=== PATIENT | male | born 1945 | race Caucasian/White ===

== ENCOUNTER → 2020-06-27 10:12 | Outpatient (BNVA) | payer MEDICARE, OTHER, SELFPAY | PROVIDERS: PCP Internal Medicine; Referring Provider Internal Medicine; Visit Provider Hospitalist | DX: J43.2 Centrilobular emphysema (principal); R91.8 Other nonspecific abnormal finding of lung field; I26.93 Single subsegmental thrombotic pulmonary embolism without acute cor pulmonale; Z99.89 Dependence on other enabling machines and devices | CPT/HCPCS: 99212 ==

== ENCOUNTER 2020-10-24 08:45 | Outpatient (REF) | payer MEDICARE, OTHER, SELFPAY ==
--- NOTE | 2020-10-24 17:24 | PFT_ITS ---
FLOWS: FEV1 of 92% of predicted at 3.02 L. FVC 82% of predicted at 3.70 L. FEV1 to FVC ratio of 0.82. No bronchodilator response. LUNG VOLUMES: Total lung capacity 87% of predicted at 6.33 L. Residual volume 91% of predicted at 2.35 L. Slow vital capacity 85% of predicted at 3.98 L. Expiratory reserve volume 15% of predicted at 0.20 L. Diffusion capacity is mildly decreased. IMPRESSION: No obstructive or restrictive ventilatory defect. No bronchodilator response. Decreased expiratory reserve volume suggests extrathoracic restriction likely secondary to abdominal obesity. Decreased diffusion capacity suggests emphysema. MD CHRIS Schultz/MODL / [id number]
== END 2020-10-24 08:46 | disposition home or self-care (01) ==
LOC: HO.RESP 08:45
PROVIDERS: PCP Internal Medicine; Visit Provider Hospitalist
DX: J43.2 Centrilobular emphysema (principal)
CPT/HCPCS: 94060; 94727; 94729; 99212

== ENCOUNTER → 2021-04-06 13:36 | Outpatient (BNVA) | payer MEDICARE, OTHER, SELFPAY | PROVIDERS: Visit Provider Orthopaedic Surgery | DX: M17.12 Unilateral primary osteoarthritis, left knee (principal); Z96.651 Presence of right artificial knee joint | CPT/HCPCS: 20610; 99212; J1100 ==

== ENCOUNTER → 2021-05-01 09:39 | Outpatient (BNVA) | payer MEDICARE, OTHER, SELFPAY | PROVIDERS: Visit Provider Hospitalist | DX: R91.8 Other nonspecific abnormal finding of lung field (principal); J43.2 Centrilobular emphysema; G47.33 Obstructive sleep apnea (adult) (pediatric); I26.93 Single subsegmental thrombotic pulmonary embolism without acute cor pulmonale; Z99.89 Dependence on other enabling machines and devices | CPT/HCPCS: 99212 ==

== ENCOUNTER → 2021-10-07 09:00 | Outpatient (BNVA) | payer MEDICARE, OTHER, SELFPAY | PROVIDERS: PCP Internal Medicine; Visit Provider Nurse Practitioner Family | DX: G56.02 Carpal tunnel syndrome, left upper limb (principal); G25.9 Extrapyramidal and movement disorder, unspecified; R42 Dizziness and giddiness; G47.33 Obstructive sleep apnea (adult) (pediatric); Z99.89 Dependence on other enabling machines and devices | CPT/HCPCS: 99212 ==

== ENCOUNTER 2021-10-27 13:46 | Outpatient (REF) | payer MEDICARE, OTHER, SELFPAY ==
--- NOTE | ~2021-10-27 | XR_ITS ---
EXAMINATION: XR CHEST CLINICAL INFORMATION: Dyspnea. COMPARISON: None TECHNIQUE: 2 views of the chest were obtained. FINDINGS: No significant abnormality is noted involving the heart, lungs, mediastinum, bony thorax or soft tissues. XR/XR chest 2V IMPRESSION: Unremarkable chest examination.
--- NOTE | 2021-10-27 14:41 | ECG_ITS ---
Test Reason : J44.9 COPD Blood Pressure : / mmHG Vent. Rate : 073 BPM Atrial Rate : 073 BPM P-R Int : 170 ms QRS Dur : 072 ms QT Int : 402 ms P-R-T Axes : 057 -27 062 degrees QTc Int : 442 ms Normal sinus rhythm Normal ECG When compared with ECG of 23-NOV-2018 11:20, Nonspecific T wave abnormality now evident in Lateral leads Referred By: Kingston Todd Electronically Signed By:REMI ADAMES MD
== END 2021-10-27 13:47 | disposition home or self-care (01) ==
LOC: HO.XRAY 13:46
PROVIDERS: PCP Internal Medicine; Visit Provider Hospitalist
DX: R06.00 Dyspnea, unspecified (principal); G47.33 Obstructive sleep apnea (adult) (pediatric); J43.2 Centrilobular emphysema; R91.8 Other nonspecific abnormal finding of lung field; I26.93 Single subsegmental thrombotic pulmonary embolism without acute cor pulmonale; Z99.89 Dependence on other enabling machines and devices
CPT/HCPCS: 71046; 93005; 99212

== ENCOUNTER 2021-11-26 06:57 | Outpatient (REF) | payer MEDICARE, OTHER, SELFPAY ==
--- NOTE | ~2021-11-26 | XR_ITS ---
EXAMINATION: XR PELVIS CLINICAL INFORMATION: Hip pain. COMPARISON: None TECHNIQUE: AP view of the pelvis. FINDINGS: There is no evidence of acute fracture or diastasis of the pelvis. No acute fracture or dislocation is appreciated on this single AP view of the hips. There is some spurring about the inferior hip joints bilaterally. No abnormality of the femoral heads is appreciated. There is partial sacralization of the right side of L5 with some sclerotic change about the right-sided sacroiliac joint. There appears to be degenerative disc disease and facet arthropathy at the L4-L5 level. XR/XR pelvis 1-2V IMPRESSION: No acute fracture or diastasis of the pelvis. Degenerative change of both hip joints inferiorly. Partial sacralization right side of L5 with degenerative change L4 through S1.
--- NOTE | ~2021-11-26 | XR_ITS ---
EXAMINATION: XR FOOT, RIGHT CLINICAL INFORMATION: Pain in right foot. COMPARISON: None TECHNIQUE: AP, lateral, and oblique views of the right foot. FINDINGS: There is no visible acute fracture, dislocation or subluxation seen. The joint spaces are maintained normal. No bony erosive changes. There is mild dorsal distal foot soft tissue swelling. XR/XR foot RT min 3V IMPRESSION: Mild dorsal distal foot soft tissue swelling. No visible acute fracture or dislocation seen.
== END 2021-11-26 06:58 | disposition home or self-care (01) ==
LOC: HO.HOSX 06:57
PROVIDERS: Visit Provider Orthopaedic Surgery
DX: M79.671 Pain in right foot (principal); M70.62 Trochanteric bursitis, left hip; M47.9 Spondylosis, unspecified; M79.89 Other specified soft tissue disorders
CPT/HCPCS: 72170; 73630; 99212

== ENCOUNTER 2021-12-28 09:13 | Outpatient (REF) | payer MEDICARE, OTHER, SELFPAY ==
--- NOTE | ~2021-12-28 | XR_ITS ---
EXAMINATION: XR LUMBAR SPINE XR SI JOINT CLINICAL INFORMATION: Spondylosis without myelopathy or radiculopathy. COMPARISON: None TECHNIQUE: Lumbar spine 5 views. SI joint 3 views. FINDINGS: There is normal lumbar lordosis. The vertebral heights and alignment are normal. There is loss of L2-L3 disc height with moderate ventral spondylosis. No lytic or sclerotic process seen. Mild loss of L5-S1 disc height is noted with right sacralization of the L5 vertebra. No visible acute fracture, dislocation seen. No lytic process. There is mild L4-L5 facet joint arthropathy and hypertrophy. SI Joints: There is normal symmetry of bilateral SI joints. No visible acute fracture or bony abnormality seen. No lytic or sclerotic process seen. The soft tissues are normal. XR/XR sacroiliac joint min 3V IMPRESSION: Degenerative disc changes at the L2-L3 and L5-S1 disc levels. There is moderate ventral bridging osteophytes at L2-L3 and mild ventral spondylosis at the L3-L4 disc level. No acute fracture or dislocation. No lytic process. The SI joints are symmetrical and unremarkable.
--- NOTE | ~2021-12-28 | XR_ITS ---
EXAMINATION: XR LUMBAR SPINE XR SI JOINT CLINICAL INFORMATION: Spondylosis without myelopathy or radiculopathy. COMPARISON: None TECHNIQUE: Lumbar spine 5 views. SI joint 3 views. FINDINGS: There is normal lumbar lordosis. The vertebral heights and alignment are normal. There is loss of L2-L3 disc height with moderate ventral spondylosis. No lytic or sclerotic process seen. Mild loss of L5-S1 disc height is noted with right sacralization of the L5 vertebra. No visible acute fracture, dislocation seen. No lytic process. There is mild L4-L5 facet joint arthropathy and hypertrophy. SI Joints: There is normal symmetry of bilateral SI joints. No visible acute fracture or bony abnormality seen. No lytic or sclerotic process seen. The soft tissues are normal. XR/XR lumbar spine 4V min IMPRESSION: Degenerative disc changes at the L2-L3 and L5-S1 disc levels. There is moderate ventral bridging osteophytes at L2-L3 and mild ventral spondylosis at the L3-L4 disc level. No acute fracture or dislocation. No lytic process. The SI joints are symmetrical and unremarkable.
== END 2021-12-28 09:14 | disposition home or self-care (01) ==
LOC: HO.XRAY 09:13
PROVIDERS: PCP Internal Medicine; Visit Provider Nurse Practitioner Family
DX: M47.816 Spondylosis without myelopathy or radiculopathy, lumbar region (principal); M62.830 Muscle spasm of back; M16.0 Bilateral primary osteoarthritis of hip; M53.3 Sacrococcygeal disorders, not elsewhere classified; Q76.49 Other congenital malformations of spine, not associated with scoliosis; Z87.891 Personal history of nicotine dependence
CPT/HCPCS: 72110; 72202; 99202

== ENCOUNTER → 2022-01-07 09:22 | Outpatient (BNVA) | payer MEDICARE, OTHER, SELFPAY | PROVIDERS: PCP Internal Medicine; Visit Provider Nurse Practitioner Family | DX: M53.3 Sacrococcygeal disorders, not elsewhere classified (principal); M47.816 Spondylosis without myelopathy or radiculopathy, lumbar region; M16.0 Bilateral primary osteoarthritis of hip; M62.830 Muscle spasm of back; Q76.49 Other congenital malformations of spine, not associated with scoliosis; Z79.899 Other long term (current) drug therapy | CPT/HCPCS: 99212 ==

== ENCOUNTER → 2022-03-01 08:18 | Outpatient (BNVA) | payer MEDICARE, OTHER, SELFPAY | PROVIDERS: PCP Internal Medicine; Visit Provider Nurse Practitioner Family | DX: Q76.49 Other congenital malformations of spine, not associated with scoliosis (principal); M53.3 Sacrococcygeal disorders, not elsewhere classified; M47.816 Spondylosis without myelopathy or radiculopathy, lumbar region; M62.830 Muscle spasm of back | CPT/HCPCS: 99212 ==

== ENCOUNTER → 2022-03-18 09:24 | Outpatient (BNVA) | payer MEDICARE, OTHER, SELFPAY | PROVIDERS: PCP Internal Medicine; Visit Provider Nurse Practitioner Family | DX: G25.9 Extrapyramidal and movement disorder, unspecified (principal); R42 Dizziness and giddiness; Z79.899 Other long term (current) drug therapy | CPT/HCPCS: 99212 ==

== ENCOUNTER 2022-03-23 06:09 | Outpatient (REF) | payer MEDICARE, OTHER, SELFPAY ==
--- NOTE | ~2022-03-23 | FL_ITS ---
EXAMINATION: XR FLUOROSCOPY WITH IMAGES CLINICAL INFORMATION: Spondylosis lumbar region COMPARISON: None. TECHNIQUE: Fluoroscopy performed by Dr. Juan Gomez. Fluoroscopy time: 0.5 minutes. Cumulative Dose: 11 mGy. DAP: 3 Gy-cm2. Images: 6. FINDINGS: Images demonstrate needle placement and contrast injection adjacent to the bilateral L4 and L5 vertebral bodies. FL/FL guidance in treatment room IMPRESSION: Fluoroscopy guidance for pain management procedure.
== END 2022-03-23 06:10 | disposition home or self-care (01) ==
LOC: HO.RADIR 06:09
PROVIDERS: Visit Provider Anesthesiology
DX: M47.816 Spondylosis without myelopathy or radiculopathy, lumbar region (principal); Q76.49 Other congenital malformations of spine, not associated with scoliosis; M53.3 Sacrococcygeal disorders, not elsewhere classified; M62.830 Muscle spasm of back
CPT/HCPCS: 64493; 64494

== ENCOUNTER → 2022-04-01 10:47 | Outpatient (BNVA) | payer MEDICARE, OTHER, SELFPAY | PROVIDERS: PCP Internal Medicine; Visit Provider Nurse Practitioner Family | DX: M47.816 Spondylosis without myelopathy or radiculopathy, lumbar region (principal); M51.36 Other intervertebral disc degeneration, lumbar region; M62.830 Muscle spasm of back; Q76.49 Other congenital malformations of spine, not associated with scoliosis | CPT/HCPCS: Q3014 ==

== ENCOUNTER → 2022-04-23 10:39 | Outpatient (BNVA) | payer MEDICARE, OTHER, SELFPAY | PROVIDERS: PCP Internal Medicine; Visit Provider Hospitalist | DX: J43.2 Centrilobular emphysema (principal); G47.33 Obstructive sleep apnea (adult) (pediatric); R06.00 Dyspnea, unspecified; R91.8 Other nonspecific abnormal finding of lung field; I26.93 Single subsegmental thrombotic pulmonary embolism without acute cor pulmonale; Z79.01 Long term (current) use of anticoagulants; Z99.89 Dependence on other enabling machines and devices | CPT/HCPCS: 99212 ==

== ENCOUNTER 2022-04-27 06:00 | Outpatient (REF) | payer MEDICARE, OTHER, SELFPAY ==
--- NOTE | ~2022-04-27 | FL_ITS ---
EXAMINATION: XR FLUOROSCOPY WITH IMAGES CLINICAL INFORMATION: M51.36 - Other intervertebral disc degeneration, lumbar region COMPARISON: Lumbar radiographs 12/28/2021 TECHNIQUE: Fluoroscopy performed by Dr. Juan Gomez. Fluoroscopy time: 0.5 minutes. Cumulative Dose: 12.1 mGy. DAP: 3.30 Gy-cm2. Images: 6. FINDINGS: There are spinal needles overlying the bilateral outer L4, and L5 neural foramen. There is contrast seen in the respective nerve sheaths. Some early transforaminal epidural extension is suggested. No visible vascular communication. There are degenerative changes lumbar spine with disc narrowing. Bulky right lateral bridging osteophyte again noted mid lumbar spine and guillermo transitional vertebral body L5. FL/FL guidance in treatment room IMPRESSION: Fluoroscopy for pain management procedures.
== END 2022-04-27 06:01 | disposition home or self-care (01) ==
LOC: CF 06:00
PROVIDERS: Visit Provider Anesthesiology
DX: Q76.49 Other congenital malformations of spine, not associated with scoliosis (principal); M47.816 Spondylosis without myelopathy or radiculopathy, lumbar region; M62.830 Muscle spasm of back; M51.36 Other intervertebral disc degeneration, lumbar region
CPT/HCPCS: 64493; 64494; A9585; J2795; J3300

== ENCOUNTER → 2022-05-31 08:46 | Outpatient (BNVA) | payer MEDICARE, OTHER, SELFPAY | PROVIDERS: PCP Internal Medicine; Visit Provider Nurse Practitioner Family | DX: Q76.49 Other congenital malformations of spine, not associated with scoliosis (principal); M47.816 Spondylosis without myelopathy or radiculopathy, lumbar region; M51.36 Other intervertebral disc degeneration, lumbar region; M53.3 Sacrococcygeal disorders, not elsewhere classified; M16.0 Bilateral primary osteoarthritis of hip | CPT/HCPCS: 99212 ==

== ENCOUNTER → 2022-06-03 09:11 | Outpatient (BNVA) | payer MEDICARE, OTHER, SELFPAY | PROVIDERS: PCP Internal Medicine; Visit Provider Orthopaedic Surgery | DX: M19.072 Primary osteoarthritis, left ankle and foot (principal); M19.071 Primary osteoarthritis, right ankle and foot; Z96.651 Presence of right artificial knee joint | CPT/HCPCS: 99212 ==

== ENCOUNTER 2022-07-20 06:31 | Outpatient (REF) | payer MEDICARE, OTHER, SELFPAY ==
--- NOTE | ~2022-07-20 | FL_ITS ---
EXAMINATION: XR FLUOROSCOPY WITH IMAGES CLINICAL INFORMATION: M53.3 - Sacrococcygeal disorders, not elsewhere classified COMPARISON: Sacroiliac joints radiographs 12/28/2021 TECHNIQUE: Fluoroscopy Supervised By: Dr. Juan Gomez. Fluoroscopy Time: 0.2 minutes. Cumulative Dose: 10.8 mGy. DAP: 4 Gycm2. Images: 2. FINDINGS: Spinal needle overlies mid to lower left and mid to lower right SI joints, respectively. There is some contrast in the periarticular soft tissues with probable early intra-articular articular contrast. Again, there is probable transitional vertebrae lower lumbar spine with right hemisacralization and left guillermo lumbarization. FL/FL guidance in treatment room IMPRESSION: Fluoroscopy for pain management procedure.
== END 2022-07-20 06:32 | disposition home or self-care (01) ==
LOC: CF 06:31
PROVIDERS: Visit Provider Anesthesiology
DX: M53.3 Sacrococcygeal disorders, not elsewhere classified (principal)
CPT/HCPCS: 27096; J3301

== ENCOUNTER → 2022-08-23 09:22 | Outpatient (BNVA) | payer MEDICARE, OTHER, SELFPAY | PROVIDERS: PCP Internal Medicine; Visit Provider Nurse Practitioner Family | DX: M47.816 Spondylosis without myelopathy or radiculopathy, lumbar region (principal); M51.36 Other intervertebral disc degeneration, lumbar region; M53.3 Sacrococcygeal disorders, not elsewhere classified; M25.561 Pain in right knee; Q76.49 Other congenital malformations of spine, not associated with scoliosis; Z98.890 Other specified postprocedural states | CPT/HCPCS: 99212 ==

== ENCOUNTER 2022-09-16 07:26 | Outpatient (REF) | payer MEDICARE, OTHER, SELFPAY | END 2022-09-16 07:27 | disposition home or self-care (01) | LOC: HO.LAB 07:26 | PROVIDERS: PCP Internal Medicine; Visit Provider Nurse Practitioner Family | DX: R25.1 Tremor, unspecified (principal); R25.2 Cramp and spasm | CPT/HCPCS: 99212 ==

== ENCOUNTER 2022-09-17 09:44 | Outpatient (REF) | payer MEDICARE, OTHER, SELFPAY ==
[2022-09-17 10:00] LABS: MANUAL DIFF FLAG NO
[2022-09-17 10:13] LABS: Basophils Percent Auto 0.5 % (0-2); Eosinophils Absolute Auto 0.2 X10*3/uL (0.0-0.4); Hematocrit 43.4 % (42.0-52.0); Hemoglobin 15.4 g/dl (14.0-18.0); Imm Gran Abs Auto 0.02 X10*3/uL (0.00-0.03); Imm Gran Pct Auto 0.3 % (0.0-0.4); Lymphocytes Absolute Auto 1.8 X10*3/uL (1.2-4.9); Lymphocytes Percent Auto 27.2 % (20-40); Mean Corpuscular HGB Conc 35.5 g/dl (31.0-36.0); Mean Corpuscular Hemoglobin 35.3 pg (27.0-33.0); Mean Corpuscular Volume 99.5 fL (80.0-98.0); Mean Platelet Volume 9.6 fL (9.4-12.4); Monocytes Absolute Auto 0.6 X10*3/uL (0.1-1.2); Platelet Count 221 X10*3/uL (160-400); Red Blood Count 4.36 X10*6/uL (4.60-5.80); Red Cell Distribution Width 14.7 % (11.0-16.0); White Blood Count 6.7 X10*3/uL (4.8-10.8)
[2022-09-17 10:55] LABS: Erythrocyte Sedimentation Rate 6 MM/HR (0-15)
[2022-09-17 11:08] LABS: Alanine Aminotransferase 20 U/L (0-40); Albumin Level 4.2 g/dL (3.5-5.0); Alkaline Phosphatase 75 U/L (39-117); Anion Gap 13 (12-20); Aspartate Amino Transferase 31 U/L (5-37); Bilirubin Total 1.1 mg/dL (0.0-1.0); Blood Urea Nitrogen 13 mg/dL (9-16); Calcium 9.3 mg/dL (8.4-10.2); Carbon Dioxide 25 mmol/L (22-29); Chloride 110 mmol/L (96-108); Estimated Glomerular Filt Rate 55; Glucose Random 109 mg/dL (60-115); Potassium 4.6 mmol/L (3.3-5.1); Sodium 143 mmol/L (135-145); Total Protein 6.7 g/dL (6.5-8.0)
[2022-09-17 11:31] LABS: Folate > 20.0 ng/mL (> or = 4.0); Vitamin B12 > 2000 pg/mL (200-900)
== END 2022-09-17 09:45 | disposition home or self-care (01) ==
LOC: HO.LAB 09:44
PROVIDERS: PCP Internal Medicine; Visit Provider Nurse Practitioner Family
DX: R25.2 Cramp and spasm (principal); R42 Dizziness and giddiness; R25.1 Tremor, unspecified; R06.00 Dyspnea, unspecified
CPT/HCPCS: 36415; 80053; 82550; 82607; 82746; 85025; 85652

== ENCOUNTER → 2022-10-19 11:03 | Outpatient (BNVA) | payer MEDICARE, OTHER, SELFPAY | PROVIDERS: PCP Internal Medicine; Visit Provider Hospitalist | DX: J43.2 Centrilobular emphysema (principal); R91.8 Other nonspecific abnormal finding of lung field; G47.33 Obstructive sleep apnea (adult) (pediatric); I26.93 Single subsegmental thrombotic pulmonary embolism without acute cor pulmonale; R06.00 Dyspnea, unspecified; Z99.89 Dependence on other enabling machines and devices | CPT/HCPCS: 99212 ==

== ENCOUNTER → 2022-12-24 11:20 | Outpatient (BNVA) | payer MEDICARE, OTHER, SELFPAY | PROVIDERS: PCP Internal Medicine; Visit Provider Nurse Practitioner Family | DX: Q76.49 Other congenital malformations of spine, not associated with scoliosis (principal); M47.816 Spondylosis without myelopathy or radiculopathy, lumbar region; M51.36 Other intervertebral disc degeneration, lumbar region; M53.3 Sacrococcygeal disorders, not elsewhere classified; M25.561 Pain in right knee | CPT/HCPCS: 99212 ==

== ENCOUNTER → 2023-01-03 13:07 | Outpatient (BNVA) | payer MEDICARE, OTHER, SELFPAY | PROVIDERS: PCP Internal Medicine; Visit Provider Hospitalist | DX: Z01.811 Encounter for preprocedural respiratory examination (principal); R06.00 Dyspnea, unspecified; R91.8 Other nonspecific abnormal finding of lung field; I26.93 Single subsegmental thrombotic pulmonary embolism without acute cor pulmonale; J43.2 Centrilobular emphysema; G47.33 Obstructive sleep apnea (adult) (pediatric); Z99.89 Dependence on other enabling machines and devices | CPT/HCPCS: 99212 ==

== ENCOUNTER → 2023-01-07 11:15 | Outpatient (BNVA) | payer MEDICARE, OTHER, SELFPAY | PROVIDERS: PCP Student in an Organized Health Care Education/Training Program; Visit Provider Nurse Practitioner Family | DX: R25.1 Tremor, unspecified (principal); R25.2 Cramp and spasm; G25.9 Extrapyramidal and movement disorder, unspecified | CPT/HCPCS: 99212 ==

== ENCOUNTER 2023-02-01 06:58 | Outpatient (REF) | payer MEDICARE, OTHER, SELFPAY ==
--- NOTE | ~2023-02-01 | FL_ITS ---
EXAMINATION: XR FLUOROSCOPY WITH IMAGES CLINICAL INFORMATION: Sacral coccygeal disorder COMPARISON: None available. TECHNIQUE: Fluoroscopy Supervised By: Dr. Juan Gomez. Fluoroscopy Time: 0.2 minutes. Cumulative Dose: 9.37 mGy. DAP: 0.162 Gycm2. Images: 2. FINDINGS: Image demonstrates a needle superimposing over the region of the right SI joint. Image demonstrates a needle in the region of the left SI joint. FL/FL guidance in treatment room IMPRESSION: Imaging assistance provided during a fluoroscopic procedure
== END 2023-02-01 06:59 | disposition home or self-care (01) ==
LOC: CF 06:58
PROVIDERS: PCP Internal Medicine; Visit Provider Anesthesiology
DX: M53.3 Sacrococcygeal disorders, not elsewhere classified (principal); M47.816 Spondylosis without myelopathy or radiculopathy, lumbar region; M51.36 Other intervertebral disc degeneration, lumbar region; Q76.49 Other congenital malformations of spine, not associated with scoliosis
CPT/HCPCS: 27096; A9585; J2795; J3301

== ENCOUNTER 2023-02-01 07:18 | Outpatient (AMB) | payer MEDICARE, OTHER, SELFPAY ==
[2023-02-01 07:31] VITALS: BP 120/78; PULSE 90; RESP 18; O2SAT 93; BMI 33.0
--- NOTE | 2023-02-01 07:31 | A.OFFVIS_ITS ---
Intake Vital Signs 02/01/23 07:31 02/01/23 09:40 Height 5 ft 10 in 5 ft 10 in Weight 230 lb 230 lb BMI 33.0 33.0 BP 120/78 128/78 Blood Pressure Location Lt brachial Rt brachial Position Sitting Sitting Respiration 18 16 Pulse 90 79 Pulse Source Pulse Oximeter Pulse Oximeter Pulse Oximetry (%) 93 97 Oxygen Delivery Method Room Air Room Air Comment Pre-Op Post-op Intake Visit Reasons: BILAT THERAPEUTIC SIJ INJ *IV CONTRAST ALLERGY* Allergies fluticasone furoate [Trelegy Ellipta] Allergy (Severe, Verified 02/01/23 07:32) Thrush umeclidinium [Trelegy Ellipta] Allergy (Severe, Verified 02/01/23 07:32) Thrush vilanterol [Trelegy Ellipta] Allergy (Severe, Verified 02/01/23 07:32) Thrush Iodinated Contrast Media [IV CONTRAST] Adverse Reaction (Mild, Verified 02/01/23 07:32) FLUSHING PFSH Medical History COPD (chronic obstructive pulmonary disease) Dyspnea Dyspnea Obesity [place] on CPAP Personal history of nicotine dependence Pulmonary emboli Pulmonary nodules Surgical History History of appendectomy History of total right knee replacement (TKR) (~2018) Family History Father Heart disease Mother Heart disease Social History Alcohol intake: current Alcohol intake frequency: a few times a week Patient Tobacco Use Status: Former Tobacco user Quit Date: 2013 Physical Exam Vital Signs: Last Vital Signs Pulse 79 02/01/23 09:40 Resp 16 02/01/23 09:40 BP 128/78 02/01/23 09:40 Pulse Ox 97 02/01/23 09:40 Oxygen Delivery Method Room Air 02/01/23 09:40 BMI result Body Mass Index 33.0 Results Reviewed Results Reviewed: 02/01/23 07:30 Lidocaine HCl 2 % MPF [Xylocaine 2 % MPF] 5 ml .ROUTE .STK-MED ONE ROPivacaine HCl/PF 0.5% [Naropin 0.5%] 150 mg .ROUTE .STK-MED ONE Triamcinolone Acetonide [Kenalog-40] 40 mg .ROUTE .STK-MED ONE 02/01/23 09:11 GadobutroL [Gadavist] 10 ml IVPUSH .STK-MED ONE Assessment & Plan Assessment & Plan (1) Sacralization of lumbar vertebra: Code(s): Q76.49 - Other congenital malformations of spine, not associated with scoliosis (2) Lumbar spondylosis: Code(s): M47.816 - Spondylosis without myelopathy or radiculopathy, lumbar region (3) Lumbar degenerative disc disease: Code(s): M51.36 - Other intervertebral disc degeneration, lumbar region (4) Sacroiliac joint dysfunction: Code(s): M53.3 - Sacrococcygeal disorders, not elsewhere classified Plan: Bilateral therapeutic sacroiliac joint injection. Informed consent was explained thoroughly to the patient. All questions about benefits and risks for the procedure were answered. Patient came to the operating room and was positioned prone on the operating table with the pillow under the pelvis. [employer] monitors were applied and patient was deeply sedated. Time out was performed delineating name and of the patient, allergies and the nature of the procedure. The lower back and buttocks of the patient were prepped with ChloraPrep prepped and draped with sterile utility towels. C-arm was brought over the operating field and sq picture of patient's pelvis was demonstrated on the screen. For the right joint tilting C-arm contralateral to the site of the joint the most posterior portion of the joints was superimposed with anterior silhouette of the joint. Skin was injected in the projection of the joint slightly medial to the location of the joint with 25 gauge 1/2 inch needle using local lidocaine 2% .After that 22 gauge 3 and 1/2 inch needle was driven to the right joint in tunnel vision fashion. When needle entered the joint capsule injection of the gadavist contrast was performed demonstrating intra-articular and minimally periarticular spread of the contrast. After that 4 cc. of ropivacaine 0.5% mixed with kenalog 20 mg was injected into the joint. The procedure was repeated on the lefts side in mirroring fashion. Upon completion of the injections the needle was removed Sterile dressing was applied. Upon completion of the injection patient was taken outside of the operating room to the recovery room where recovered uneventfully. (5) Right knee pain: Code(s): M25.561 - Pain in right knee Plan 1. Schedule Bilateral Therapeutic SIJ injections with local and fluoroscopy. Last SIJ injections were on 07/20/[address] Gomez provided him 70% pain relief for 6 months and improved mobility, functioning and sleep. 2. Schedule for Right L5 Medial Branch Sprint PNS trial for axial low back pain on right side. We also discussed repeating therapeutic injections and RFA procedure. 3. For right knee pain with history of right TKS on 12/12/18 we will plan for Diagnostic right femoral nerve block with local and fluoroscopy for potential temporary peripheral nerve stimulator lead with SPRINT system for longer term pain relief. We will schedule this after SIJ injections and Lumbar Sprint PNS procedures. All questions were answered, patient agreed with the plan. Follow up after injections and sooner if needed. Anticoagulation: Patient is on Eliquis. Will obtain clearance to hold medication for 3 days prior to injection. Justification for interventional therapy: ? Patient with average pain > 6/10 ? Patient has exhausted conservative therapy, including NSAIDs, physical therapy The risks, consequences, alternatives, and benefits of various treatment options were discussed with the patient in great detail, including conservative management, injections and procedures. Patient is informed of hyperglycemic effects of steroids. Orders: Orders FL guidance in treatment room Today M53.3 - Sacrococcygeal disorders, not elsewhere classified Coding Level of Care Code Procedure Only Diagnoses Sacralization of lumbar vertebra Q76.49 Lumbar spondylosis M47.816 Lumbar degenerative disc disease M51.36 Sacroiliac joint dysfunction M53.3 Right knee pain M25.561
[2023-02-01 09:40] VITALS: BP 128/78; PULSE 79; RESP 16; O2SAT 97; BMI 33.0
== END 2023-02-01 09:32 | disposition home or self-care (01) ==
LOC: HO.PMCPRC 07:18
PROVIDERS: PCP Internal Medicine; Visit Provider Anesthesiology
DX: M53.3 Sacrococcygeal disorders, not elsewhere classified (principal)
CPT/HCPCS: 27096

== ENCOUNTER 2023-03-09 09:48 | Outpatient (AMB) | payer MEDICARE, OTHER, SELFPAY ==
--- NOTE | 2023-03-09 09:57 | MHC.OFFVIS ---
Intake Vital Signs 03/09/23 09:59 Height 5 ft 10 in Weight 230 lb BMI 33.0 BP 138/76 Blood Pressure Location Lt brachial Position Sitting Respiration 16 Pulse 84 Pulse Source Pulse Oximeter Pulse Oximetry (%) 94 Oxygen Delivery Method Room Air Intake Visit Reasons: BILAT THERAPEUTIC SIJ INJ 02/01/23 Allergies fluticasone furoate [Trelegy Ellipta] Allergy (Severe, Verified 03/09/23 09:58) Thrush umeclidinium [Trelegy Ellipta] Allergy (Severe, Verified 03/09/23 09:58) Thrush vilanterol [Trelegy Ellipta] Allergy (Severe, Verified 03/09/23 09:58) Thrush Iodinated Contrast Media [IV CONTRAST] Adverse Reaction (Mild, Verified 03/09/23 09:58) FLUSHING HPI HPI Comments History of Present Illness Details Seamus is today to discuss the results of sacroiliac joint injection which was performed on him on 02/01/2023. He reports 1 month of significant pain relief. He reports better mobility better social interactions better activities of daily living. He reports that he is interested in some neuromodulation procedures and SI joint fusion to fix his pain in the sacroiliac joint permanently. He requests brochures which will be sent to him. Alternatively we can continue to perform sacroiliac joint injection with seem to be giving him good results. Prior: Therapeutic SI joint injection provided him over 6-8 months pain relief until recent return of his pain to baseline. Denies any recent trauma, injury, falls. He reports low back pain that is right sided but also radiates to both buttocks and lateral hips. Pain increases with movements, extension, changing positions, bending, and walking. Patient also reports chronic right knee pain with prior history of right TKR on 12/12/18. Denies fever, weight changes, abdominal or groin pain, knee bucking or locking, bladder or bowel incontinence or saddle anesthesia. Past Procedures: 07/20/22: Bilateral Therapeutic SIJ injections-70% ongoing pain relief 04/27/22:Bilateral Therapeutic L3 L4 DR L5 MBB -50% pain relief 03/23/22: Bilateral Diagnostic L3 L4 DR L5 MBB-80% for first 3 hours, 70% for next 4 hours PRIOR: Seamus presents today in the office after completing 6 weeks of PT at [facility]. He notes minimal improvement with PT and continues HEP regularly. He does notices improvement in his daily functioning and activities after PT but continues to endorse axial, non-radiating pain across his lower back, left worse than right. Patient reports increase in pain with prolonged standing of more than 1-2 hours before he needs to rest. He states tizandine prn and gabapentin at bedtime has been very helpful without noted side effects and that he is able to sleep through the night better than before. Patient continues to take daily marijuana edibles that he grows himself. He is interested to undergo diagnostic lumbar medial branch blocks with consideration of a PNS trial, RFA or therapeutic injections. Patient denies any fever, weight loss, weakness, bowel or bladder incontinence, or saddle anesthesia. Ambulates with mildly antalgic gait and no use of cane today. PRIOR: Patient returns to the office today to discuss lumbar spine and SIJ imaging results. He recently initiated formal PT and is establishing HEP. He continues to endorse lower back pain and left hip pain but also has right hip periodically too. He reports tizanidine has been helpful at bedtime and allows him to sleep better. However, he continues to have difficulty with mobility and daily functioning with current pain. He has hard time with climbing stairs, squatting, picking up objects from the floor or going for walks. We reviewed his recent imaging which are noted below. His bilateral SI joints symmetrical without any lytic, sclerotic or bone abnormality. Lumbar spine imaging is consistent with degenerative disc changes at the L2-L3 and L5-S1 disc levels. There is moderate ventral bridging osteophytes at L2-L3 and mild ventral spondylosis at the L3-L4 disc level. No acute fracture or dislocation. FOR[facility]LY [facility] Medical History COPD (chronic obstructive pulmonary disease) Dyspnea Dyspnea Obesity [place] on CPAP Personal history of nicotine dependence Pulmonary emboli Pulmonary nodules Surgical History History of appendectomy History of total right knee replacement (TKR) (~2019) Family History Father Heart disease Mother Heart disease Social History Alcohol intake: current Alcohol intake frequency: a few times a week Patient Tobacco Use Status: Former Tobacco user Quit Date: 2013 Review of Systems Const All systems reviewed & are unremarkable except as noted in HPI and below ENT Reports Normal hearing present Neuro Reports Normal hearing present, Denies confusion and Denies Sensory deficit (Neuro) Psych Denies confusion Physical Exam Vital Signs: Last Vital Signs Pulse 84 03/09/23 09:59 Resp 16 03/09/23 09:59 BP 138/76 03/09/23 09:59 Pulse Ox 94 03/09/23 09:59 Oxygen Delivery Method Room Air 03/09/23 09:59 BMI result Body Mass Index 33.0 Const General: cooperative, healthy appearing, no acute distress, alert, awake and well groomed; No confusion Nutritional Appearance: overweight Orientation/consciousness: patient oriented x3 and No confusion Limitations: ambulation with cane HEENT Head: Yes normal to inspection and Yes normocephalic Ears: hearing grossly normal bilaterally Face and sinus: Yes normal facial exam and Yes face symmetric Eyes General: appearance normal, both eyes and all related structures Visual Atkinson: normal visual atkinson by confrontation Pupils: Equal, round and reactive pupils present EOM: EOMs intact bilaterally Resp Effort & Inspection: normal respiratory effort, able to speak in complete sentences, no audible wheezes and no cough Cardio Peripheral pulses: radial pulses present, posterior tibial pulses present and dorsalis pedis present GI Inspection: Yes normal to inspection and Yes obesity Palpation (GI): Soft to palpation and no guarding General: Yes no CVA tenderness Back/Spine/Pelvis Other: Lumbar extension reproduces significant pain. Mild pain with flexion. Back: no CVA tenderness and back tenderness Cervical Spine: cervical ROM normal and No Cervical spine tenderness Thoracic/Lumbar Spine: thoracic and lumbar spine normal to inspection, thoraco-lumbar ROM normal, Lasegue's sign negative, straight leg raise negative bilaterally, pain with thoraco-lumbar ROM, paraspinal muscle tenderness, thoraco-lumbar ROM limited, No thoracic spinal tenderness and lumbar spinal tenderness at L3, at L4 and at L5 Pelvis: buttock tenderness bilaterally Sacroiliac joints: bilaterally (+[place], +Patricks, +Stinchfield, +Pelvic compression, +Gaenslen tests R>L) tender to palpation Skin General skin exam: no rashes or lesions noted Neuro General: patient oriented x3, moves all extremities, Normal light touch and pain sensation, CN's II-XI intact bilaterally and No confusion Cranial nerves: Yes Equal, round and reactive pupils present and Yes Normal hearing present Cognition (Neuro): normal cognition Gait exam (Neuro): Antalgic gait present and Assistive device used Motor exam (neuro): no tremor noted and Motor abnormalities not present Sensory Exam: No Sensory deficit (Neuro) Extrem General: Yes capillary refill normal, Yes no clubbing, cyanosis or edema and Yes no calf tenderness Right lower extremity: knee Details: normal to inspection, tenderness (anterior knee in suprapatellar and slightly medial joint line tenderness) and normal ROM; no swelling and no unusual warmth Psych Appearance: grossly normal and well kempt Mental Status: mental status grossly normal Speech and movement: Normal speech and movement present and Clear speech present Affect: normal affect Attitude: cooperative Thought process: Normal thought process present Thought content: Normal thought content present Insight: Good insight present (Psych) Judgement: Good judgement present (Psych) Assessment & Plan Assessment & Plan (1) Sacralization of lumbar vertebra: Code(s): Q76.49 - Other congenital malformations of spine, not associated with scoliosis (2) Lumbar spondylosis: Code(s): M47.816 - Spondylosis without myelopathy or radiculopathy, lumbar region (3) Lumbar degenerative disc disease: Code(s): M51.36 - Other intervertebral disc degeneration, lumbar region (4) Sacroiliac joint dysfunction: Code(s): M53.3 - Sacrococcygeal disorders, not elsewhere classified (5) Right knee pain: Code(s): M25.561 - Pain in right knee Plan 1. Bilateral Therapeu tic SIJ injections with local and fluoroscopy gave him 70-80% pain improvement this time it was performed on 02/01/2023. Before that he received SIJ injections were on 07/20/22 which provided him 70% pain relief for 6 months and improved mobility, functioning and sleep. He is interested in some permanent solution for the SI joint pain. Curonix/ stim wave and SI joint fusion were discussed with the patient brochure will be sent to the patient. Although his age is advanced he seem to be very well-built and with no signs of osteoporosis so the fusion might be considered if patient is interested and understands the issues related to the procedure. For curonix procedure he would need to go for psych evaluation 1st. 2. He is not interested in spring procedure at this time because he reports that therapeutic medial branch block provided for him still lasting good pain relief. 3. The knee problems were not discussed today. 4. He will give us a call after reading the brochures and he will come back for the appointment to discuss the SI joint treatment modalities. Anticoagulation: Patient is on Eliquis. Will obtain clearance to hold medication for 3 days prior to injection. Justification for interventional therapy: ? Patient with average pain > 6/10 ? Patient has exhausted conservative therapy, including NSAIDs, physical therapy The risks, consequences, alternatives, and benefits of various treatment options were discussed with the patient in great detail, including conservative management, injections and procedures. Patient is informed of hyperglycemic effects of steroids. Coding Level of Care Code Est Pt Level 4 (72962) Diagnoses Sacralization of lumbar vertebra Q76.49 Lumbar spondylosis M47.816 Lumbar degenerative disc disease M51.36 Sacroiliac joint dysfunction M53.3 Right knee pain M25.561
[2023-03-09 09:59] VITALS: BP 138/76; PULSE 84; RESP 16; O2SAT 94; BMI 33.0
== END 2023-03-09 10:32 | disposition home or self-care (01) ==
PROVIDERS: PCP Internal Medicine; Visit Provider Anesthesiology
DX: M47.816 Spondylosis without myelopathy or radiculopathy, lumbar region (principal); M51.36 Other intervertebral disc degeneration, lumbar region; Q76.49 Other congenital malformations of spine, not associated with scoliosis; M53.3 Sacrococcygeal disorders, not elsewhere classified; M25.561 Pain in right knee
CPT/HCPCS: 99214

== ENCOUNTER → 2023-03-09 09:48 | Outpatient (BNVA) | payer MEDICARE, OTHER, SELFPAY | PROVIDERS: PCP Internal Medicine; Visit Provider Anesthesiology | DX: Q76.49 Other congenital malformations of spine, not associated with scoliosis (principal); M47.816 Spondylosis without myelopathy or radiculopathy, lumbar region; M51.36 Other intervertebral disc degeneration, lumbar region; M53.3 Sacrococcygeal disorders, not elsewhere classified; M25.561 Pain in right knee | CPT/HCPCS: 99212 ==

== ENCOUNTER 2023-04-19 10:51 | Outpatient (AMB) | payer MEDICARE, OTHER, SELFPAY ==
[2023-04-19 10:56] VITALS: PULSE 75; O2SAT 94; BMI 34.1
--- NOTE | 2023-04-19 10:56 | MHC.OFFVIS ---
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 Patient currently takes Eliquis 5 mg twice a day with good results. He also had a recent CT scan of the chest per the lung cancer screening of [facility] give him a RADS 2 and otherwise will have a follow-up CT scan in a year's time. In the meantime he has been complaining of worsening cough shortness of breath. His cough usually is with thick clear mucus. It does bother him. He does not feel this the Stiolto has been very effective for him. He did better with the Anoro. At this point the patient probably benefit from inhaled corticosteroid. Sitter for trilogy will be a better inhaler for him. He continues uses CPAP. The CPAP therapy continues to be affecting beneficial. He is it every night more than 4 hours a night. Developed LLE swelling and had a neg LE doppler. He went to urgent care and was diagnosed with cellulitis. Completed 2 courses of antibiotics and is overall better. His breathing is stable. Continues on the Eliquis without any adverse effects. The CPAP therapy is effective and beneficial, using in more than 4 hours at night. Respiratory meds are working and without any new issues. 05/01/2021 the patient is here for a pulmonary follow-up visit. Overall he is doing well from a respiratory status. He stop the QVAR and did not notice any worsening symptoms. He is wondering if he can stop the Stiolto. In the meantime the patient denies any wheezing or chest tightness. He has been having some weight gain issues however. She did hurt his ankle and has been able to exercise regularly. He is using the CPAP. The CPAP therapy continues to be affecting beneficial to he does use it for more than 4 hours a night. He has a fullface mask. He went to his eye doctor in total his eyes were dry. Therefore will try to switch him over to a nasal cradle type mask. He also has facial hair. Will try a [employer]ear cradle nasal mask. However, I have he needs a fullface mask will request a an F 30. He continues to tolerate the anticoagulation. He is taking it twice a day. No evidence of any major minor bleeding. 10/19/22 the patient is here for a pulmonary follow-up visit. The patient complains of worsening cough productive in nature. Moderate severity. Typically worse in the morning. He has also been having significant back pain and is working with pain management at this time. He has been getting injections to the back in ultimately may need other interventions. He does take Eliquis for history of recurrent pulmonary emboli. He will stop the Eliquis about 3 days prior to those procedures as per the protocol. The patient has continued to use the Stiolto. He had been on QVAR without any significant improvement. In view of his musculoskeletal issues with to avoid prednisone. He will be a great candidate for Daliresp at this time. Will start him on low-dose workup to the goal of the 500 mcg does significant tolerated to treat his chronic bronchitis. Patient also continues uses CPAP. CPAP therapy continues to be affecting beneficial. Continues using more than 4 hours a night. 01/03/2023 the patient is here for pulmonary follow-up visit. The patient overall is doing well. He continues have significant back pain. He will be getting therapeutic injections. For this he will have to stop the Eliquis for least 3 days and then restart after a couple days. He also has skin cancer and will be going skin cancer resection also in the few days after his injection in January. The patient will have to be off the anticoagulation for some time. However, the patient stands that he should use the anticoagulation in between because of his recurrent blood clots. From a respiratory status the patient is responding well to the current respiratory regimen. From a sleep point of view the patient is using CPAP every night more than 4 hours a night. He has not had any issues with supplies or with the actual machine. He does use reliable respiratory. 04/19/2023 the patient is here for a pulmonary follow-up visit. He still struggling with back and hip issues. He is working closely with pain management. He did get the back injections and tolerating them well without any evidence of any active bleeding. Now the looking to do another intervention for the hip. Again, he is doing very well from a respiratory status and only has to hold the Eliquis 3 days prior to any intervention at this time. He continues uses respiratory therapy. He does not have any worsening respiratory symptoms. Although, he continues to express that he is having dyspnea on exertion. [id number] severity. In part has to do with his weight and his back issues and deconditioning.. He also is using the CPAP at nighttime. CPAP therapy continues to be affecting beneficial at night in the does use it for more than 4 hours a night. Therefore will follow-up next year with a PFT. Hopefully that we can get him involved in pulmonary rehabilitation as long as his hip and back issues are better. [facility], [facility] Medical History COPD (chronic obstructive pulmonary disease) Dyspnea Dyspnea Obesity BR[place] on CPAP Personal history of nicotine dependence Pulmonary emboli Pulmonary nodules Surgical History History of appendectomy History of total right knee replacement (TKR) (~2019) Family History Father Heart disease Mother Heart disease Social History Alcohol intake: current Alcohol intake frequency: a few times a week Patient Tobacco Use Status: Former Tobacco user Quit Date: 2013 Review of Systems Const Denies night sweats and Reports weight gain ENT Denies change in voice, Reports vertigo, Denies lip swelling, Denies mouth pain, Reports nasal congestion, Reports nasal discharge and Denies tongue swelling Card Denies chest pain and Reports dyspnea on exertion Resp Reports cough and Reports dyspnea on exertion GI Denies abdominal pain Musc Denies no additional complaints Neuro Denies Neuro-related abnormal movements, Reports vertigo and Reports Sensory deficit (Neuro) (visual spacial abnormalities) Psych Denies no additional complaints Miguel/Lymph Denies easy bleeding and Denies lymphadenopathy Aller/Immun Denies lip swelling and Denies tongue swelling Physical Exam Vital Signs: Last Vital Signs Pulse 75 04/19/23 10:56 Pulse Ox 94 04/19/23 10:56 Oxygen Delivery Method Room Air 04/19/23 10:56 BMI result Body Mass Index 34.1 Const General: alert Neck Neck: Yes normal visual inspection, Yes full ROM and Yes no lymphadenopathy Chest Chest palpation & inspection: normal inspection of the chest Resp Auscultation: clear to auscultation bilaterally Cardio Rate: regular rate Rhythm: regular rhythm Heart sounds: S1 normal heart sound present and S2 normal heart sound present GI Palpation (GI): Soft to palpation and nontender Auscultation: normal bowel sounds Skin General skin exam: rashes and/or lesions noted Neuro Sensory Exam: Sensory deficit (Neuro) (visual spacial abnormalities) Extrem General: Yes edema Assessment & Plan Assessment & Plan (1) COPD (chronic obstructive pulmonary disease): Code(s): J44.9 - Chronic obstructive pulmonary disease, unspecified Qualifiers: COPD type: emphysema Emphysema type: centrilobular Qualified Code(s): J43.2 - Centrilobular emphysema (2) [place] on CPAP: Code(s): G47.33 - Obstructive sleep apnea (adult) (pediatric); Z99.89 - Dependence on other enabling machines and devices (3) Pulmonary emboli: Comment: (on anticoag with Eliquis) Code(s): I26.99 - Other pulmonary embolism without acute cor pulmonale Qualifiers: Pulmonary embolism type: single subsegmental (without acute cor pulmonale) Qualified Code(s): I26.93 - Single subsegmental pulmonary embolism without acute cor pulmonale (4) Pulmonary nodules: Code(s): R91.8 - Other nonspecific abnormal finding of lung field (5) Dyspnea: Comment: multifactorial Code(s): R06.00 - Dyspnea, unspecified Qualifiers: Dyspnea type: dyspnea on exertion Qualified Code(s): R06.00 - Dyspnea, unspecified Plan Continue Stiolto Start Daliresp 250 mcg every other day is ok continue CPAP short-acting beta agonist as needed Would benefit from pulmonary rehab once his hip and back issues better follow-up in 6 months with PFTs Orders: Orders PFT pulmonary function test 6 Months R06.00 - Dyspnea, unspecified Coding Level of Care Code Est Pt Level 4 (04510) Diagnoses Centrilobular emphysema J43.2 COPD type: emphysema Emphysema type: centrilobular [place] on CPAP G47.33; Z99.89 Single subsegmental pulmonary embolism without acute cor pulmonale I26.93 Pulmonary embolism type: single subsegmental (without acute cor pulmonale) Pulmonary nodules R91.8 Dyspnea on exertion R06.00 Dyspnea type: dyspnea on exertion Time Spent (min) 16
== END 2023-04-19 11:15 | disposition home or self-care (01) ==
PROVIDERS: PCP Internal Medicine; Visit Provider Hospitalist
DX: J43.2 Centrilobular emphysema (principal); G47.33 Obstructive sleep apnea (adult) (pediatric); Z99.89 Dependence on other enabling machines and devices; I26.93 Single subsegmental thrombotic pulmonary embolism without acute cor pulmonale; R91.8 Other nonspecific abnormal finding of lung field; R06.00 Dyspnea, unspecified
CPT/HCPCS: 99214

== ENCOUNTER → 2023-04-19 10:51 | Outpatient (BNVA) | payer MEDICARE, OTHER, SELFPAY | PROVIDERS: Visit Provider Hospitalist | DX: J43.2 Centrilobular emphysema (principal); I26.93 Single subsegmental thrombotic pulmonary embolism without acute cor pulmonale; G47.33 Obstructive sleep apnea (adult) (pediatric); R91.8 Other nonspecific abnormal finding of lung field; R06.00 Dyspnea, unspecified; Z99.89 Dependence on other enabling machines and devices | CPT/HCPCS: 99212 ==

== ENCOUNTER 2023-05-12 11:22 | Outpatient (AMB) | payer MEDICARE, OTHER, SELFPAY ==
[2023-05-12 11:34] VITALS: PULSE 84; O2SAT 93; BMI 32.9
--- NOTE | 2023-05-12 11:34 | A.OFFVIS_ITS ---
Intake Vital Signs 05/12/23 11:34 Height 5 ft 10 in Weight 229 lb BMI 32.9 Pulse 84 Pulse Source Pulse Oximeter Pulse Oximetry (%) 93 Oxygen Delivery Method Room Air Intake Visit Reasons: 4m follow up BR[place]/Tremor-Confirmed Intake Note: Patient presents for 4 month follow up [place] tremors. Patient states no issues or concerns today, evrythings the same. Allergies fluticasone furoate [Trelegy Ellipta] Allergy (Severe, Verified 05/12/23 11:36) Thrush umeclidinium [Trelegy Ellipta] Allergy (Severe, Verified 05/12/23 11:36) Thrush vilanterol [Trelegy Ellipta] Allergy (Severe, Verified 05/12/23 11:36) Thrush Iodinated Contrast Media [IV CONTRAST] Adverse Reaction (Mild, Verified 05/12/23 11:36) FLUSHING Medication List - Last Reconciled 05/12/23 by GERALDO Crandall amlodipine 2.5 mg PO DAILY atorvastatin 20 mg PO DAILY carbidopa-levodopa 25-100 mg 1 tab PO TID 90 days clotrimazole 1% appl topical PRN Eliquis (apixaban) 5 mg PO BID NS escitalopram oxalate 5 mg PO DAILY fluocinolone acetonide oil 0.01% drps otic (ears) folic acid 1 mg PO DAILY 90 days gabapentin 300 mg PO BEDTIME 30 days ketoconazole 2% 1 appl topical 2XW roflumilast (Daliresp) 250 mcg PO DAILY 90 days roflumilast 250 mcg PO DAILY tiotropium-olodaterol 2.5-2.5 mcg/actuation (Stiolto Respimat) 2 inhalations inhalation DAILY tizanidine 4 mg PO BEDTIME PRN HPI HPI Comments History of Present Illness Details 77-yr-old male presents for f/u visit. Pt's current PDism medication regimen: CD-LD 25-100mg tid. ADL's: Ind- needs to sit while dressing Swallowing: No issues Cough: No issues Drooling: No issues Orthostatic lightheadedness: Stable- varies- not worse since increasing CD-LD Constipation: No issues Freezing: None Stiffness: After sitting. He is not having as many cramps/locking up since increase in CD-LD Tremor: His L > R BUE tremor is stable- increased when he is trying to hold and pour something. Falls: He had one interval fall- [place]. He can be off-balance- especially if eyes are closed. Hallucinations: May see something he cannot touch Memory: Stable Sleep: Ok. Using his CPAP. Mood: Has started on escitalopram 5mg- to help w/ anxiety and sleep. Exercise: Not much [facility] Medical History COPD (chronic obstructive pulmonary disease) Dyspnea Dyspnea Obesity [place] on CPAP Personal history of nicotine dependence Pulmonary emboli Pulmonary nodules Surgical History History of total right knee replacement (TKR) (~2019) History of appendectomy Family History Father Heart disease Mother Heart disease Social History Alcohol intake: current Alcohol intake frequency: a few times a week Patient Tobacco Use Status: Former Tobacco user Quit Date: 2013 Review of Systems Const All systems reviewed & are unremarkable except as noted in HPI and below Physical Exam Vital Signs: Last Vital Signs Pulse 84 05/12/23 11:34 Pulse Ox 93 05/12/23 11:34 Oxygen Delivery Method Room Air 05/12/23 11:34 BMI result Body Mass Index 32.9 Const General: cooperative and no acute distress Resp Effort & Inspection: normal respiratory effort and able to speak in complete sentences Neuro Other: Expression: ok Voice: ok Tremor: No RUE rest tremor today. BUE R > L postural tremor Dyskinesia: None FFM: mildly decreased Foot taps: Mildly decreased- more so on right Gait: Stands easily, short steps. Psych: pleasant affect General: patient oriented x3 Assessment & Plan Assessment & Plan (1) Extrapyramidal and movement disorder: Comment: Left upper extremity rest and postural tremor, decreased arm swing, REM sleep behaviors, history of [employer] [place] exposure. Levodopa responsive. DaTSCAN negative. Code(s): G25.9 - Extrapyramidal and movement disorder, unspecified (2) Lightheadedness: Code(s): R42 - Dizziness and giddiness Plan Continue CD-LD 25-100mg to tid- monitor for OH s/s. Iincrease fluids, including sports drinks or liquid IV and high-fluid foods Maintain regular physical activity. Info again given on [employer]- studies have shown benefit in PTSD. ? f/u in 4 months or sooner prn Coding Level of Care Code Est Pt Level 4 (68764) Diagnoses Extrapyramidal and movement disorder G25.9 Lightheadedness R42
== END 2023-05-12 12:17 | disposition home or self-care (01) ==
PROVIDERS: PCP Student in an Organized Health Care Education/Training Program; Visit Provider Nurse Practitioner Family
DX: G25.9 Extrapyramidal and movement disorder, unspecified (principal); R42 Dizziness and giddiness
CPT/HCPCS: 99214

== ENCOUNTER → 2023-05-12 11:22 | Outpatient (BNVA) | payer MEDICARE, OTHER, SELFPAY | PROVIDERS: PCP Student in an Organized Health Care Education/Training Program; Visit Provider Nurse Practitioner Family | DX: G25.9 Extrapyramidal and movement disorder, unspecified (principal); R42 Dizziness and giddiness | CPT/HCPCS: 99212 ==

== ENCOUNTER 2023-05-26 08:44 | Outpatient (REF) | payer MEDICARE, OTHER, SELFPAY ==
--- NOTE | ~2023-05-26 | XR_ITS ---
EXAMINATION: XR PELVIS CLINICAL INFORMATION: Unspecified hip pain COMPARISON: 12/28/2021 TECHNIQUE: AP view of the pelvis. FINDINGS: No fracture. Hip joint spaces are maintained. Alignment is anatomic. Sacroiliac joints and pubic symphysis are normal. No abnormal soft tissue calcifications. XR/XR pelvis 1-2V IMPRESSION: Normal pelvis.
== END 2023-05-26 08:45 | disposition home or self-care (01) ==
LOC: HO.HOSX 08:44
PROVIDERS: Visit Provider Orthopaedic Surgery
DX: M70.62 Trochanteric bursitis, left hip (principal); Z96.651 Presence of right artificial knee joint; I26.93 Single subsegmental thrombotic pulmonary embolism without acute cor pulmonale
CPT/HCPCS: 20610; 72170; 99212; J1100

== ENCOUNTER 2023-05-26 09:57 | Outpatient (AMB) | payer MEDICARE, OTHER, SELFPAY ==
[2023-05-26 10:26] VITALS: BMI 32.9
--- NOTE | 2023-05-26 10:26 | MHC.OFFVIS ---
Intake Vital Signs 05/26/23 10:26 Height 5 ft 10 in Weight 229 lb BMI 32.9 Intake Visit Reasons: OV - Left Hip Pain Intake Note: Seamus is a 77 year old male who presents today for a follow up of his left hip pain. He has recently been seen with pain mgmt who did various lower back and SIJ injections which gave mild relief. He reports that he has had on and off pain for the last three month. No previous treatment of the hip. Takes tylenol for his pain whch does not offer significant relief Allergies fluticasone furoate [Trelegy Ellipta] Allergy (Severe, Verified 05/26/23 10:27) Thrush umeclidinium [Trelegy Ellipta] Allergy (Severe, Verified 05/26/23 10:27) Thrush vilanterol [Trelegy Ellipta] Allergy (Severe, Verified 05/26/23 10:27) Thrush Iodinated Contrast Media [IV CONTRAST] Adverse Reaction (Mild, Verified 05/26/23 10:27) FLUSHING HPI OV - Left Hip Pain HPI Details Seamus is a 77 year old man who returns to discuss his left hip pain. He has been seen for hip bursitis in the past. He complains of intermittent pain in the lateral aspect of his left hip, worse with prolonged standing or WB activities. He says he was recently in [employer] and was on a several hour [employer] tour, which he found especially painful. He has been seen by Pain Management in the past, and has received several lower back & SI joint injections in the last few months, which he says gave him mild relief. He denies any prior hip treatment, and finds mild relief from Tylenol. He walks using a walker, and with a poor gait. He reports having issues with dizziness and his balance. He has a hx of a right TKA, 12/12/18, and says he has some pain in his knee with activity. [facility] Medical History Dyspnea Dyspnea Personal history of nicotine dependence Obesity [place] on CPAP Pulmonary emboli Pulmonary nodules COPD (chronic obstructive pulmonary disease) Surgical History History of total right knee replacement (TKR) (~2019) History of appendectomy Family History Father Heart disease Mother Heart disease Social History Alcohol intake: current Alcohol intake frequency: a few times a week Patient Tobacco Use Status: Former Tobacco user Quit Date: 2013 Review of Systems Const All systems reviewed & are unremarkable except as noted in HPI and below Physical Exam Vital Signs: BMI result Body Mass Index 32.9 Const General: no acute distress, alert and awake Orientation/consciousness: patient oriented x3 HEENT Head: Yes normocephalic and Yes atraumatic Eyes EOM: EOMs intact bilaterally Resp Effort & Inspection: normal respiratory effort and able to speak in complete sentences Cardio Jugular venous distension: no JVD Skin General skin exam: turgor normal Rashes: no rashes Neuro General: patient oriented x3 Extrem Other: Left Hip: TTP greater trochanter left hip No groin pain with ROM Psych Appearance: grossly normal Affect: normal affect Attitude: cooperative Office Procedures Joint Injection/Drain Joint Injection/Drain Details: Injected 1 mL of Decadron and 3 mL 1% lidocaine and 3 mL of 0.25% Marcaine. Site was prepped using aseptic technique. Patient tolerated the procedure well. Primary Site: other (Left hip trochanteric bursa) Approach Used: posterolateral Coding 38573 - Large joint Procedure code (CPT) selection complete Results Reviewed Results Reviewed: 05/26/23 10:56 BUPivacaine MPF 0.25 % [Sensorcaine-MPF 0.25% 10 ML] 10 ml .ROUTE .STK-MED ONE Lidocaine HCl 2 % MPF [Xylocaine 2 % MPF] 5 ml .ROUTE .STK-MED ONE dexAMETHasone sod phosphate [Decadron] 4 mg .ROUTE .STK-MED ONE I personally reviewed relevant radiographs. Mild hip OA Assessment & Plan Assessment & Plan (1) Trochanteric bursitis of left hip: Code(s): M70.62 - Trochanteric bursitis, left hip Plan: This is a 77 year old man with left hip bursitis and SI/LS pain. He has pain with WB activities, worse with prolonged standing activities. He ambulates with antalgia and uses an assistive walker. His pain is localized primarily to the lateral aspect of his hip, and he found some relief from previous lumbar & SI joint injections done by Pain Management in the past. He denies any groin pain. I discussed his diagnosis and treatment options. I injected his left hip bursa today, which he tolerated well, and recommend he work on gluteal strengthening and normalizing gait mechanics. He will follow up prn. He will see pain management for further SI joint treatment. (2) History of arthroplasty of right knee: Comment: 12/12/18 Code(s): Z96.651 - Presence of right artificial knee joint Plan: Pain with activity, with a quad tendon defect and poor gait. Radiographically his prosthesis is normal. I recommend he work on gait mechanics and gluteal strengthening. (3) Pulmonary emboli: Comment: (on anticoag with Eliquis) Code(s): I26.99 - Other pulmonary embolism without acute cor pulmonale Qualifiers: Pulmonary embolism type: single subsegmental (without acute cor pulmonale) Qualified Code(s): I26.93 - Single subsegmental pulmonary embolism without acute cor pulmonale Plan Scribed for Oscar Steel MD by Claus Vann, emergency medical tech, on 05/26/23 at 10:45 AM, EST. Orders: Orders XR pelvis 1-2V 05/26/23 M25.559 - Pain in unspecified hip Coding Level of Care Code Est Pt Level 4 (64328) Diagnoses Trochanteric bursitis of left hip M70.62 History of arthroplasty of right knee Z96.651 Single subsegmental pulmonary embolism without acute cor pulmonale I26.93 Pulmonary embolism type: single subsegmental (without acute cor pulmonale) CPT Codes Coding - 55106 Large joint: 09191 - Large joint ([id number])
== END 2023-05-26 11:30 | disposition home or self-care (01) ==
PROVIDERS: PCP Internal Medicine; Visit Provider Orthopaedic Surgery
DX: M70.62 Trochanteric bursitis, left hip (principal); Z96.651 Presence of right artificial knee joint; I26.93 Single subsegmental thrombotic pulmonary embolism without acute cor pulmonale
CPT/HCPCS: 20610; 99213

== ENCOUNTER 2023-10-18 10:03 | Outpatient (AMB) | payer MEDICARE, OTHER, SELFPAY ==
[2023-10-18 10:16] VITALS: PULSE 90; O2SAT 94; BMI 31.6
--- NOTE | 2023-10-18 10:16 | A.OFFVIS_ITS ---
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 Patient currently takes Eliquis 5 mg twice a day with good results. He also had a recent CT scan of the chest per the lung cancer screening of [facility] give him a RADS 2 and otherwise will have a follow-up CT scan in a year's time. In the meantime he has been complaining of worsening cough shortness of breath. His cough usually is with thick clear mucus. It does bother him. He does not feel this the Stiolto has been very effective for him. He did better with the Anoro. At this point the patient probably benefit from inhaled corticosteroid. Sitter for trilogy will be a better inhaler for him. He continues uses CPAP. The CPAP therapy continues to be affecting beneficial. He is it every night more than 4 hours a night. Developed LLE swelling and had a neg LE doppler. He went to urgent care and was diagnosed with cellulitis. Completed 2 courses of antibiotics and is overall better. His breathing is stable. Continues on the Eliquis without any adverse effects. The CPAP therapy is effective and beneficial, using in more than 4 hours at night. Respiratory meds are working and without any new issues. 05/01/2021 the patient is here for a pulmonary follow-up visit. Overall he is doing well from a respiratory status. He stop the QVAR and did not notice any worsening symptoms. He is wondering if he can stop the Stiolto. In the meantime the patient denies any wheezing or chest tightness. He has been having some weight gain issues however. She did hurt his ankle and has been able to ex ercise regularly. He is using the CPAP. The CPAP therapy continues to be affecting beneficial to he does use it for more than 4 hours a night. He has a fullface mask. He went to his eye doctor in total his eyes were dry. Therefore will try to switch him over to a nasal cradle type mask. He also has facial hair. Will try a [employer]ear cradle nasal mask. However, I have he needs a fullface mask will request a an F 30. He continues to tolerate the anticoagulation. He is taking it twice a day. No evidence of any major minor bleeding. 10/19/22 the patient is here for a pulmonary follow-up visit. The patient complains of worsening cough productive in nature. Moderate severity. Typically worse in the morning. He has also been having significant back pain and is working with pain management at this time. He has been getting injections to the back in ultimately may need other interventions. He does take Eliquis for history of recurrent pulmonary emboli. He will stop the Eliquis about 3 days prior to those procedures as per the protocol. The patient has continued to use the Stiolto. He had been on QVAR without any significant improvement. In view of his musculoskeletal issues with to avoid prednisone. He will be a great candidate for Daliresp at this time. Will start him on low- dose workup to the goal of the 500 mcg does significant tolerated to treat his chronic bronchitis. Patient also continues uses CPAP. CPAP therapy continues to be affecting beneficial. Continues using more than 4 hours a night. 01/03/2023 the patient is here for pulmonary follow-up visit. The patient overall is doing well. He continues have significant back pain. He will be getting therapeutic injections. For this he will have to stop the Eliquis for least 3 days and then restart after a couple days. He also has skin cancer and will be going skin cancer resection also in the few days after his injection in January. The patient will have to be off the anticoagulation for some time. However, the patient stands that he should use the anticoagulation in between because of his recurrent blood clots. From a respiratory status the patient is responding well to the current respiratory regimen. From a sleep point of view the patient is using CPAP every night more than 4 hours a night. He has not had any issues with supplies or with the actual machine. He does use [facility]. 04/19/2023 the patient is here for a pulmonary follow-up visit. He still struggling with back and hip issues. He is working closely with pain management. He did get the back injections and tolerating them well without any evidence of any active bleeding. Now the looking to do another intervention for the hip. Again, he is doing very well from a respiratory status and only has to hold the Eliquis 3 days prior to any intervention at this time. He continues uses respiratory therapy. He does not have any worsening respiratory symptoms. Although, he continues to express that he is having dyspnea on exertion. [id number]-ye-btctstxe severity. In part has to do with his weight and his back issues and deconditioning.. He also is using the CPAP at nighttime. CPAP therapy continues to be affecting beneficial at night in the does use it for more than 4 hours a night. Therefore will follow-up next year with a PFT. Hopefully that we can get him involved in pulmonary rehabilitation as long as his hip and back issues are better. 10/17/2023 the patient is here for a pulmonary follow-up visit. He had a very eventful few months. He had an issue with his pacemaker way was not registering. Therefore he develops a high degree heart block and also significant cardiovascular compromise. He was taken to [facility]. One of his leads was dislodged. Therefore, he had his leads replaced. He was the hospital for few days. He had been on the Eliquis that they have to wait. He did have a chest x-ray which I personally reviewed without any acute disease in the new pacemaker leads were present. The patient now is home. He did have some neck pain after his lead placement because they irritated an area in his neck. Ultimately he is having hard time sleeping because of it. He has been using the CPAP though. The CPAP therapy continues to be affecting beneficial. He does use it for more than 4 hours a night. He is also back on the Eliquis and he seems to be tolerating that well without any evidence of any active bleeding. his major complaint is the fact that even after using the CPAP he still waking up very drowsy. Have not changed any of his settings which appeared to have been working the past. Does have significant daytime drowsiness even after sleeping about 10-12 hours a night. Does get his supplies from [facility]. I did request a download. They will try to get me 1. In the meantime will go ahead and start him on a small dose of Provigil to see if we can help his sleep-wake cycle , treating him for persistent drowsiness even after effective CPAP therapy. [facility] Medical History Has daytime drowsiness Dyspnea Dyspnea Personal history of nicotine dependence Obesity BROOK[place]N on CPAP Pulmonary emboli Pulmonary nodules COPD (chronic obstructive pulmonary disease) Surgical History History of total right knee replacement (TKR) (~2019) History of appendectomy Family History Father Heart disease Mother Heart disease Social History Alcohol intake: current Alcohol intake frequency: a few times a week Patient Tobacco Use Status: Former Tobacco user Quit Date: 2013 Review of Systems Const Reports daytime sleepiness, Denies night sweats, Denies snoring and Reports weight gain ENT Denies change in voice, Reports vertigo, Denies lip swelling, Denies mouth pain, Reports nasal congestion, Reports nasal discharge and Denies tongue swelling Card Reports as per HPI, Denies chest pain and Reports dyspnea on exertion Resp Reports cough, Reports dyspnea on exertion and Denies snoring GI Denies abdominal pain Musc Denies no additional complaints Neuro Denies Neuro-related abnormal movements, Reports vertigo and Reports Sensory deficit (Neuro) (visual spacial abnormalities) Psych Denies no additional complaints Miguel/Lymph Denies easy bleeding and Denies lymphadenopathy Aller/Immun Denies lip swelling and Denies tongue swelling Physical Exam Vital Signs: Last Vital Signs Pulse 90 10/18/23 10:16 Pulse Ox 94 10/18/23 10:16 Oxygen Delivery Method Room Air 10/18/23 10:16 BMI result Body Mass Index 31.6 Const General: alert Neck Neck: Yes normal visual inspection, Yes full ROM and Yes no lymphadenopathy Chest Chest palpation & inspection: normal inspection of the chest Resp Auscultation: clear to auscultation bilaterally Cardio Rate: regular rate Rhythm: regular rhythm Heart sounds: S1 normal heart sound present and S2 normal heart sound present GI Palpation (GI): Soft to palpation and nontender Auscultation: normal bowel sounds Skin General skin exam: rashes and/or lesions noted Neuro Sensory Exam: Sensory deficit (Neuro) (visual spacial abnormalities) Extrem General: Yes edema Assessment & Plan Assessment & Plan (1) COPD (chronic obstructive pulmonary disease): Code(s): J44.9 - Chronic obstructive pulmonary disease, unspecified Qualifiers: COPD type: emphysema Emphysema type: centrilobular Qualified Code(s): J43.2 - Centrilobular emphysema (2) [place]OOK[place]N on CPAP: Code(s): G47.33 - Obstructive sleep apnea (adult) (pediatric); Z99.89 - Dependence on other enabling machines and devices (3) Pulmonary emboli: Comment: (on anticoag with Eliquis) Code(s): I26.99 - Other pulmonary embolism without acute cor pulmonale Qualifiers: Pulmonary embolism type: single subsegmental (without acute cor pulmonale) Qualified Code(s): I26.93 - Single subsegmental pulmonary embolism without acute cor pulmonale (4) Pulmonary nodules: Code(s): R91.8 - Other nonspecific abnormal finding of lung field (5) Dyspnea: Comment: multifactorial Code(s): R06.00 - Dyspnea, unspecified Qualifiers: Dyspnea type: dyspnea on exertion Qualified Code(s): R06.00 - Dyspnea, unspecified (6) Has daytime drowsiness: Code(s): R40.0 - Somnolence Plan Continue Stiolto continue Daliresp 250 mcg every other day is ok continue CPAP, requesmting download short-acting beta agonist as needed start Provigil 100mg in AM continue anticoagulation follow-up in 3-4 months Medications: New modafinil (Provigil) 100 mg PO QAM 30 days 30 tabs 3RF Coding Level of Care Code Est Pt Level 4 (72458) Diagnoses Centrilobular emphysema J43.2 COPD type: emphysema Emphysema type: centrilobular BROOK[place] on CPAP G47.33; Z99.89 Single subsegmental pulmonary embolism without acute cor pulmonale I26.93 Pulmonary embolism type: single subsegmental (without acute cor pulmonale) Pulmonary nodules R91.8 Dyspnea on exertion R06.00 Dyspnea type: dyspnea on exertion Has daytime drowsiness R40.0 Time Spent (min) 17
== END 2023-10-18 10:55 | disposition home or self-care (01) ==
PROVIDERS: PCP Internal Medicine; Visit Provider Hospitalist
DX: J43.2 Centrilobular emphysema (principal); G47.33 Obstructive sleep apnea (adult) (pediatric); Z99.89 Dependence on other enabling machines and devices; I26.93 Single subsegmental thrombotic pulmonary embolism without acute cor pulmonale; R91.8 Other nonspecific abnormal finding of lung field; R06.00 Dyspnea, unspecified; R40.0 Somnolence
CPT/HCPCS: 99214

== ENCOUNTER → 2023-10-18 10:03 | Outpatient (BNVA) | payer MEDICARE, OTHER, SELFPAY | PROVIDERS: PCP Internal Medicine; Visit Provider Hospitalist | DX: J43.2 Centrilobular emphysema (principal); G47.33 Obstructive sleep apnea (adult) (pediatric); R06.00 Dyspnea, unspecified; I26.93 Single subsegmental thrombotic pulmonary embolism without acute cor pulmonale; R91.8 Other nonspecific abnormal finding of lung field; R40.0 Somnolence; Z99.89 Dependence on other enabling machines and devices | CPT/HCPCS: 99212 ==

== ENCOUNTER 2023-11-09 11:16 | Outpatient (AMB) | payer MEDICARE, OTHER, SELFPAY ==
--- NOTE | 2023-11-09 11:33 | A.OFFVIS_ITS ---
Intake Vital Signs 11/09/23 11:34 Height 5 ft 10 in Weight 217 lb BMI 31.1 BP 124/64 Blood Pressure Location Rt brachial Position Sitting Pulse 87 Pulse Source Pulse Oximeter Pulse Oximetry (%) 97 Oxygen Delivery Method Room Air Intake Visit Reasons: Follow up Tremors/BROOK[place] - Confirmed Intake Note: Patient presents for follow up tremors. Patient states no changes since last visit Allergies fluticasone furoate [Trelegy Ellipta] Allergy (Severe, Verified 11/09/23 11:37) Thrush umeclidinium [Trelegy Ellipta] Allergy (Severe, Verified 11/09/23 11:37) Thrush vilanterol [Trelegy Ellipta] Allergy (Severe, Verified 11/09/23 11:37) Thrush Iodinated Contrast Media [IV CONTRAST] Adverse Reaction (Mild, Verified 11/09/23 11:37) FLUSHING Medication List - Last Reconciled 11/09/23 by GERALDO Crandall amlodipine 2.5 mg PO DAILY atorvastatin 20 mg PO DAILY carbidopa-levodopa 25-100 mg 1 tab PO TID 90 days clotrimazole 1% appl topical PRN Eliquis (apixaban) 5 mg PO BID NS escitalopram oxalate 10 mg PO DAILY escitalopram oxalate 10 mg PO DAILY fluocinolone acetonide oil 0.01% drps otic (ears) folic acid 1 mg PO DAILY 90 days gabapentin 300 mg PO BEDTIME 30 days ketoconazole 2% 1 appl topical 2XW modafinil (Provigil) 100 mg PO QAM 90 days roflumilast 250 mcg PO DAILY tiotropium-olodaterol 2.5-2.5 mcg/actuation (Stiolto Respimat) 2 inhalations inhalation DAILY tizanidine 4 mg PO BEDTIME PRN HPI HPI Comments History of Present Illness Details 78-yr-old male presents for f/u visit. Pt reports the following interval medical history changes: Pt reports he had a pacemaker implant in September. He states that he woke up, was sitting at his computer when he started seeing dots and a halo and extreme dizziness when he tried to stand. He called 911, and was brought to [facility]. 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 Pt states the dizziness was better, but then he started having dizziness again- which he thought was d/t a recent setting change, but then CXR showed one of the leads had displaced and thus underwent f/u RV revision. Since, his BP has been more variable. The dizziness has subsided some, but is still present. Not as bad as it was when he 1st starting having the orthostatic dizziness. He has noted some LUE tingling. His BUE tremor is stable, may notice more when pouring something. He did have a fall- was triggered by orthostatic dizziness when he bent over to kiss his . He did try the Gammacore x's 2- did not tolerate. [facility] Medical History (Updated 10/18/23 @ 20:59 by Kingston Todd MD) Has daytime drowsiness Dyspnea Dyspnea Personal history of nicotine dependence Obesity BROOK[place] on CPAP Pulmonary emboli Pulmonary nodules COPD (chronic obstructive pulmonary disease) Surgical History History of total right knee replacement (TKR) (~2019) History of appendectomy Family History Father Heart disease Mother Heart disease Social History Alcohol intake: current Alcohol intake frequency: a few times a week Patient Tobacco Use Status: Former Tobacco user Quit Date: 2013 Review of Systems Const All systems reviewed & are unremarkable except as noted in HPI and below Physical Exam Vital Signs: Last Vital Signs Pulse 87 11/09/23 11:34 BP 124/64 11/09/23 11:34 Pulse Ox 97 11/09/23 11:34 Oxygen Delivery Method Room Air 11/09/23 11:34 BMI result Body Mass Index 31.1 Const General: cooperative and no acute distress Resp Effort & Inspection: normal respiratory effort and able to speak in complete sentences Neuro Other: General: A&O x's 3 Expression: ok Voice: ok Tremor: No RUE rest tremor today. BUE R > L postural tremor Dyskinesia: None Gait: Stands easily, short steps. Psych: pleasant affect Assessment & Plan Assessment & Plan (1) Extrapyramidal and movement disorder: Comment: Left upper extremity rest and postural tremor, decreased arm swing, REM sleep behaviors, history of Agent [place] exposure. Levodopa responsive. DaTSCAN negative. Code(s): G25.9 - Extrapyramidal and movement disorder, unspecified (2) Tremor: Code(s): R25.1 - Tremor, unspecified (3) Lightheadedness: Code(s): R42 - Dizziness and giddiness (4) S/P placement of cardiac pacemaker: Onset Date: ~08/2023 Comment: 09/21/23: Medtronic, dual-chamber pacemaker, Layne XT DR, MRI SureScan pacemaker, MRI conditional via left axillary access Code(s): Z95.0 - Presence of cardiac pacemaker Plan Continue CD-LD 25-100mg to tid- monitor for OH s/s. Continue increased fluids, including sports drinks or liquid IV and high-fluid foods. Maintain regular physical activity- w/in his post-op restrictions. Pt did not tolerate GammaCore- ? if poor tolerance r/t unknown AV block. ? f/u in 6 months or sooner prn Coding Level of Care Code Est Pt Level 4 (36124) Diagnoses Extrapyramidal and movement disorder G25.9 Tremor R25.1 Lightheadedness R42 S/P placement of cardiac pacemaker Z95.0
[2023-11-09 11:34] VITALS: BP 124/64; PULSE 87; O2SAT 97; BMI 31.1
== END 2023-11-09 12:31 | disposition home or self-care (01) ==
PROVIDERS: PCP Student in an Organized Health Care Education/Training Program; Visit Provider Nurse Practitioner Family
DX: G25.9 Extrapyramidal and movement disorder, unspecified (principal); R42 Dizziness and giddiness; Z95.0 Presence of cardiac pacemaker
CPT/HCPCS: 99214

== ENCOUNTER → 2023-11-09 11:16 | Outpatient (BNVA) | payer MEDICARE, OTHER, SELFPAY | PROVIDERS: PCP Student in an Organized Health Care Education/Training Program; Visit Provider Nurse Practitioner Family | DX: G25.9 Extrapyramidal and movement disorder, unspecified (principal); R25.1 Tremor, unspecified; R42 Dizziness and giddiness | CPT/HCPCS: 99212 ==

== ENCOUNTER 2024-02-03 11:16 | Outpatient (AMB) | payer MEDICARE, OTHER, SELFPAY ==
--- NOTE | 2024-02-03 11:20 | A.OFFVIS_ITS ---
Intake Visit Reasons: New Pt - Right side of the neck/rt shoulder pain Intake Note: Seamus is a 78 year old male who presents to the office today for a new patient visit referred by his Neurologist Meseret Ponce for right side of the neck/rt shoulder pain. Pt states this started about 2 months ago after he had his pacemaker placed. Pt states the pain does not radiate. Pt denies any neck/shoulder injections or surgeries. Pt states he has the pain about 90% of the time. He states when he is driving and looks to the right it is sore and hard to turn his head. Allergies fluticasone furoate [Trelegy Ellipta] Allergy (Severe, Verified 02/03/24 11:20) Thrush umeclidinium [Trelegy Ellipta] Allergy (Severe, Verified 02/03/24 11:20) Thrush vilanterol [Trelegy Ellipta] Allergy (Severe, Verified 02/03/24 11:20) Thrush Iodinated Contrast Media [IV CONTRAST] Adverse Reaction (Mild, Verified 02/03/24 11:20) FLUSHING Medication List - Last Reconciled 02/03/24 by Rasheeda Agrawal MD amlodipine 2.5 mg PO DAILY atorvastatin 20 mg PO DAILY carbidopa-levodopa 25-100 mg 1 tab PO TID 90 days clotrimazole 1% appl topical PRN Eliquis (apixaban) 5 mg PO BID NS escitalopram oxalate 10 mg PO DAILY fluocinolone acetonide oil 0.01% drps otic (ears) folic acid 1 mg PO DAILY 90 days gabapentin 300 mg PO BEDTIME 30 days ketoconazole 2% 1 appl topical 2XW modafinil (Provigil) 100 mg PO QAM 90 days roflumilast 250 mcg PO DAILY tiotropium-olodaterol 2.5-2.5 mcg/actuation (Stiolto Respimat) 2 inhalations in halation DAILY tizanidine 4 mg PO BEDTIME PRN HPI Comments Details: Been following Neurology since 2021 for LUE extrapyramidal tremors. Diagnosed as Parkinsonism. Tremors on both hands/fingers. Denies spasticity or contractures. Per Neurology last note: Left upper extremity rest and postural tremor, decreas ed arm swing, REM sleep behaviors, history of Agent [place] exposure. Levodopa responsive. DaTSCAN negative . Patient also had interval change, 12/10/23. Pt reports he had a tempory pacemaker implant in November on right lateral neck area. 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 3 hours after temporary pacemaker was removed, same day, had surgery to place permanent pacemaker. This was revised a week after. Since the placement and removal of the termporary pacemaker, been having pain, soreness, tightness. Had for her to look to right. Hard to sleep on right side. No radiations. No new tremors or tightness or dystonia. Nothing on the face. Referred to Physiatry for consideration of botulinum toxin injection. No xrays done yet. No PT yet. He is on Eliquis. [facility] Medical History (Updated 02/03/24 @ 12:02 by Rasheeda Agrawal MD) Has daytime drowsiness Dyspnea Dyspnea Personal history of nicotine dependence Obesity [place] on CPAP Pulmonary emboli Pulmonary nodules COPD (chronic obstructive pulmonary disease) Surgical History History of total right knee replacement (TKR) (~2018) History of appendectomy Family History Father Heart disease Mother Heart disease Social History Alcohol intake: current Alcohol intake frequency: a few times a week Patient Tobacco Use Status: Former Tobacco user Review of Systems Const All systems reviewed & are unremarkable except as noted in HPI and below Physical Exam Constitutional: Patient appears to be in no acute distress, well nourished and well developed. Patient was appropriately conversant and oriented. Good historian. MSK: Inspection reveals appropriate head and neck positioning. Indicates tightness on right upper trapezius, but palpation seems same compared to left. Indicates the tenderness/tightness is on the right SCM. Denied tenderness over splenius. Denied tenderness over cervical paraspinals. Cervical ROM was full. No cervical dystonia noted. Spurling's sign negative. No scapular winging. Negative Mcgowan sign. Negative empty can sign. Strength is 5/5 in all muscle groups tested. No increased tone noted. Neurological: Neurologic examination of the upper and lower extremities was nonfocal with intact sensation, muscle stretch reflexes and without focal motor deficits . Arnold?s negative bilaterally. Babinski was down going bilaterally. Clonus was negative. Gait is non-antalgic without loss of balance. Results Reviewed Results Reviewed: I reviewed records from the following: Pain management saw him in the past for lower back pain Neurology notes Assessment & Plan Assessment & Plan (1) Neck and shoulder pain: Code(s): M54.2 - Cervicalgia; M25.519 - Pain in unspecified shoulder Category: Medical (2) Myofascial neck pain: Code(s): M54.2 - Cervicalgia Category: Medical Plan Tender/pain on right SCM muscle, probably got aggravated during surgery/placement of temporary pacemaker. There is no sign of ongoing injury or infection or tear. He also has tightness over trapezius. I would not recommend botulinum toxin injection right away. I believe this would get better in time. Would refer him to PT. Discussed trial of trigger point injection. Warned the need to be careful given location of SCM and he is on Eliquis. He is going on vacation on Tuesday for 2 weeks in [place]. He was hoping to get injected today but after further discussion, decided that it may cause post injection soreness and disrupt his trip. I suggested getting it done under Ultrasound guidance and he said he would like that. I am therefore referring him to Dr. Lawrence, to do trigger point injections to SCM, under US guidance. During his trip, he will trial lidoderm patches. Instructions given. Assessment and plan discussed with patient, and patient was agreeable. All questions were answered thoroughly. Rasheeda Agrawal MD, KARTHIK Board Certified, [place] [employer] and [employer] (ABPMR) Board Certified, [place] [employer] Electro[employer] (ABEM) Orders: Orders PT Evaluation and Treatment Today M25.519 - Pain in unspecified shoulder, M54.2 - Cervicalgia Referrals Pain Management Referral M25.519 - Pain in unspecified shoulder, M54.2 - Cervicalgia Medications: New lidocaine 5% (Lidoderm) leave on most painful area for 12 hours on, 12 hours off 1 patch topical DAILY 30 ea 2RF Coding Level of Care Code New Pt Level 4 (24141) Diagnoses Neck and shoulder pain M54.2; M25.519 Myofascial neck pain M54.2
== END 2024-02-03 12:07 | disposition home or self-care (01) ==
PROVIDERS: PCP Student in an Organized Health Care Education/Training Program; Visit Provider Physical Medicine & Rehabilitation
DX: M54.2 Cervicalgia (principal); M25.519 Pain in unspecified shoulder
CPT/HCPCS: 99203

== ENCOUNTER → 2024-02-03 11:16 | Outpatient (BNVA) | payer MEDICARE, OTHER, SELFPAY | PROVIDERS: PCP Student in an Organized Health Care Education/Training Program; Visit Provider Physical Medicine & Rehabilitation | DX: M54.2 Cervicalgia (principal); M25.519 Pain in unspecified shoulder | CPT/HCPCS: 99202 ==

== ENCOUNTER 2024-02-21 10:03 | Outpatient (AMB) | payer MEDICARE, OTHER, SELFPAY ==
[2024-02-21 10:21] VITALS: PULSE 90; O2SAT 94; BMI 32.3
--- NOTE | 2024-02-21 10:21 | A.OFFVIS_ITS ---
Vital Signs 02/21/24 10:21 Height 5 ft 10 in Weight 225 lb BMI 32.3 Pulse 90 Pulse Source Pulse Oximeter Pulse Oximetry (%) 94 Oxygen Delivery Method Room Air Intake Visit Reasons: COPD Computer Aide Required: No Allergies fluticasone furoate [Trelegy Ellipta] Allergy (Severe, Verified 02/21/24 10:22) Thrush umeclidinium [Trelegy Ellipta] Allergy (Severe, Verified 02/21/24 10:22) Thrush vilanterol [Trelegy Ellipta] Allergy (Severe, Verified 02/21/24 10:22) Thrush Iodinated Contrast Media [IV CONTRAST] Adverse Reaction (Mild, Verified 02/21/24 10:22) FLUSHING HPI Comments Details: The patient is a 78 year-old gentleman with known history of COPD, [place] on CPAP, pulmonary nodules and also history of pulmonary emboli. Patient currently takes Eliquis 5 mg twice a day with good results. He also had a recent CT scan of the chest per the lung cancer screening of [facility] give him a RADS 2 and otherwise will have a follow-up CT scan in a year's time. In the meantime he has been complaining of worsening cough shortness of breath. His cough usually is with thick clear mucus. It does bother him. He does not feel this the Stiolto has been very effective for him. He did better with the Anoro. At this point the patient probably benefit from inhaled corticosteroid. Sitter for trilogy will be a better inhaler for him. He continues uses CPAP. The CPAP therapy continues to be affecting beneficial. He is it every night more than 4 hours a night. Developed LLE swelling and had a neg LE doppler. He went to urgent care and was diagnosed with cellulitis. Completed 2 courses of antibiotics and is overall better. His breathing is stable. Continues on the Eliquis without any adverse effects. The CPAP therapy is effective and beneficial, using in more than 4 hours at night. Respiratory meds are working and without any new issues. 05/01/2021 the patient is here for a pulmonary follow-up visit. Overall he is doing well from a respiratory status. He stop the QVAR and did not notice any worsening symptoms. He is wondering if he can stop the Stiolto. In the meantime the patient denies any wheezing or chest tightness. He has been having some weight gain issues however. She did hurt his ankle and has been able to exercise regularly. He is using the CPAP. The CPAP therapy continues to be affecting beneficial to he does use it for more than 4 hours a night. He has a fullface mask. He went to his eye doctor in total his eyes were dry. Therefore will try to switch him over to a nasal cradle type mask. He also has facial hair. Will try a [employer] cradle nasal mask. However, I have he needs a fullface mask will request a an F 30. He continues to tolerate the anticoagulation. He is taking it twice a day. No evidence of any major minor bleeding. 10/19/22 the patient is here for a pulmonary follow-up visit. The patient complains of worsening cough productive in nature. Moderate severity. Typically worse in the morning. He has also been having significant back pain and is working with pain management at this time. He has been getting injections to the back in ultimately may need other interventions. He does take Eliquis for history of recurrent pulmonary emboli. He will stop the Eliquis about 3 days prior to those procedures as per the protocol. The patient has continued to use the Stiolto. He had been on QVAR without any significant improvement. In view of his musculoskeletal issues with to avoid prednisone. He will be a great candidate for Daliresp at this time. Will start him on low- dose workup to the goal of the 500 mcg does significant tolerated to treat his chronic bronchitis. Patient also continues uses CPAP. CPAP therapy continues to be affecting beneficial. Continues using more than 4 hours a night. 01/03/2023 the patient is here for pulmonary follow-up visit. The patient overall is doing well. He continues have significant back pain. He will be getting therapeutic injections. For this he will have to stop the Eliquis for least 3 days and then restart after a couple days. He also has skin cancer and will be going skin cancer resection also in the few days after his injection in January. The patient will have to be off the anticoagulation for some time. However, the patient stands that he should use the anticoagulation in between because of his recurrent blood clots. From a respiratory status the patient is responding well to the current respiratory regimen. From a sleep point of view the patient is using CPAP every night more than 4 hours a night. He has not had any issues with supplies or with the actual machine. He does use [facility]. 04/19/2023 the patient is here for a pulmonary follow-up visit. He still struggling with back and hip issues. He is working closely with pain management. He did get the back injections and tolerating them well without any evidence of any active bleeding. Now the looking to do another intervention for the hip. Again, he is doing very well from a respiratory status and only has to hold the Eliquis 3 days prior to any intervention at this time. He continues uses respiratory therapy. He does not have any worsening respiratory symptoms. Although, he continues to express that he is having dyspnea on exertion. Uthm-me-kjoclilm severity. In part has to do with his weight and his back issues and deconditioning.. He also is using the CPAP at nighttime. CPAP therapy continues to be affecting beneficial at night in the does use it for more than 4 hours a night. Therefore will follow-up next year with a PFT. Hopefully that we can get him involved in pulmonary rehabilitation as long as his hip and back issues are better. 10/17/2023 the patient is here for a pulmonary follow-up visit. He had a very eventful few months. He had an issue with his pacemaker way was not registering. Therefore he develops a high degree heart block and also significant cardiovascular compromise. He was taken to [facility]. One of his leads was dislodged. Therefore, he had his leads replaced. He was the hospital for few days. He had been on the Eliquis that they have to wait. He did have a chest x-ray which I personally reviewed without any acute disease in the new pacemaker leads were present. The patient now is home. He did have some neck pain after his lead placement because they irritated an area in his neck. Ultimately he is having hard time sleeping because of it. He has been using the CPAP though. The CPAP therapy continues to be affecting beneficial. He does use it for more than 4 hours a night. He is also back on the Eliquis and he seems to be tolerating that well without any evidence of any active bleeding. his major complaint is the fact that even after using the CPAP he still waking up very drowsy. Have not changed any of his settings which appeared to have been working the past. Does have significant daytime drowsiness even after sleeping about 10-12 hours a night. Does get his supplies from reliable. I did request a download. They will try to get me 1. In the meantime will go ahead and start him on a small dose of Provigil to see if we can help his sleep-wake cycle , treating him for persistent drowsiness even after effective CPAP therapy. 02/21/2024 the patient is here for a pulmonary follow-up visit. Overall he is doing well. The patient has been using his respiratory therapy as prescribed. He also been working on weight loss which is great. He is already been feeling better from that standpoint. The patient has been using the modafinil. Seems to be effective. We did talk about considering decreasing the dose to 50 mg tablets which be half a tablet. He is going to start considering that in the fall. In the meantime the CPAP therapy has been affecting beneficial he does use it for more than 4 hours a night. He continues on the Eliquis without any difficulties. Pacemaker seems to be working well. No recent imaging studies at this time to review. [facility]LY [facility], [facility] Medical History (Updated 02/03/24 @ 12:02 by Rasheeda Agrawal MD) Has daytime drowsiness Dyspnea Dyspnea Personal history of nicotine dependence Obesity [place] on CPAP Pulmonary emboli Pulmonary nodules COPD (chronic obstructive pulmonary disease) Surgical History History of total right knee replacement (TKR) (~2019) History of appendectomy Family History Father Heart disease Mother Heart disease Social History Alcohol intake: current Alcohol intake frequency: a few times a week Patient Tobacco Use Status: Former Tobacco user Review of Systems Const Reports daytime sleepiness, Denies night sweats, Denies snoring and Reports weight loss ENT Denies change in voice, Denies lip swelling, Denies mouth pain, Reports nasal congestion, Reports nasal discharge and Denies tongue swelling Card Reports as per HPI, Denies chest pain and Reports dyspnea on exertion Resp Reports cough, Reports dyspnea on exertion and Denies snoring GI Denies abdominal pain Musc Denies no additional complaints Neuro Denies Neuro-related abnormal movements and Reports Sensory deficit (Neuro) (visual spacial abnormalities) Psych Denies no additional complaints Miguel/Lymph Denies easy bleeding and Denies lymphadenopathy Aller/Immun Denies lip swelling and Denies tongue swelling Physical Exam Vital Signs: Last Vital Signs Pulse 90 02/21/24 10:21 Pulse Ox 94 02/21/24 10:21 Oxygen Delivery Method Room Air 02/21/24 10:21 BMI result Body Mass Index 32.3 Const General: alert Neck Neck: Yes normal visual inspection, Yes full ROM and Yes no lymphadenopathy Chest Chest palpation & inspection: normal inspection of the chest Resp Effort & Inspection: normal respiratory effort Auscultation: diminished lung sounds Cardio Rate: regular rate Rhythm: regular rhythm Heart sounds: S1 normal heart sound present and S2 normal heart sound present GI Palpation (GI): Soft to palpation and nontender Auscultation: normal bowel sounds Skin General skin exam: rashes and/or lesions noted Neuro Sensory Exam: Sensory deficit (Neuro) (visual spacial abnormalities) Extrem General: Yes edema Assessment & Plan Assessment & Plan (1) COPD (chronic obstructive pulmonary disease): Code(s): J44.9 - Chronic obstructive pulmonary disease, unspecified Category: Medical Qualifiers: COPD type: emphysema Emphysema type: centrilobular Qualified Code(s): J43.2 - Centrilobular emphysema (2) [place] on CPAP: Code(s): G47.33 - Obstructive sleep apnea (adult) (pediatric); Z99.89 - Dependence on other enabling machines and devices Category: Medical (3) Pulmonary emboli: Comment: (on anticoag with Eliquis) Code(s): I26.99 - Other pulmonary embolism without acute cor pulmonale Category: Medical Qualifiers: Pulmonary embolism type: single subsegmental (without acute cor pulmonale) Qualified Code(s): I26.93 - Single subsegmental pulmonary embolism without acute cor pulmonale (4) Pulmonary nodules: Code(s): R91.8 - Other nonspecific abnormal finding of lung field Category: Medical (5) Dyspnea: Comment: multifactorial Code(s): R06.00 - Dyspnea, unspecified Category: Medical Qualifiers: Dyspnea type: dyspnea on exertion Qualified Code(s): R06.00 - Dyspnea, unspecified (6) Has daytime drowsiness: Code(s): R40.0 - Somnolence Category: Social Hx Plan Continue Stiolto continue Daliresp 250 mcg every other day is ok continue CPAP, requesmting download short-acting beta agonist as needed continue Provigil 100mg in AM, will work in weaning as tolerated continue anticoagulation follow-up in 4-6 months Coding Level of Care Code Est Pt Level 4 (00326) Complex EM visit Add On G2211 Diagnoses Centrilobular emphysema J43.2 COPD type: emphysema Emphysema type: centrilobular [place] on CPAP G47.33; Z99.89 Single subsegmental pulmonary embolism without acute cor pulmonale I26.93 Pulmonary embolism type: single subsegmental (without acute cor pulmonale) Pulmonary nodules R91.8 Dyspnea on exertion R06.00 Dyspnea type: dyspnea on exertion Has daytime drowsiness R40.0 Time Spent (min) 16
== END 2024-02-21 10:44 | disposition home or self-care (01) ==
PROVIDERS: PCP Internal Medicine; Visit Provider Hospitalist
DX: J43.2 Centrilobular emphysema (principal); G47.33 Obstructive sleep apnea (adult) (pediatric); Z99.89 Dependence on other enabling machines and devices; I26.93 Single subsegmental thrombotic pulmonary embolism without acute cor pulmonale; R91.8 Other nonspecific abnormal finding of lung field; R06.00 Dyspnea, unspecified; R40.0 Somnolence
CPT/HCPCS: 99214; G2211

== ENCOUNTER → 2024-02-21 10:03 | Outpatient (BNVA) | payer MEDICARE, OTHER, SELFPAY | PROVIDERS: PCP Internal Medicine; Visit Provider Hospitalist | DX: J43.2 Centrilobular emphysema (principal); G47.33 Obstructive sleep apnea (adult) (pediatric); I26.93 Single subsegmental thrombotic pulmonary embolism without acute cor pulmonale; R91.8 Other nonspecific abnormal finding of lung field; R06.00 Dyspnea, unspecified; R40.0 Somnolence; Z99.89 Dependence on other enabling machines and devices | CPT/HCPCS: 99212 ==

== ENCOUNTER 2024-03-02 10:27 | Outpatient (AMB) | payer MEDICARE, OTHER, SELFPAY ==
--- NOTE | 2024-03-02 10:29 | A.OFFVIS_ITS ---
Vital Signs 03/02/24 10:32 Height 5 ft 10 in Weight 221 lb BMI 31.7 BP 149/82 H Blood Pressure Location Rt brachial Position Sitting Pulse 77 Pulse Source Pulse Oximeter Pulse Oximetry (%) 97 Oxygen Delivery Method Room Air Intake Visit Reasons: NECK AND SHOULDER PAIN Intake Note: Pain today 12/01 Compliance Technician Required: No Accompanied by: Self / Same As Patient Allergies fluticasone furoate [Trelegy Ellipta] Allergy (Severe, Verified 03/02/24 10:33) Thrush umeclidinium [Trelegy Ellipta] Allergy (Severe, Verified 03/02/24 10:33) Thrush vilanterol [Trelegy Ellipta] Allergy (Severe, Verified 03/02/24 10:33) Thrush Iodinated Contrast Media [IV CONTRAST] Adverse Reaction (Mild, Verified 03/02/24 10:33) FLUSHING HPI Comments Details: Patient presents today for follow up for right sided neck and shoulder pain. Denies any recent trauma, injury or falls. Patient reports pain started after placement of temporary pacemaker in his right side of the neck in August. 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 Patient was referred to us for potential trigger point injections with US guidance by Physiatry. He presents with localized tenderness in the right SCM and upper trapezium muscle with full cervical spine ROM. Mild pain with cervical extension and shoulder ROM. Internal and external right shoulder ROM aggravate his right sided neck pain. He has tightness over his right trapezium and swelling with tenderness in the anterio-lateral aspect of his right neck which he reports has been presents since placement of temporary pacemaker. Denies any fever, chills, dizziness, chest pain, shortness of breaths, or dyspnea. He is on Eliquis. PRIOR Dr. Gomez: Seamus is today to discuss the results of sacroiliac joint injection which was performed on him on 02/01/2023. He reports 1 month of significant pain relief. He reports better mobility better social interactions better activities of daily living. He reports that he is interested in some neuromodulation procedures and SI joint fusion to fix his pain in the sacroiliac joint permanently. He requests brochures which will be sent to him. Alternatively we can continue to perform sacroiliac joint injection with seem to be giving him good results. Prior: Therapeutic SI joint injection provided him over 6-8 months pain relief until recent return of his pain to baseline. Denies any recent trauma, injury, falls. He reports low back pain that is right sided but also radiates to both buttocks and lateral hips. Pain increases with movements, extension, changing positions, bending, and walking. Patient also reports chronic right knee pain with prior history of right TKR on 12/12/18. Denies fever, weight changes, abdominal or groin pain, knee bucking or locking, bladder or bowel incontinence or saddle anesthesia. Past Procedures: 07/20/22: Bilateral Therapeutic SIJ injections-70% ongoing pain relief 04/27/22:Bilateral Therapeutic L3 L4 DR L5 MBB -50% pain relief 03/23/22: Bilateral Diagnostic L3 L4 DR L5 MBB-80% for first 3 hours, 70% for next 4 hours PRIOR: Seamus presents today in the office after completing 6 weeks of PT at [facility]. He notes minimal improvement with PT and continues HEP regularly. He does notices improvement in his daily functioning and activities after PT but continues to endorse axial, non-radiating pain across his lower back, left worse than right. Patient reports increase in pain with prolonged standing of more than 1-2 hours before he needs to rest. He states tizandine prn and gabapentin at bedtime has been very helpful without noted side effects and that he is able to sleep through the night better than before. Patient continues to take daily marijuana edibles that he grows himself. He is interested to undergo diagnostic lumbar medial branch blocks with consideration of a PNS trial, RFA or therapeutic injections. Patient denies any fever, weight loss, weakness, bowel or bladder incontinence, or saddle anesthesia. Ambulates with mildly antalgic gait and no use of cane today. PRIOR: Patient returns to the office today to discuss lumbar spine and SIJ imaging results. He recently initiated formal PT and is establishing HEP. He continues to endorse lower back pain and left hip pain but also has right hip periodically too. He reports tizanidine has been helpful at bedtime and allows him to sleep better. However, he continues to have difficulty with mobility and daily functioning with current pain. He has hard time with climbing stairs, squatting, picking up objects from the floor or going for walks. We reviewed his recent imaging which are noted below. His bilateral SI joints symmetrical without any lytic, sclerotic or bone abnormality. Lumbar spine imaging is consistent with degenerative disc changes at the L2-L3 and L5-S1 disc levels. There is moderate ventral bridging osteophytes at L2-L3 and mild ventral spondylosis at the L3-L4 disc level. No acute fracture or dislocation. [facility] Medical History Has daytime drowsiness Dyspnea Dyspnea Personal history of nicotine dependence Obesity [place] on CPAP Pulmonary emboli Pulmonary nodules COPD (chronic obstructive pulmonary disease) Surgical History (Updated 03/02/24 @ 14:34 by GERALDO Appiah) S/P placement of cardiac pacemaker (~08/2023) History of total right knee replacement (TKR) (~2018) History of appendectomy Family History Father Heart disease Mother Heart disease Social History Alcohol intake: current Alcohol intake frequency: a few times a week Patient Tobacco Use Status: Former Tobacco user Review of Systems Const All systems reviewed & are unremarkable except as noted in HPI and below Physical Exam Vital Signs: Last Vital Signs Pulse 77 03/02/24 10:32 BP 149/82 H 03/02/24 10:32 Pulse Ox 97 03/02/24 10:32 Oxygen Delivery Method Room Air 03/02/24 10:32 BMI result Body Mass Index 31.7 General: Appears afebrile. Alert and oriented. Mood and affect appropriate. Follows and participates in conversation appropriately. Respiratory effort is unlabored. No cough. Able to transition from sit to stand unassisted. Ambulates with bilaterally normal heel strike and toe off. Neck Neck: Yes full ROM, Yes no meningeal signs, Yes supple, Yes anterior neck swelling (right lateral-anterior), No torticollis, Yes no JVD and No prominent dorsocervical fat pad Back/Spine/Pelvis Cervical Spine: cervical ROM normal, No Lhermitte's sign positive, cervical muscular tenderness (right upper trapezium and right SCM with mild-moderate tenderness), pain with cervical ROM, No Cervical spine scars present, cervical spasm (right ), No Cervical spine tenderness and No step off deformity Neuro General: no meningeal signs Extrem Right upper extremity: shoulder/upper arm (Mildly limited ROM, with I/E reproduce right sided neck pain) Details: normal to inspection and tenderness Location: of the A-C joint and over the subacromial bursa; no swelling, no ecchymosis, no deformity and no unusual warmth Assessment & Plan Assessment & Plan (1) Myofascial neck pain: Code(s): M54.2 - Cervicalgia Category: Medical (2) Neck and shoulder pain: Code(s): M54.2 - Cervicalgia; M25.519 - Pain in unspecified shoulder Category: Medical (3) S/P placement of cardiac pacemaker: Onset Date: ~08/2023 Comment: 09/21/23: [employer], dual-chamber pacemaker, [place] XT , MRI SureScan pacemaker, MRI conditional via left axillary access Code(s): Z95.0 - Presence of cardiac pacemaker Category: Surgical Plan Schedule Right upper trapezium and right SCM muscles trigger point injection with local and US guidance. Patient seen with Dr. Lawrence at the end of today's visit, will plan for TPI as discussed. No need to stop Eliquis as TPI per Dr. Lawrence. Expectations, risks and benefits were reviewed. Injections scheduled for 03/05/24. All questions were answered and the patient is in agreement of plan. Follow-up after injections and sooner as needed. Coding Level of Care Code Est Pt Level 4 (79677) Diagnoses Myofascial neck pain M54.2 Neck and shoulder pain M54.2; M25.519 S/P placement of cardiac pacemaker Z95.0
[2024-03-02 10:32] VITALS: BP 149/82; PULSE 77; O2SAT 97; BMI 31.7
== END 2024-03-02 10:53 | disposition home or self-care (01) ==
PROVIDERS: PCP Internal Medicine; Visit Provider Nurse Practitioner Family
DX: M54.2 Cervicalgia (principal); M25.519 Pain in unspecified shoulder; Z95.0 Presence of cardiac pacemaker
CPT/HCPCS: 99214

== ENCOUNTER → 2024-03-02 10:27 | Outpatient (BNVA) | payer MEDICARE, OTHER, SELFPAY | PROVIDERS: PCP Internal Medicine; Visit Provider Nurse Practitioner Family | DX: M54.2 Cervicalgia (principal); M25.511 Pain in right shoulder; Z95.0 Presence of cardiac pacemaker | CPT/HCPCS: 99212 ==

== ENCOUNTER 2024-03-09 10:41 | Outpatient (AMB) | payer MEDICARE, OTHER, SELFPAY ==
--- NOTE | 2024-03-09 10:43 | A.OFFVIS_ITS ---
Vital Signs 03/09/24 10:45 Height 5 ft 10 in Weight 221 lb BMI 31.7 BP 149/71 H Blood Pressure Location Rt brachial Position Sitting Respiration 14 Pulse 133 H Pulse Source Pulse Oximeter Pulse Oximetry (%) 95 Oxygen Delivery Method Room Air Intake Visit Reasons: Right TPI w/ ultrasound Allergies fluticasone furoate [Trelegy Ellipta] Allergy (Severe, Verified 03/09/24 10:50) Thrush umeclidinium [Trelegy Ellipta] Allergy (Severe, Verified 03/09/24 10:50) Thrush vilanterol [Trelegy Ellipta] Allergy (Severe, Verified 03/09/24 10:50) Thrush Iodinated Contrast Media [IV CONTRAST] Adverse Reaction (Mild, Verified 03/09/24 10:50) FLUSHING Medication List - Last Reconciled 03/09/24 by Beatrice Rader LPN amlodipine 2.5 mg PO DAILY atorvastatin 20 mg PO DAILY carbidopa-levodopa 25-100 mg 1 tab PO TID 90 days clotrimazole 1% appl topical PRN Eliquis (apixaban) 5 mg PO BID NS escitalopram oxalate 10 mg PO DAILY fluocinolone acetonide oil 0.01% drps otic (ears) folic acid 1 mg PO DAILY 90 days gabapentin 300 mg PO BEDTIME 30 days ketoconazole 2% 1 appl topical 2XW lidocaine 5% (Lidoderm) 1 patch topical DAILY modafinil (Provigil) 100 mg PO QAM 90 days roflumilast 250 mcg PO DAILY tiotropium-olodaterol 2.5-2.5 mcg/actuation (Stiolto Respimat) 2 inhalations inhalation DAILY tizanidine 4 mg PO BEDTIME PRN HPI HPI Right TPI w/ ultrasound: Details: 78-year-old male who presents today to the office for nerve block with US. Denies any recent cough, cold, infection, fever or other significant changes in medical history since last office visit.? [facility] Medical History Has daytime drowsiness Dyspnea Dyspnea Personal history of nicotine dependence Obesity [place] on CPAP Pulmonary emboli Pulmonary nodules COPD (chronic obstructive pulmonary disease) Surgical History (Updated 03/02/24 @ 14:34 by GERALDO Appiah) S/P placement of cardiac pacemaker (~08/2023) History of total right knee replacement (TKR) (~2018) History of appendectomy Family History Father Heart disease Mother Heart disease Social History Alcohol intake: current Alcohol intake frequency: a few times a week Patient Tobacco Use Status: Former Tobacco user Review of Systems Const All systems reviewed & are unremarkable except as noted in HPI and below Physical Exam Vital Signs: Last Vital Signs Pulse 133 H 03/09/24 10:45 Resp 14 03/09/24 10:45 BP 149/71 H 03/09/24 10:45 Pulse Ox 95 03/09/24 10:45 Oxygen Delivery Method Room Air 03/09/24 10:45 BMI result Body Mass Index 31.7 General: Appears afebrile. Alert and oriented. Mood and affect appropriate. Follows and participates in conversation appropriately. Respiratory effort is unlabored. Able to transition from sit to stand unassisted. Ambulates with bilaterally normal heel strike and toe off. Office Procedures Injection Trigger Point Multi By mistake Nerve Block Details: Superficial cervical?plexus?block with low dose local anesthetic, US guided After obtaining written consent, pre-procedure blood pressure and heart rate were stable and recorded in the nursing record. The patient was placed supine on the table. The neck area was widely prepped with chloraprep and allowed to dry. Using ultrasound, the superficial cervical plexus was located. A 25 gauge 1.5 in needle was advanced under ultrasound guidance in a shallow plane. Aspiration was negative for heme and air. 16 ml normal saline and 4 ml of ropivacaine 0.5% was injected with ultrasound visualization. The needle was removed, skin cleansed and a sterile bandage was applied. The patient tolerated the procedure well and no complications were encountered. Following the procedure the patient's vital signs were stable.The patient was discharged home in good condition with post- procedural instructions. Time Out: Immediately prior to the procedure, the following was verbally confirmed that there is a signed consent form and that the correct patient, planned procedure, site and side are consistent with documentation and that necessary equipment and/or blood products are available prior to the start of the case. Complications: none EBL: <1 cc Additional procedure code (CPT) needed Results Reviewed Results Reviewed: No imaging is available for review. Assessment & Plan Assessment & Plan (1) Neck and shoulder pain: Code(s): M54.2 - Cervicalgia; M25.519 - Pain in unspecified shoulder Category: Medical Plan Patient is status post superficial cervical?plexus?block with low dose local anesthetic, US guided. Patient tolerated procedure well and was discharged home in stable condition with discharge instructions.? All questions were answered. A follow-up appointment was made during today's visit to assess response to today's injection. Scribed for Dr. Lawrence by Tulio Pino medical staff services manager, on 03/09/2024. I, Dr. Lawrence, have personally reviewed and agree with the information entered by the scribe. Coding Level of Care Code Procedure Only Diagnoses Neck and shoulder pain M54.2; M25.519
[2024-03-09 10:45] VITALS: BP 149/71; PULSE 133; RESP 14; O2SAT 95; BMI 31.7
== END 2024-03-09 11:08 | disposition home or self-care (01) ==
PROVIDERS: PCP Internal Medicine; Visit Provider Internal Medicine
DX: M79.18 Myalgia, other site (principal); M54.2 Cervicalgia; M25.519 Pain in unspecified shoulder
CPT/HCPCS: 20552; 64999; 76942

== ENCOUNTER → 2024-03-09 10:41 | Outpatient (BNVA) | payer MEDICARE, OTHER, SELFPAY | PROVIDERS: PCP Internal Medicine; Visit Provider Internal Medicine | DX: M54.2 Cervicalgia (principal); M25.519 Pain in unspecified shoulder | CPT/HCPCS: 20552; 64999; J2795 ==

== ENCOUNTER 2024-03-14 09:49 | Outpatient (AMB) | payer MEDICARE, OTHER, SELFPAY ==
--- NOTE | 2024-03-14 09:51 | A.OFFVIS_ITS ---
Vital Signs 03/14/24 09:52 Height 5 ft 10 in Weight 221 lb BMI 31.7 BP 142/80 H Blood Pressure Location Lt brachial Position Sitting Respiration 15 Pulse 69 Pulse Source Pulse Oximeter Pulse Oximetry (%) 98 Oxygen Delivery Method Room Air Intake Visit Reasons: Follow Up Allergies fluticasone furoate [Trelegy Ellipta] Allergy (Severe, Verified 03/14/24 09:54) Thrush umeclidinium [Trelegy Ellipta] Allergy (Severe, Verified 03/14/24 09:54) Thrush vilanterol [Trelegy Ellipta] Allergy (Severe, Verified 03/14/24 09:54) Thrush Iodinated Contrast Media [IV CONTRAST] Adverse Reaction (Mild, Verified 03/14/24 09:54) FLUSHING Medication List - Last Reconciled 03/14/24 by Beatrice Rader LPN amlodipine 2.5 mg PO DAILY atorvastatin 20 mg PO DAILY carbidopa-levodopa 25-100 mg 1 tab PO TID 90 days clotrimazole 1% appl topical PRN Eliquis (apixaban) 5 mg PO BID NS escitalopram oxalate 10 mg PO DAILY fluocinolone acetonide oil 0.01% drps otic (ears) folic acid 1 mg PO DAILY 90 days gabapentin 300 mg PO BEDTIME 30 days ketoconazole 2% 1 appl topical 2XW lidocaine 5% (Lidoderm) 1 patch topical DAILY modafinil (Provigil) 100 mg PO QAM 90 days roflumilast 250 mcg PO DAILY tiotropium-olodaterol 2.5-2.5 mcg/actuation (Stiolto Respimat) 2 inhalations inhalation DAILY tizanidine 4 mg PO BEDTIME PRN HPI HPI Follow Up: Details: 78-year-old male who presents today to the office for status post superficial cervical plexus block. The patient reports 75% relief following the procedure. He noticed significant improvement in his pain/sensitivity. He reports he had tingling sensation on Tuesday, and a headache that later resolved. He reports recurrent SI joint pain for which he had received SI joint injection and lower lumbar facet blocks in the past. He would like to repeat SI joint injections. Post procedures: 03/09/24: Superficial cervical plexus block: 75% relief. 07/20/22: Bilateral Therapeutic SIJ injections-70% ongoing pain relief 04/27/22:Bilateral Therapeutic L3 L4 DR L5 MBB -50% pain relief 03/23/22: Bilateral Diagnostic L3 L4 DR L5 MBB-80% for first 3 hours, 70% for next 4 hours [facility] Medical History Has daytime drowsiness Dyspnea Dyspnea Personal history of nicotine dependence Obesity [place] on CPAP Pulmonary emboli Pulmonary nodules COPD (chronic obstructive pulmonary disease) Surgical History (Updated 03/02/24 @ 14:34 by GERALDO Appiah) S/P placement of cardiac pacemaker (~08/2023) History of total right knee replacement (TKR) (~2018) History of appendectomy Family History Father Heart disease Mother Heart disease Social History Alcohol intake: current Alcohol intake frequency: a few times a week Patient Tobacco Use Status: Former Tobacco user Physical Exam Vital Signs: Last Vital Signs Pulse 69 03/14/24 09:52 Resp 15 03/14/24 09:52 BP 142/80 H 03/14/24 09:52 Pulse Ox 98 03/14/24 09:52 Oxygen Delivery Method Room Air 03/14/24 09:52 BMI result Body Mass Index 31.7 General: Appears afebrile. Alert and oriented. Mood and affect appropriate. Follows and participates in conversation appropriately. Respiratory effort is unlabored. Able to transition from sit to stand unassisted. Ambulates with bilaterally normal heel strike and toe off. Assessment & Plan Assessment & Plan (1) Myofascial neck pain: Code(s): M54.2 - Cervicalgia Category: Medical (2) Sacroiliac joint dysfunction: Code(s): M53.3 - Sacrococcygeal disorders, not elsewhere classified Category: Medical Plan Patient has had prior SI joint injections which have provided him with approximately 75% relief for more than 6 months at a time. He last had this injection last year, and is now feeling similar symptoms again. Will schedule the patient for bilateral SI joint injections. Discussed the risks and benefits of the procedure with the patient in detail. All questions were answered. The patient is on board with the plan. Repeat superficial cervical plexus block as needed. Justification for interventional therapy: ? Patient with average pain > 6/10 ? Patient has exhausted conservative therapy ? Previous injection provided >75% relief for more than 6 months . Patient has a good understanding of their pain condition and has appropriate mental and social support Scribed for Dr. Lawrence by Whit, senior medical director, on 03/14/2024. I, Dr. Lawrence, have personally reviewed and agree with the information entered by the scribe. Coding Level of Care Code Est Pt Level 4 (44919) Diagnoses Myofascial neck pain M54.2 Sacroiliac joint dysfunction M53.3
[2024-03-14 09:52] VITALS: BP 142/80; PULSE 69; RESP 15; O2SAT 98; BMI 31.7
== END 2024-03-14 10:39 | disposition home or self-care (01) ==
PROVIDERS: PCP Internal Medicine; Visit Provider Internal Medicine
DX: M54.2 Cervicalgia (principal); M53.3 Sacrococcygeal disorders, not elsewhere classified
CPT/HCPCS: 99214

== ENCOUNTER → 2024-03-14 09:49 | Outpatient (BNVA) | payer MEDICARE, OTHER, SELFPAY | PROVIDERS: PCP Internal Medicine; Visit Provider Internal Medicine | DX: M54.2 Cervicalgia (principal); M53.3 Sacrococcygeal disorders, not elsewhere classified | CPT/HCPCS: 99212 ==

== ENCOUNTER 2024-04-19 06:09 | Outpatient (REF) | payer MEDICARE, OTHER, SELFPAY | END 2024-04-19 06:10 | disposition home or self-care (01) | LOC: CF 06:09 | PROVIDERS: Visit Provider Internal Medicine | DX: M53.3 Sacrococcygeal disorders, not elsewhere classified (principal) | CPT/HCPCS: 27096; J2795; J3301 ==

== ENCOUNTER 2024-04-19 09:24 | Outpatient (AMB) | payer MEDICARE, OTHER, SELFPAY ==
[2024-04-19 11:32] VITALS: BP 133/67; PULSE 78; RESP 17; O2SAT 96
--- NOTE | 2024-04-19 12:36 | A.OFFVIS_ITS ---
Vital Signs 04/19/24 11:32 04/19/24 12:37 BP 133/67 153/73 H Blood Pressure Location Lt brachial Lt brachial Position Sitting Sitting Respiration 17 16 Pulse 78 98 Pulse Source Pulse Oximeter Pulse Oximeter Pulse Oximetry (%) 96 95 Oxygen Delivery Method Room Air Room Air Comment Pre-op Post-op Intake Visit Reasons: miguel theraputic SIJ inj Allergies fluticasone furoate [Trelegy Ellipta] Allergy (Severe, Verified 03/14/24 09:54) Thrush umeclidinium [Trelegy Ellipta] Allergy (Severe, Verified 03/14/24 09:54) Thrush vilanterol [Trelegy Ellipta] Allergy (Severe, Verified 03/14/24 09:54) Thrush Iodinated Contrast Media [IV CONTRAST] Adverse Reaction (Mild, Verified 03/14/24 09:54) FLUSHING HPI HPI miguel theraputic SIJ inj: Details: Patient presents for scheduled procedure. Denies any recent cough, cold, infection, fever or other significant changes in medical history since last office visit. [facility] Medical History Has daytime drowsiness Dyspnea Dyspnea Personal history of nicotine dependence Obesity [place] on CPAP Pulmonary emboli Pulmonary nodules COPD (chronic obstructive pulmonary disease) Surgical History (Updated 03/02/24 @ 14:34 by GERALDO Appiah) S/P placement of cardiac pacemaker (~08/2023) History of total right knee replacement (TKR) (~2018) History of appendectomy Family History Father Heart disease Mother Heart disease Social History Alcohol intake: current Alcohol intake frequency: a few times a week Patient Tobacco Use Status: Former Tobacco user Physical Exam Vital Signs: Last Vital Signs Pulse 98 04/19/24 12:37 Resp 16 04/19/24 12:37 BP 153/73 H 04/19/24 12:37 Pulse Ox 95 04/19/24 12:37 Oxygen Delivery Method Room Air 04/19/24 12:37 Office Procedures Joint Injection/Aspiration Joint Injection/Aspiration Details: Therapeutic Sacroiliac Joint Injection, Bilateral The procedure, its benefits, and its risks were explained and written informed consent was obtained from the patient. Immediately prior to starting the procedure, a time-out safety check was conducted. The patient's identif ication, procedure name, procedure site, and procedure laterality were confirmed with the patient. ? Patient was placed prone on the fluoroscopy table and the lumbosacral area was prepped using ChloraPrep and draped with sterile drapein standard fashion. The C-arm was rotated in a contralateral oblique fashion until the medial border of the iliac crest no longer foreshadowed the posterior sacroiliac joint line. The skin and subcutaneous tissue was anesthetized using 1 mL of 0.75% plain lidocaine with 1.5-inch 25-gauge needle in the middle region of the joint line.? A 3.5-inch 22-gauge spinal needle with small bend on the tip was slowly advanced towards the joint line, coaxial to the x-ray beam. Once bony content was obtained, the needle was easily slid into the intra-articular space.? Intra- articular needle position was confirmed using lateral fluoroscopy.? A total volume of 2.5mL of solution containing 40 mg triamcinolone and rest 0.5% of ropivacaine was injected intra-articularly. The stylet was reinserted and needle was removed. The same procedure was repeated on the other side. The patient tolerated the procedure well. Patient denied any lower extremity weakness or numbness. Patient was observed for 30 min and was discharged after fulfilling the standard discharge criteria. Coding 76516 - Sacroiliac (Bilateral) Procedure code (CPT) selection complete Assessment & Plan Assessment & Plan (1) Sacroiliac joint dysfunction: Code(s): M53.3 - Sacrococcygeal disorders, not elsewhere classified Category: Medical Plan Patient is status post bilateral therapeutic sacroiliac joint injections. Patient tolerated procedure well and was discharged home in stable condition with discharge instructions. All questions were answered. We will follow-up via telephone or in clinic to assess response to therapy. A follow-up appointment was made during today's visit. Orders: Orders FL guidance in treatment room Today M53.3 - Sacrococcygeal disorders, not elsewhere classified Coding Level of Care Code Procedure Only Diagnoses Sacroiliac joint dysfunction M53.3 CPT Codes Coding - Joint 9: 18637 - Sacroiliac ([id number])
[2024-04-19 12:37] VITALS: BP 153/73; PULSE 98; RESP 16; O2SAT 95
== END 2024-04-19 12:36 | disposition home or self-care (01) ==
LOC: HO.PMCPRC 09:24
PROVIDERS: PCP Internal Medicine; Visit Provider Internal Medicine
DX: M53.3 Sacrococcygeal disorders, not elsewhere classified (principal)
CPT/HCPCS: 27096

== ENCOUNTER 2024-05-14 13:16 | Outpatient (AMB) | payer MEDICARE, OTHER, SELFPAY ==
[2024-05-14 13:22] VITALS: BP 122/84; BMI 30.8
--- NOTE | 2024-05-14 13:22 | A.OFFVIS_ITS ---
Vital Signs 05/14/24 13:22 Height 5 ft 10 in Weight 214 lb 8 oz BMI 30.8 BP 122/84 Blood Pressure Location Rt brachial Position Sitting Intake Visit Reasons: 6 Month F/U Intake Note: Patient presents for 6 month follow up Allergies fluticasone furoate [Trelegy Ellipta] Allergy (Severe, Verified 05/14/24 13:30) Thrush umeclidinium [Trelegy Ellipta] Allergy (Severe, Verified 05/14/24 13:30) Thrush vilanterol [Trelegy Ellipta] Allergy (Severe, Verified 05/14/24 13:30) Thrush Iodinated Contrast Media [IV CONTRAST] Adverse Reaction (Mild, Verified 05/14/24 13:30) FLUSHING Medication List - Last Reconciled 05/14/24 by GERALDO Crandall amlodipine 2.5 mg PO DAILY atorvastatin 20 mg PO DAILY carbidopa-levodopa 25-100 mg 1 tab PO TID 90 days clotrimazole 1% appl topical PRN Eliquis (apixaban) 5 mg PO BID NS escitalopram oxalate 10 mg PO DAILY fluocinolone acetonide oil 0.01% drps otic (ears) folic acid 1 mg PO DAILY 90 days gabapentin 300 mg PO BEDTIME 30 days ketoconazole 2% 1 appl topical 2XW lidocaine 5% (Lidoderm) 1 patch topical DAILY modafinil (Provigil) 100 mg PO QAM 90 days roflumilast 250 mcg PO DAILY tiotropium-olodaterol 2.5-2.5 mcg/actuation (Stiolto Respimat) 2 inhalations inhalation DAILY tizanidine 4 mg PO BEDTIME PRN HPI Comments Details: 78-yr-old male presents for f/u visit of movement disorder. He states he is scheduled to undergo a cystoscopy at [facility] on May 26- Dr Garcia at [facility]. Pt is noticing increased BLE leg cramps- more so from the low to upper anterior preciado. He is also noticing Jayjay, right more so than left, 2nd trigger finger s/s- the fingers just get stuck in a straight position. His BUE tremor is stable, worse is holding something. He does have some lightheadedness- at times. He feels like he tends to sway when he is walking- like he was drunk but not. He denies interval falls. Denies hallucinations. No recent headaches. Last random headache was a month ago. Previously tried- Gammacore x's 2- did not tolerate. [facility] Medical History Has daytime drowsiness Dyspnea Dyspnea Personal history of nicotine dependence Obesity [place] on CPAP Pulmonary emboli Pulmonary nodules COPD (chronic obstructive pulmonary disease) Surgical History S/P placement of cardiac pacemaker (~08/2023) History of total right knee replacement (TKR) (~2018) History of appendectomy Family History Father Heart disease Mother Heart disease Social History Alcohol intake: current Alcohol intake frequency: a few times a week Patient Tobacco Use Status: Former Tobacco user Physical Exam Vital Signs: Last Vital Signs BP 122/84 05/14/24 13:22 BMI result Body Mass Index 30.8 Const General: cooperative and no acute distress Resp Effort & Inspection: normal respiratory effort and able to speak in complete sentences Neuro Other: General: A&O x's 3 Expression: ok Voice: ok Tremor: RUE postural tremor today. Tone: R > L UE tightness in elbows. FFM: Bradykinesia Foot taps- Decreased Dyskinesia: None Gait: Stands easily, short steps, wider base. Psych: pleasant affect Cranial nerves: Yes CN's II-XII intact bilaterally Assessment & Plan Assessment & Plan (1) Extrapyramidal and movement disorder: Comment: Left upper extremity rest and postural tremor, decreased arm swing, REM sleep behaviors, history of Agent C[place] exposure. Levodopa responsive. DaTSCAN negative. Code(s): G25.9 - Extrapyramidal and movement disorder, unspecified Category: Medical (2) Muscle cramps: Code(s): R25.2 - Cramp and spasm Category: Medical (3) Tremor: Code(s): R25.1 - Tremor, unspecified Category: Medical (4) Lightheadedness: Code(s): R42 - Dizziness and giddiness Category: Medical Plan Will recheck labs- pt has requested recent labs ordered by PCP sent here. Increase CD-LD 25-100mg from 1 tab tid to 1 tab QID or (1-1-2)- in hopes this reduces legg cramps- monitor for OH s/s. Pt has current supply- will sned order when requested. Continue folic acid for now. Continue increased fluids, including sports drinks or liquid IV and high-fluid foods. Maintain regular physical activity. Pt did not tolerate GammaCore- ? if poor tolerance r/t unknown AV block. Now has pacemaker implant. ? Will follow-up upon review of above and patient to follow-up in clinic in 6 months or sooner prn. PCP labs received- CBC, CMP, TSH, HgA1C- WNL. though RBC was normal after specimen reached > 37 degrees- f/u Megan test- negative. Check f/u labs as below. Orders: Orders Vitamin B12 and Folate Today E55.9 - Vitamin D deficiency, unspecified, R25.1 - Tremor, unspecified, R25.2 - Cramp and spasm Folate Today E55.9 - Vitamin D deficiency, unspecified, R25.1 - Tremor, unspecified, R25.2 - Cramp and spasm Vitamin D 25-OH (D2 and D3) Today E55.9 - Vitamin D deficiency, unspecified, R25.1 - Tremor, unspecified, R25.2 - Cramp and spasm Creatine Kinase Total Today E55.9 - Vitamin D deficiency, unspecified, R25.1 - Tremor, unspecified, R25.2 - Cramp and spasm Magnesium Today E55.9 - Vitamin D deficiency, unspecified, R25.1 - Tremor, unspecified, R25.2 - Cramp and spasm Medications: Changed From carbidopa-levodopa 25-100 mg 1 tab PO TID 90 days 270 tabs 3RF To carbidopa-levodopa 25-100 mg 1 tab PO QID 90 days 360 tabs 3RF Coding Level of Care Code Est Pt Level 4 (39669) Diagnoses Extrapyramidal and movement disorder G25.9 Muscle cramps R25.2 Tremor R25.1 Lightheadedness R42
== END 2024-05-14 14:26 | disposition home or self-care (01) ==
PROVIDERS: PCP Student in an Organized Health Care Education/Training Program; Visit Provider Nurse Practitioner Family
DX: G25.9 Extrapyramidal and movement disorder, unspecified (principal); R25.2 Cramp and spasm; R25.1 Tremor, unspecified; R42 Dizziness and giddiness
CPT/HCPCS: 99214

== ENCOUNTER → 2024-05-14 13:16 | Outpatient (BNVA) | payer MEDICARE, OTHER, SELFPAY | PROVIDERS: PCP Student in an Organized Health Care Education/Training Program; Visit Provider Nurse Practitioner Family | DX: G25.9 Extrapyramidal and movement disorder, unspecified (principal); R42 Dizziness and giddiness; E55.9 Vitamin D deficiency, unspecified | CPT/HCPCS: 99212 ==

== ENCOUNTER 2024-05-16 10:08 | Outpatient (AMB) | payer MEDICARE, OTHER, SELFPAY ==
--- NOTE | 2024-05-16 10:10 | A.OFFVIS_ITS ---
Vital Signs 05/16/24 10:12 Height 5 ft 10 in Weight 213 lb BMI 30.6 BP 125/64 Blood Pressure Location Lt brachial Position Sitting Respiration 1 L Pulse 95 Pulse Source Pulse Oximeter Pulse Oximetry (%) 97 Oxygen Delivery Method Room Air Intake Visit Reasons: s/p miguel theraputic SIJ inj Allergies fluticasone furoate [Trelegy Ellipta] Allergy (Severe, Verified 05/16/24 10:13) Thrush umeclidinium [Trelegy Ellipta] Allergy (Severe, Verified 05/16/24 10:13) Thrush vilanterol [Trelegy Ellipta] Allergy (Severe, Verified 05/16/24 10:13) Thrush Iodinated Contrast Media [IV CONTRAST] Adverse Reaction (Mild, Verified 05/16/24 10:13) FLUSHING Medication List - Last Reconciled 05/16/24 by Beatrice Rader LPN amlodipine 2.5 mg PO DAILY atorvastatin 20 mg PO DAILY carbidopa-levodopa 25-100 mg 1 tab PO QID 90 days clotrimazole 1% appl topical PRN Eliquis (apixaban) 5 mg PO BID NS escitalopram oxalate 10 mg PO DAILY fluocinolone acetonide oil 0.01% drps otic (ears) folic acid 1 mg PO DAILY 90 days gabapentin 300 mg PO BEDTIME 30 days ketoconazole 2% 1 appl topical 2XW lidocaine 5% (Lidoderm) 1 patch topical DAILY modafinil (Provigil) 100 mg PO QAM 90 days roflumilast 250 mcg PO DAILY tiotropium-olodaterol 2.5-2.5 mcg/actuation (Stiolto Respimat) 2 inhalations inhalation DAILY tizanidine 4 mg PO BEDTIME PRN HPI HPI s/p miguel theraputic SIJ inj: Details: 78-year-old male who presents today to the office for status post bilateral therapeutic sacroiliac joint injection. The patient reports 40% relief following the procedure for few weeks. It was less effective than bilateral therapeutic SIJ injections in 2021 that lasted for about three months. His pain radiates upward and mostly on his sides. He deneis any radiating pain down his leg. He reports nighttime muscle cramping in his leg. He denies any recent PT. He informed his PCP about receiving SIJ injection with us. His PCP recommended getting an MRI scan done. He is in process to schedule an MRI scan with his PCP at [facility] in [place]. He has a MR conditional pacemaker. He lives with someone, who has dementia. Past procedures 04/19/24: Therapeutic Sacroiliac Joint Injection, Bilateral: 40% relief for few weeks. 03/09/24: Superficial cervical plexus block: 75% relief. 07/20/22: Bilateral Therapeutic SIJ injections-70% for about three months. 04/27/22: Bilateral Therapeutic L3 L4 DR L5 MBB -50% pain relief 03/23/22: Bilateral Diagnostic L3 L4 DR L5 MBB-80% for first 3 hours, 70% for next 4 hours. COUNT INCLUDES THE [facility] Medical History Has daytime drowsiness Dyspnea Dyspnea Personal history of nicotine dependence Obesity [place] on CPAP Pulmonary emboli Pulmonary nodules COPD (chronic obstructive pulmonary disease) Surgical History S/P placement of cardiac pacemaker (~08/2023) History of total right knee replacement (TKR) (~2018) History of appendectomy Family History Father Heart disease Mother Heart disease Social History Alcohol intake: current Alcohol intake frequency: a few times a week Patient Tobacco Use Status: Former Tobacco user Review of Systems Const All systems reviewed & are unremarkable except as noted in HPI and below Physical Exam Vital Signs: Last Vital Signs Pulse 95 05/16/24 10:12 Resp 1 L 05/16/24 10:12 BP 125/64 05/16/24 10:12 Pulse Ox 97 05/16/24 10:12 Oxygen Delivery Method Room Air 05/16/24 10:12 BMI result Body Mass Index 30.6 General: Appears afebrile. Alert and oriented. Mood and affect appropriate. Follows and participates in conversation appropriately. Respiratory effort is unlabored. Able to transition from sit to stand unassisted. Ambulates with bilaterally normal heel strike and toe off. Lumbar extension and facet loading reproduces pain in the lower back. Results Reviewed Results Reviewed: No imaging is available for review. Assessment & Plan Assessment & Plan (1) Lumbar spondylosis: Code(s): M47.816 - Spondylosis without myelopathy or radiculopathy, lumbar region Category: Medical Plan He has axial low back pain that has not been very responsive to therapeutic sacroiliac joint injection despite a positive response to that before. At this time, his pain appears to be more facet-mediated. He also has facet degeneration of his lumbar spine that might be contributing to some of his pain. We discussed diagnostic medial branch blocks to reassess if his pain is facet- mediated. He has previously had one round of diagnostic MBB that provided 80% relief for the duration of the anesthetic phase. If he has a positive MBB response, we will consider RFA of the lumbar medial branches. We will schedule him for a bilateral?L3-L4-L5?diagnostic?medial branch blocks. His low back CHELLY score in the office today was 40%. Discussed the risks and benefits of the procedure with the patient in detail. All questions were answered. The patient is on board with the plan. Justification for interventional therapy: ? Patient with average pain > 6/10 ? Patient has exhausted conservative therapy including PT, SIJ injections. ? Patient unable to tolerate physical therapy due to pain . Patient has a good understanding of their pain condition and has appropriate mental and social support In terms of the need for an MRI exam, I do not think his symptoms merit an MRI scan at this time, especially given the presence of a pacemaker, which complicates obtaining an MRI. If the facet interventions are not helpful, we can consider ordering them. Scribed for Dr. Lawrence by Tulio Pino, medical assistant, on 05/16/2024. I, Dr. Lawrence, have personally reviewed and agree with the information entered by the scribe. Coding Level of Care Code Est Pt Level 4 (10386) Diagnoses Lumbar spondylosis M47.816
[2024-05-16 10:12] VITALS: BP 125/64; PULSE 95; RESP 1; O2SAT 97; BMI 30.6
== END 2024-05-16 10:55 | disposition home or self-care (01) ==
PROVIDERS: PCP Internal Medicine; Visit Provider Internal Medicine
DX: M47.816 Spondylosis without myelopathy or radiculopathy, lumbar region (principal)
CPT/HCPCS: 99214

== ENCOUNTER 2024-05-16 10:08 | Outpatient (REF) | payer MEDICARE, OTHER, SELFPAY ==
[2024-05-16 12:29] LABS: Magnesium 2.1 mg/dL (1.6-2.6)
[2024-05-16 13:00] LABS: Folate > 20.0 ng/mL (> or = 4.0); Vitamin B12 286 pg/mL (200-900)
[2024-05-21 15:24] LABS: Vitamin D 25-OH, D2 <4 ng/mL; Vitamin D 25-OH, D3 19 ng/mL; Vitamin D 25-OH, Total 19 ng/mL (30-100)
== END 2024-05-16 10:09 | disposition home or self-care (01) ==
LOC: HO.LAB 10:08
PROVIDERS: Absent Provider Nurse Practitioner Family; PCP Internal Medicine; Visit Provider Internal Medicine
DX: R25.2 Cramp and spasm (principal); R25.1 Tremor, unspecified; E55.9 Vitamin D deficiency, unspecified; M47.816 Spondylosis without myelopathy or radiculopathy, lumbar region
CPT/HCPCS: 36415; 82306; 82550; 82607; 82746; 83735; 99212

== ENCOUNTER 2024-06-20 11:12 | Outpatient (REF) | payer MEDICARE, OTHER, SELFPAY ==
[2024-06-24 18:09] LABS: CK-BB None Detected (None Detected); CK-MB 0 % (<5); CK-MM 100 % (95-100); Creatine Kinase,Total,Serum 79 U/L (44-196)
== END 2024-06-20 11:13 | disposition home or self-care (01) ==
LOC: HO.LAB 11:12
PROVIDERS: PCP Student in an Organized Health Care Education/Training Program; Visit Provider Psychiatry & Neurology Neurology
DX: R25.2 Cramp and spasm (principal)
CPT/HCPCS: 36415; 82552

== ENCOUNTER 2024-07-05 06:09 | Outpatient (REF) | payer MEDICARE, OTHER, SELFPAY ==
--- NOTE | ~2024-07-05 | FL_ITS ---
EXAMINATION: FLUORO GUIDANCE IN TREATMENT ROOM CLINICAL INFORMATION: Spondylosis without myelopathy or radiculopathy, lumbar region. COMPARISON: None available. TECHNIQUE: Fluoroscopy supervised by: Dr. Olman Lawrence. Fluoroscopy time: 0.1 minutes. Cumulative Dose: 2.22 mGy. DAP: 0.0385 mGy-m2 (milligray-meter squared). Images: 2. FINDINGS: [place] are present bilaterally at what appear to be 3 consecutive levels in the lower lumbosacral spine and a transforaminal location. FL/FL guidance in treatment room IMPRESSION: Fluoroscopy during procedure. Please see procedure report for additional information. Electronically signed by: Horacio Damian MD 08/23/2024 07:35 AM [facility]
== END 2024-07-05 06:10 | disposition home or self-care (01) ==
LOC: CF 06:09
PROVIDERS: Visit Provider Internal Medicine
DX: M47.816 Spondylosis without myelopathy or radiculopathy, lumbar region (principal)
CPT/HCPCS: 64493; 64494; J2003; J2795

== ENCOUNTER 2024-07-05 10:01 | Outpatient (AMB) | payer MEDICARE, OTHER, SELFPAY ==
--- OUTSIDE RECORDS SUMMARY | 2024-07-05 10:09 | XMS_ITS | Continuity of Care Document ---
Author Organization [facility] Address [address] [place] [phone] Phone Care Team Providers Care Dining Service Worker Name Role Phone Corina Ga M.D. Unavailable Unavailable Allergies, Adverse Reactions, Alerts Substance Reaction Status Criticality Iodinated Contrast Media Active No Information Medications Medication Instructions Dosage Effective Dates (start - stop) Status Comments fluocinolone 0.01 % topical body oil apply by topical route 3 times every day to the affected area(s) 0.00 - Active Stiolto Respimat 2.5 mcg-2.5 mcg/actuation solution for inhalation inhale 2 puff by inhalation route every day at the same time each day 2.00 puff - Active metronidazole 0.75 % topical cream apply by topical route 2 times every day a thin layer to the affected area(s) in the morning and evening 0.00 - Active carbidopa 25 mg-levodopa 100 mg tablet take 1 tablet by oral route 3 times every day 1.00 tablet - Active Eliquis 2.5 mg tablet take 1 tablet by oral route 2 times every day 2.5 MG - Active atorvastatin 20 mg tablet take 1 tablet by oral route every day 20 MG - Active Procedures Procedure Date New Pt. Level V Visual Field Examination(s) Imaging Of Optic Nerve Sensorimotor Advance Directives Directive Yes / No Effective Date File Name No Information Encounters Encounter Description Practice Location Reason(s) For Visit Diagnoses Date Provider Providers Copied on Encounter New Pt. Level V [facility], [address] [address], [place], [place], [id number], tel:[phone] [facility] [place] Dizziness and giddinessParkinson 's diseaseFusion with defective stereopsisHeterony mous bilateral field defectsTremor, unspecifiedDeperso nalization-dereali zation syndromeChronic pulmonary embolismOpen angle with borderline findings, low risk, bilateralAge-relat ed nuclear cataract, bilateral Mar-3 1 Harmeet Arriaga. [address] [facility], [address], [place], [place], [id number] , [place]. tel: [phone] Family History Family Member Type Diagnosis Age At Onset No Information Payers Payer name Insurance type Covered alliance party ID Authoriza tion(s) Medicare Primary MB [id number] For Life [facility] [id number] Social History Type Description Quantity Date Captured Comments Alcohol Use Details Unknown Caffeine Use Details Unknown Tobacco Use Status No Information Smoking Status No Information Non-Smoking Tobacco Use Details : No Details Available : No Details Available Sex Male Chief Complaint And Reason For Visit No Information Plan Of Treatment Date Type Action Status No Information History Of Present Illness Encounter Date Complaint History Of Prese nt Illness No Information Instructions Date Instruction Additional Infor mation No Information Assessments Type Assessment Date No Information
[2024-07-05 10:29] VITALS: BP 114/76; PULSE 110; O2SAT 96
--- NOTE | 2024-07-05 10:29 | MHC.OFFVIS ---
Vital Signs 07/05/24 10:29 07/05/24 10:30 BP 114/76 117/66 Blood Pressure Location Rt brachial Rt brachial Position Sitting Sitting Pulse 110 H 110 H Pulse Source Pulse Oximeter Pulse Oximeter Pulse Oximetry (%) 96 94 Oxygen Delivery Method Room Air Room Air Intake Visit Reasons: Jayjay Dx L3-L4-L5 MBB Allergies fluticasone furoate [Trelegy Ellipta] Allergy (Severe, Verified 05/16/24 10:13) Thrush umeclidinium [Trelegy Ellipta] Allergy (Severe, Verified 05/16/24 10:13) Thrush vilanterol [Trelegy Ellipta] Allergy (Severe, Verified 05/16/24 10:13) Thrush Iodinated Contrast Media [IV CONTRAST] Adverse Reaction (Mild, Verified 05/16/24 10:13) FLUSHING HPI HPI Jayjay Dx L3-L4-L5 MBB: Details: Patient presents for scheduled procedure. Denies any recent cough, cold, infection, fever or other significant changes in medical history since last office visit. [facility] Medical History Has daytime drowsiness Dyspnea Dyspnea Personal history of nicotine dependence Obesity [place] on CPAP Pulmonary emboli Pulmonary nodules COPD (chronic obstructive pulmonary disease) Surgical History S/P placement of cardiac pacemaker (~08/2023) History of total right knee replacement (TKR) (~2018) History of appendectomy Family History Father Heart disease Mother Heart disease Social History Alcohol intake: current Alcohol intake frequency: a few times a week Patient Tobacco Use Status: Former Tobacco user Physical Exam Vital Signs: Last Vital Signs Pulse 110 H 07/05/24 10:30 BP 117/66 07/05/24 10:30 Pulse Ox 94 07/05/24 10:30 Oxygen Delivery Method Room Air 07/05/24 10:30 Office Procedures Lumbar/Sacral Facet Inj Details: Lumbar Medial Branch Block, Bilateral L3, L4 medial branches and L5 Dorsal Ramus (2 levels, 3 nerves) After obtaining written consent, pre-procedure blood pressure and pulse were recorded and are in the nursing record for review. The patient was placed in a prone position. The respective lumbosacral area was prepped with chloraprep and draped in sterile fashion. The skin over the target medial branch nerves was anesthetized with 0.5% lidocaine. A 22 gauge 3.5 inch needle was inserted into the target medial branch nerve under fluoroscopic guidance. No paresthesias were elicited with needle placement and aspiration was negative for blood and CSF. Due to patient allergy, no contrast was injected. Next 0.5 mL ropivacaine 0.5% was injected (0.5cc total per level). The identical procedure was performed at the remaining levels. The skin was cleansed and a sterile bandage was applied. Following the procedure the patient's vital signs were stable. The patient tolerated the procedure well and no complications were encountered. Following the procedure the patient's vital signs were stable. The patient was discharged home in good condition with post-procedural instructions. Time Out: Immediately prior to the procedure, the following was verbally confirmed that there is a signed consent form and that the correct patient, planned procedure, site and side are consistent with documentation and that necessary equipment and/or blood products are available prior to the start of the case. Complications: none EBL: <5 cc 03188 - with Fluoroscopy 57971 - second level, with Fluoroscopy (bilateral) Procedure code (CPT) selection complete Assessment & Plan Assessment & Plan (1) Lumbar spondylosis: Code(s): M47.816 - Spondylosis without myelopathy or radiculopathy, lumbar region Category: Medical Plan Patient is status post bilateral diagnostic L3, L4, L5 medial branch blocks. Patient tolerated procedure well and was discharged home in stable condition with discharge instructions. All questions were answered. We will follow-up via telephone or in clinic to assess response to therapy. A follow-up appointment was made during today's visit. Orders: Orders FL guidance in treatment room Today M47.816 - Spondylosis without myelopathy or radiculopathy, lumbar region Coding Level of Care Code Procedure Only Diagnoses Lumbar spondylosis M47.816 CPT Codes Facet Injection-Lumbar/Sacral - CPT: 97610 - with Fluoroscopy ([id number]) Facet Injection-Lumbar/Sacral - CPT: 29419 - second level, with Fluoroscopy ([id number])
[2024-07-05 10:30] VITALS: BP 117/66; PULSE 110; O2SAT 94
== END 2024-07-05 10:30 | disposition home or self-care (01) ==
LOC: HO.PMCPRC 10:01
PROVIDERS: PCP Student in an Organized Health Care Education/Training Program; Visit Provider Internal Medicine
DX: M47.816 Spondylosis without myelopathy or radiculopathy, lumbar region (principal)
CPT/HCPCS: 64493; 64494

== ENCOUNTER 2024-07-09 08:46 | Outpatient (AMB) | payer MEDICARE, OTHER, SELFPAY ==
--- OUTSIDE RECORDS SUMMARY | 2024-07-09 08:54 | XMS_ITS | Continuity of Care Document ---
Author Organization [facility] Address [address] [place] [phone] Phone Care Team Providers Care Anesthesiology Medical Doctor Name Role Phone Corina Ga M.D. Unavailable [...] [facility], [address] [address], [place], [place], [id number], tel:[phone] [facility] [place] Dizziness and giddinessParkinson 's diseaseFusion with defective stereopsisHeterony mous bilateral field defectsTremor, unspecifiedDeperso nalization-dereali zation syndromeChronic pulmonary embolismOpen angle with borderline findings, low risk, bilateralAge-relat ed nuclear cataract, bilateral Mar-3 1 Harmeet Arriaga. [address] [facility], [address], [place], [place], [id number] , [place]. tel: [phone] Family History Family Member Type Diagnosis Age At Onset No Information Payers Payer name Insurance type Covered green party ID Authoriza tion(s) Medicare Primary MB [id number] For Life [facility] [id number] Social History Type Description Quantity Date Captured [...]
--- NOTE | 2024-07-09 08:57 | A.OFFVIS_ITS ---
Vital Signs 07/09/24 08:58 Height 5 ft 10 in Weight 213 lb BMI 30.6 BP 114/51 L Blood Pressure Location Lt brachial Position Sitting Respiration 16 Pulse 84 Pulse Source Pulse Oximeter Pulse Oximetry (%) 96 Oxygen Delivery Method Room Air Intake Visit Reasons: s/p miguel Dx L3-L4-L5 MBB Allergies fluticasone furoate [Trelegy Ellipta] Allergy (Severe, Verified 07/09/24 09:01) Thrush umeclidinium [Trelegy Ellipta] Allergy (Severe, Verified 07/09/24 09:01) Thrush vilanterol [Trelegy Ellipta] Allergy (Severe, Verified 07/09/24 09:01) Thrush Iodinated Contrast Media [IV CONTRAST] Adverse Reaction (Mild, Verified 07/09/24 09:01) FLUSHING Medication List - Last Reconciled 07/09/24 by Beatrice Rader LPN amlodipine 2.5 mg PO DAILY atorvastatin 20 mg PO DAILY carbidopa-levodopa 25-100 mg 1 tab PO QID 90 days cholecalciferol (vitamin D3) 25 mcg PO DAILY 90 days clotrimazole 1% appl topical PRN Eliquis (apixaban) 5 mg PO BID NS escitalopram oxalate 10 mg PO DAILY fluocinolone acetonide oil 0.01% drps otic (ears) folic acid 1 mg PO DAILY 90 days gabapentin 300 mg PO BEDTIME 30 days ketoconazole 2% 1 appl topical 2XW lidocaine 5% (Lidoderm) 1 patch topical DAILY modafinil (Provigil) 100 mg PO QAM 90 days roflumilast 250 mcg PO DAILY tiotropium-olodaterol 2.5-2.5 mcg/actuation (Stiolto Respimat) 2 inhalations inhalation DAILY tizanidine 4 mg PO BEDTIME PRN HPI HPI s/p miguel Dx L3-L4-L5 MBB: Details: 78-year-old male who presents today to the office for a status post bilateral diagnostic L3-L4-L5 MBB. The patient reports 100% relief following the procedure for two days. He had good, significant relief for one day and then started experiencing dull pain on 07/08/24. He currently experiences dull pain in his back. He is currently on Eliquis. He is amenable to proceeding with a temporary peripheral nerve stimul ation therapy.? Past procedures 07/05/24: Lumbar Medial Branch Block, Bilateral L3, L4 medial branches and L5 Dorsal Ramus (2 levels, 3 nerves): 100% relief for two days. 04/19/24: Therapeutic Sacroiliac Joint Injection, Bilateral: 40% relief for few weeks. 03/09/24: Superficial cervical plexus block: 75% relief. 07/20/22: Bilateral Therapeutic SIJ injections-70% for about three months. 04/27/22: Bilateral Therapeutic L3 L4 DR L5 MBB -50% pain relief 03/23/22: Bilateral Diagnostic L3 L4 DR L5 MBB-80% for first 3 hours, 70% for next 4 hours. 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) History of appendectomy Family History Father Heart disease Mother Heart disease Social History Alcohol intake: current Alcohol intake frequency: a few times a week Patient Tobacco Use Status: Former Tobacco user Review of Systems Const All systems reviewed & are unremarkable except as noted in HPI and below Physical Exam Vital Signs: Last Vital Signs Pulse 84 07/09/24 08:58 Resp 16 07/09/24 08:58 BP 114/51 L 07/09/24 08:58 Pulse Ox 96 07/09/24 08:58 Oxygen Delivery Method Room Air 07/09/24 08:58 BMI result Body Mass Index 30.6 General: Appears afebrile. Alert and oriented. Mood and affect appropriate. Follows and participates in conversation appropriately. Respiratory effort is unlabored. Able to transition from sit to stand unassisted. Ambulates with bilaterally normal heel strike and toe off. Results Reviewed Results Reviewed: No imaging is available for review. 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 We will schedule him for a left L3 medial branch nerve stimulator placement followed by right side two weeks later. Discussed the risks and benefits of the procedure with the patient in detail. All questions were answered. The patient is on board with the plan. Justification for interventional therapy: ? Patient with average pain > 6/10 ? Patient has exhausted conservative therapy. ? Patient unable to tolerate physical therapy due to pain ? Previous diagnostic injection provided >100% relief x two days. . Patient has a good understanding of their pain condition and has appropriate mental and social support. Scribed for Dr. Lawrence by Tulio Pino, medical officer psychiatry, on 07/09/2024. I, Dr. Lawrence, have personally reviewed and agree with the information entered by the scribe. Coding Level of Care Code Est Pt Level 3 (92624) Diagnoses Lumbar spondylosis M47.816 Chronic low back pain M54.50; G89.29 Dysfunction of the multifidus muscle of lumbar region M62.85
[2024-07-09 08:58] VITALS: BP 114/51; PULSE 84; RESP 16; O2SAT 96; BMI 30.6
== END 2024-07-09 09:53 | disposition home or self-care (01) ==
PROVIDERS: PCP Student in an Organized Health Care Education/Training Program; Visit Provider Internal Medicine
DX: M47.816 Spondylosis without myelopathy or radiculopathy, lumbar region (principal); M54.50 Low back pain, unspecified; G89.29 Other chronic pain; M62.85 Dysfunction of the multifidus muscles, lumbar region
CPT/HCPCS: 99213

== ENCOUNTER → 2024-07-09 08:46 | Outpatient (BNVA) | payer MEDICARE, OTHER, SELFPAY | PROVIDERS: PCP Student in an Organized Health Care Education/Training Program; Visit Provider Internal Medicine | DX: M47.816 Spondylosis without myelopathy or radiculopathy, lumbar region (principal); M54.50 Low back pain, unspecified; G89.29 Other chronic pain; M62.85 Dysfunction of the multifidus muscles, lumbar region; Z98.890 Other specified postprocedural states | CPT/HCPCS: 99212 ==

== ENCOUNTER 2024-07-19 06:41 | Outpatient (REF) | payer MEDICARE, OTHER, SELFPAY ==
--- NOTE | ~2024-07-19 | FL_ITS ---
EXAMINATION: FLUORO GUIDANCE IN TREATMENT ROOM CLINICAL INFORMATION: Spondylosis without myelopathy or radiculopathy, lumbar region. COMPARISON: None available. TECHNIQUE: Fluoroscopy supervised by: Dr. Olman Lawrence. Fluoroscopy time: 0.1 minutes. Cumulative Dose: 1.66 mGy. DAP: 0.0288 mGy-m2 (milligray-meter squared). Images: 3. FINDINGS: Bilateral microwires overlie the lower lumbosacral spine FL/FL guidance in treatment room IMPRESSION: Fluoroscopy during procedure. Please see procedure report for additional information. Electronically signed by: Horacio Damian MD 08/23/2024 07:35 AM CORINNA
== END 2024-07-19 06:42 | disposition home or self-care (01) ==
LOC: CF 06:41
PROVIDERS: Visit Provider Internal Medicine
DX: M47.816 Spondylosis without myelopathy or radiculopathy, lumbar region (principal); M62.85 Dysfunction of the multifidus muscles, lumbar region; M54.50 Low back pain, unspecified; G89.29 Other chronic pain
CPT/HCPCS: 64555; C1778; J2003

== ENCOUNTER 2024-07-19 11:20 | Outpatient (AMB) | payer MEDICARE, OTHER, SELFPAY ==
--- OUTSIDE RECORDS SUMMARY | 2024-07-19 11:21 | XMS_ITS | Continuity of Care Document ---
Author Organization [facility] Address [address] [place] [phone] Phone Care Team Providers Care Pet Groomer Name Role Phone Corina Ga M.D. Unavailable [...] [facility], [address] [address], [place], [place], [id number], tel:[phone] [facility] [place] Dizziness and giddinessParkinson 's diseaseFusion with defective stereopsisHeterony mous bilateral field defectsTremor, unspecifiedDeperso nalization-dereali zation syndromeChronic pulmonary embolismOpen angle with borderline findings, low risk, bilateralAge-relat ed nuclear cataract, bilateral Mar-3 1 Harmeet Arriaga. [address] [facility], [address], [place], [place], [id number] , [place]. tel: [phone] Family History Family Member Type Diagnosis Age At Onset No Information Payers Payer name Insurance type Covered alliance party ID Authoriza tion(s) Medicare Primary MB [id number] For Life [facility] [id number] Social History Type Description Quantity Date Captured [...]
[2024-07-19 11:35] VITALS: BP 132/68; PULSE 85; O2SAT 95
--- NOTE | 2024-07-19 11:35 | MHC.OFFVIS ---
Vital Signs 07/19/24 11:35 07/19/24 12:34 BP 132/68 124/75 Blood Pressure Location Rt brachial Rt brachial Position Sitting Sitting Pulse 85 95 Pulse Source Pulse Oximeter Pulse Oximeter Pulse Oximetry (%) 95 95 Oxygen Delivery Method Room Air Room Air Intake Visit Reasons: Left L3 Sprint Allergies fluticasone furoate [Trelegy Ellipta] Allergy (Severe, Verified 07/09/24 09:01) Thrush umeclidinium [Trelegy Ellipta] Allergy (Severe, Verified 07/09/24 09:01) Thrush vilanterol [Trelegy Ellipta] Allergy (Severe, Verified 07/09/24 09:01) Thrush Iodinated Contrast Media [IV CONTRAST] Adverse Reaction (Mild, Verified 07/09/24 09:01) FLUSHING HPI HPI Left L3 Sprint: Details: Patient presents for scheduled procedure. Denies any recent cough, cold, infection, fever or other significant changes in medical history since last office visit. [facility] Medical History Has daytime drowsiness Dyspnea Dyspnea Personal history of nicotine dependence Obesity [place] on CPAP Pulmonary emboli Pulmonary nodules COPD (chronic obstructive pulmonary disease) Surgical History S/P placement of cardiac pacemaker (~08/2023) History of total right knee replacement (TKR) (~2018) History of appendectomy Family History Father Heart disease Mother Heart disease Social History Alcohol intake: current Alcohol intake frequency: a few times a week Patient Tobacco Use Status: Former Tobacco user Physical Exam Vital Signs: Last Vital Signs Pulse 95 07/19/24 12:34 BP 124/75 07/19/24 12:34 Pulse Ox 95 07/19/24 12:34 Oxygen Delivery Method Room Air 07/19/24 12:34 Office Procedures Details: Lumbar Medial Branch Nerve Stimulation Lead Placement, SPR (Sprint) System, Left L3 medial branch ? After the risks, benefits and alternatives were discussed with the patient and informed consent was obtained, patient was placed in the prone position and padded to foster comfort. The skin overlying the lumbosacral spine was prepped and draped in sterile fashion. Fluoroscopy was used to identify the spinous process and lamina in the center of the patient?s region of pain. After identifying and marking the intended target along the course of the medial branch nerve, the skin around the planned entry point and the subcutaneous tissues were injected with lidocaine 1%. An introducer needle and stimulating probe were assembled, inserted and advanced along the intended course of the medial branch nerve as it traverses the lamina medial and inferior to the zygapophyseal joint, taking care to maintain the proper depth of insertion as the introducer is advanced under fluoroscopic guidance. The introducer needle was delivered to a location in proximity to the nerve. Multiple stimulation parameters were used to deliver stimulation to the target medial branch nerve in concert with stimulating at multiple positions around the nerve. Nerve target acquisition was confirmed noting generation of paresthesias in the paravertebral regions corresponding to the level being stimulated. Various electrical parameter combinations were tested, and the lead location was adjusted (physically relocated) until the patient indicated paresthesia/muscle tension overlapping the distribution of the patient?s typical region of pain. The stimulating probe was removed from the introducer and a percutaneous lead was guided through the needle and delivered to a location in similar proximity to the nerve. Final location was verified with electrical stimulation and documented with fluoroscopy. The introducer needle was removed, and the exposed end of the percutaneous lead was attached to an external stimulator unit. Various electrical parameter combinations were again tested until the patient indicated paresthesia or muscle tension overlapping the distribution of the patient?s typical region of pain. After confirming that lead impedance was in the normal range, the external unit was detached, the needle was removed, and the lead was anchored at the skin. The lead was threaded into the connector block and electrical continuity and desired patient response was confirmed. The connector block was attached to the external stimulator unit. The site was covered with a sterile occlusive dressing. The patient was observed for stability of vital signs and comfort. Sprint PNS Device: Sprint PNS Device [id number] Percutaneous Peripheral Neuroelectrode Procedure: 93625 - Percutaneous Peripheral Neuroelectrode Procedure code (CPT) selection complete Office Meds lidocaine HCl 10 mg/mL (1 %) injection solution Performing Provider: Madeline Jiang APRN, DARIAN Performing Location: [facility] Administered by: Beatrice Rader LPN on 07/19/24 12:22 Dose Route Admin Location Dispensed Lot Number Expiration Date NDC Material Requirements Planning Manager 5 mL subcut 5 mL Assessment & Plan Assessment & Plan (1) Dysfunction of the multifidus muscle of lumbar region: Code(s): M62.85 - Dysfunction of the multifidus muscles, lumbar region Category: Medical (2) Chronic low back pain: Code(s): M54.50 - Low back pain, unspecified; G89.29 - Other chronic pain Category: Medical (3) Lumbar spondylosis: Code(s): M47.816 - Spondylosis without myelopathy or radiculopathy, lumbar region Category: Medical Plan Patient is status post temporary left L3 medial branch nerve stimulator placement. Patient tolerated procedure well and was discharged home in stable condition with discharge instructions. All questions were answered. We will follow-up via telephone or in clinic to assess response to therapy. A follow-up appointment was made during today's visit. Orders: Orders FL guidance in treatment room Today M47.816 - Spondylosis without myelopathy or radiculopathy, lumbar region AMB Sprint PNS Today M47.816 - Spondylosis without myelopathy or radiculopathy, lumbar region Coding Level of Care Code Procedure Only Diagnoses Dysfunction of the multifidus muscle of lumbar region M62.85 Chronic low back pain M54.50; G89.29 Lumbar spondylosis M47.816 CPT Codes Sprint PNS - Sprint PNS Device: Sprint PNS Device ([id number]) Sprint PNS - SPRINT: 36655 - Percutaneous Peripheral Neuroelectrode ([id number]) Implantable Device Implantable Device Implantable Devices Qty Material Requirements Planning Manager Implant Date Expiration Date Analgesic PENS system 1 SPR [employer] 07/19/24 06/27/[address] CHONG SureScan Pacemaker 1 09/21/23
[2024-07-19 12:34] VITALS: BP 124/75; PULSE 95; O2SAT 95
== END 2024-07-19 13:12 | disposition home or self-care (01) ==
PROVIDERS: PCP Student in an Organized Health Care Education/Training Program; Visit Provider Internal Medicine
DX: M62.85 Dysfunction of the multifidus muscles, lumbar region (principal); M54.50 Low back pain, unspecified; G89.29 Other chronic pain; M47.816 Spondylosis without myelopathy or radiculopathy, lumbar region
CPT/HCPCS: 64555

== ENCOUNTER → 2024-07-30 13:00 | Outpatient (BNVA) | payer MEDICARE, OTHER, SELFPAY | PROVIDERS: PCP Student in an Organized Health Care Education/Training Program; Visit Provider Internal Medicine ==

== ENCOUNTER 2024-08-02 06:22 | Outpatient (REF) | payer MEDICARE, OTHER, SELFPAY ==
--- NOTE | ~2024-08-02 | FL_ITS ---
EXAMINATION: FL GUIDANCE ONLY HISTORY: M47.816 - Spondylosis without myelopathy or radiculopathy, lumbar region COMPARISON: None available. TECHNIQUE: Fluoroscopy time: Less than 1 minute. Cumulative Dose: 1.31 mGy. DAP: 0.0112 uGy-m2 (microgray-meter squared). Images: 2. FINDINGS: Two fluoroscopic spot films of the lumbar spine were obtained. FL/FL guidance in treatment room IMPRESSION: Fluoroscopy during procedure. Please see procedure report for additional information. Electronically signed by: Casper Cosme MD 08/10/2024 03:12 PM [facility]IN[facility] PONCE
== END 2024-08-02 06:23 | disposition home or self-care (01) ==
LOC: CF 06:22
PROVIDERS: Visit Provider Internal Medicine
DX: M47.816 Spondylosis without myelopathy or radiculopathy, lumbar region (principal); M62.85 Dysfunction of the multifidus muscles, lumbar region; M54.50 Low back pain, unspecified; G89.29 Other chronic pain
CPT/HCPCS: 64555; C1778; J2003

== ENCOUNTER 2024-08-02 09:13 | Outpatient (AMB) | payer MEDICARE, OTHER, SELFPAY ==
[2024-08-02 09:21] VITALS: BP 120/73; PULSE 83; O2SAT 97
--- NOTE | 2024-08-02 09:21 | MHC.OFFVIS ---
Vital Signs 08/02/24 09:21 08/02/24 10:15 BP 120/73 117/75 Blood Pressure Location Lt brachial Lt brachial Position Sitting Sitting Pulse 83 95 Pulse Source Pulse Oximeter Pulse Oximeter Pulse Oximetry (%) 97 96 Oxygen Delivery Method Room Air Room Air Intake Visit Reasons: Right L3 Sprint Allergies fluticasone furoate [Trelegy Ellipta] Allergy (Severe, Verified 07/09/24 09:01) Thrush umeclidinium [Trelegy Ellipta] Allergy (Severe, Verified 07/09/24 09:01) Thrush vilanterol [Trelegy Ellipta] Allergy (Severe, Verified 07/09/24 09:01) Thrush Iodinated Contrast Media [IV CONTRAST] Adverse Reaction (Mild, Verified 07/09/24 09:01) FLUSHING HPI HPI Right L3 Sprint: Details: Patient presents for scheduled procedure. Denies any recent cough, cold, infection, fever or other significant changes in medical history since last office visit. [facility] Medical History Has daytime drowsiness Dyspnea Dyspnea Personal history of nicotine dependence Obesity [place] on CPAP Pulmonary emboli Pulmonary nodules COPD (chronic obstructive pulmonary disease) Surgical History S/P placement of cardiac pacemaker (~08/2023) History of total right knee replacement (TKR) (~2018) History of appendectomy Family History Father Heart disease Mother Heart disease Social History Alcohol intake: current Alcohol intake frequency: a few times a week Patient Tobacco Use Status: Former Tobacco user Physical Exam Vital Signs: Last Vital Signs Pulse 83 08/02/24 09:21 BP 120/73 08/02/24 09:21 Pulse Ox 97 08/02/24 09:21 Oxygen Delivery Method Room Air 08/02/24 09:21 Office Procedures Details: Lumbar Medial Branch Nerve Stimulation Lead Placement, SPR (Sprint) System, Right L3 ? After the risks, benefits and alternatives were discussed with the patient and informed consent was obtained, patient was placed in the prone position and padded to foster comfort. The skin overlying the lumbosacral spine was prepped and draped in sterile fashion. Fluoroscopy was used to identify the spinous process and lamina in the center of the patient?s region of pain. After identifying and marking the intended target along the course of the medial branch nerve, the skin around the planned entry point and the subcutaneous tissues were injected with lidocaine 1%. An introducer needle and stimulating probe were assembled, inserted and advanced along the intended course of the medial branch nerve as it traverses the lamina medial and inferior to the zygapophyseal joint, taking care to maintain the proper depth of insertion as the introducer is advanced under fluoroscopic guidance. The introducer needle was delivered to a location in proximity to the nerve. Multiple stimulation parameters were used to deliver stimulation to the target medial branch nerve in concert with stimulating at multiple positions around the nerve. Nerve target acquisition was confirmed noting generation of paresthesias in the paravertebral regions corresponding to the level being stimulated. Various electrical parameter combinations were tested, and the lead location was adjusted (physically relocated) until the patient indicated paresthesia/muscle tension overlapping the distribution of the patient?s typical region of pain. The stimulating probe was removed from the introducer and a percutaneous lead was guided through the needle and delivered to a location in similar proximity to the nerve. Final location was verified with electrical stimulation and documented with fluoroscopy. The introducer needle was removed, and the exposed end of the percutaneous lead was attached to an external stimulator unit. Various electrical parameter combinations were again tested until the patient indicated paresthesia or muscle tension overlapping the distribution of the patient?s typical region of pain. After confirming that lead impedance was in the normal range, the external unit was detached, the needle was removed, and the lead was anchored at the skin. The lead was threaded into the connector block and electrical continuity and desired patient response was confirmed. The connector block was attached to the external stimulator unit. The site was covered with a sterile occlusive dressing. The patient was observed for stability of vital signs and comfort. Sprint PNS Device: Sprint PNS Device [id number] Percutaneous Peripheral Neuroelectrode Procedure: 02419 - Percutaneous Peripheral Neuroelectrode Procedure code (CPT) selection complete Office Meds lidocaine HCl 10 mg/mL (1 %) injection solution Performing Provider: Madeline Jiang APRN, DARIAN Performing Location: [facility] Administered by: Olman Lawrence MD on 08/02/24 10:14 Dose Route Admin Location Dispensed Lot Number Expiration Date NDC Acls Specialist 50 mg subcut 5 mL Assessment & Plan Assessment & Plan (1) Dysfunction of the multifidus muscle of lumbar region: Code(s): M62.85 - Dysfunction of the multifidus muscles, lumbar region Category: Medical (2) Lumbar spondylosis: Code(s): M47.816 - Spondylosis without myelopathy or radiculopathy, lumbar region Category: Medical (3) Chronic low back pain: Code(s): M54.50 - Low back pain, unspecified; G89.29 - Other chronic pain Category: Medical Plan Patient is status post temporary right L3 medial branch nerve stimulator placement. Patient tolerated procedure well and was discharged home in stable condition with discharge instructions. All questions were answered. We will follow-up via telephone or in clinic to assess response to therapy. A follow-up appointment was made during today's visit. Orders: Orders FL guidance in treatment room Today M47.816 - Spondylosis without myelopathy or radiculopathy, lumbar region AMB Sprint PNS Today M47.816 - Spondylosis without myelopathy or radiculopathy, lumbar region Coding Level of Care Code Procedure Only Diagnoses Dysfunction of the multifidus muscle of lumbar region M62.85 Lumbar spondylosis M47.816 Chronic low back pain M54.50; G89.29 CPT Codes Sprint PNS - Sprint PNS Device: Sprint PNS Device ([id number]) Sprint PNS - SPRINT: 25289 - Percutaneous Peripheral Neuroelectrode ([id number])
--- OUTSIDE RECORDS SUMMARY | 2024-08-02 09:29 | XMS_ITS | Continuity of Care Document ---
Author Organization [facility] Address [address] [place] [phone] Phone Care Team Providers Care Coin Machine Mechanic Name Role Phone Corina Ga M.D. Unavailable [...] [facility], [address] [address], [place], [place], [id number], tel:[phone] [facility] [place] Dizziness and giddinessParkinson 's diseaseFusion with defective stereopsisHeterony mous bilateral field defectsTremor, unspecifiedDeperso nalization-dereali zation syndromeChronic pulmonary embolismOpen angle with borderline findings, low risk, bilateralAge-relat ed nuclear cataract, bilateral Mar-3 1 Harmeet Arriaga. [address] [facility], [address], [place], [place], [id number] , [place]. tel: [phone] Family History Family Member Type Diagnosis Age At Onset No Information Payers Payer name Insurance type Covered libertarian ID Authoriza tion(s) Medicare Primary MB [id number] For Life [facility] [id number] Social History Type Description Quantity Date Captured [...]
[2024-08-02 10:15] VITALS: BP 117/75; PULSE 95; O2SAT 96
== END 2024-08-02 10:20 | disposition home or self-care (01) ==
LOC: HO.PMCPRC 09:13
PROVIDERS: PCP Student in an Organized Health Care Education/Training Program; Visit Provider Internal Medicine
DX: G89.29 Other chronic pain (principal); M47.816 Spondylosis without myelopathy or radiculopathy, lumbar region; M54.50 Low back pain, unspecified; M62.85 Dysfunction of the multifidus muscles, lumbar region
CPT/HCPCS: 64555

== ENCOUNTER 2024-08-08 10:22 | Outpatient (AMB) | payer MEDICARE, OTHER, SELFPAY ==
[2024-08-08 10:32] VITALS: BP 145/76; PULSE 84; RESP 16; O2SAT 96; BMI 32.6
--- NOTE | 2024-08-08 10:32 | MHC.OFFVIS ---
Vital Signs 08/08/24 10:32 Height 5 ft 11 in Weight 234 lb BMI 32.6 BP 145/76 H Blood Pressure Location Lt brachial Position Sitting Respiration 16 Pulse 84 Pulse Source Pulse Oximeter Pulse Oximetry (%) 96 Oxygen Delivery Method Room Air Intake Visit Reasons: s/p Right Sprint Allergies fluticasone furoate [Trelegy Ellipta] Allergy (Severe, Verified 08/08/24 10:34) Thrush umeclidinium [Trelegy Ellipta] Allergy (Severe, Verified 08/08/24 10:34) Thrush vilanterol [Trelegy Ellipta] Allergy (Severe, Verified 08/08/24 10:34) Thrush Iodinated Contrast Media [IV CONTRAST] Adverse Reaction (Mild, Verified 08/08/24 10:34) FLUSHING Medication List - Last Reconciled 08/08/24 by Beatrice Rdaer LPN amlodipine 2.5 mg PO DAILY atorvastatin 20 mg PO DAILY carbidopa-levodopa 25-100 mg 1 tab PO QID 90 days cholecalciferol (vitamin D3) 25 mcg PO DAILY 90 days clotrimazole 1% appl topical PRN Eliquis (apixaban) 5 mg PO BID NS escitalopram oxalate 10 mg PO DAILY fluocinolone acetonide oil 0.01% drps otic (ears) folic acid 1 mg PO DAILY 90 days gabapentin 300 mg PO BEDTIME 30 days ketoconazole 2% 1 appl topical 2XW lidocaine 5% (Lidoderm) 1 patch topical DAILY modafinil (Provigil) 100 mg PO QAM 90 days roflumilast 250 mcg PO DAILY tiotropium-olodaterol 2.5-2.5 mcg/actuation (Stiolto Respimat) 2 inhalations inhalation DAILY tizanidine 4 mg PO BEDTIME PRN HPI HPI s/p Right Sprint: Details: Seamus is here for follow-up after right-sided L3 medial branch nerve stimulator placement. His right-sided stimulation threshold is lower compared to the left side. The left side was placed 1st. He reports moderate initial relief. On exam today: Lead insertion site is clean, dry and intact. Appears afebrile. Alert and oriented. Mood and affect appropriate. Follows and participates in conversation appropriately. Respiratory effort is unlabored. Able to transition from sit to stand unassisted. Ambulates with bilaterally normal heel strike and toe off. Able to stand and walk on toes and heels. [facility] Medical History Has daytime drowsiness Dyspnea Dyspnea Personal history of nicotine dependence Obesity [place] on CPAP Pulmonary emboli Pulmonary nodules COPD (chronic obstructive pulmonary disease) Surgical History S/P placement of cardiac pacemaker (~08/2023) History of total right knee replacement (TKR) (~2018) History of appendectomy Family History Father Heart disease Mother Heart disease Social History Alcohol intake: current Alcohol intake frequency: a few times a week Patient Tobacco Use Status: Former Tobacco user Physical Exam Vital Signs: Last Vital Signs Pulse 84 08/08/24 10:32 Resp 16 08/08/24 10:32 BP 145/76 H 08/08/24 10:32 Pulse Ox 96 08/08/24 10:32 Oxygen Delivery Method Room Air 08/08/24 10:32 BMI result Body Mass Index 32.6 Assessment & Plan Assessment & Plan (1) Dysfunction of the multifidus muscle of lumbar region: Code(s): M62.85 - Dysfunction of the multifidus muscles, lumbar region Category: Medical (2) Chronic low back pain: Code(s): M54.50 - Low back pain, unspecified; G89.29 - Other chronic pain Category: Medical (3) Lumbar spondylosis: Code(s): M47.816 - Spondylosis without myelopathy or radiculopathy, lumbar region Category: Medical Plan Continue medial branch nerve stimulation therapy as tolerated for a mother 5 weeks for the left side and 7 weeks for the right side. He will follow-up next for left-sided lead removal. Coding Level of Care Code Est Pt Level 2 (81414) Diagnoses Dysfunction of the multifidus muscle of lumbar region M62.85 Chronic low back pain M54.50; G89.29 Lumbar spondylosis M47.816
== END 2024-08-08 10:47 | disposition home or self-care (01) ==
PROVIDERS: PCP Student in an Organized Health Care Education/Training Program; Visit Provider Internal Medicine
DX: M62.85 Dysfunction of the multifidus muscles, lumbar region (principal); M54.50 Low back pain, unspecified; G89.29 Other chronic pain; M47.816 Spondylosis without myelopathy or radiculopathy, lumbar region
CPT/HCPCS: 99024

== ENCOUNTER → 2024-08-08 10:22 | Outpatient (BNVA) | payer MEDICARE, OTHER, SELFPAY | PROVIDERS: PCP Student in an Organized Health Care Education/Training Program; Visit Provider Internal Medicine | DX: M62.85 Dysfunction of the multifidus muscles, lumbar region (principal); M54.50 Low back pain, unspecified; M47.816 Spondylosis without myelopathy or radiculopathy, lumbar region; G89.29 Other chronic pain; Z98.890 Other specified postprocedural states; Z96.82 Presence of neurostimulator | CPT/HCPCS: 99212 ==

== ENCOUNTER → 2024-08-17 10:05 | Outpatient (BNVA) | payer MEDICARE, OTHER, SELFPAY | PROVIDERS: PCP Internal Medicine; Visit Provider Hospitalist | DX: J43.2 Centrilobular emphysema (principal); G47.33 Obstructive sleep apnea (adult) (pediatric); I26.93 Single subsegmental thrombotic pulmonary embolism without acute cor pulmonale; R06.00 Dyspnea, unspecified; R91.8 Other nonspecific abnormal finding of lung field; R40.0 Somnolence; Z99.89 Dependence on other enabling machines and devices | CPT/HCPCS: 99212 ==

== ENCOUNTER 2024-09-13 06:15 | Outpatient (REF) | payer MEDICARE, OTHER, SELFPAY ==
--- OUTSIDE RECORDS SUMMARY | 2024-09-13 06:18 | XMS_ITS ---
Author Organization [facility] Address [address] [place] [phone] Care Team Providers Care Sheet Metal Duct Worker Supervisor Name Role Phone Deana Corrales Primary Care Provider Unavail Blayne Arriaza Unavailable [phone] Encounters Encounter Location Date Provider Diagnosis [facility] [address] [address] 08/30/2024 Blayne Pena Plan Of Treatment Next Appt Details Provider Name:Blayne Pena , 10/09/2024 04:00:00 PM, [address] [place], [address], Progress Notes * Seamus FRAGA DDOB:1945 (78 yo M)Acc No.[id number]:08/30/2024 Progress Note Patient:?Seamus FRAGA Provider:?Blayne Pena DPM :1945???Age:78 Y???Sex:Male Rustam e:08/30/2024 Address:[address] [place], [place] [id number] Pcp:Deana Corralse Subjective: * Chief Complaints: * ??? * Medical History:? Objective: * Vitals:? Assessment: Plan: * Treatment: * Images: * The named appointment provid er may or may not be the originator of this progress note, and it is not deemed complete until electronically signed by the appointment provider. Sign off status: Pending * Provider:?Blayne Pena DPM Date:?2024 Generated for Natalie edmonds/Shana/Jaspal on:?09/13/2024 06:17 AM EST
--- OUTSIDE RECORDS SUMMARY | 2024-09-13 06:18 | XMS_ITS | Encounter Summary ---
Author Organization [facility], Address [address] [place] [address] Phone Care Team Providers Care Assistant Engineer Name Role Phone Unavailable Primary Care Provider Unavailabl e Encounter Details Date Type Department Care Team (Late st Contact Info) Description 05/05/2022 Documentation Only [facility], [address] [place] [address] Zhen Renee PA Social History Tobacco Use Types Packs/Day Years Used Date Smoking Tobacco: Former Sex and Gender Information Value Date Recorded Sex Assigned at Not on file Legal Sex Male 8:35 AM EDT Gender Identity Not on file Sexual Orientation Not on file documented as of this encounter Plan of Treatment Upcoming Encounters Date Type Department Care Team (Late st Contact Info) Description 07/30/2025 1:45 PM EST Office Visit [facility], [address] [place] [address] Juan F Hutton MD [address] [place] [phone] documented as of this encounter Visit Diagnoses Not on filedocumented in this encounter
--- OUTSIDE RECORDS SUMMARY | 2024-09-13 06:18 | XMS_ITS ---
Author Organization [facility] Address [address] [place] [address] Care Team Providers Care Miner Operator Name Role Phone Deana Corrales Primary Care Provider Unavail Blayne Arriaza Unavailable [phone] REASON FOR VISIT r/s 08/30/24 Encounters Encounter Location Date Provider Diagnosis [address] [address] 07/31/2024 Blayne Pena Plan Of Treatment Next Appt Details Provider Name:Blayne Pena , 10/09/2024 04:00:00 PM, [address] [place], [address], Progress Notes * Seamus FRAGA DDOB:1945 (78 yo M)Acc No.[id number]:07/31/2024 Patient:?Seamus FRAGA :1945???Age:78 Y???Sex:Male Address:[address] [place], [place] [address], [address] * true * Date:? Generated for Printi ng/Fakerryg/eTransmitting on:?09/13/2024 06:17 AM EST
--- OUTSIDE RECORDS SUMMARY | 2024-09-13 06:18 | XMS_ITS | Data Portability ---
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 OLIMPIA GARCIA MA, ANNOTATI ON/ADDEN DUM Not Available [facility] 4 15:15:18 Prostate specific antigen above referenc e range 886203017 Active 2013 JULIANNE Ordonez, [facility] 3 13:57:16 Influenz a vaccine needed 73530322560 06 Completed 201202/12/2014 RECORDED 04/23/20 13 2:46PM BY LEATHA BUENO, OFFICE VISIT Not Available [facility] 4 15:15:18 Tobacco user [id number] Completed 201302/12/2014 RECORDED 09/29/19 14 9:22AM BY EMG ORDONEZ ON/ADDEN DUM KEITH GRANADO MD [address], [place], [address] , [facility] 3 13:15:09 Adult health examinat ion Completed 201308/20/2016 IMPRESSI ON: PT IS DOING WELL, HE WILL INCREASE EXERCISE , HAS STAYED AWAY FROM SMOKING; RECORDED 09/29/19 14 1:30PM BY TERI Delgado MD, OFFICE VISIT JULIANNE Ordonez, [facility] 7 14:40:36 Hearing loss 75987249 Active 2013 Leatha Bueno [place] null, [facility] 3 13:57:16 Pure hypercho lesterol emia 260446326 Completed 201102/12/2014 IMPRESSI ON: CHECK TODAY; RECORDED 02/29/20 12 8:00AM BY NAZ PAZ MA, MEG ON/ADDEN DUM Not Available [facility] 4 15:15:19 Follow-u p encounte r Completed 201202/12/2014 RECORDED 10/12/19 13 9:07AM BY OLIMPIA GARCIA MA, JOHNATI ON/ADDEN DUM Not Available [facility] 4 15:15:19 Knee pain Completed 201102/12/2014 IMPRESSI ON: CARTILAG E ISSUE, PT TO SET UP APPT WITH [facility]; RECORDED 02/29/20 12 8:00AM BY NAZ PAZ MA, JOHNATI ON/ADDEN DUM Not Available [facility] 4 15:15:19 Cramp in limb 548669763 Completed 201202/12/2014 IMPRESSI ON: HYDRATE STRETCHA DN CHECK LYTES; RECORDED 09/26/19 13 2:17PM BY SONAL MUELLER MA, ANNOTATI ON/ADDEN DUM Not Available [facility] 4 15:15:19 Nonvenom ous insect bite of multiple sites 801030311 Completed 200702/12/2014 IMPRESSI ON: EDEMA, MILD PAIN, NO INFECTIO N, ICE, ELEVATE AND MOTRIN; RECORDED 07/09/20 08 9:37AM BY SONAL MUELLER MA, ANNOTATI ON/ADDEN DUM Not Available [facility] 4 15:15:19 Administ ration of viral vaccine Completed 201102/12/2014 DATE: 08/11/19 12; RECORDED 02/29/20 12 8:00AM BY NAZ PAZ MA, ANNOTATI ON/ADDEN DUM Not Available [facility] 4 15:15:19 Administ ration of bacteria l and viral vaccine Completed 201102/12/2014 RECORDED 07/29/19 12 10:31AM BY TERI Delgado MD, OFFICE VISIT Not Available [facility] 4 15:15:19 Abnormal findings on diagnost ic imaging of lung [id number] Completed 201102/12/2014 IMPRESSI ON: CT OF CHEST WITH 4MM NODULE AT RIGHT LUNG BASE. NO HX OF PRIOR CT OF CHEST, PAST CXR DID NOT SHOW. HX OF TB IN PAST, SEE HPI. SINCE PT IS LONGTIME SMOKER (QUIT 12/28) WILL REFER TO THORACIC SURGEON TO REVIEW CT OF CHEST AND SEE IF ANYOTHER WORKUP NEEDED.; RECORDED 02/29/20 12 8:00AM BY NAZ PAZ MA, ANNOTATI ON/ADDEN DUM Not Available [facility] 4 15:15:19 Disorder of oral soft tissues 30998428 Completed 201308/20/2016 IMPRESSI ON: SLIGHTLY RED AREA ON HARD PALATE ON THE LEFT. NO CLEAR ULCERATI ON OR MASS.; RECORDED 09/29/19 14 9:25AM BY LEATHA BUENO, OFFICE VISIT Teri hawkins [place] - [facility] 7 15:01:57 Onychia of finger [id number] Completed 201308/20/2016 RECORDED 01/10/20 14 8:38AM BY EDNA COX I, OFFICE VISIT Teri hawkins [facility] 7 15:01:47 Paronych ia of finger 922643101 Completed 201308/20/2016 RECORDED 09/29/19 14 9:25AM BY LEATHA BUENO, OFFICE VISIT Teri hawkins [facility] 7 15:02:02 Disorder of prostate [id number] Completed 201301/17/2017 IMPRESSI ON: PSA WAS CHECKED 09/06 AND WAS 3.6, SOME VARIABIL ITY WITH THE LEVELS UROLOGY AHD GOTTEN, IN LIGHT OF PT IWTH A NEW DVT/PE I ASKED PT TO SEE UROLOGY AND JUST MAKE SURE THEY DID NOT SEE ANY OTHE NEED FOR WORKUP/C ONCERN FOR PROSTATE MALIGNAN CY. PT HD OTHER RISK FACTORS FOR HIS DVT/PE WITH AN ANKLE INJURY SO WAS LESS MOBILE THEN PLANE FLIGHT.; RECORDED 01/10/20 14 8:38AM BY EDNA COX I, OFFICE VISIT Teri hawkins [facility] 7 10:05:28 Acute prostati tis 32981117 Completed 201202/12/2014 IMPRESSI ON: PROSTATI TIS WITH FEVER. WILL TREAT AN OUTPT BUT DISCUSSE D WITH PT THAT HE MAY NEED TO GO TO ER FOR IV ABX FOR THIS. HE UNDERSTA NDS. IF ANY WORSENIN G SXS, NOT IMPROVIN G WITH ABX, ETC. F/U WITH UROLOGY IN 1 WEEK.; RECORDED 09/20/19 13 8:52AM BY OLIMPIA GARCIA MA, ANNOTATI ON/ADDEN DUM Not Available [facility] 4 15:15:19 Pulmonar y embolism [id number] Completed 201308/22/2017 Teri hawkins [facility] 8 10:32:12 Screenin g for malignan t neoplasm of colon Completed 200702/12/2014 RECORDED 07/09/20 08 9:37AM BY SONAL MUELLER MA, JOHNATI ON/ADDEN DUM Not Available [facility] 4 15:15:19 Tobacco dependen ce syndrome 87548260 Completed 201202/12/2014 IMPRESSI ON: PT TO START WELLBUTR IN AGAIN, QUIT LAST ITME FOR 3 YEARS; RECORDED 09/26/19 13 2:19PM BY SONAL MUELLER MA ANNOTATI ON/ADDEN DUM Not Available [facility] 4 15:15:20 Umbilica l hernia 518076560 Active 2013 JULIANNE Ordonez, [facility] 3 13:57:16 Adult health examinat ion Completed 201203/04/2014 IMPRESSI ON: PT WANTS TO START EXERCISI USHA WOMACK ED HIM TO, NEEDS TO EAT HEALTHY, IN PAST HAD ONEELEVT E DPSA THEN RETURNED TO [place], THOUGHT DUE TO INFLAMMA TION RECHECK TODAY; RECORDED 09/26/19 13 2:16PM BY SONAL MUELLER MA, ANNOTATI ON/ADDEN DUM JULIANNE Ordonez, [facility] 7 14:40:36 Diarrhea [id number] Completed 200703/04/2014 IMPRESSI ON: FULL WORKUP WITH EGD, COLONOSC OPY, SMALL BOWEL LOOK, NO PATHOLOG Y, ON HIGH FIBERM POSSIBLE IRRITABL E BOWEL; RECORDED 07/09/20 08 9:37AM BY SONAL MUELLER MA, ANNOTATI ON/ADDEN DUM Not Available [facility] 4 06:00:51 Dysuria 72101226 Completed 201203/04/2014 RECORDED 09/20/19 13 8:51AM BY OLIMPIA GARCIA MA, ANNOTATI ON/ADDEN DUM Not Available [facility] 4 06:00:51 Coag./bl eeding tests abnormal 149933463 Active 2013 next blod work check for clood agglutin in and hemolysi s, folate, vitamin b12 KEITH GRANADO MD [address], [place], [address] , [facility] 3 21:08:23 Prostate specific antigen above referenc e range 861858348 Completed 201303/04/2014 IMPRESSI ON: PT TO SET UP APPT WITH DR KEYES FOR ANNUAL EVAL, NL EXAM HERE TODAY WILL LET HIM GET PSA; RECORDED 01/10/20 14 8:38AM BY EDNA COX I, ANNOTATI ON/ADDEN DUM Odalis hawkins, [facility] 8 08:33:53 Influenz a vaccine needed 31631375736 06 Completed 201203/04/2014 RECORDED 04/23/20 13 2:46PM BY LEATHA BUENO, OFFICE VISIT Not Available [facility] 4 06:00:51 Pure hypercho lesterol emia 964057280 Completed 201103/04/2014 IMPRESSI ON: CHECK TODAY; RECORDED 02/29/20 12 8:00AM BY NAZ PAZ MA, JOHNATI ON/ADDEN DUM Not Available [facility] 4 06:00:51 History of pulmonar y embolus 267049267 Active 2013 JULIANNE Ordonez, [facility] 3 13:57:16 Follow-u p encounte r Completed 201203/04/2014 RECORDED 10/12/19 13 9:07AM BY OLIMPIA GARCIA MA, JOHNATI ON/ADDEN DUM Not Available [facility] 4 06:00:51 Knee pain Completed 201103/04/2014 IMPRESSI ON: CARTILAG E ISSUE, PT TO SET UP APPT WITH [facility]; RECORDED 02/29/20 12 8:00AM BY NAZ PAZ MA, ANNOTATI ON/ADDEN DUM Not Available [facility] 4 06:00:51 Cramp in limb 105929811 Completed 201203/04/2014 IMPRESSI ON: HYDRATE STRETCHA DN CHECK LYTES; RECORDED 09/26/19 13 2:17PM BY SONAL MUELLER MA, JOHNATI ON/ADDEN DUM Not Available [facility] 4 06:00:51 Nonvenom ous insect bite of multiple sites 828092953 Completed 200703/04/2014 IMPRESSI ON: EDEMA, MILD PAIN, NO INFECTIO N, ICE, ELEVATE AND MOTRIN; RECORDED 07/09/20 08 9:37AM BY SONAL MUELLER MA, ANNOTATI ON/ADDEN DUM Not Available [facility] 4 06:00:51 Administ ration of viral vaccine Completed 201103/04/2014 DATE: 08/11/19 12; RECORDED 02/29/20 12 8:00AM BY NAZ PAZ MA, ANNOTATI ON/ADDEN DUM Not Available [facility] 4 06:00:51 Administ ration of bacteria l and viral vaccine Completed 201103/04/2014 RECORDED 07/29/19 12 10:31AM BY TERI Delgado MD, OFFICE VISIT Not Available [facility] 4 06:00:51 Abnormal findings on diagnost ic imaging of lung [id number] Completed 201103/04/2014 IMPRESSI ON: CT OF CHEST WITH 4MM NODULE AT RIGHT LUNG BASE. NO HX OF PRIOR CT OF CHEST, PAST CXR DID NOT SHOW. HX OF TB IN PAST, SEE HPI. SINCE PT IS LONGTIME SMOKER (QUIT 12/28) WILL REFER TO THORACIC SURGEON TO REVIEW CT OF CHEST AND SEE IF ANYOTHER WORKUP NEEDED.; RECORDED 02/29/20 12 8:00AM BY NAZ PAZ MA, ANNOTATI ON/ADDEN DUM Not Available [facility] 4 06:00:51 Disorder of oral soft tissues 88383736 Completed 201303/04/2014 IMPRESSI ON: SLIGHTLY RED AREA ON HARD PALATE ON THE LEFT. NO CLEAR ULCERATI ON OR MASS.; RECORDED 01/10/20 14 8:38AM BY MEG FELDER ON/ADDEN DUM Teri hawkins [place] - [facility] 7 15:01:57 [facility] [id number] Completed 201303/04/2014 RECORDED 01/10/20 14 8:38AM BY JOHN FELDERATI ON/ADDEN DUM Rosa Rivas shruthi, [facility] 1 14:26:43 Acute prostati tis [id number] Completed 201203/04/2014 IMPRESSI ON: PROSTATI TIS WITH FEVER. WILL TREAT AN OUTPT BUT DISCUSSE D WITH PT THAT HE MAY NEED TO GO TO ER FOR IV ABX FOR THIS. HE UNDERSTA NDS. IF ANY WORSENIN G SXS, NOT IMPROVIN G WITH ABX, ETC. F/U WITH UROLOGY IN 1 WEEK.; RECORDED 09/20/19 13 8:52AM BY OLIMPIA GARCIA MA, JOHNATI ON/ADDEN DUM Not Available [facility] 4 06:00:51 Screenin g for malignan t neoplasm of colon Completed 200703/04/2014 RECORDED 07/09/20 08 9:37AM BY SONAL MUELLER MA, ANNOTATI ON/ADDEN DUM Not Available [facility] 4 06:00:51 Tobacco dependen ce syndrome [id number] Completed 201203/04/2014 IMPRESSI ON: PT TO START WELLBUTR IN AGAIN, QUIT LAST ITME FOR 3 YEARS; RECORDED 09/26/19 13 2:19PM BY SONAL MUELLER MA, JOHNATI ON/ADDEN DUM Not Available [facility] 4 06:00:51 Umbilica l hernia 242664241 Completed 201303/04/2014 IMPRESSI ON: NEW PROBLEM TO EXAMINER , PT TO SEE DR AMY Leo, HE WAS WARND TO GO TO THE ER IF ANY COLOR CAHNGE, INCREASE IN PAIN OF THE HERNIA.; RECORDED 01/10/20 14 8:38AM BY JOHN FELDERATI ON/ADDEN DUM [facility] haw[facility], [facility] 8 08:33:56 Acute otitis externa 88493394 Completed 08/20/2016 JULIANNE Ordonez, [facility] 7 14:40:41 Conjunct ivitis [id number] Completed 08/20/2016 JULIANNE Ordonez [facility] 7 14:41:08 Fatigue 50978078 Completed 08/20/2016 JULIANNE Ordonez [facility] 7 14:41:10 Cellulit is 402875866 Completed 08/20/2016 Teri hawkins [facility] 7 15:01:31 Increase d frequenc y of urinatio n 312672881 Completed 08/20/2016 JULIANNE Ordonez [facility] 7 14:40:29 Disorder of the urinary system 954007656 Completed 08/20/2016 Teri hawkins [facility] 7 15:01:28 Sleep apnea 77575281 Active JULIANNE Ordonez [facility] 3 13:57:16 Otalgia 33092048 Completed 08/20/2016 Terikarl LundyFede hawkins [facility] 7 15:01:36 Multiple skin tags 371924014 Completed 08/20/2016 Teri hawkins [facility] 7 15:01:54 Advance directiv e discusse d with patient 850383723 Completed 201608/22/2017 Odalis hawkins [facility] 8 08:34:14 Parkinso n's disease 44387509 Completed 201805/04/2019 Teri hawkins [facility] 9 11:10:37 History of right total knee replacem ent 24582837520 11504 Completed 201804/06/2023 KEITH GRANADO MD [address] [address], [place], [address] , [facility] 3 13:13:11 Parkinso nism 95711020 Completed 201910/01/2020 KEITH GRANADO MD [address], [place], [address] , [facility] 3 13:15:27 Advance care planning Active 2020 Leatha Bueno [place] null, [facility] 3 13:57:16 Steatosi s of liver 131949044 Active 2020 Leatha Bueno [place] null, [facility] 3 13:57:16 Vertigo 097557724 Active 2020 JULIANNE Ordonez, [facility] 3 13:57:16 Serum creatini ne outside referenc e range 918161760 Completed 202003/26/2021 KEITH GRANADO MD [address], [place], [address] , [facility] 3 13:13:17 Type 2 diabetes mellitus without complica tion 902210845 Completed 202005/12/2021 Leatha Bueno [place] null, [facility] 3 13:57:16 Serum creatini ne outside referenc e range 037223536 Completed 202004/06/2023 KEITH GRANADO MD [address], [place], [address] , [facility] 3 13:13:17 Tobacco user 015068444 Active 2013 KEITH GRANADO MD [address], [place], [address] , [facility] 3 13:15:09 Parkinso nism 03679334 Active 2019 KEITH RGANADO MD [address], [place], [address] , [facility] 3 13:15:27 Chronic kidney disease stage 3A 006936346 Active 2022 Rosa hawkins [facility] 3 12:48:08 Prediabe jody 108727197 Active 2022 KEITH GRANADO MD [address] [facility] [address], [facility] [place], [address] , [facility] 3 21:01:56 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 Procedures Surgical History Date Name Laterality Status Provider Name and Address Organization Details Recorded Time 10/06/19 23 Colonoscopy completed Jessica Montiel [facility] 10/05/2022 10:02:30 10/03/19 22 Diabetic Foot Exam (Monofilament) completed Olimpia Garcia MA [facility] 10/02/2021 09:20:16 10/02/19 21 Six-Item Cognitive Test completed Leatha Bueno MA [facility] 10/01/2020 10:25:57 09/13/19 20 Mini-Cog Test completed Sonal riley MA [facility] 09/13/2019 13:18:51 12/13/19 19 total knee replacement completed Chelle Yu [facility] 01/02/2019 16:23:22 09/08/19 19 Mini-Cog Test completed Leatha Bueno MA [facility] 09/08/2018 08:56:18 08/22/19 18 Fall Risk Assessment completed Leatha Bueno MA [facility] 08/22/2017 10:02:46 08/22/19 18 Mini-Cog Test completed Leatha Bueno MA [facility] 08/22/2017 10:02:23 08/20/19 17 Fall Risk Assessment completed Leatha Bueno MA [facility] 08/20/2016 14:45:19 08/20/19 17 Mini-Cog Test completed Leatha Bueno MA [facility] 08/20/2016 14:44:17 08/20/19 17 Advanced Care Planning completed Teri guevara [facility] 08/20/2016 15:00:56 10/01/19 15 Fall Risk Assessment completed Leatha Bueno [facility] 09/30/2014 10:08:54 10/01/19 15 Mini-Cog Test completed Leatha Bueno MA [facility] 09/30/2014 09:58:57 Imaging Results Imaging Date Name Status LastModified by Organiz ation Details LastModified Time 05/09/2024 XR, chest, 2 view completed [facility] (Outpt Imaging) [address] [place], [address], 05/14/2024 15:06:42 05/28/2024 op note completed [id number] ( [facility] Central Scheduling) [facility], [place], [address], 05/28/2024 10:11:14 07/16/2024 CT chest ldct lung program completed [facility] (Outpt Imaging) [address] [place], [address], 07/31/2024 13:58:27 07/16/2024 CT chest ldct lung program completed [address] (Outpt Imaging) [address] [place], [address], 07/17/2024 14:02:34 07/16/2024 LDCT, chest, for lung cancer screening completed [facility] - Health Information Management [address] [facility] [facility], [place], [address], 08/07/2024 10:43:35 Procedure Notes None recorded. 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 Agency Serial Number Lot Number Status Provider Name and Address Organization Details Recorded Time Cardiac pacemaker FDA Y WESLEY Hutchinson, [facility] 05/04/2024 08:24:38 Allergies Allergen ID Allergen Name Allergen Category Reaction Reaction Severity Criticality Documentation Date Start Date Code Code System Note Provider Name and Address Organization Details Recorded Time 62591 Iodinated contrast media (substanc e) medicatio n Not available Not available Not available 02/05/20142013 00598 2003 SNOMED cause d redne ss Not Available [facility] 2 16:57:12 62437 iodine medicatio n Not available Not available Not available 12/25/20202020 5933 RxNorm Olimpia Garcia [facility] 2 13:18:34 Medications Name Sig Start Date Stop Date Status Note LastModified by Organization Details LastModified Time amoxicill in 500 mg capsule for dental work active Not Available Not Available No t Available clotrimaz ole 10 mg dariusz FOUR TIMES DAILY FOR 5 DAYS 01/09 completed RECORDED 01/10/20 14 8:46AM BY MEG FELDER ON/ADDEN DUM; Not Available Not Available Not Available doxycycli ne hyclate 100 mg capsule Take 1 capsule twice a day by oral route as directed for 10 days. 09/13 completed Not Available Not Available Not Available atorvasta tin 20 mg tablet Take 1 tablet every day by oral route. active Not Available Not Available No t Available ketoconaz ole 2 % shampoo 10/02 completed Not Available Not Available Not Available tizanidin e 4 mg tablet Take 1 tablet every 8 hours by oral route as needed for 30 days. active on hold Not Available Not Available No t Available metoprolo l succinate ER 50 mg tablet,ex tended release 24 hr 08/20 completed pt stopped Not Available Not Available Not Available warfarin 2.5 mg tablet DAILY DIRECTED BY INR RESULT 01/09 completed RECORDED 01/10/20 14 8:45AM BY MEG FELDER ON/ADDEN DUM; Not Available Not Available Not Available amlodipin e 2.5 mg tablet TAKE 1 TABLET DAILY 2024 active Not Available Not Available Not Avai lable ciproflox acin 500 mg tablet TWO TIMES DAILY 03/30 completed RECORDED 06/16/20 12 10:41AM BY DUGLAS ARCE, MEDICATI ON AUTO-YEN CTIVATIO N; Not Available Not Available Not Available acetamino phen 500 mg tablet Take 1 tablet every 4 hours by oral route as needed. active Not Available Not Available No t Available amoxicill in 500 mg tablet 03/12 completed Not Available Not Available Not Available Nulytely Lemon-Mishra e 420 gram oral solution 10/07 completed Not Available Not Available Not Available tamsulosi n 0.4 mg capsule Take 1 capsule every day by oral route. 08/20 completed Not Available Not Available Not Available hydrocort isone-deborah tic acid 1 %-2 % ear drops INSTILL 2 DROPS INTO AFFECTED EAR(S) BY OTIC ROUTE 4 TIMES PER DAY NEEDED FOR 90 DAYs 01/18 completed Not Available Not Available Not Available betametha sone valerate 0.1 % topical cream APPLY A THIN LAYER TO THE AFFECTED AREA(S) BY TOPICAL ROUTE ONCE DAILY 10/01 completed Not Available Not Available Not Available ciproflox acin 0.3 % eye drops 04/12 completed Not Available Not Available Not Available phenazopy ridine 100 mg tablet Take 1 tablet 3 times a day by oral route. 08/20 completed Not Available Not Available Not Available cephalexi n 500 mg capsule Take 1 capsule 3 times a day by oral route for 7 days. 10/02 completed Not Available Not Available Not Available erythromy kel 5 mg/gram (0.5 %) eye ointment 01/18 completed Not Available Not Available Not Available lidocaine 5 % topical patch active Not Available Not Available Not Available polymyxin B sulfate 10,000 unit-trim ethoprim 1 mg/mL eye drops INSTILL 1 DROP INTO AFFECTED EYE(S) BY OPHTHALM IC ROUTE EVERY 6 HOURS 04/17 completed Not Available Not Available Not Available metronida zole 0.75 % topical cream 10/02 completed Not Available Not Available Not Available gabapenti n 300 mg capsule Take 1 mg by oral route. 10/07 completed Not Available Not Available Not Available folic acid 1 mg tablet Take 1 {tbl} by oral route. active Not Available Not Available No t Available mupirocin 2 % topical ointment Apply 1 applicat ion twice a day by topical route as directed for 11 days. 10/01 completed Not Available Not Available Not Available nystatin 100,000 unit/gram topical powder APPLY TO THE AFFECTED AREA(S) BY TOPICAL ROUTE 2 TIMES PER DAY 10/01 completed Not Available Not Available Not Available Cipro HC 0.2 %-1 % ear drops,ariadne pension INSTILL 3 DROPS INTO THE AFFECTED EAR(S) EVERY 12 HOURS active Not Available Not Available No t Available albuterol sulfate HFA 90 mcg/actua tion aerosol inhaler Inhale 2 puffs every day by inhalati on route. 10/01 completed Not Available Not Available Not Available SSD 1 % topical cream 01/05 completed Not Available Not Available Not Available colchicin e 0.6 mg tablet Take 1 tablet every day by oral route for 7 days. 09/13 completed Not Available Not Available Not Available carbidopa 25 mg-levodo pa 100 mg tablet Take 1 {tbl} by oral route. active 01/19/24 TID Not Available Not Available Not Available clotrimaz ole 1 % topical cream Apply 1 applicat ion every 12 hours by topical route for 10 days. 2022 active Not Available Not Available Not Avai lable sertralin e 50 mg tablet Take 1 tablet every day by oral route for 60 days. active 01/19/24 ON HOLD Not Available Not Available Not Available finasteri de 5 mg tablet Take 1 tablet every day by oral route for 90 days. 08/20 completed Not Available Not Available Not Available mometason e 0.1 % topical cream APPLY A THIN LAYER TO THE AFFECTED AREA(S) BY TOPICAL ROUTE ONCE DAILY 05/20 completed Not Available Not Available Not Available amoxicill in 875 mg-potass ium clavulana te 125 mg tablet TAKE 1 TABLET BY MOUTH TWICE A DAY FOR 7 DAYS 10/11 completed Not Available Not Available Not Available oxycodone 5 mg tablet Take 0.5 tablets every 6 hours by oral route as needed. active Not Available Not Available No t Available modafinil 100 mg tablet Take 1 tablet every day by oral route for 90 days. active Not Available Not Available No t Available enoxapari n 100 mg/mL subcutane ous syringe Inject 1 mL every day by subcutan eous route for 7 days. 08/20 completed Not Available Not Available Not Available escitalop elizabeth 10 mg tablet Take 1 tablet every day by oral route. active Not Available Not Available No t Available Systane (propylen e glycol) 0.4 %-0.3 % eye drops Apply 1 drop every day by ophthalm ic route for 90 days. 01/18 completed Not Available Not Available Not Available bupropion HCl XL 300 mg 24 hr tablet, extended release DAILY 09/20 completed RECORDED 09/20/19 13 8:56AM BY OLIMPIA GARCIA MA, OFFICE VISIT; Not Available Not Available Not Available Jantoven 5 mg tablet Take 2 tablets every day by oral route for 30 days. 08/20 completed Not Available Not Available Not Available escitalop elizabeth 5 mg tablet 1 po qod 10/11 completed Not Available Not Available Not Available tiotropiu m bromide 18 mcg capsule with inhalatio n device DAILY 05/20 completed RECORDED 01/10/20 14 8:46AM BY EDNA COX I, OFFICE VISIT; Not Available Not Available Not Available carbidopa 25 mg-levodo pa 100 mg disintegr ating tablet Place 3 tablets every day by translin gual route. 10/11 completed Not Available Not Available Not Available oxycodone active Not Available Not Cecelia ilable Not Available Aspirin EC HS 05/20 completed RECORDED 09/29/19 14 9:26AM BY LEATHA BUENO, OFFICE VISIT; Not Available Not Available Not Available Tylenol 600 mg as needed/ directed 09/13 completed Not Available Not Available Not Available [place] 3 DAILY 01/17 completed Not Available Not Available Not Available vitamin Q00-bmpgm acid 1 po qd 10/07 completed Not Available Not Available Not Available Horizon Nasal Cpap System 01/17 completed Not Available Not Available Not Available Zostavax (PF) 19,400 unit/0.65 mL subcutane ous suspensio n SIMONE X 1 07/30 completed RECORDED 07/30/19 12 9:38AM BY TERI Delgado MD, MEDICATI ON AUTO-YEN CTIVATIO N; Not Available Not Available Not Available DermOtic Oil 0.01 % ear drops INSTILL 5 DROPS INTO AFFECTED EAR(S) TWICE A DAY NEEDED . NO MORE THAN 14 DAYS IN A ROW 2023 active Not Available Not Available Not Avai lable Gavilyte- C 240 gram-22.7 2 gram-6.72 gram-5.84 gram oral solution 08/22 completed Not Available Not Available Not Available butalbita l-acetami nophen-ca ffeine 50 mg-300 mg-40 mg capsule Take 1 capsule every day by oral route as needed for 10 days. active Not Available Not Available No t Available Eliquis 5 mg tablet Take 1 tablet twice a day by oral route. active Not Available Not Available No t Available Eliquis 2.5 mg tablet Take 1 tablet twice a day by oral route. 01/05 completed Not Available Not Available Not Available Spiriva Respimat 2.5 mcg/actua tion solution for inhalatio n 05/20 completed Generic: tiotropi um bromide Not Available Not Available Not Available Arnuity Ellipta 200 mcg/actua tion powder for inhalatio n Inhale 1 puff every day by inhalati on route. 01/17 completed Not Available Not Available Not Available Stiolto Respimat 2.5 mcg-2.5 mcg/actua tion solution for inhalatio n 2 puffs each morning active Not Available Not Available No t Available Fluvirin 3743-6331 (PF) 45 mcg (15 mcg x 3)/0.5 mL IM syringe 05/20 completed Not Available Not Available Not Available Qvar RediHaler 80 mcg/actua tion HFA breath activated aerosol 10/01 completed Not Available Not Available Not Available roflumila st 250 mcg tablet Take 1 tablet every day by oral route for 84 days. active Not Available Not Available No t Available B Complex 1 (with folic acid) 0.4 mg tablet Take 1 tablet every day by oral route. 01/18 completed Not Available Not Available Not Available Vitals Date Recorded Body height Body mass index (BMI) Body weight Heart rate Oxygen saturation Oxygen saturation in Arterial blood by Pulse oximetry Body temperature Systolic blood pressure Diastolic blood pressure Provider Name and Address Organization Details Last Updated DateTime 4 176.53 cm 32.2 kg/m2 813112. 91 g 90 /min 95 % 95 % 100 [degF] 142 mm[Hg] 79 mm[Hg] Arin Tiwari MA [facility] 4 13:31:42 Date Recorded Systolic blood pressure Diastolic blood pressure Provider Name and Address Organization Details Last Updated DateTime 10/14/2023 140 mm[Hg] 80 mm[Hg] KEITH GRANADO MD [address] [address], [place], [address], [facility] 10/14/2023 13:59:35 Date Recorded Body height Body mass index (BMI) Body weight Heart rate Oxygen saturation Oxygen saturation in Arterial blood by Pulse oximetry Body temperature Systolic blood pressure Diastolic blood pressure Provider Name and Address Organization Details Last Updated DateTime 4 176.53 cm 32.2 kg/m2 031408. 91 g 100 /min 95 % 95 % 98.7 [degF] 105 mm[Hg] 66 mm[Hg] Tabatha [facility] 4 09:16:44 Date Recorded Body height Body mass index (BMI) Body weight Heart rate Oxygen saturation Oxygen saturation in Arterial blood by Pulse oximetry Body temperature Systolic blood pressure Diastolic blood pressure Provider Name and Address Organization Details Last Updated DateTime 4 176.53 cm 32 kg/m2 34608.3 2 g 79 /min 96 % 96 % 98.4 [degF] 126 mm[Hg] 72 mm[Hg] [facility] 4 11:07:14 Social History Question Answer Notes LastModified by Organizat ion Details LastModified Time Tobacco Smoking Status Former Smoker Naz hawkins [facility] 04/22/2014 11:01:44 Do You Have An Advance Directive? No Information not available 09/28/2021 What Is Your Level Of Alcohol Consumption? Moderate [email or web address] Information not available 10/01/2020 Is Blood Transfusion Acceptable In An Emergency? Yes [email or web address] Information not available 10/01/2020 What Is Your Level Of Caffeine Consumption? Moderate 1 Cup Of Coffee Daily Information not available 09/13/2019 How Much Tobacco Do You Chew? None Information not available 09/13/2019 Are You Currently Employed? No Retired Information not available 09/13/2019 What Type Of Diet Are You Following? REGULAR [email or web address] Information not available 09/30/2014 Which Illicit Or Recreational Drugs Have You Used? Cannabis Information not available 09/13/2019 Do You Or Have You Ever Used E-cigarettes Or Vape? 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 6-10yearssinc elastcigarett e [email or web address] Information not available 10/01/2020 Live Alone Or With Others? With Others (Olga) Information not available 09/28/2021 Do You Take Precautions To Prevent Distracted Driving? Yes [email or web address] Information not available 10/01/2020 How Often Do You Need To Have Someone Help You When You Read Instructions, Pamphlets, Or Other Written Material From Your Doctor Or Pharmacy? Sometimes [email or web address] Information not available 10/01/2020 Have You Served In The ? Yes [employer] Information not available 10/01/2020 Have You Or Anyone In Your Household Had Any Of The Following Symptoms In The Last 14 Days: Sore Throat, Cough, Chills, Body Aches For Unknown Reasons, Shortness Of Breath For Unknown Reasons, Loss Of Smell, Loss Of Taste, Fever At Or Greater Than 100 Degrees Fahrenheit? No Information not available 05/21/2020 Are You Or Anyone In Your Household A Health Care Provider Or Emergency Responder? No Information not available 05/21/2020 To The Best Of Your Knowledge Have You Been In Close Proximity To Any Individual Who Tested Positive For COVID-19? No Information not available 05/21/2020 *AWV ONLY* Are You Presently Prescribed Opioid Medication By PCP Or Specialist? If YES -Provider Assess The Benefit For Other, Non-opioid Pain Therapies Instead, Even If The Patient Does Not Have OUD But Is Possibly At Risk. No [email or web address] Information not available 10/01/2020 Have You Recently Traveled To A COVID-19 High Risk Area Or Gathering In The Last 10 Days? No [email or web address] Information not available 10/01/2020 What Was The Date Of Your Most Recent Tobacco Screening? 10/14/2023 [email or web address] Information not available 10/14/2023 How Many Children Do You Have? 3 Information not available 09/13/2019 Do You Use Protection During Sex? Always [email or web address] Information not available 10/01/2020 Seat Belts Used Routinely Yes Information not available 09/28/2021 Are You Sexually Active? Yes [email or web address] Information not available 10/01/2020 Smoke Alarm In Home Yes Information not available 09/28/2021 At What Age Did You Start Smoking Tobacco? 32 [email or web address] Information not available 10/01/2020 Are You Passively Exposed To Smoke? No [email or web address] Information not available 10/01/2020 Do You Or Have You Ever Used Smokeless Tobacco? Never Used Smokeless Tobacco [email or web address] Information not available 05/21/2020 How Much Tobacco Do You Smoke? 1.5 PPD Information not available 09/28/2021 General Stress Level Medium Information not available 09/28/2021 Do You Use Any Illicit Or Recreational Drugs? No Information not available 10/02/2021 Do You Use Sunscreen Routinely? Yes [email or web address] Information not available 09/30/2014 How Many Years Have You Smoked Tobacco? 30 [email or web address] Information not available 10/01/2020 Do You Or Have You Ever Used Any Other Forms Of Tobacco Or Nicotine? No Information not available 10/02/2021 Sex: Unknown Functional Status Question Answer Note LastModified by Organizat ion Details LastModified Time Are you able to walk? YESASSIST cane 90 percent of the time Information not available 10/07/2022 Are you able to care for yourself? Yes [email or web address] Information not available 09/30/2014 What is your exercise level? Occasional [email or web address] Information not available 10/01/2020 Mental Status None recorded. Family History Relationship Description Onset Age of this Age Resolved Age Notes LastModified by Organization Details LastModified Time Mother Cerebrovascu lar accident [email or web address] Not available 09:55:39 Mother Dementia 97 [email or web address] Not available 09/13/2019 13:10:22 Father Heart disease [email or web address] Not available 09/30 09:55:39 Notes:No FH of colon or wilfrido st Medical History Condition Response Other N Gout N Blood Diseases N Kidney Stones N Hyperthyroidism N Breast Cancer N Hypothyroidism N Lung Disease N Depression N COPD Y Defects or Inherited Disease N Anesthesia Complications N Headaches/Migraines N Varicose Veins N Anxiety Disorder N Obesity N Vision or Eye Problems N Arthritis N Head Injury/Concussion N Infertility N Polyps N Congenital Anomalies N Acid Reflux (GERD) N Cancer N Stroke N ADHD N Endometriosis N High Cholesterol N Liver Disease N Fibromyalgia N Kidney Disease N Heart Problems N Ear or Hearing Problems Y Hospitalizations N Thyroid Problems N GI Problems N Acne N Eating Disorder N Skin Problems N Anemia N Constipation N Bladder Problems N Mental Illness N Diabetes N Ovarian Cancer N Blood Transfusions N Seizures/Epilepsy N Tuberculosis Y AIDS/HIV N Congestive Heart Failure (CHF) N Eczema N Abuse/Domestic Violence N Diverticulitis N Asthma N Allergies N Reflux/GERD N Hepatitis N Pulmonary Embolism Y Hypertension N Chicken Pox Y Autism Spectrum Disorder (ASD) N Osteoporosis N Immunizations Vaccine Type Date Status Note Provider Nam e and Address Organization Details Recorded Time Influenza, split virus, quadrivalent, preservative 6 [facility] 13[facility]17:04 COVID-19, mRNA, LNP-S, PF, 30 mcg/0.3 mL dose 1 completed [facility]2022 14:03:59 COVID-19, mRNA, LNP-S, PF, 30 mcg/0.3 mL dose 1 completed JULIANNE Ordonez [facility] 10/07/2022 14:03:59 Influenza, high-dose, trivalent, PF 9 completed JULIANNE Ordonez [facility] 10/07/2022 14:04:00 Influenza, high-dose, trivalent, PF 7 completed JULIANNE Ordonez [facility] 10/07/2022 14:04:00 Pneumococcal conjugate PCV 13 5 completed JULIANNE Ordonez [facility] 10/07/2022 14:04:00 Influenza, split virus, trivalent, PF 4 completed JULIANNE Ordonez, [facility] 10/07/2022 14:04:00 Pneumococcal conjugate PCV 13 0 completed JULIANNE Ordonez, [facility] 10/07/2022 14:04:00 Influenza, high-dose, trivalent, PF 8 completed JULIANNE Ordonez, [facility] 10/07/2022 14:04:00 Influenza, high-dose, quadrivalent, PF 1 completed JULIANNE Ordonez, [facility] 10/07/2022 13:57:41 COVID-19, mRNA, LNP-S, PF, 30 mcg/0.3 mL dose 1 completed JULIANNE Ordonez [facility] 10/07/2022 13:57:41 Tdap 1 completed JULIANNE Ordonez, [facility] 10/07/2022 13:57:41 zoster recombinant 2 completed JULIANNE Ordonez, [facility] 10/07/2022 13:57:41 zoster recombinant 2 completed JULIANNE Ordonez, [facility] 10/07/2022 13:57:41 Influenza, high-dose, quadrivalent, PF 0 completed JULIANNE Ordonez, [facility] 10/07/2022 14:03:59 COVID-19, mRNA, LNP-S, bivalent, PF, 30 mcg/0.3 mL dose 2 completed JULIANNE Ordonez, [facility] 10/07/2022 14:04:00 RSV, recombinant, protein subunit RSVpreF, adjuvant reconstituted, 0.5 mL, PF 3 completed JULIANNE Gallo [facility] 01/19/2024 09:05:29 COVID-19, mRNA, LNP-S, PF, 50 mcg/0.5 mL 3 completed Tabatha Munson MA null, [facility] 01/19/2024 09:05:29 Influenza, high-dose, quadrivalent, PF 2 completed Marisa High null, [facility] 04/21/2022 00:41:42 Td (adult), 2 Lf tetanus toxoid, preservative free, adsorbed 4 completed JULIANNE Ordonez, [facility] 10/07/2022 14:04:00 Influenza, split virus, trivalent, preservative 2 completed Not Available [facility] 02/05/2014 13:23:48 Tdap 2 completed Not Available [facility] 02/05/2014 13:23:48 zoster live 2 completed Not Available [facility] 02/05/2014 13:23:48 pneumococcal polysaccharide PPV23 3 completed JULIANNE Ordonez, [facility] 10/07/2022 14:04:00 Influenza, split virus, trivalent, preservative 3 completed Not Available [facility] 02/05/2014 13:23:48 Past Encounters Encounter ID Performer Location Encounter Start Date Encounter Closed Date Diagnosis/Indication Diagnosis SNOMED-CT Code Diagnosis ICD10 Code Diagnosis Note [id number] [facility] [id number] [facility],[address] [place] [address] 08/10/2006 00:00:00 [id number] [facility] [facility] [id number] [facility] [place] [address] 07/15/2005 00:00:00 [id number] [facility] [facility] [id number] [facility] [place] [address] 01/20/2005 00:00:00 [id number] [facility] [facility] [id number] [facility] [facility] [place] [address] 10/28/2006 00:00:00 [id number] [address] [place] [address] 02/12/2008 00:00:00 [id number] [address] [place] [address] 07/09/2008 00:00:00 [id number] [facility] [address] [place] [address] 01/15/2011 00:00:00 [id number] [facility] [facility] [id number] [facility] [place] [address] 07/29/2011 00:00:00 [id number] auto[facility] [facility] [address] [place] [address] 02/29/2012 00:00:00 [id number] [facility] [facility] [id number] [facility] [place] [address] 09/20/2012 00:00:00 [id number] [facility] [facility] [address] [facility] [place] [address] 09/25/2012 00:00:00 [id number] [facility] [facility] [id number] [facility] [place] [address] 10/02/2012 00:00:00 [id number] [facility] [facility] [id number] [facility] [place] [address] 10/11/2012 00:00:00 [id number] [facility] [facility] [id number] [facility] [place] [address] 11/16/2012 00:00:00 [id number] auto[facility] erce [id number] [facility] [place] [address] 12/20/2012 00:00:00 [id number] auto[facility] erce [id number] [facility] [place] [address] 02/15/2013 00:00:00 [id number] auto[facility] er[facility] [id number] [facility] [place] [address] 04/13/2013 00:00:00 [id number] auto[facility] erce [id number] [facility] [place], [place] [address] 04/23/2013 00:00:00 [id number] auto[facility] erce [id number] [facility] [place], [place] [address] 09/28/2013 00:00:00 [id number] [facility] [facility]ce [id number] [facility] [place], [place] [address] 01/09/2014 00:00:00 [id number] Leatha Bueno [place] Main Office [address] [facility] [address] [place] [address] 04/22/2014 10:35:49 04/22/2014 11:35:44 Needs influenza immunization 788470735 Acute otitis externa 64388277 Conjunctivitis 3492583 [id number] Leatha Bueno [place] Main Office [address] [facility] [address] [place] [address] 09/30/2014 09:53:53 09/30/2014 10:48:33 Adult health examination 940978388 utd on colonoscop y, needs to add in exercise. Chronic ob structive pulmonary disease 90582139 pt will see dr Todd for followup on nodule and complaints of chronic dyspnea, PCV 13 today, needs to exercise, seems very deconditio omayra Administra tion of pneumococcal vaccine 69403910 Fatigue 92936079 probabl e sleep apnea, will get labs, and set pt up for sleep eval Cellulitis 204443452 nae lulitis right great toe after hitting it, soak tid as well Increased frequency of urination 423499561 [id number] Main Office [address] [facility] [address] [place] [address] 02/03/2015 10:02:11 02/03/2015 10:45:46 Chronic obstructive pulmonary disease 38661409 pt will see dr Todd for followup on nodule and COPD, pt will discuss with him about getting screening low dose CT of chest, pt alos to restart inhaler and consider starting allergy med. Disorder o f the urinary system 920476616 poor urine stream, PSA checked 10/06 was 2. PT has been followed by urology int he past, he will get ppt with Dr Keyes to evaluate urine stream, hx of enlarged prostate Sleep apnea 52248142 rec ently started on CPAP, finds it helps a bit, quite durga cutler, pt to exercise Arthropath y of knee joint 533937210 right knee pain, limits his walking [id number] Teri Jose de jesus Main Office [address] [facility] [address] [place] [address] 05/16/2015 13:53:22 05/16/2015 14:28:08 Otalgia 76966152 H92.03 treat as below no infection and add zyrtec Multiple skin tags 33741 7009 L91.8 pt to set up dermatolog y, they are getting irritated [id number] Teri Jose neal Main Office [address] [facility] [address] [place] [address] 05/12/2016 08:28:31 05/15/2016 12:51:17 [id number] Teri Jose neal Main Office [address] [facility] [address] [place] [place] [address] 05/20/2016 09:27:12 05/21/2016 07:50:13 [id number] Rosa Rivas Main Office [address] [facility] [address] [place] [address] 05/24/2016 12:56:57 05/24/2016 14:04:54 Transition of care 8022548520 105 Z75.8 Stephen hematuria 79804233 5 R31.0 seen in f/u c uro on 05.21 -- s/p prostate ablation - next in 2 months History of pulmonary embolus 529025629 Z86.711 f/u c hem/onc, will give coumadin with lovenox bridge Anemia 797788418 D64.9 Chronic ob structive pulmonary disease 75969278 J44.9 cont f/u c pulm Psoriasis 9276883 L40.9 ears - oil as per ENT - pt requested refill [id number] Teri Jose neal Main Office [address] [facility] [address] [place] [address] 08/20/2016 14:12:42 08/20/2016 15:25:25 Adult health examination 761073260 Z00.00 utd on colonoscop y, is exercising . sees urology Advance di rective discussed with patient 899595985 Z71.89 I discussed MOLST and health care proxy form. I gave pt MOLST form and proxy form, pt will fill out, discuss MOLST form with proxy and sign and return to our office Chronic ob structive pulmonary disease 70114328 J44.9 pt is stable on inhalers, sees DR Todd and he will discuss with him about getting the low dose CT of chest screening annually History of pulmonary embolus 482553152 Z86.711 2nd episode, pt is on Eliquis for life. ahs DVT's this last time, tested negative for genetic coagulopat hy. Sleep apnea 55492932 G47 .30 recently started on CPAP, finds it helps a bit, quite decondrene cutler, pt to exercise Ex-smoker 2133124 Z87.89 1 quit about 4 years ago [id number] [facility] Main Office [address] [facility] [address] [place] [address] 01/17/2017 09:38:06 01/17/2017 10:18:59 Chronic obstructive pulmonary disease 37651494 J44.[address] Todd, pt will see him and discuss getting screening CT scans History of pulmonary embolus 872963535 Z86.711 2nd episode, pt is on Eliquis for life. ahs DVT's this last time, tested negative for genetic coagulopat hy. Itching of ear 696370581 L29.8 refill med today Psoriasis 7445422 L40.9 [id number] Teri [facility] Main Office [address] [facility] [address] [place] [address] 02/21/2017 11:25:07 02/21/2017 12:00:00 History of pulmonary embolus 191386313 Z86.711 pt with recurrent DVT's and pulmonary embolisms. is in Eliquis 5mg bid needs lifetime anticoagul ation, is bleeding easily with scratches adn irritation from the CPAP. I recc pt see Dr Todd and his hematologi st Dr Jaeger, as if he needs to be ont he Eliquis at 5mg bid or is a lower dose appropriat e? should he change to coumadin? get advice from both in the past pt had also been offered an IVC filter, he should discuss that with each of the providers as well [id number] Gary christian Main Office [address] [facility] [address] [place] [address] 04/26/2017 13:13:09 04/26/2017 13:24:30 Influenza vaccine needed 0189178991 106 Z23 [id number] Teri LincolnJazmín neal Main Office [address] [facility] [address] [place] [address] 08/22/2017 09:38:30 08/22/2017 10:57:38 Adult health examination 855150341 Z00.00 utd on colonoscop y, is exercising but could do more, sees urologjaclyn edwards and they do exam Chronic ob structive pulmonary disease 54604315 J44.[address] Todd, pt is doing well History of pulmonary embolus 080959608 Z86.711 pt with recurrent DVT's and pulmonary embolisms. is in Eliquis 5mg bid needs lifetime anticoagul ation, Prostate s pecific antigen above reference range 284428316 R97.[address] Keyes, had cystooscop y 02/07 pt to see urology in this summer Sleep apnea 84392170 G47 .30 cpap bother ing pt on face, straps, trying an oral device Hearing loss 86991397 H9 1.93 wears hearing aids, they help Serum crea tinine above reference range 056028901 R79.89 creatinine 1.7, could be from NSAIDS and hx of urinary retention, could have insulted kidney, willhydrat e, avoid NSAIDs and recheck in 6 weeks Tremor 03414339 R25.1 new to examiner, there for months, left hand check thyroid refer to neurology positive rhomberg but has some inner ear issues Cellulitis 579585657 L03 .90 of scalp from irritation of CPAP tx as below, also has psoriasis, derm to see pt in a month return if worsens, no hx of MRSA, tx with steroid since looks like an eleb=ment of psoriasis as well [id number] Ever Stone MD Main Office [address] [facility] [address] [place] [address] 11/14/2017 10:27:57 11/14/2017 11:23:50 Achilles tendinitis 12181375 M76.62 Given exercises for him to do at home. He was advised to take aleve twice a day and to use ice and elevation when he can. Also advised a heel lift on the left until the pain resolves. [id number] [facility] Main Office [address] [facility] [address] [place] [place] [address] 12/02/2017 09:25:20 12/02/2017 10:28:20 Chronic obstructive pulmonary disease 14411377 J44.[address] Todd, pt is doing well on inhalers History of pulmonary embolus 273763101 Z86.711 pt with recurrent DVT's and pulmonary embolisms. is in Eliquis 5mg bid needs lifetime anticoagul ation, Vertigo 601663895 R42 is getting PT done, he had a recent hearing eval and wears hearing aids Parkinson's disease 4904 9000 G20 on meds, gait is steady. [id number] [facility]i [facility] Main Office [address] [facility] [address] [place] [address] 04/12/2018 09:32:10 04/12/2018 10:22:06 Chronic obstructive pulmonary disease 43452369 J44.[address] Todd, pt is doing well on inhalers Influenza vaccine needed 4126342096 106 Z23 History of pulmonary embolus 803689129 Z86.711 pt with recurrent DVT's and pulmonary embolisms. is in Eliquis 5mg bid needs lifetime anticoagul ation, Inguinal pain 131806693 R10.32 feels like muscle insertion, no concern for diverticul itis or mass, hurts only with walking [id number] Teri [facility] Main Office [address] [facility] [address] [facility] [place] [address] 09/08/2018 08:39:44 09/08/2018 09:37:03 Adult health examination 527405499 Z00.00 utd on colonoscop y, is exercising but could do more, talked about recumbent bike Chronic ob structive pulmonary disease 21587172 J44.[address] Todd, pt is doing well on inhalers Parkinson's disease 4904 9000 G20 on meds, workon strength and balance History of pulmonary embolus 521016012 Z86.711 pt with recurrent DVT's and pulmonary embolisms. is in Eliquis 2.5mg bid needs lifetime anticoagul ation, Sleep apnea 14533379 G47 .30 cpap bother ing pt on face, straps, trying an oral device Pain in right knee 80110 80385 80483 M25[address] steel, no help at [facility] Serum crea tinine above reference range 097844939 R79.89 recheck lab [id number] Marisa Amorlo Main Office [address] [facility] [address] [place] [address] 11/17/2018 09:09:10 11/17/2018 09:36:45 Contusion of left hand 5202353820 1512363 S60.222A r/o metacarpal fractures, digit fractures. Pt sees Dr Steel for orthopedic sADD: has oblique fracture, non displaced of 5th metacarpal . Will refer to ortho. If unable to get in would use a hand/wrist splint. Ice, rest, elevation, otc pain med as needed, pt to be seen 11/21/18 Abrasion 362264197 T14.8 XXA Wash and dry daily, antibiotic ointment for a few days then let dry to the air, call if any sx of infection Fall W19.XXXA no other trauma other than hand, did not hit head, no facial injury, no back pain [id number] Rosa Rivas Main Office [address] [facility] [address] [place] [address] 11/30/2018 09:43:36 11/30/2018 10:54:44 Pre-surgery evaluation 415111692 Z01.818 Patient is at low to mod risk for cardiopulm onary complicati ons with planned procedure based on comorbidit ies, good exertional tolerance and overall procedure risk. Patient advised by Dr Chin to stop eliquis 3 days prior and will confirm this with surgeon. He will discuss timing of carbiopa/l evodopa with anesthesia . Take inhalers am of surgery. . May proceed to scheduled surgery as planned if EKG is normal (n/a for review today). Cochran score 0.2 % Chronic ob structive pulmonary disease 58818075 J44.9 stable on inhalers History of pulmonary embolus 397927306 Z86.711 Will need to resume anticoagul ation as soon as deemed safe by surgeon as pt is higher risk for post op DVT. Parkinson's disease 4904 9000 G20 pt stable and will discuss meds with anesthesia at up coming appt. Sleep apnea 68522024 G47 .30 to bring cpap to hospital to use overnight. Pain in right knee 64175 91072 99713 M25.561 [id number] Teri LincolnNisha [facility] Main Office [address] [facility] [address] 01/05/2019 14:00:03 01/05/2019 14:34:23 Parkinson's disease 41937989 G20 on meds, workon strength and balance Chronic ob structive pulmonary disease 75667115 J44.[address] Todd, pt is doing well on inhalers, recent US of leg with old DVT's Dr Todd had ordered and increased Eliquis to 5mg bid History of pulmonary embolus 520314714 Z86.711 pt with recurrent DVT's and pulmonary embolisms. is in Eliquis 5mg bid needs lifetime anticoagul ation, History of right total knee replacement 2750831845 676784 Z96.651 doing great in PT, continue [id number] Teri augusteenzo Main Office [address] [place] [address] 05/04/2019 10:13:35 05/04/2019 11:18:00 Chronic obstructive pulmonary disease 20029003 J44.[address] Todd, pt is doing well on inhalers, offsmoking for 6 years will refer for LDCT screening, last Ct with syed 2016 and has a nodule he follows Influenza vaccine needed 2816374025 106 Z23 History of right total knee replacement 1059848340 297822 Z96.651 doing great in PT, continue History of pulmonary embolus 111058612 Z86.711 pt with recurrent DVT's and pulmonary embolisms. is in Eliquis 5mg bid needs lifetime anticoagul ation, Screening for malignant neoplasm of lung 746239103 Z87.891 Eligible patients must have >=30 pack years Parkinsonism 49802934 G2 0 see hx, followed by neurology, on meds, hx of exposure to agent orange while in the [id number] Marisa Gardner Main Office [address] [place] [address] 07/05/2019 13:18:36 07/05/2019 14:28:43 [id number] Rosa Rivas Main Office [address] [place] [address] 07/06/2019 11:35:11 07/06/2019 12:15:11 Cellulitis of lower limb 172126227 L03.116 add keflex to doxycyclin e to get broader coverage, check lab to see if MTP joint is more gouty. If uric acid is elevated would add colchicine . [id number] Teri LincolnKatelinNisha augusteneal Main Office [address] [facility] [address] [place] [address] 09/13/2019 12:41:18 09/13/2019 14:32:25 Adult health examination 947946965 Z00.00 utd on colonoscop y, is exercising but could do more, talked about recumbent bike Administra tion of pneumococcal vaccine 81095864 Z23 repeat today, first one before age 67 Chronic ob structive pulmonary disease 54947961 J44.[address] Todd, pt is doing well on inhalers, off smoking for 6 years will refer for LDCT screening, last Ct with syed 2017 and has a nodule he follows, just saw him a few months ago History of pulmonary embolus 839372015 Z86.711 pt with recurrent DVT's and pulmonary embolisms. is in Eliquis 5mg bid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 diastolic dysfunction with impaired LV relaxation. The right ventricle is normal in size and function. A pacer/ICD wire is seen in the right ventricle. Comparison is made to the study of 09/20/2023. Plan:Pt underwent RV lead revision. post procedure hospitalization was uneventful. Tele revealed paced rhythm and pt had no sx. CXR showed proper leads and device placement with no signs of pneumothorax. Device interrogation showed normal functioning with no new events. He will f/u in the device clinic for wound check in 2 weeks. MEDS RECONCILED KEITH GRANADO MD [address] [address], [place], [address], [facility] 10/12/2023 14:05:31 10/14/2023 text/html Hospitalization Contact RecordReported bypatient.Follow UpHospital: [facility]; admit date: (Please enter in format 'MM/DD/YYYY') (09/20/2023); date of discharge: (Please enter in format 'MM/DD/YYYY') (09/22/2023); date of contact: (Please enter in format 'MM/DD/YYYY') (09/23/2023)Notes:Medic are covered inpatient stay? yesMedicare DELLA with in 48 working hours? yesHigh Complexity code valid on or before:SeptemberModerate Complexity code valid on or before:SeptemberHCP on file? noMOLST on file? noDischarge Summary available? yesPt presented to [facility] ED after experiencing a near syncopal episode on 09/19/23. EKG showed NSR with a new LBBB compared to 2019. Initially there was concern that the pt was having bradycardic episodes causing his sx with recs to keep pt for observation for a few days, while on monitor to look for any bradycardia episodes on telemetry, and if not showing anything would recommend a 14 day Zio patch on d/c.while under observation, pt had 2 x 4.5 second sinus pauses by another 10 second pause with escape junctional rhythm 10 seconds later. EP team also reviewed telemetry strip and compared with previous EKG, it was noticed alternating RBBB with LBBB.Pt was therefore transferred to [facility] for transvenous pacing which was successfully placed outreach director on 09/21/23, however pt was having intermittent capturing. Dual chamber Medtronic Pacemaker was placed via left axial access with no complications. His last echo done in 2019 showed an EF of 55-60%. Cardiology was consulted and pt had repeat echo which showed a decrease in EF to 45-50%, with septal motion abnormality consistent with LBBB. While admitted pt was found to have dizziness with exertion and telemetry showed alternation between RBBB and LBBB plus up to 10 second sinus pauses. HOLD ALL ANTICOAGULANTS - RESTART Tuesday09/25/2023FOLLOW UP IN EP CLINIC AT [facility] ON 10/06/2023 AT 10:30 AM MEDS RECONCILEDMedicare Annual Wellness VisitReported bypatient.Diet and Nutrition:healthy diet; discussed vitamin and supplement use; B- complex Fracture Risk:no history of fractures Physical Activity:recent increase in physical activity; good physical condition;does not exercise on a regular basis Depression Risk:no history of depression; no history of mood disorders Orientation:no disorientation to time; no disorientation to date; no disorientation to place Concentration and Memory:no decreased concentrating ability; no memory lapses or loss; does not forget words Speech/Motor difficulties:no speech difficulties; no difficulty expressing formulated concepts; no difficulty with fine manipulative tasks; no difficulty writing/copying; no slowed reaction time; does not knock things over when trying to pick them up Hearing:no loss of hearing Vision:no vision problems Activities of Daily Living:able to bathe with limited or no assistance; able to contol urination and bowels; able to dress with limited or no assistance; able to feed self with limited or no assistance; able to get out of chair or bed with limited or no assistance; able to groom with limited or no assistance; able to toilet with limited or no assistance Instrumental Activities of Daily Living:able to do house work with limited or no assistance; able to grocery shop with limited or no assistance; able to manage medications with limited or no assistance; able to manage money with limited or no assistance; able to prepare meals with limited or no assistance; able to use the phone with limited or no assistance Falls Risk Assessment:no frequent falls while walking; fall(s) in the past year 1; fall(s) since last visit1;dizziness/vertig o Home Safety:no unsafe simran hazzards; no unsafe stairs; no unsafe gas appliances; working smoke/CO detectors; wears protective head gear for biking/high velocity; use of seatbelts; practicing 'safer sex'; no vision or hearing loss while driving; no fire arms; has hand bars in the bathroom/shower; good lighting in the home Medicare Pricila Castaneda is a 77 year old F who presents to complete their Annual Wellness Visit. Visit Type: Annual How would you rate your health? Fair Have you been discharged from the hospital recently? NoHave you been to the emergency room or urgent care recently? YesDate of Visit: 09/19/23, please see belowDo you have any significant previous hospital stays, injuries, or treatment? No Home Safety:Is the tub or shower floor slippery and do you need support? NoDo you need some support when you get in and out of the tub or from the toilet? No however patient has install sturdy grab bars in the showerDo you have any small rugs or runners that slide or bunch up when you push them with your foot? NoAre there papers, books, towels, shoes, magazines, boxes, blankets, or other objects on the floor? No The patient does have a history of falls. Oral Health: every 6 monthsEye Health: every year (wears glasses)Motor Vehicle: Drives Do you wear a seatbelt when in a car? Yes Screening Tools:Were there any ADL or IADL deficiencies not linked to physical limitations? NoDuring the past 12 months, have you experienced confusion or memory loss that is happening more often or is getting worse? No Advance Directive: none on file KEITH GRANADO MD [address] [address], [place], [address], [facility] 10/14/2023 16:18:29 01/19/2024 text/html Hypertension F/UReported bypatient.Associated Symptoms:no dizziness; no lightheadedness; no chest pain; no shortness of breath; no palpitations; no edema; no calf pain with exertion Lifestyle:limiting/avoi ding salt;not exercising regularly Medications:taking medications as directed; no side effects from medication Seamus Castaneda is a 78 year old M who presented to the clinic for follow-up on his blood pressure. Pt has no complaints at this time. KEITH GRANADO MD [address], [address], [facility] 01/19/2024 09:30:29 04/17/2024 text/html Back PainReporte d bypatient.Quality:lita g Severity:same Duration:chronic Context:prior back problems; used medications for back pain; had evaluations by back specialist Aggravating Factors:movement/positi oning Associated Symptoms:no numbness of the legs/feetNotes:Pt is currently following with pain management and getting steroid injections every 3 months. Pt does get mild relief for a period for a time. Last seen on 03/14/2024.Hypertension F/UReported bypatient.Associated Symptoms:no dizziness; no lightheadedness; no chest pain; no shortness of breath; no palpitations; no edema; no calf pain with exertion Lifestyle:limiting/avoi ding salt;not exercising regularly Medications:taking medications as directed; no side effects from medication Seamus Castaneda is a 78 year old M who presented to the clinic for follow-up on his blood pressure. Pt has no complaints at this time. KEITH GRANADO MD [address], [address], [facility] 04/17/2024 11:49:27
--- OUTSIDE RECORDS SUMMARY | 2024-09-13 06:18 | XMS_ITS | Continuity of Care Document ---
Author Organization [facility] Address [address] [place] [address] Phone Care Team Providers Care Chief Scientific Officer Name Role Phone Corina Ga M.D. Unavailable [...] [facility], [address] [address], [place], [place], [id number], tel:[phone] [facility] Dizziness and giddinessParkinson 's diseaseFusion with defective stereopsisHeterony mous bilateral field defectsTremor, unspecifiedDeperso nalization-dereali zation syndromeChronic pulmonary embolismOpen angle with borderline findings, low risk, bilateralAge-relat ed nuclear cataract, bilateral Mar-3 1 Harmeet Arriaga. [address] [facility], [address], [place], [place], [id number] , [place]. tel: [phone] Family History Family Member Type Diagnosis Age At Onset No Information Payers Payer name Insurance type Covered green party ID Authoriza tion(s) Medicare Primary MB [id number] For Life [facility] [id number] Social History Type Description Quantity Date Captured [...]
--- OUTSIDE RECORDS SUMMARY | 2024-09-13 06:18 | XMS_ITS | Clinical Summary ---
Author Organization [facility], Address [address] [place] [address] [place] [address] Phone Care Team Providers Care Branner Machine Tender Name Role Phone Unavailable Primary Care Provider Unavailabl e Allergies Active Allergy Reactions Criticality Noted Date Comments Iodinated Contrast Media 01/09/2014 Iodine 12/19/2020 Medications amoxicillin (AMOXIL) 500 MG capsuleIndicatio ns:Stage 3a chronic kidney disease (HCC) amoxicillin 500 mg capsule Active atorvastatin (LIPITOR) 20 MG tabletIndication s:Stage 3a chronic kidney disease (HCC) Take 20 mg by mouth 1 (one) time each day Active carbidopa-levodo pa (SINEMET) 25-100 MG per tabletIndication s:Stage 3a chronic kidney disease (HCC) Take 1 tablet by mouth daily Active apixaban (Eliquis) 5 MG tabletIndication s:Stage 3a chronic kidney disease (HCC) Take 5 mg by mouth 1 (one) time each day Active folic acid (FOLVITE) 1 MG tabletIndication s:Stage 3a chronic kidney disease (HCC) 1 tablet 1 (one) time each day Active Cobalamin Combinations (VITAMIN R33-NEAPP ACID PO)Indications:S tage 3a chronic kidney disease (HCC) vitamin N44-okzkb acid 1 po qd Active amLODIPine (NORVASC) 2.5 MG tablet Take 2.5 mg by mouth 1 (one) time each day Active gabapentin (NEURONTIN) 300 MG capsule Take 300 mg by mouth in the morning and 300 mg in the evening and 300 mg before bedtime. Active tiZANidine (ZANAFLEX) 4 MG tablet Take 4 mg by mouth every 6 (six) hours if needed for muscle spasms Active Active Problems Problem Noted Date Diagnosed Date Vitamin D deficiency 05/31/2023 Essential (primary) hypertension 05/12/2021 Type 2 diabetes mellitus without complication Serum creatinine outside reference range 021 Stage 3a chronic kidney disease 12/19/2020 Chronic obstructive pulmonary disease 01/09/2014 Resolved Problems Problem Noted Date Diagnosed Date Resolved Date Chronic tremor 12/19/2020 12/19/2020 Deep venous thrombosis 12/19/202012/19 Sleep apnea 12/19/2020 12/19/2020 Advance care planning 10/01/20202020 Steatosis of liver 10/01/2020 Dizziness and giddiness 02/03/202011/23 Headache 02/03/2020 12/19/2020 History of right total knee replacement 01/05/2019 12/19/2020 Coag./bleeding tests abnormal 01/09/2014 12/19/2020 H/O: pulmonary embolus 01/09/201412/19 Hearing loss 01/09/2014 12/19/2020 Overweight 09/28/2013 12/19/2020 Prostate specific antigen ab ove reference range 09/28/2013 12/19/2020 Umbilical hernia 09/28/2013 12/19/2020 Encounters Date Type Department Care Team Description 07/10/2024 2:15 PM EST Office Visit [facility] [address] [place] [address] Juan F Hutton MD Stage 3a chronic kidney disease (HCC) (Primary Dx); Vitamin D deficiency, not otherwise specified; Essential (primary) hypertension 07/09/2024 Documentation Only [facility] [address] [address] Annita Landeros from Last 3 Months Immunizations Name Administration Dates Next Due Influenza (IM) Preservative Free 04/22/2014 Influenza Split High Dose Pr eservative Free IM 04/23/2020,05/04/2019,04/12/2018,04/26 Influenza TIV (IM) 04/23/2013,07/29/2011 Influenza, Quadrivalent, Wit h Preservative 05/07/2016 Pfizer SARS-COV-2 10/18/2020,09/27/2020 Pneumococcal Conjugate 13-Valent 09/13/2019,09/22 Pneumococcal Polysaccharide 09/26/2012 Td 03/11/2004 Tdap 07/29/2011 Zoster 08/11/2011 Family History Medical History Relation Comments Heart disease Father Dementia Mother Relation Status Comments Father Mother Social History Tobacco Use Types Packs/Day Years Used Date Smoking Tobacco: Former Sex and Gender Information Value Date Recorded Sex Assigned at Not on file Legal Sex Male 8:35 AM EDT Gender Identity Not on file Sexual Orientation Not on file Plan of Treatment Upcoming Encounters Date Type Department Care Team (Late st Contact Info) Description 07/30/2025 1:45 PM EST Office Visit [facility] [place], [address] [place] [address] Juan F Hutton MD [address] [facility] [address] [facility] [place] [address] Health Maintenance Due Date Last Done Comments Hepatitis B Vaccine (1 of 3 - Risk 3-dose series) 2007 Pneumococcal Vaccine: 65+ Ye ars (3 of 3 - PPSV23 or PCV20) 11/08/2019 09/13/2019, 09/13/2019, 10/02/2014, Additional history exists Diabetes: Hemoglobin A1C 05/12/2021 12/26/2020 Diabetes: Pedal Pulse Checked 05/12/2021 Diabetes: Sensory Foot Exam 05/12/2021 Diabetes: Visual Foot Exam 05/12/2021 Influenza Vaccine (#1) 2024 3, 05/11/2022, 04/24/2021, Additional history exists Diabetes: Ophthalmology Exam 05/09/2025 05/09/2024 Procedures Procedure Name Priority Date/Time Associated Diagnosis Comments HEMOGLOBIN A1C Routine 12/26/2020 8:04 AM EDT Stage 3a chronic kidney disease (HCC) from Last 3 Months or Most Recently Relevant to Health Maintenance Results * (ABNORMAL) Hemoglobin A1c (12/26/2020 8:04 AM EDT) Hemoglobin A1C 6.1(H) (4.0-5.6) % [facility] Comment: MONITORING: In known diabetic patients, hemoglobin A1c targets should be discussed with health care provider. DIAGNOSTIC USE: ??The [place] Diabetes Association (ADA) and the World Health Organization (WHO) recommend the use of HbA1c to diagnose diabetes using a threshold of 6.5%. Patients who have an HbA1c between 5.7% and 6.4% are considered at increased risk for developing diabetes in the future. CAUTION: Falsely low HbA1c results may be observed in patients with hemolytic anemia, homozygous forms of abnormal hemoglobin (e.g. SS, CC, SC), , recent blood loss or hemoglobin F greater than 7%. Fructosamine may be used as an alternate test in these cases. REFERENCE: ADA: Standards of Medical Care in Diabetes 2020, The Journal of Clinical and Applied Research and Education Volume 43, Supplement 1 Testing performed or reported by [facility], a Service of [facility], [address] [place] [address] Juan Antonio Pérez MD, Central Sterilization Technician Blood (Blood, Venous) 12/26/2020 8:04 AM EDT 12/26/2020 8:07 AM EDT us Juan F Hutton MD LAB BLOOD ORDERABLES Final Resul t [facility] from Last 3 Months or Most Recently Relevant to Health Maintenance Insurance MEDICARE [facility]
--- OUTSIDE RECORDS SUMMARY | 2024-09-13 06:19 | XMS_ITS ---
Author Organization [facility] Address [address] [place] [address] Care Team Providers Care Locum Tenens Name Role Phone Deana Corrales Primary Care Provider Unavail Blayne Arriaza Unavailable [phone] Encounters Encounter Location Date Provider Diagnosis [facility] [address] [address] 08/02/2024 Blayne Pena Plan Of Treatment Next Appt Details Provider Name:Blayne Pena , 10/09/2024 04:00:00 PM, [address] [place], [address], Progress Notes * Seamus FRAGA DDOB:1945 (78 yo M)Acc No.[id number]:08/02/2024 Progress Note Patient:?Seamus FRAGA Provider:?Blayne Pena DPM :1945???Age:78 Y???Sex:Male Rustam e:08/02/2024 Address:[address] [place], [place] [phone] Pcp:Deana Corrales Subjective: * Chief Complaints: * ??? * Medical History:? Objective: * Vitals:? Assessment: Plan: * Treatment: * Images: * The named appointment provid er may or may not be the originator of this progress note, and it is not deemed complete until electronically signed by the appointment provider. Sign off status: Pending * Provider:?Blayne Pena DPM Date:?2024 Generated for Natalie edmonds/Shana/Jaspal on:?09/13/2024 06:18 AM EST
--- OUTSIDE RECORDS SUMMARY | 2024-09-13 06:19 | XMS_ITS | Patient Health Record ---
Author Organization [facility] Address [address] [place] [address] Care Team Providers Care Network Cabler Name Role Phone Deana Corrales Primary Care Provider Unavail able Blayne Pena Unavailable [phone] Allergies Allergen (clinical drug ingredient) Drug/Non Drug Allergy documented on EMR Reaction Allergy Type Onset Date Status Povidone-Iodine IVP dye Drug Allergy A ctive Reason For Referral No Information Medications Medication SIG (Take, Route, Frequency, Duration) Notes Start Date End Date Status Roflumilast 250 MCG 2 tablets Orally Onc e a day Active Modafinil 100 MG 1 tablet in the morning Orally Once a day Active zzzCompression Stockings 20-30mm Hg . . . for . Active Escitalopram Oxalate 5 MG 1 tablet Orall y Once a day Not-Taking tiZANidine HCl 4 MG 1 tablet as needed Orally Three times a day Not-Taking Atorvastatin Calcium Active Carbidopa-Levodopa 25-100 MG 1 tablet as needed Orally Two times a Week for 30 day(s) Active Eliquis 2.5 MG as directed Orally Active Tylenol Active Immunizations Vaccine Route Administration Date Status Comme nts COVID-19 Pfizer BioNTech Vaccine Unknown 05/07/2021 Administered 1st 09/27/20 2nd 10/18/20 Social History Tobacco Use: Social History Observation Description Date Details (start date - stop date) Former Smoker NA - NA Tobacco Use/Smoking Question Answer Notes Are you a: former smoker Additional Findings: Tobacco Non-User Current no n-smoker Alcohol Screen Question Answer Notes Did you have a drink containing alcohol in the p ast year? Yes Points 0 Interpretation Negative Tobacco use other than smoking: Question Answer Notes Are you an other tobacco user? No Problems Problem Type SNOMED Code ICD Code Onset Dates Problem Status W/U Status Risk Notes Problem Atherosclerosis of [place] arteries of the extremities (243152349800542) Atherosclerosis of [place] artery of both lower extremities, with unspecified presence of clinical manifestation (I70.203) Active confirmed Vital Signs Height 5ft 11 in in 04/19/2024 Weight 211 lbs 04/19/2024 BMI 29.43 kg/m2 04/19/2024 Procedures Procedure Date Ordered Date Performed Result Body Sit e 52063-GGUNVCS NAIL, 6 OR MORE 10/13/2023 N/A 45048-JDCD SKIN LESIONS, 2 TO 4 10/13/2023 N/A 23803-DWSG SKIN LESIONS, 2 TO 4 04/19/2024 N/A 15751-Szmbubjo Plate 04/19/2024 N/A 42077-OJPVCTO NAIL, 6 OR MORE 04/19/2024 N/A 58586-VJKG SKIN LESIONS, 2 TO 4 01/30/2024 N/A 49148-CPJUFMJ NAIL, 6 OR MORE 01/30/2024 N/A Encounters Encounter Location Date Provider Diagnosis [address] [address] 10/13/2023 Blayne Jean Atherosclerosis of [place] artery of both lower extremities, with unspecified presence of clinical manifestation I70.203 ; Tinea unguium B35.1 ; Pain in right toe(s) M79.674 and Pain in left toe(s) M79.[address] [address] 01/30/2024 Blayne Jean Atherosclerosis of [place] artery of both lower extremities, with unspecified presence of clinical manifestation I70.203 ; Tinea unguium B35.1 ; Pain in right toe(s) M79.674 and Pain in left toe(s) M79.[address] [address] 04/19/2024 Blayne Jean Atherosclerosis of [place] artery of both lower extremities, with unspecified presence of clinical manifestation I70.203 ; Tinea unguium B35.1 ; Pain in right toe(s) M79.674 ; Pain in left toe(s) M79.675 and Ingrown nail L60.0 [facility] [address] [facility] [address] [place] [address] 01/12/2024 Blayne Pena [facility] [address] [place] [address] 07/31/2024 Blayne Pena Assessments Encounter Date Diagnosis (ICD Code) Assessment Notes Treatment Notes Treatment Clinical Notes Section Notes 10/13/2023 Tinea unguium (ICD-10 - B35.1) 10/13/2023 Atherosclerosis of [place] artery of both lower extremities, with unspecified presence of clinical manifestation (ICD-10 - I70.203) 01/30/2024 Tinea unguium (ICD-10 - B35.1) 01/30/2024 Atherosclerosis of [place] artery of both lower extremities, with unspecified presence of clinical manifestation (ICD-10 - I70.203) 04/19/2024 Tinea unguium (ICD-10 - B35.1) 04/19/2024 Atherosclerosis of [place] artery of both lower extremities, with unspecified presence of clinical manifestation (ICD-10 - I70.203) 01/30/2024 Pain in right toe(s) (ICD-10 - M79.674) 04/19/2024 Pain in right toe(s) (ICD-10 - M79.674) 10/13/2023 Pain in right toe(s) (ICD-10 - M79.674) 10/13/2023 Pain in left toe(s) (ICD-10 - M79.675) 01/30/2024 Pain in left toe(s) (ICD-10 - M79.675) 04/19/2024 Pain in left toe(s) (ICD-10 - M79.675) 04/19/2024 Ingrown nail (ICD-10 - L60.0) Plan Of Treatment Pending Test Test Name Order Date X ray : Foot, left 3V 04/21/2022 X ray : Foot, right 3V 06/07/2022 X ray : Foot, right 3V 04/21/2022 55865-AVRQNEX NAIL, 6 OR MORE 07/07/2023 01233-YHOZIMH NAIL, 6 OR MORE 10/13/2023 64012-TYQJPZU NAIL, 6 OR MORE 01/30/2024 16924-VQZLCZM NAIL, 6 OR MORE 04/19/2024 69618-CLIBWGU NAIL, 6 OR MORE 07/01/2022 57443-YYBPJVA NAIL, 6 OR MORE 10/14/2021 49793-ODUDOQD NAIL, 6 OR MORE 01/06/2022 75157-HCLBZYJ NAIL, 6 OR MORE 03/30/2022 75939-VTSAMNU NAIL, 6 OR MORE 10/07/2022 63788-WENWUAE NAIL, 6 OR MORE 12/30/2022 31561-IWKICXA NAIL, 6 OR MORE 03/31/2023 02471-Coapjnvq Plate 04/19/2024 89741-Invfadte Plate 07/07/2023 57923-ZAXQ SKIN LESIONS, 2 TO 4 07/07/20 23 95193-ITBN SKIN LESIONS, 2 TO 4 01/30/20 24 00658-MAGW SKIN LESIONS, 2 TO 4 10/13/19 24 33468-ZQIK SKIN LESIONS, 2 TO 4 04/19/20 24 97643-UQPT SKIN LESIONS, 2 TO 4 03/31/20 23 97726-ALFV SKIN LESIONS, 2 TO 4 12/31/19 23 11178-YLZG SKIN LESIONS, 2 TO 4 10/08/19 23 75674-TZKV SKIN LESIONS, 2 TO 4 03/30/20 22 64097-DDTH SKIN LESIONS, 2 TO 4 01/07/20 22 36835-JNDY SKIN LESIONS, 2 TO 4 10/15/19 22 52038-XQHZ SKIN LESIONS, 2 TO 4 07/01/20 22 Next Appt Details Provider Name:Blayne Naren Pena , 10/09/2024 04:00:00 PM, [address] [facility], [place], [address], Insurance Providers Payer Name Payer Address Payer Phone Subscriber Number Group Number Insured Name Patient Relationship to Insured Coverage Start Date Coverage End Date Medicare [facility] [address] [place] [address] [id number] Seamus Castaneda Self - patient is the insured [facility] [address] [place] [address] [phone] [id number] Seamus Castaneda Self - patient is the insured Medical (General) History Medical History History ICD Code Back,Hip,and Knee pain Broken bones Parkinsons disease Tuberculosis Chicken pox Joint implants/screws CAD DVTs and PEs Pacemaker Surgical History Surgery Date(Month/Year) knee surgery, right back injections 2021 colonoscopy 10/05/22 Pacemaker 10/10/23 Hospitalization History Reason Date(Month/Year) [facility] Pacemaker w/new leads 09/2023
--- OUTSIDE RECORDS SUMMARY | 2024-09-13 06:19 | XMS_ITS | Encounter Summary ---
Author Organization [facility] Address [address] [place] [address] Phone Care Team Providers Care Flue Tile Press Operator Name Role Phone Unavailable Primary Care Provider Unavailabl e Encounter Details Date Type Department Care Team (Late st Contact Info) Description 07/09/2024 Documentation Only [facility] [address] [place] [address] Annita Landeros [address] [place] [phone] Social History Tobacco Use Types Packs/Day Years [...] Visit [facility] [address] [place] [address] Juan F Hutton MD [address] [place] [phone] documented as of this encounter Visit Diagnoses Not on filedocumented in this encounter
--- OUTSIDE RECORDS SUMMARY | 2024-09-13 06:19 | XMS_ITS | Clinical Summary ---
Author Organization [facility] Address [address] [place] [address] Phone Care Team Providers Care Body Piercer Name Role Phone Deana Corrales MD Primary Care Provider Allergies Active Allergy Reactions Criticality Noted Date Comments Iodinated Contrast Media Flushing Low 05/14/2024 Medications apixaban (ELIQUIS) 5 mg tablet Take 1 tablet (5 mg total) by mouth 2 (two) times a day. Active folic acid (FOLVITE) 1 mg tablet Take by mouth 1 (one) time each day. Active carbidopa-levod opa CR (SINEMET CR) 25-100 mg per CR tablet Take 1 tablet by mouth 3 (three) times a day. Do not crush, chew, or split. Active tiotropium Br/olodaterol HCl (STIOLTO RESPIMAT INHL) Inhale 2 puffs by mouth 1 (one) time each day in the morning. Active roflumilast 250 mcg tablet Take by mouth. Active amLODIPine-kevan zepril (LOTREL) 2.5-10 mg per capsule Take 1 capsule by mouth 1 (one) time each day. Active atorvastatin (LIPITOR) 20 mg tablet Take 1 tablet (20 mg total) by mouth at bedtime. Active escitalopram (LEXAPRO) 5 mg tablet Take 1 tablet (5 mg total) by mouth 1 (one) time each day. Active Active Problems No known active problems Surgical History Surgery Date Site/Laterality Comments OTHER SURGICAL HISTORY PROSTATE SURGERY INSERT / REPLACE / REMOVE PACEMAKER KNEE ARTHROPLASTY APPENDECTOMY Medical History Medical History Date Comments Hypertension COPD (chronic obstructive pulmonary disease) (CM S/HCC) Irregular heart beat Sleep apnea Pulmonary embolism (CMS/HCC) Hyperlipidemia DVT (deep venous thrombosis) (CMS/HCC) PTSD (post-traumatic stress disorder) Agent orange exposure Right bundle branch block (RBBB) Rheumatic fever Parkinson's disease (CMS/HCC) CHB (complete heart block) (CMS/HCC) Social History Tobacco Use Types Packs/Day Years Used Date Smoking Tobacco: Former Cigarettes Smokeless Tobacco: Former Sex and Gender Information Value Date Recorded Sex Assigned at Not on file Legal Sex Male 5:29 AM EST Gender Identity Not on file Sexual Orientation Not on file Obstetrics History Last Filed Vital Signs Vital Sign Reading Time Taken Comments Blood Pressure 126/79 05/28/2024 9:23 AM EST Pulse 67 05/28/2024 9:23 AM EST Temperature 36.5 ??C (97.7 ??F) 05/28/2024 9:23 AM ES T Respiratory Rate 18 05/28/2024 9:10 AM EST Oxygen Saturation 97% 05/28/2024 9:23 AM EST Inhaled Oxygen Concentration - - Weight 102 kg (225 lb) 05/14/2024 10:00 AM EDT Height 180.3 cm (5' 11 ) 05/14/2024 10:00 AM EDT Body Mass Index 31.38 05/14/2024 10:00 AM EDT Plan of Treatment Health Maintenance Due Date Last Done Comments Diabetes: Annual Foot Exam 10/31/1957 Diabetes: Annual Retina Eye Exam 10/31/1957 Hepatitis A Vaccines (1 of 2 - Risk 2-dose series) 10/31/1966 Hepatitis B Vaccines (1 of 3 - Risk 3-dose series) 2007 Cholesterol Screening (Lipid Panel) 06/27/2022 Depression Screening 06/27/2022 Hepatitis C Screening 06/27/2022 Medicare Annual Wellness Visit 06/27/2022 Social Influencers of Health Screening 06/27/2022 COVID-19 Vaccine ( season) 2024 04/29/2023, 04/14/2022, 05/07/2021, Additional history exists Influenza Vaccine (#1) 2024 3, 05/11/2022, 04/07/2022, Additional history exists Diabetes: Annual Urine Albumin-Creatinine Ratio (uACR) 05/16/2024 Diabetes: Blood Sugar Control Test (HGBA1C) 05/16/2024 12/26/2020 Diabetes: Annual GFR (Glomerular Filtration Rate) 05/28/2025 05/28/2024 Falls Risk Assessment 05/28/2025 05/28/2024 Hypertension/CHF/CAD Annual BMP Blood Test 05/28/2025 05/28/2024 DTaP,Tdap,and Td Vaccines (4 - Td or Tdap) 07/15/2031 07/15/2021, 07/29/2011, 03/11/2004 Pneumococcal Vaccine: 50+ Years Completed 09/13/2019, 09/13/2019, 10/02/2014, Additional history exists Zoster Vaccines Completed 03/25/2022, 12/25, 08/11/2011 RSV Immunization Patients 60+ Years Old Completed 06/09/2023 HIB Vaccines Aged Out No longer eligi ble based on patient's age to complete this topic HPV Vaccines Aged Out No longer eligi ble based on patient's age to complete this topic IPV Vaccines Aged Out No longer eligi ble based on patient's age to complete this topic MMR Vaccines Aged Out No longer eligi ble based on patient's age to complete this topic Meningococcal ACWY Vaccine Aged Out N o longer eligible based on patient's age to complete this topic Meningococcal B Vacine Aged Out No lo nger eligible based on patient's age to complete this topic RSV Immunization Patients Under 20 months Aged Out No longer eligible based on patient's age to complete this topic Varicella Vaccines Aged Out No longer eligible based on patient's age to complete this topic Medical Devices Implanted Type Area Grader Green Meat Device Identifier Shelf Expiration Date Model / Serial / Lot Joints Knee Joints Knee Right: Knee Procedures Procedure Name Priority Date/Time Associated Diagnosis Comments CREATININE, SERUM Routine 05/28/2024 7:1 8 AM EST from Last 3 Months or Most Recently Relevant to Health Maintenance Results * (ABNORMAL) Creatinine (05/28/2024 7:18 AM EST) Creatinine 1.38(H) 0.70 - 1.30 mg/dL LAB CHEMISTRY METHOD 05/28/2024 8:12 AM EST [facility] eGFR 53(L) >=60 mL/min/1. 73m2 LAB CHEMISTRY METHOD 05/28/2024 8:12 AM EST [facility] Comment:Calculation based on the??Chronic Kidney Disease Epidemiology Collaboration (CKD-EPI) equation refit??without adjustment for race. Blood Venous blood specimen / Unknown Venipuncture / Unknown 05/28/2024 7:18 AM EST 05/28/2024 7:25 AM EST us Delmar Butler MD LAB BLOOD ORDERABLES Final Resul t [facility] ([facility] [address] [place] [address], from Last 3 Months or Most Recently Relevant to Health Maintenance Insurance MEDICARE [facility] Care Teams Body Piercer Relationship Specialty Start Date End Date Deana Corrales MD [address] [phone] PCP - General Internal Medicine 05/15/24
== END 2024-09-13 06:16 | disposition home or self-care (01) ==
LOC: CF 06:15
PROVIDERS: Visit Provider Internal Medicine
DX: Z13.89 Encounter for screening for other disorder (principal)

== ENCOUNTER 2024-10-04 06:21 | Outpatient (REF) | payer MEDICARE, OTHER, SELFPAY ==
--- NOTE | ~2024-10-04 | FL_ITS ---
EXAMINATION: XR FLUOROSCOPY WITH IMAGES CLINICAL INFORMATION: Pain management procedure left hip. COMPARISON: None available. TECHNIQUE: Fluoroscopy provided to: Dr. Lawrence Fluoroscopy time: 0.1 minutes DAP: 0.0188 mGycm2 Images: 2 FINDINGS: 2 spot images left hip during intra-articular injection for pain management. Refer to the full operative report for detail. FL/FL guidance in treatment room IMPRESSION: Fluoroscopic guidance. Electronically signed by: Hitesh Alvarez MD 10/04/2024 01:26 PM EDT
--- OUTSIDE RECORDS SUMMARY | 2024-10-04 06:24 | XMS_ITS ---
Author Organization [facility] Address [address] [place] [address] Care Team Providers Care Senior Supply Chain Analyst Name Role Phone Deana Corrales Primary Care Provider Unavail Blayne Arriaza Unavailable [phone] REASON FOR VISIT r/s 08/30/24 Encounters Encounter Location Date Provider Diagnosis [address] [address] 07/31/2024 Blayne Pena Plan Of Treatment Next Appt Details Provider Name:Blayne Pena , 10/05/2024 12:15:00 PM, [address] [place] [address], [address], Progress Notes * Seamus FRAGA DDOB:1945 (78 yo M)Acc No.[id number]:07/31/2024 Patient:?Seamus FRAGA :1945???Age:78 Y???Sex:Male Address:[address] [place], [place] [address], [address] * true * Date:? Generated for Printi ng/Faxing/eTransmitting on:?10/04/2024 06:24 AM EDT
--- OUTSIDE RECORDS SUMMARY | 2024-10-04 06:24 | XMS_ITS | Encounter Summary ---
Author Organization [facility], Address [address] [place] [address] Phone Care Team Providers Care Truck Jumper Name Role Phone Unavailable Primary Care Provider Unavailabl e Encounter Details Date Type Department Care Team (Late st Contact Info) Description 05/05/2022 Documentation Only [facility], [address] [facility] [address] [address] Zhen Renee PA Social History [...] Visit [facility], [address] [facility] [facility] [place] [place] [address] Juan F Hutton MD [address] [facility] [address] [address] [place] [phone] documented as of this encounter Visit Diagnoses Not on filedocumented in this encounter
--- OUTSIDE RECORDS SUMMARY | 2024-10-04 06:24 | XMS_ITS | Clinical Summary ---
Author Organization [facility], Address [address] [place] [address] [place] [address] Phone Care Team Providers Care Solvent Plant Treater Name Role Phone Unavailable Primary Care Provider [...] time each day Active Cobalamin Combinations (VITAMIN Y37-LYOGF ACID PO)Indications:S tage 3a chronic kidney disease (HCC) vitamin J50-fsxqi acid 1 po qd Active amLODIPine (NORVASC) [...] Visit [facility] [address] [place] [address] Juan F Hutton MD Stage 3a chronic kidney disease (HCC) (Primary Dx); Vitamin D deficiency, not otherwise specified; Essential (primary) hypertension 07/09/2024 Documentation Only [facility] [address] [place] [address] Annita Landeros from Last 3 Months Immunizations [...] Visit [facility] [place], [address] [place] [address] Juan F Hutton MD [address] [address] [place] [address] Health Maintenance Due Date Last [...] AM EDT) Hemoglobin A1C 6.1(H) (4.0-5.6) % [facility] Comment: MONITORING: In known diabetic patients, hemoglobin A1c targets should be discussed with health care provider. DIAGNOSTIC USE: ??The [place] Diabetes Association (ADA) and the World Health [...] Supplement 1 Testing performed or reported by [facility], a Service of [facility], [address] [place] [address] Juan Antonio Pérez MD, Founder And Chief Technical Officer Blood (Blood, Venous) 12/26/2020 8:04 AM EDT 12/26/2020 8:07 AM EDT us Juan F Hutton MD LAB BLOOD ORDERABLES Final Resul t [facility] from Last 3 Months or Most Recently Relevant to Health Maintenance Insurance MEDICARE [facility]
--- OUTSIDE RECORDS SUMMARY | 2024-10-04 06:25 | XMS_ITS | Clinical Summary ---
Author Organization [facility] Address [address] [place] [address] Phone Care Team Providers Care Shotgun Shell Loading Machine Operator Name Role Phone Deana Corrales MD Primary [...] this topic Medical Devices Implanted Type Area Boarding House Manager Device Identifier Shelf Expiration Date Model / [...] LAB CHEMISTRY METHOD 05/28/2024 8:12 AM EST [facility] eGFR 53(L) >=60 mL/min/1. 73m2 LAB CHEMISTRY METHOD 05/28/2024 8:12 AM EST [facility] ([facility] Comment:Calculation based on the??Chronic Kidney Disease Epidemiology Collaboration (CKD-EPI) equation refit??without adjustment for race. Blood Venous blood specimen / Unknown Venipuncture / Unknown 05/28/2024 7:18 AM EST 05/28/2024 7:25 AM EST us Delmar Butler MD LAB BLOOD ORDERABLES Final Resul t [facility] ([facility] [address] [place] [address], from Last 3 Months or Most Recently Relevant to Health Maintenance Insurance MEDICARE [facility] Care Teams Shotgun Shell Loading Machine Operator Relationship Specialty Start Date End Date Deana Corrales MD [address] [address] PCP - General Internal Medicine 05/15/24
--- OUTSIDE RECORDS SUMMARY | 2024-10-04 06:25 | XMS_ITS | Data Portability ---
Author Organization [facility], Main Office Address [address] [facility] [address] [place] [address] Care Team Providers Care Claim Investigator Name Role Phone SUSANNE HUERTA Waste Picker REGINE GARCIA Card Hand NADIA STEEL Orthopedic Surgeon [phone] JASMYN RAMOS Neurologist ROJAS KEYES Urologist KRISTEN TODD Wrapper Counter [phone] VERO DASILVA Pelt Salter BANDAR FERRARO Waste Picker KEITH GRANADO Primary Care Provider Assessment No assessment recorded. Plan of Treatment Reminders Order Date Submit Date Provider Last Modified By Organization Details Last Modified Time Details Appointments [id number] 2024 01:00P Melissa GRANADO MD Not available Not available Not available Lab HbA1c (hemoglob in A1c), blood 2023 024 FELECIA [facility] (Centralized Electronic Ordering - All Locations), Patient Can Go To The Location Of Their Choice, [address] 04/19/2024 06:08:51 BMP, serum or plasma 2023 024 [facility], [address], [place], [address], 04/19/2024 06:08:49 lipid panel, serum 2023 024 [facility], [address], [place], [address], 04/19/2024 06:08:50 CBC w/ auto diff 2023 024 [facility], [address], [place], [address], 04/19/2024 06:08:49 TSH, ultra-sen sitive, serum 2023 024 [facility], [address], [place], [address], 04/19/2024 06:08:51 Referral None recorded. Procedures None recorded. Surgeries None recorded. Imaging MRI, lumbar spine, w/o contrast - on-going back pain for several years, undergoes steroid infection s with mild relief. ordered repeat MRI to check for worsening and will be referred to neurosurg wei gamble [id number] [place] [address], [address] [place] [address], [address], 05/14/2024 12:01:33 Medication Orders tizanidin e 4 mg tablet 2023 024 [facility], [address] [place], [address], 04/17/2024 11:24:50 DermOtic Oil 0.01 % ear drops [address] [facility], [address] [place] [address], [address], 01/19/2024 09:27:31 Fioricet 50 mg-300 mg-40 mg capsule 2023 024 [facility], [address] [place], [address], 10/14/2023 14:41:49 hydrocort isone-deborah tic acid 1 %-2 % ear drops 2023 024 FELICITY [facility], [address] [place], [address], 01/19/2024 09:15:13 Patient TargetsNo targets recorded. Patient Instructions Encounter Date Encounter Id Patient Instructions Last Modified By Organization Details Last Modified Time 10/14/2023 [id number] headache: care instructions Not available 10/14/2023 14:20:25 eustachian tube problems: care instructions Not available 10/14/2023 13:53:25 medicines to avoid with kidney disease: care instructions Not available 10/14/2023 13:53:25 dizziness: care instructions Not available 10/14/2023 16:17:45 01/19/2024 [id number] medicines to avoid with kidney disease: care instructions Not available 01/19/2024 09:27:29 04/17/2024 [id number] chronic obstructive pulmonary disease (COPD): care instructions [...] /uL 3.4-10 .8 normal Not Available [facility] ([facility]) [address] [place], [address], 04/19/2024 06:08:49 04/18/2004/19/2024 CBC WITH DIFFE RENTI AL/PL ATELE T RBC 4.62 x10e6 /uL 4.14-5 .80 normal CBC resul ts repor everton were obtai omayra after the speci men had been warme d to 37 degre es C. This may indic ate the prese nce of Cold Agglu tinin s. Not Available [facility] ([facility] [address] [place], [address], 04/19/2024 06:08:49 04/18/2004/19/2024 CBC WITH DIFFE RENTI AL/PL ATELE T hemoglobin 14.9 g/dL 13.0-1 7.7 normal Not Available [facility] ([facility] [address] [place], [address], 04/19/2024 06:08:49 04/18/20 24 04/19/2024 CBC WITH DIFFE RENTI AL/PL ATELE T hematocrit 44.6 % 37.5-5 1.0 normal Not Available [facility] ([facility]) [address] [place], [address], 04/19/2024 06:08:49 04/18/2004/19/2024 CBC WITH DIFFE RENTI AL/PL ATELE T MCV 97 fL 79-97 normal Not Available [facility] ([facility]) [address] [place], [address], 04/19/2024 06:08:49 04/18/20 24 04/19/2024 CBC WITH DIFFE RENTI AL/PL ATELE T MCH 32.3 pg 26.6-3 3.0 normal Not Available [facility] ([facility]) [address] [place], [address], 04/19/2024 06:08:49 04/18/2004/19/2024 CBC WITH DIFFE RENTI AL/PL ATELE T MCHC 33.4 g/dL 31.5-3 5.7 normal Not Available [facility] ([facility]) [address] [place], [address], 04/19/2024 06:08:49 04/18/20 24 04/19/2024 CBC WITH DIFFE RENTI AL/PL ATELE T RDW 13.0 % 11.6-1 5.4 Not Available [facility] ([facility]) [address] [place], [address], 04/19/2024 06:08:49 04/18/20 24 04/19/2024 CBC WITH DIFFE RENTI AL/PL ATELE T platelets 198 x10e3 /uL 150-45 0 normal Not Available [facility] ([facility]) [address] [place], [address], 04/19/2024 06:08:49 04/18/20 24 04/19/2024 CBC WITH DIFFE RENTI AL/PL ATELE T neutrophils 54 % not estab. normal Not Available [facility] ([facility]) [address], [place], [address], 04/19/2024 06:08:49 04/18/20 24 04/19/2024 CBC WITH DIFFE RENTI AL/PL ATELE T lymphs 32 % not estab. normal Not Available [facility] ([facility] [address] [place], [address], 04/19/2024 06:08:49 04/18/20 24 04/19/2024 CBC WITH DIFFE RENTI AL/PL ATELE T monocytes 9 % not estab. normal Not Available [facility] ([facility]) [address] [place], [address], 04/19/2024 06:08:49 04/18/20 24 04/19/2024 CBC WITH DIFFE RENTI AL/PL ATELE T eos 4 % not estab. normal Not Available [facility] ([facility] [address] [place], [address], 04/19/2024 06:08:49 04/18/20 24 04/19/2024 CBC WITH DIFFE RENTI AL/PL ATELE T basos 1 % not estab. normal Not Available [facility] ([facility] [address] [place], [address], 04/19/2024 06:08:49 04/18/20 24 04/19/2024 CBC WITH DIFFE RENTI AL/PL ATELE T immature cells WORKERS' COMPENSATION MAGISTRATE Not Available [facility] ([facility]) [address] [facility] [place], [address], 04/19/2024 06:08:49 04/18/20 24 04/19/2024 CBC WITH DIFFE RENTI AL/PL ATELE T neutrophils (absolute) 3.3 x10e3 /uL 1.4-7. 0 normal Not Available [facility] ([facility]) [address], [place], [address], 04/19/2024 06:08:49 04/18/20 24 04/19/2024 CBC WITH DIFFE RENTI AL/PL ATELE T lymphs (absolute) 1.9 x10e3 /uL 0.7-3. 1 normal Not Available [facility] ([facility]) [address], [place], [address], 04/19/2024 06:08:49 04/18/20 24 04/19/2024 CBC WITH DIFFE RENTI AL/PL ATELE T monocytes(ab solute) 0.6 x10e3 /uL 0.1-0. 9 normal Not Available [facility] ([facility] [place] [facility] [address] [place], [address], 04/19/2024 06:08:49 04/18/20 24 04/19/2024 CBC WITH DIFFE RENTI AL/PL ATELE T eos (absolute) 0.2 x10e3 /uL 0.0-0. 4 normal Not Available [facility] ([facility] [address] [place], [address], 04/19/2024 06:08:49 04/18/20 24 04/19/2024 CBC WITH DIFFE RENTI AL/PL ATELE T baso (absolute) 0.1 x10e3 /uL 0.0-0. 2 normal Not Available [facility] ([facility] [address] [place], [address], 04/19/2024 06:08:49 04/18/20 24 04/19/2024 CBC WITH DIFFE RENTI AL/PL ATELE T immature granulocytes 0 % not estab. Not Available [facility] ([facility]) [address], [place], [address], 04/19/2024 06:08:49 04/18/20 24 04/19/2024 CBC WITH DIFFE RENTI AL/PL ATELE T immature grans (abs) 0.0 x10e3 /uL 0.0-0. 1 Not Available [facility] ([facility] [address], [place], [address], 04/19/2024 06:08:49 04/18/20 24 04/19/2024 CBC WITH DIFFE RENTI AL/PL ATELE T NRBC WORKERS' COMPENSATION MAGISTRATE Not Available [facility] ([facility] [place] [facility]) [address], [place], [address], 04/19/2024 06:08:49 04/18/20 24 04/19/2024 CBC WITH DIFFE RENTI AL/PL ATELE T hematology comments: WORKERS' COMPENSATION MAGISTRATE Not Available [facility] ([facility] [place] [facility] [address], [place], [address], 04/19/2024 06:08:49 04/18/20 24 04/19/2024 BASIC METAB OLIC PANEL (8) glucose 122 mg/dL 70-99 above high normal Not Available [facility] ([facility]) [address] [place], [address], 04/19/2024 06:08:49 04/18/20 24 04/19/2024 BASIC METAB OLIC PANEL (8) BUN 13 mg/dL 8-27 normal Not Available [facility] ([facility] [address] [place], [address], 04/19/2024 06:08:49 04/18/20 24 04/19/2024 BASIC METAB OLIC PANEL (8) creatinine 1.39 mg/dL 0.76-1 .27 above high normal Not Available [facility] ([facility] [address] [place], [address], 04/19/2024 06:08:49 04/18/2004/19/2024 BASIC METAB OLIC PANEL (8) eGFR 53 mL/mi n/1.7 3 >59 below low normal Not Available [facility] ([facility] [address] [place], [address], 04/19/2024 06:08:49 04/18/20 24 04/19/2024 BASIC METAB OLIC PANEL (8) BUN/creatini ne ratio 9 10-24 below low normal Not Available [facility] ([facility] [address] [place], [address], 04/19/2024 06:08:49 04/18/20 24 04/19/2024 BASIC METAB OLIC PANEL (8) sodium 141 mmol/ L 134-14 4 normal Not Available [facility] ([facility] [address], [place], [address], 04/19/2024 06:08:49 04/18/2004/19/2024 BASIC METAB OLIC PANEL (8) potassium 4.4 mmol/ L 3.5-5. 2 normal Not Available [facility] ([facility] [place] [facility] [address] [place], [address], 04/19/2024 06:08:49 04/18/2004/19/2024 BASIC METAB OLIC PANEL (8) chloride 106 mmol/ L 96-106 normal Not Available [facility] ([facility] [address] [place], [address], 04/19/2024 06:08:49 04/18/20 24 04/19/2024 BASIC METAB OLIC PANEL (8) carbon dioxide, total 21 mmol/ L 20-29 normal Not Available [facility] ([facility] [place] [facility] [address] [place], [address], 04/19/2024 06:08:49 04/18/20 24 04/19/2024 BASIC METAB OLIC PANEL (8) calcium 9.4 mg/dL 8.6-10 .2 normal Not Available [facility] ([facility] [address] [place], [address], 04/19/2024 06:08:49 04/18/20 24 04/19/2024 LIPID PANEL cholesterol, total 129 mg/dL 100-19 9 normal Not Available [facility] ([facility] [address] [place], [address], 04/19/2024 06:08:50 04/18/20 24 04/19/2024 LIPID PANEL triglyceride s 93 mg/dL 0-149 normal Not Available [facility] ([facility] [address] [place], [address], 04/19/2024 06:08:50 04/18/20 24 04/19/2024 LIPID PANEL HDL cholesterol 47 mg/dL >39 normal Not Available [facility] ([facility] [place] [facility] [address] [place], [address], 04/19/2024 06:08:50 04/18/20 24 04/19/2024 LIPID PANEL VLDL cholesterol doc 18 mg/dL 5-40 Not Available [facility] ([facility] [address] [place], [address], 04/19/2024 06:08:50 04/18/20 24 04/19/2024 LIPID PANEL LDL chol calc ([facility]) 64 mg/dL 0-99 Not Available [facility] ([facility] [address] [place], [address], 04/19/2024 06:08:50 04/18/20 24 04/19/2024 LIPID PANEL LDL calc comment: WORKERS' COMPENSATION MAGISTRATE Not Available [facility] ([facility] [address] [place], [address], 04/19/2024 06:08:50 04/18/20 24 04/19/2024 HEMOG LOBIN A1C hemoglobin A1C 6.3 % 4.8-5. 6 above high normal Predi abete s: 5.7 - 6.4 Diabe jody: >6.4 Glyce ari contr ol for adult s with diabe jody: <7.0 Not Available [facility] ([facility] [address], [place], [address], 04/19/2024 06:08:51 04/18/20 24 04/19/2024 TSH RFX ON ABNOR MAL TO FREE T4 TSH 2.940 uIU/m L 0.450- 4.500 normal Not Available [facility] ([facility] [address], [place], [address], 04/19/2024 06:08:51 04/18/20 24 04/21/2024 COOMB S', DIREC T jack', direct Negati ve negati ve Not Available [facility] ([facility] [address], [place], [address], 04/21/2024 12:06:09 04/18/2004/20/2024 SIGRID EN AUTHO RIZAT ION written authorizatio n Commen t Sigrid en Autho rizat ion Recei franchesca. Autho rizat ion recei franchesca from BRITTANY Riley for Link Reque st on 04-20 Logge d by Emeli Winston Not Available [facility] ([facility] [address], [place], [address], 04/21/2024 12:06:10 05/28/20 24 05/28/2024 COMPL ETE BLOOD COUNT WBC 6.7 K/mcL 4.8-10 .8 Not Available [facility] (Direct Fax All) [facility], [place], [address], 05/28/2024 07:53:31 05/28/20 24 05/28/2024 COMPL ETE BLOOD COUNT RBC 4.00 M/mcL 4.50-5 .50 low Not Available [facility] (Direct Fax All) Any [facility], [place], [address], 05/28/2024 07:53:31 05/28/20 24 05/28/2024 COMPL ETE BLOOD COUNT hemoglobin 13.7 g/dL 13.5-1 7.5 Not Available [facility] (Direct Fax All) Any [facility], [place], [address], 05/28/2024 07:53:31 05/28/20 24 05/28/2024 COMPL ETE BLOOD COUNT hematocrit 40.0 % 42.0-5 4.0 low Not Available [facility] (Direct Fax All) Any [facility], [place], [address], 05/28/2024 07:53:31 05/28/20 24 05/28/2024 COMPL ETE BLOOD COUNT MCV 100.5 fL 79.0-9 8.0 high Not Available [facility] (Direct Fax All) Any [facility], [place], [address], 05/28/2024 07:53:31 05/28/20 24 05/28/2024 COMPL ETE BLOOD COUNT MCH 34.4 pcg 27.0-3 2.0 high Not Available [facility] (Direct Fax All) Any [facility], [place], [address], 05/28/2024 07:53:31 05/28/20 24 05/28/2024 COMPL ETE BLOOD COUNT MCHC 34.3 g/dL 32.0-3 7.0 Not Available [facility] (Direct Fax All) Any [facility], [place], [address], 05/28/2024 07:53:31 05/28/20 24 05/28/2024 COMPL ETE BLOOD COUNT RDW 13.7 % 11.0-1 5.0 Not Available [facility] (Direct Fax All) Any [facility], [place], [address], 05/28/2024 07:53:31 05/28/20 24 05/28/2024 COMPL ETE BLOOD COUNT platelets 216 K/mcL 130-40 0 Not Available [facility] (Direct Fax All) Any [facility], [place], [address], 05/28/2024 07:53:31 05/28/20 24 05/28/2024 COMPL ETE BLOOD COUNT MPV 9.3 fL 7.0-11 .0 Not Available [facility] (Direct Fax All) Any [facility], [place], [address], 05/28/2024 07:53:31 05/28/20 24 05/28/2024 COMPL ETE BLOOD COUNT NRBC 0.0 % <1.0 Not Available [facility] (Direct Fax All) Any [facility], [place], [address], 05/28/2024 07:53:31 05/28/20 24 05/28/2024 COMPL ETE BLOOD COUNT NRBC absolute 0.00 K/mcL <0.10 Not Available [facility] (Direct Fax All) Any [facility], [place], [address], 05/28/2024 07:53:31 05/28/20 24 05/28/2024 COMPL ETE BLOOD COUNT note See Report [facility], [address], [place], [place] [address] Not Available [facility] (Direct Fax All) Any [facility], [place], [address], 05/28/2024 07:53:31 05/28/20 24 05/28/2024 BUN BUN 13 mg/dL 5-25 Not Available [facility] (Direct Fax All) Any [facility], [place], [address], 05/28/2024 08:15:07 05/28/20 24 05/28/2024 BUN note See Report [facility], [address] Holley t, [place], [place] [facility] [place] [id number] Not Available [facility] (Direct Fax All) Any [facility], [place], [address], 05/28/2024 08:15:07 05/28/20 24 05/28/2024 ELECT ROLYT E PANEL sodium 142 mmol/ L 133-14 5 Not Available [facility] (Direct Fax All) [facility], [place], [address], 05/28/2024 08:15:08 05/28/20 24 05/28/2024 ELECT ROLYT E PANEL potassium 4.4 mmol/ L 3.5-5. 5 Not Available [facility] (Direct Fax All) [facility], [place], [address], 05/28/2024 08:15:08 05/28/20 24 05/28/2024 ELECT ROLYT E PANEL chloride 111 mmol/ L 96-110 high Not Available [facility] (Direct Fax All) [facility], [place], [address], 05/28/2024 08:15:08 05/28/20 24 05/28/2024 ELECT ROLYT E PANEL CO2 26 mmol/ L 21-32 Not Available [facility] (Direct Fax All) [facility], [place], [address], 05/28/2024 08:15:08 05/28/20 24 05/28/2024 ELECT ROLYT E PANEL anion gap 5 3-11 Not Available [facility] (Direct Fax All) [facility], [place], [address], 05/28/2024 08:15:08 05/28/20 24 05/28/2024 ELECT ROLYT E PANEL note See Report [facility], [address], [place], [place] [address] Not Available [facility] (Direct Fax All) [facility], [place], [address], 05/28/2024 08:15:08 05/28/20 24 05/28/2024 CREAT ININE creatinine 1.38 mg/dL 0.70-1 .30 high Not Available [facility] (Direct Fax All) [facility], [place], [address], 05/28/2024 08:15:10 05/28/20 24 05/28/2024 CREAT ININE eGFR 53 mL/mi n/1.7 3m2 >=60 low Calcu latio n based on the?C hroni c Kidne y Disea se Epide miolo gy Colla borat ion (CKD- EPI) equat ion refit ?with out adjus tment for race. Not Available [facility] (Direct [facility]) [facility], [place], [address], 05/28/2024 08:15:10 05/28/20 24 05/28/2024 CREAT ININE note See Report [facility], [address], [place], [place] [address] Not Available [facility] (Direct Fax All) Any [facility], [place], [address], 05/28/2024 08:15:10 05/09/20 24 05/09/2024 XR, chest [...] acute cardio pulmon ailin diseas e. WSN: [id number] Orderi ng Physic ernesto: Jason Solsi Dictat ed By: Zee Bradford MD Dictat ed Date/T simon: 11:06 a Review ed By: Zee Bradford MD Signed By: Zee Bradford MD Signed Date/T simon: 11:06 am Transc ribed By: MAGY Transc ribed Date/T simon: 11:06 am Patien t Class: Outpat ient [facility] (Outpt Imaging) [address] [place], [address], 05/14/2024 15:06:42 05/28/20 24 05/28/2024 op note No observ ation record ed. [facility] ([facility] Central Scheduling) Any [facility], [place], [address], 05/28/2024 10:11:14 07/16/20 24 07/16/2024 CT chest ldct lung progr am CT Chest LDCT Lung Progra m INDICA TION: Reason : Other: ; LDCT LUNG CANCER SCREEN ING ENRICO BROWN T SMOKER , 44 PACK YEAR HX; Clinic al Questi on(s): Other: ; Specia l Instru ctions : BOOK AT [address] [facility] [place], [place] BOOK AFTER 07 14 2024 NO CHEST [...] signif icant incide ntal findin gs. WSN: [id number] Orderi ng Physic ernesto: Jason Solis ie Dictat ed By: Diann Stafford MD Dictat ed Date/T simon: 4:27 pm Review ed By: Diann Stafford MD Signed By: Diann Stafford MD Signed Date/T simon: 4:27 pm Transc ribed By: CSB Transc ribed Date/T simon: 4:17 pm Patien t Class: Outpat ient [email or web address] (Outpt Imaging) [address] , [place], [address], 07/31/2024 13:58:27 07/16/20 24 07/16/2024 CT chest ldct lung progr am A D D E N D U M as of: [id number] CTDIvo l Body 2.6 mGy DLP Body: 101.1m Gy*cm WSN: [id number] Orderi ng Physic ernesto: Jason Solis ie Dictat ed By: Diann Stafford MD Dictat ed Date/T simon: 4:36 pm Review ed By: Diann Stafford MD Signed By: Diann Stafford MD Signed Date/T simon: 4:36 pm Transc ribed By: MAGY Transc ribed Date/T simon: 4:[address] Chest LDCT Lung Progra m INDICA TION: Reason : Other: ; LDCT LUNG CANCER SCREEN ING ENRICO BROWN T SMOKER , 42 PACK YEAR HX; Clinic al Questi on(s): Other: ; Specia l Instru ctions : BOOK AT [address] [place] [address] BOOK AFTER 07 14 2024 NO CHEST [...] signif icant incide ntal findin gs. WSN: [id number] Orderi ng Physic ernesto: Jason Solis ie Dictat ed By: Diann Stafford MD Dictat ed Date/T simon: 4:27 pm Review ed By: Diann Stafford MD Signed By: Diann Stafford MD Signed Date/T simon: 4:27 pm Transc ribed By: CSB Transc ribed Date/T simon: 4:17 pm Patien t Class: Outpat ient [facility] (Outpt Imaging) [address] , [place], [address], 07/17/2024 14:02:34 07/23/20 24 07/16/2024 LDCT, chest , for lung fang mike carey davide No observ ation record ed. [email or web address] [address] [facility], [place], [address], 08/07/2024 10:43:35 Result Notes None recorded. Problems Name Problem SNOMED Code Status Onset Date Resolution Date Notes Provider Name and Address Organization Details Recorded Time Adult health examinat ion Completed 201202/12/2014 IMPRESSI ON: PT WANTS TO START EXERCISI NG, ENCOURAG ED HIM TO, NEEDS TO EAT HEALTHY, IN PAST HAD ONEELEVT E DPSA THEN RETURNED TO , THOUGHT DUE TO INFLAMMA TION RECHECK TODAY; RECORDED 09/26/19 13 2:16PM BY SONAL MUELLER MA, MEG ON/ADDJULIANNE Hwang, [facility] 7 14:40:36 Arthropa thy of knee joint [id number] Completed 201308/20/2016 IMPRESSI ON: INJECTIO NS FROM ORHTO IN THE PAST; RECORDED 01/10/20 14 8:38AM BY EDNA COX I, OFFICE VISIT [facility] 7 15:01:59 Tobacco user [id number] Completed 201308/20/2016 RECORDED 01/10/20 14 8:38AM BY EDNA COX I, OFFICE VISIT KEITH GRANADO MD [address] [address], [place], [address] , [facility] 3 13:15:09 History of clinical finding in subject [id number] Completed 201308/20/2016 RECORDED 09/29/19 14 9:22AM BY MEG ORDONEZ/JULIANNE Allen, [facility] 7 14:40:52 Elevated blood-pr essure reading without diagnosi s of hyperten saray [id number] Completed 201308/20/2016 IMPRESSI ON: STRESSED , RECHECK IN ONE MONTH; RECORDED 01/10/20 14 8:38AM BY EDNA COX I, OFFICE VISIT Teri hawkins [facility] 7 15:01:50 Chronic obstruct yazmin pulmonar y disease [id number] Active 2013 Odalis hawkins, [facility] 8 08:33:43 Diarrhea [id number] Completed 200702/12/2014 IMPRESSI ON: FULL WORKUP WITH EGD, COLONOSC OPY, SMALL BOWEL LOOK, NO PATHOLOG Y, ON HIGH FIBERM POSSIBLE IRRITABL E BOWEL; RECORDED 07/09/20 08 9:37AM BY SONAL MUELLER MA, ANNOTATI ON/ADDEN DUM Not Available [facility] 4 15:15:18 Disorder of vein [id number] Completed 201308/20/2016 IMPRESSI ON: OFF COUMADIN AND ON BABY ASA AND DOING WELL, KNOWS TO AVOID PRLONGED PERIOD SOF SITTING. ..; RECORDED 01/10/20 14 8:38AM BY EDNA COX I, OFFICE VISIT JULIANNE Ordonez, [facility] 7 14:41:01 Respirat ory finding [id number] Completed 201308/20/2016 IMPRESSI ON: CONCERN FOR DVT RIGHT LEG WITH PE GIVEN HE IS TACHYCAR DIC, TACHYPNE IC. AMBULANC E CALLED. NEEDS EITHER DOPPLER LEG OR CT. HIGH RISK CONDITIO N WITH THREAT TO LIFE; RECORDED 01/10/20 14 8:38AM BY EDNA COX I, OFFICE VISIT JULIANNE Ordonez, [facility] 7 14:40:57 Dysuria [id number] Completed 201202/12/2014 RECORDED 09/20/19 13 8:51AM BY OLIMPIA GARCIA MA, ANNOTATI ON/ADDEN DUM Not Available [facility] 4 15:15:18 Prostate specific antigen above referenc e range 576175660 Active 2013 JULIANNE Ordonez, [facility] 3 13:57:16 Influenz a vaccine needed 63693658950 06 Completed 201202/12/2014 RECORDED 04/23/20 13 2:46PM BY LEATHA BUENO, OFFICE VISIT Not Available [facility] 4 15:15:18 Tobacco user [id number] Completed 201302/12/2014 RECORDED 09/29/19 14 9:22AM BY MEG ORDONEZ ON/ADDEN DUM KEITH GRANADO MD [address] [facility][[address]] [address], [place], [address] , [facility] 3 13:15:09 Adult health examinat ion Completed 201308/20/2016 IMPRESSI ON: PT IS DOING WELL, HE WILL INCREASE EXERCISE , HAS STAYED AWAY FROM SMOKING; RECORDED 09/29/19 14 1:30PM BY TERI Delgado MD, OFFICE VISIT JULIANNE Ordonez, [facility] 7 14:40:36 Hearing loss 95610798 Active 2013 Leatha Bueno MA null, [facility] 3 13:57:16 Pure hypercho lesterol emia 107802369 Completed 201102/12/2014 IMPRESSI ON: CHECK TODAY; RECORDED 02/29/20 12 8:00AM BY NAZ PAZ MA, MEG ON/ADDEN DUM Not Available [facility] 4 15:15:19 Follow-u p encounte r Completed 201202/12/2014 RECORDED 10/12/19 13 9:07AM BY OLIMPIA GARCIA MA, MEG ON/ADDEN DUM Not Available [facility] 4 15:15:19 Knee pain Completed 201102/12/2014 IMPRESSI ON: CARTILAG E ISSUE, PT TO SET UP APPT WITH [facility]; RECORDED 02/29/20 12 8:00AM BY NAZ PAZ MA, JOHNATI ON/ADDEN DUM Not Available [facility] 4 15:15:19 Cramp in limb 133083764 Completed 201202/12/2014 IMPRESSI ON: HYDRATE STRETCHA DN CHECK LYTES; RECORDED 09/26/19 13 2:17PM BY SONAL MUELLER MA, ANNOTATI ON/ADDEN DUM Not Available [facility] 4 15:15:19 Nonvenom ous insect bite of multiple sites 864997800 Completed 200702/12/2014 IMPRESSI ON: EDEMA, MILD PAIN, NO INFECTIO N, ICE, ELEVATE AND MOTRIN; RECORDED 07/09/20 08 9:37AM BY SONAL MUELLER MA, ANNOTATI ON/ADDEN DUM Not Available [facility] 4 15:15:19 Administ ration of viral vaccine Completed 201102/12/2014 DATE: 08/11/19 12; RECORDED 02/29/20 12 8:00AM BY NAZ PAZ MA, ANNOTATI ON/ADDEN DUM Not Available [facility] 4 15:15:19 Administ ration of bacteria l and viral vaccine Completed 201102/12/2014 RECORDED 07/29/19 12 10:31AM BY TERI Delgado MD, OFFICE VISIT Not Available [facility] 4 15:15:19 Abnormal findings on diagnost ic imaging of lung 606781020 Completed 201102/12/2014 IMPRESSI ON: CT OF CHEST [...] PAZ MA, ANNOTATI ON/ADDEN DUM Not Available [facility] 4 15:15:19 Disorder of oral soft tissues 03835183 Completed 201308/20/2016 IMPRESSI ON: SLIGHTLY RED AREA ON HARD PALATE ON THE LEFT. NO CLEAR ULCERATI ON OR MASS.; RECORDED 09/29/19 14 9:25AM BY LEATHA BUENO, OFFICE VISIT Teri hawkins MA - [facility] 7 15:01:57 Onychia of finger 76508657 Completed 201308/20/2016 RECORDED 01/10/20 14 8:38AM BY EDNA COX I, OFFICE VISIT Teri hawkins [facility] 7 15:01:47 Paronych ia of finger 948996342 Completed 201308/20/2016 RECORDED 09/29/19 14 9:25AM BY LEATHA BUENO, OFFICE VISIT Teri hawkins [facility] 7 15:02:02 Disorder of prostate 11539275 Completed 201301/17/2017 IMPRESSI ON: PSA WAS CHECKED [...] EDNA COX I, OFFICE VISIT Teri hawkins [facility] 7 10:05:28 Acute prostati tis 87384962 Completed 201202/12/2014 IMPRESSI ON: PROSTATI TIS WITH FEVER. WILL TREAT AN OUTPT BUT DISCUSSE D WITH PT THAT HE MAY NEED TO GO TO ER FOR IV ABX FOR THIS. HE UNDERSTA NDS. IF ANY WORSENIN G SXS, NOT IMPROVIN G WITH ABX, ETC. F/U WITH UROLOGY IN 1 WEEK.; RECORDED 09/20/19 13 8:52AM BY OLIMPIA GARCIA MA, MEG ON/ADDEN DUM Not Available [facility] 4 15:15:19 Pulmonar y embolism 14763304 Completed 201308/22/2017 Teri hawkins [facility] 8 10:32:12 Screenin g for malignan t neoplasm of colon Completed 200702/12/2014 RECORDED 07/09/20 08 9:37AM BY SONAL MUELLER MA, MEG ON/ADDEN DUM Not Available [facility] 4 15:15:19 Tobacco dependen ce syndrome 04111807 Completed 201202/12/2014 IMPRESSI ON: PT TO START WELLBUTR IN AGAIN, QUIT LAST ITME FOR 3 YEARS; RECORDED 09/26/19 13 2:19PM BY SONAL MUELLER MA, ANNOTATI ON/ADDEN DUM Not Available [facility] 4 15:15:20 Umbilica l hernia 363335988 Active 2013 JULIANNE Ordonez, [facility] 3 13:57:16 Adult health examinat ion Completed 201203/04/2014 IMPRESSI ON: PT WANTS TO START EXERCISI NG, ENCOURAG ED HIM TO, NEEDS TO EAT HEALTHY, IN PAST HAD ONEELEVT E DPSA THEN RETURNED TO NL, THOUGHT DUE TO INFLAMMA TION RECHECK TODAY; RECORDED 09/26/19 13 2:16PM BY SONAL MUELLER MA, ANNOTATI ON/ADDEN DUM JULIANNE Ordonez, [facility] 7 14:40:36 Diarrhea 48133149 Completed 200703/04/2014 IMPRESSI ON: FULL WORKUP WITH EGD, COLONOSC OPY, SMALL BOWEL LOOK, NO PATHOLOG Y, ON HIGH FIBERM POSSIBLE IRRITABL E BOWEL; RECORDED 07/09/20 08 9:37AM BY SONAL MUELLER MA, ANNOTATI ON/ADDEN DUM Not Available [facility] 4 06:00:51 Dysuria 83494967 Completed 201203/04/2014 RECORDED 09/20/19 13 8:51AM BY OLIMPAI GARCIA MA, ANNOTATI ON/ADDEN DUM Not Available [facility] 4 06:00:51 Coag./bl eeding tests abnormal 766506847 Active 2013 next blod work check for clood agglutin in and hemolysi s, folate, vitamin b12 KEITH GRANADO MD [address] [facility] [address], [place], [address] , [facility] 3 21:08:23 Prostate specific antigen above referenc e range 978980397 Completed 201303/04/2014 IMPRESSI ON: PT TO SET UP APPT WITH DR KEYES FOR ANNUAL EVAL, NL EXAM HERE TODAY WILL LET HIM GET PSA; RECORDED 01/10/20 14 8:38AM BY EDNA COX I, ANNOTATI ON/ADDEN DUM Odalis hawkins, [facility] 8 08:33:53 Influenz a vaccine needed 33901581439 06 Completed 201203/04/2014 RECORDED 04/23/20 13 2:46PM BY LEATHA BUENO, OFFICE VISIT Not Available [facility] 4 06:00:51 Pure hypercho lesterol emia 684013731 Completed 201103/04/2014 IMPRESSI ON: CHECK TODAY; RECORDED 02/29/20 12 8:00AM BY NAZ PAZ MA, ANNOTATI ON/ADDEN DUM Not Available [facility] 4 06:00:51 History of pulmonar y embolus 043777354 Active 2013 JULIANNE Ordonez, [facility] 3 13:57:16 Follow-u p encounte r Completed 201203/04/2014 RECORDED 10/12/19 13 9:07AM BY OLIMPIA GARCIA MA, JOHNATI ON/ADDEN DUM Not Available [facility] 4 06:00:51 Knee pain Completed 201103/04/2014 IMPRESSI ON: CARTILAG E ISSUE, PT TO SET UP APPT WITH [facility]; RECORDED 02/29/20 12 8:00AM BY NAZ PAZ MA, ANNOTATI ON/ADDEN DUM Not Available [facility] 4 06:00:51 Cramp in limb 814088491 Completed 201203/04/2014 IMPRESSI ON: HYDRATE STRETCHA DN CHECK LYTES; RECORDED 09/26/19 13 2:17PM BY SONAL MUELLER MA, ANNOTATI ON/ADDEN DUM Not Available [facility] 4 06:00:51 Nonvenom ous insect bite of multiple sites 640757036 Completed 200703/04/2014 IMPRESSI ON: EDEMA, MILD PAIN, NO INFECTIO N, ICE, ELEVATE AND MOTRIN; RECORDED 07/09/20 08 9:37AM BY SONAL MUELLER MA, ANNOTATI ON/ADDEN DUM Not Available [facility] 4 06:00:51 Administ ration of viral vaccine Completed 201103/04/2014 DATE: 08/11/19 12; RECORDED 02/29/20 12 8:00AM BY NAZ PAZ MA, ANNOTATI ON/ADDEN DUM Not Available [facility] 4 06:00:51 Administ ration of bacteria l and viral vaccine Completed 201103/04/2014 RECORDED 07/29/19 12 10:31AM BY TERI Delgado MD, OFFICE VISIT Not Available [facility] 4 06:00:51 Abnormal findings on diagnost ic imaging of lung 738283534 Completed 201103/04/2014 IMPRESSI ON: CT OF CHEST [...] PAZ MA, ANNOTATI ON/ADDEN DUM Not Available [facility] 4 06:00:51 Disorder of oral soft tissues 53823780 Completed 201303/04/2014 IMPRESSI ON: SLIGHTLY RED AREA ON HARD PALATE ON THE LEFT. NO CLEAR ULCERATI ON OR MASS.; RECORDED 01/10/20 14 8:38AM BY EDNA COX I ANNOTATI ON/ADDEN DUM Teri hawkins MA - [facility] 7 15:01:57 [facility] 695099568 Completed 201303/04/2014 RECORDED 01/10/20 14 8:38AM BY JOHN FELDERATI ON/ADDEN DUM Rosa Rivas shruthi [facility] 1 14:26:43 Acute prostati tis 68831037 Completed 201203/04/2014 IMPRESSI ON: PROSTATI TIS WITH FEVER. WILL TREAT AN OUTPT BUT DISCUSSE D WITH PT THAT HE MAY NEED TO GO TO ER FOR IV ABX FOR THIS. HE UNDERSTA NDS. IF ANY WORSENIN G SXS, NOT IMPROVIN G WITH ABX, ETC. F/U WITH UROLOGY IN 1 WEEK.; RECORDED 09/20/19 13 8:52AM BY OLIMPIA GARCIA MA, ANNOTATI ON/ADDEN DUM Not Available [facility] 4 06:00:51 Screenin g for malignan t neoplasm of colon Completed 200703/04/2014 RECORDED 07/09/20 08 9:37AM BY SONAL MUELLER MA, ANNOTATI ON/ADDEN DUM Not Available [facility] 4 06:00:51 Tobacco dependen ce syndrome 33621796 Completed 201203/04/2014 IMPRESSI ON: PT TO START WELLBUTR IN AGAIN, QUIT LAST ITME FOR 3 YEARS; RECORDED 09/26/19 13 2:19PM BY SONAL MUELLER MA, ANNOTATI ON/ADDEN DUM Not Available [facility] 4 06:00:51 Umbilica l hernia 521905744 Completed 201303/04/2014 IMPRESSI ON: NEW PROBLEM TO EXAMINER , PT TO SEE DR AMY Leo, HE WAS WARND TO GO TO THE ER IF ANY COLOR CAHNGE, INCREASE IN PAIN OF THE HERNIA.; RECORDED 01/10/20 14 8:38AM BY JOHN FELDERATI ON/ADDEN DUM Odalis hawkins, [facility] 8 08:33:56 Acute otitis externa 90672089 Completed 08/20/2016 JULIANNE Ordonez [facility] 7 14:40:41 Conjunct ivitis 8599066 Completed 08/20/2016 JULIANNE Ordonez [facility] 7 14:41:08 Fatigue 80233998 Completed 08/20/2016 JULIANNE Ordonez [facility] 7 14:41:10 Cellulit is 642368154 Completed 08/20/2016 Teri hawkins [facility] 7 15:01:31 Increase d frequenc y of urinatio n 797554251 Completed 08/20/2016 JULIANNE Ordonez [facility] 7 14:40:29 Disorder of the urinary system 754004676 Completed 08/20/2016 Teri hawkins [facility] 7 15:01:28 Sleep apnea 37602450 Active JULIANNE Ordonez [facility] 3 13:57:16 Otalgia 75272428 Completed 08/20/2016 Teri NikkieFede neal null, [facility] 7 15:01:36 Multiple skin tags 871305458 Completed 08/20/2016 Teri NikkieFdee hawkins [facility] 7 15:01:54 Advance directiv e discusse d with patient 926589256 Completed 201608/22/2017 Odalis hawkins [facility] 8 08:34:14 Parkinso n's disease 84450552 Completed 201805/04/2019 Teri hawkins [facility] 9 11:10:37 History of right total knee replacem ent 36535131929 15398 Completed 201804/06/2023 KEITH GRANADO MD [address] [facility], [place], [address] , [facility] 3 13:13:11 Parkinso nism 61829639 Completed 201910/01/2020 KEITH GRANADO MD [address], [place], [address] , [facility] 3 13:15:27 Advance care planning Active 2020 Leatha Bueno MA null, [facility] 3 13:57:16 Steatosi s of liver 788276335 Active 2020 Leatha Bueno MA null, [facility] 3 13:57:16 Vertigo 314321792 Active 2020 JULIANNE Ordonez, [facility] 3 13:57:16 Serum creatini ne outside referenc e range 441755807 Completed 202003/26/2021 KEITH GRANADO MD [address], [place], [address] , [facility] 3 13:13:17 Type 2 diabetes mellitus without complica tion 368140014 Completed 202005/12/2021 Leatha Bueno MA null, [facility] 3 13:57:16 Serum creatini ne outside referenc e range 601997506 Completed 202004/06/2023 KEITH GRANADO MD [address], [place], [address] , [facility] 3 13:13:17 Tobacco user 404312738 Active 2013 KEITH GRANADO MD [address], [place], [address] , [facility] 3 13:15:09 Parkinso nism 78312055 Active 2019 KEITH GRANADO MD [address], [place], [address] , [facility] 3 13:15:27 Chronic kidney disease stage 3A 626921508 Active 2022 Rosa hawkins [facility] 3 12:48:08 Prediabe jody 226646849 Active 2022 KEITH GRANADO MD [address] [facility] [address], [place], [address] , [facility] 3 21:01:56 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 Procedures Surgical History Date Name Laterality Status Provider Name and Address Organization Details Recorded Time 10/06/19 23 Colonoscopy completed Jessica Montiel [facility] 10/05/2022 10:02:30 10/03/19 22 Diabetic Foot Exam (Monofilament) completed Olimpia Garcia MA [facility] 10/02/2021 09:20:16 10/02/19 21 Six-Item Cognitive Test completed Leatha Bueno MA [facility] 10/01/2020 10:25:57 09/13/19 20 Mini-Cog Test completed Sonal riley MA [facility] 09/13/2019 13:18:51 12/13/19 19 total knee replacement completed Chelle Yu [facility] 01/02/2019 16:23:22 09/08/19 19 Mini-Cog Test completed Leatha Bueno MA [facility] 09/08/2018 08:56:18 08/22/19 18 Fall Risk Assessment completed Leatha Bueno MA [facility] 08/22/2017 10:02:46 08/22/19 18 Mini-Cog Test completed Leatha Bueno MA [facility] 08/22/2017 10:02:23 08/20/19 17 Fall Risk Assessment completed Leatha Bueno MA [facility] 08/20/2016 14:45:19 08/20/19 17 Mini-Cog Test completed Leatha Bueno MA [facility] 08/20/2016 14:44:17 08/20/19 17 Advanced Care Planning completed [facility]uevara [facility] 08/20/2016 15:00:56 10/01/19 15 Fall Risk Assessment completed [facility] Bueno [facility] 09/30/2014 10:08:54 10/01/19 15 Mini-Cog Test completed Leatha Bueno MA [facility] 09/30/2014 09:58:57 Imaging Results Imaging Date Name Status LastModified by Organiz ation Details LastModified Time 05/09/2024 XR, chest, 2 view completed [facility] (Outpt Imaging) [address] [place], [address], 05/14/2024 15:06:42 05/28/2024 op note completed [email or web address] [place] [address] ( [facility] Central Scheduling) [facility], [place], [address], 05/28/2024 10:11:14 07/16/2024 CT chest ldct lung program completed [facility] (Outpt Imaging) [address] [place], [address], 07/31/2024 13:58:27 07/16/2024 CT chest ldct lung program completed [address] (Outpt Imaging) [address] [place], [address], 07/17/2024 14:02:34 07/16/2024 LDCT, chest, for lung cancer screening completed [facility] - [facility] Information Management [address] [facility], [place], [address], 08/07/2024 10:43:35 Procedure Notes None recorded. 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 Agency Serial Number Lot Number Status Provider Name and Address Organization Details Recorded Time Cardiac pacemaker FDA Y WESLEY Hutchinson, [facility] 05/04/2024 08:24:38 Allergies Allergen ID Allergen Name Allergen Category Reaction Reaction Severity Criticality Documentation Date Start Date Code Code System Note Provider Name and Address Organization Details Recorded Time 37546 Iodinated contrast media (substanc e) medicatio n Not available Not available Not available 02/05/20142013 48420 2003 SNOMED cause d redne ss Not Available [facility] 2 16:57:12 87791 iodine medicatio n Not available Not available Not available 12/25/20202020 5933 RxNorm Olimpia Garcia MA [facility] 2 13:18:34 Medications Name Sig [...] 03/30 completed RECORDED 06/16/20 12 10:41AM BY CORAL CHRISTIANO, PA, MEDICATI ON AUTO-YEN CTIVATIO N; Not Available [...] completed Not Available Not Available Not Available T[place] 3 DAILY 01/17 completed Not Available Not Available Not Available vitamin A64-xbpst acid 1 po qd 10/07 completed Not [...] Available Not Available No t Available Fluvirin 2478-1923 (PF) 45 mcg (15 mcg x 3)/0.5 [...] Updated DateTime 4 176.53 cm 32.2 kg/m2 405379. 91 g 90 /min 95 % 95 % 100 [degF] 142 mm[Hg] 79 mm[Hg] Arin Tiwari MA [facility] 4 13:31:42 Date Recorded Systolic blood pressure Diastolic blood pressure Provider Name and Address Organization Details Last Updated DateTime 10/14/2023 140 mm[Hg] 80 mm[Hg] KEITH GRANADO MD [address] [address], [place], [address], [facility] 10/14/2023 13:59:35 Date Recorded Body height Body mass index (BMI) Body weight Heart rate Oxygen saturation Oxygen saturation in Arterial blood by Pulse oximetry Body temperature Systolic blood pressure Diastolic blood pressure Provider Name and Address Organization Details Last Updated DateTime 4 176.53 cm 32.2 kg/m2 216157. 91 g 100 /min 95 % 95 % 98.7 [degF] 105 mm[Hg] 66 mm[Hg] Tabatha Robert [facility] 4 09:16:44 Date Recorded Body height Body mass index (BMI) Body weight Heart rate Oxygen saturation Oxygen saturation in Arterial blood by Pulse oximetry Body temperature Systolic blood pressure Diastolic blood pressure Provider Name and Address Organization Details Last Updated DateTime 4 176.53 cm 32 kg/m2 97982.3 2 g 79 /min 96 % 96 % 98.4 [degF] 126 mm[Hg] 72 mm[Hg] Tabatha Robert [facility] 4 11:07:14 Social History Question Answer Notes LastModified by Organizat ion Details LastModified Time Tobacco Smoking Status Former Smoker Naz hawkins [facility] 04/22/2014 11:01:44 Do You Have An Advance Directive? No Information not available 09/28/2021 What Is Your Level Of Alcohol Consumption? Moderate [email or web address] Information not available 10/01/2020 Is Blood Transfusion Acceptable In An Emergency? Yes [email or web address] Information not available 10/01/2020 What Is Your Level Of Caffeine Consumption? Moderate 1 Cup Of Coffee Daily Information not available 09/13/2019 How Much Tobacco Do You Chew? None Information not available 09/13/2019 Are You Currently Employed? No Retired Information not available 09/13/2019 What Type Of Diet Are You Following? REGULAR [email or web address] Information not available 09/30/2014 Which Illicit Or Recreational Drugs Have You Used? Cannabis Information not available 09/13/2019 Do You Or Have You Ever Used E-cigarettes Or Vape? 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 6-10yearssinc [email or web address] e Information not available 10/01/2020 Live Alone Or With Others? With Others (Olga) Information not available 09/28/2021 Do You Take Precautions To Prevent Distracted Driving? Yes [email or web address] Information not available 10/01/2020 How Often Do You Need To Have Someone Help You When You Read Instructions, Pamphlets, Or Other Written Material From Your Doctor Or Pharmacy? Sometimes [email or web address] Information not available 10/01/2020 Have You Served In The ? Yes [employer] [email or web address] Information not available 10/01/2020 Have You Or [...] OUD But Is Possibly At Risk. No [email or web address] Information not available 10/01/2020 Have You Recently Traveled To A COVID-19 High Risk Area Or Gathering In The Last 10 Days? No [email or web address] Information not available 10/01/2020 What Was The Date Of Your Most Recent Tobacco Screening? 10/14/2023 [email or web address] Information not available 10/14/2023 How Many Children Do You Have? 3 Information not available 09/13/2019 Do You Use Protection During Sex? Always [email or web address] Information not available 10/01/2020 Seat Belts Used Routinely Yes Information not available 09/28/2021 Are You Sexually Active? Yes [email or web address] Information not available 10/01/2020 Smoke Alarm In Home Yes Information not available 09/28/2021 At What Age Did You Start Smoking Tobacco? 32 [email or web address] Information not available 10/01/2020 Are You Passively Exposed To Smoke? No [email or web address] Information not available 10/01/2020 Do You Or Have You Ever Used Smokeless Tobacco? Never Used Smokeless Tobacco [email or web address] Information not available 05/21/2020 How Much Tobacco Do You Smoke? 1.5 PPD Information not available 09/28/2021 General Stress Level Medium Information not available 09/28/2021 Do You Use Any Illicit Or Recreational Drugs? No Information not available 10/02/2021 Do You Use Sunscreen Routinely? Yes [email or web address] Information not available 09/30/2014 How Many Years Have You Smoked Tobacco? 30 [email or web address] Information not available 10/01/2020 Do You Or Have You Ever Used Any Other Forms Of Tobacco Or Nicotine? No Information not available 10/02/2021 Sex: Unknown Functional Status Question Answer Note LastModified by Organizat ion Details LastModified Time Are you able to walk? YESASSIST cane 90 percent of the time [email or web address] Information not available 10/07/2022 Are you able to care for yourself? Yes [email or web address] Information not available 09/30/2014 What is your exercise level? Occasional [email or web address] Information not available 10/01/2020 Mental Status None recorded. Family History Relationship Description Onset Age of this Age Resolved Age Notes LastModified by Organization Details LastModified Time Mother Cerebrovascu lar accident [email or web address] Not available 09:55:39 Mother Dementia 97 [email or web address] Not available 09/13/2019 13:10:22 Father Heart disease [email or web address] Not available 09/30 09:55:39 Notes:No FH of colon or wilfr[address] st Medical History Condition Response Gout N Other N Kidney Stones N Blood Diseases N Hyperthyroidism N Breast Cancer N Hypothyroidism N Lung Disease N Depression N COPD Y Defects or Inherited Disease N Anesthesia Complications N Headaches/Migraines N Anxiety Disorder N Varicose Veins N Obesity N Vision or Eye Problems [...] split virus, quadrivalent, preservative 6 [place] [facility] 13:17:04 COVID-19, mRNA, LNP-S, PF, 30 mcg/0.3 mL dose 1 completed JULIANNE Ordonez [facility] 10/07/2022 14:03:59 COVID-19, mRNA, LNP-S, PF, 30 mcg/0.3 mL dose 1 completed JULIANNE Ordonez [facility] 10/07/2022 14:03:59 Influenza, high-dose, trivalent, PF 9 completed JULIANNE Ordonez [facility] 10/07/2022 14:04:00 Influenza, high-dose, trivalent, PF 7 completed JULIANNE Ordonez [facility] 10/07/2022 14:04:00 Pneumococcal conjugate PCV 13 5 completed JULIANNE Ordonez [facility] 10/07/2022 14:04:00 Influenza, split virus, trivalent, PF 4 completed Leatha Bueno MA null, [facility] 10/07/2022 14:04:00 Pneumococcal conjugate PCV 13 0 completed Leatha Bueno MA null, [facility] 10/07/2022 14:04:00 Influenza, high-dose, trivalent, PF 8 completed Leatha Bueno MA null, [facility] 10/07/2022 14:04:00 Influenza, high-dose, quadrivalent, PF 1 completed JULIANNE Ordonez, [facility] 10/07/2022 13:57:41 COVID-19, mRNA, LNP-S, PF, 30 mcg/0.3 mL dose 1 completed JULIANNE Ordonez, [facility] 10/07/2022 13:57:41 Tdap 1 completed Leatha Bueno MA null, [facility] 10/07/2022 13:57:41 zoster recombinant 2 completed Leatha Bueno MA null, [facility] 10/07/2022 13:57:41 zoster recombinant 2 completed JULIANNE Ordonez, [facility] 10/07/2022 13:57:41 Influenza, high-dose, quadrivalent, PF 0 completed Leatha Bueno MA null, [facility] 10/07/2022 14:03:59 COVID-19, mRNA, LNP-S, bivalent, PF, 30 mcg/0.3 mL dose 2 completed JULIANNE Ordonez, [facility] 10/07/2022 14:04:00 RSV, recombinant, protein subunit RSVpreF, adjuvant reconstituted, 0.5 mL, PF 3 completed JULIANNE Gallo, [facility] 01/19/2024 09:05:29 COVID-19, mRNA, LNP-S, PF, 50 mcg/0.5 mL 3 completed JULIANNE Gallo, [facility] 01/19/2024 09:05:29 Influenza, high-dose, quadrivalent, PF 2 completed Marisa High null, [facility] 04/21/2022 00:41:42 Td (adult), 2 Lf tetanus toxoid, preservative free, adsorbed 4 completed JULIANNE Ordonez, [facility] 10/07/2022 14:04:00 Influenza, split virus, trivalent, preservative 2 completed Not Available [facility] 02/05/2014 13:23:48 Tdap 2 completed Not Available [facility] 02/05/2014 13:23:48 zoster live 2 completed Not Available [facility] 02/05/2014 13:23:48 pneumococcal polysaccharide PPV23 3 completed JULIANNE Ordonez, [facility] 10/07/2022 14:04:00 Influenza, split virus, trivalent, preservative 3 completed Not Available [facility] 02/05/2014 13:23:48 Past Encounters Encounter ID Performer Location Encounter Start Date Encounter Closed Date Diagnosis/Indication Diagnosis SNOMED-CT Code Diagnosis ICD10 Code Diagnosis Note [id number] [facility] [facility] [address] [facility] [place] [address] 08/10/2006 00:00:00 [id number] auto[employer] erce [address] [facility] [facility] [place] [address] 07/15/2005 00:00:00 [id number] auto[employer] erce [address] [facility] [facility] [place] [address] 01/20/2005 00:00:00 [id number] autoEComm erce [address] [facility] [facility] [place] [address] 10/28/2006 00:00:00 [id number] auto[employer] erce [address] [facility] [place] [address] 02/12/2008 00:00:00 [id number] autoEComm erce [address] [facility] [address] [place] [address] 07/09/2008 00:00:00 [id number] autoEComm erce [address] [facility] [address] [place] [address] 01/15/2011 00:00:00 [id number] autoEComm erce [address] [facility] [address] [place] [address] 07/29/2011 00:00:00 [id number] autoEComm erce [address] [facility] [address] [place] [address] 02/29/2012 00:00:00 [id number] auto[employer]Comm erce [address] [facility] [place] [address] 09/20/2012 00:00:00 [id number] autoEComm erce [address] [facility] [place] [address] 09/25/2012 00:00:00 [id number] autoEComm erce [address] [facility] [place] [address] 10/02/2012 00:00:00 [id number] auto[employer]Comm erce [address] [facility] [place] [address] 10/11/2012 00:00:00 [id number] auto[employer]Comm erce [address] [facility] [place] [address] 11/16/2012 00:00:00 [id number] auto[employer]Comm erce [address] [facility] [place] [address] 12/20/2012 00:00:00 [id number] autoEComm erce [address] [facility] [place] [address] 02/15/2013 00:00:00 [id number] autoEComm erce [address] [facility] [place] [address] 04/13/2013 00:00:00 [id number] autoEComm erce [address] [facility] [place] [address] 04/23/2013 00:00:00 [id number] autoEComm erce [address] [facility] [place], [place] [address] 09/28/2013 00:00:00 [id number] autoEComm erce [address] [facility] [place] [address] 01/09/2014 00:00:00 [id number] Leatha Bueno [place] Main Office [address] [address] [place] [address] 04/22/2014 10:35:49 04/22/2014 11:35:44 Needs influenza immunization 986038729 Acute otitis externa 56373686 Conjunctivitis 3894953 [id number] Leatha Bueno [place] Main Office [address] [address] [place] [address] 09/30/2014 09:53:53 09/30/2014 10:48:33 Adult health examination 938089638 utd on colonoscop y, needs to add in exercise. Chronic ob structive pulmonary disease 97865848 pt will see dr Todd for followup on nodule and complaints of chronic dyspnea, PCV 13 today, needs to exercise, seems very deconditio omayra Administra tion of pneumococcal vaccine 54265049 Fatigue 74408785 probabl e sleep apnea, will get labs, and set pt up for sleep eval Cellulitis 767581880 nae lulitis right great toe after hitting it, soak tid as well Increased frequency of urination 736311078 [id number] Main Office [address] [address] [place] [address] 02/03/2015 10:02:11 02/03/2015 10:45:46 Chronic obstructive pulmonary disease 80673061 pt will see dr Todd for followup on nodule and COPD, pt will discuss with him about getting screening low dose CT of chest, pt alos to restart inhaler and consider starting allergy med. Disorder o f the urinary system 605827358 poor urine stream, PSA checked 10/06 was 2. PT has been followed by urology int he past, he will get ppt with Dr Keyes to evaluate urine stream, hx of enlarged prostate Sleep apnea 31912734 rec ently started on CPAP, finds it helps a bit, quite decmiriam cutler, pt to exercise Arthropath y of knee joint 785557064 right knee pain, limits his walking [id number] Teri de jesus Main Office [address] [facility] [address] [place] [address] 05/16/2015 13:53:22 05/16/2015 14:28:08 Otalgia 50834559 H92.03 treat as below no infection and add zyrtec Multiple skin tags 95395 7009 L91.8 pt to set up dermatolog y, they are getting irritated [id number] Teri de jesus Main Office [address] [facility] [address] [place] [address] 05/12/2016 08:28:31 05/15/2016 12:51:17 [id number] Teri augusteenzo Main Office [address] [facility] [address] [place] [address] 05/20/2016 09:27:12 05/21/2016 07:50:13 [id number] Rosa Rivas Main Office [address] [facility] [address] [place] [address] 05/24/2016 12:56:57 05/24/2016 14:04:54 Transition of care 9607228780 105 Z75.8 Stephen hematuria 91847035 5 R31.0 seen in f/u c uro on 05.21 -- s/p prostate ablation - next in 2 months History of pulmonary embolus 012349975 Z86.711 f/u c hem/onc, will give coumadin with lovenox bridge Anemia 568548432 D64.9 Chronic ob structive pulmonary disease 89650693 J44.9 cont f/u c pulm Psoriasis 4241482 L40.9 ears - oil as per ENT - pt requested refill [id number] Teri de jesus Main Office [address] [place] [address] 08/20/2016 14:12:42 08/20/2016 15:25:25 Adult health examination 322133379 Z00.00 utd on colonoscop y, is exercising . sees urology Advance di rective discussed with patient 082841354 Z71.89 I discussed MOLST and health care proxy form. I gave pt MOLST form and proxy form, pt will fill out, discuss MOLST form with proxy and sign and return to our office Chronic ob structive pulmonary disease 28614802 J44.9 pt is stable on inhalers, sees DR Todd and he will discuss with him about getting the low dose CT of chest screening annually History of pulmonary embolus 976338036 Z86.711 2nd episode, pt is on Eliquis for life. ahs DVT's this last time, tested negative for genetic coagulopat hy. Sleep apnea 47754689 G47 .30 recently started on CPAP, finds it helps a bit, quite durga cutler, pt to exercise Ex-smoker 4472928 Z87.89 1 quit about 4 years ago [id number] [facility] Main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 text/html Hospitalization Contact RecordReported bypatient.Follow UpHospital: [facility] [place]; admit date: (Please enter in format 'MM/DD/YYYY') (09/20/2023); date of discharge: (Please enter in format 'MM/DD/YYYY') (09/22/2023); date of contact: (Please enter in format 'MM/DD/YYYY') (09/23/2023)Notes:Medic are covered inpatient stay? yesMedicare DELLA with in 48 working hours? yesHigh Complexity code valid on or before:SeptemberModerate Complexity code valid on or before:SeptemberHCP on file? noMOLST on file? noDischarge Summary available? yesPt presented to [facility] after experiencing a near syncopal episode [...] RBBB with LBBB.Pt was therefore transferred to [facility] for transvenous pacing which was successfully placed information technology consultant on 09/21/23, however pt was having intermittent [...] RESTART Tuesday09/25/2023FOLLOW UP IN EP CLINIC AT [facility] ON 10/06/2023 AT 10:30 AM MEDS RECONCILED KEITH GRANADO MD [address] [facility][[address]] [address], [place], [address], [facility] [place] 09/23/2023 17:16:21 10/12/2023 text/html Hospitalization Contact RecordReported bypatient.Follow UpHospital: [facility] [place]; admit date: (Please enter in format 'MM/DD/YYYY') [...] weeks. MEDS RECONCILED KEITH GRANADO MD [address] [address], [place], [address], [facility] 10/12/2023 14:05:31 10/14/2023 text/html Hospitalization Contact RecordReported bypatient.Follow UpHospital: [facility] [place]; admit date: (Please enter in format 'MM/DD/YYYY') (09/20/2023); date of discharge: (Please enter in format 'MM/DD/YYYY') (09/22/2023); date of contact: (Please enter in format 'MM/DD/YYYY') (09/23/2023)Notes:Medic are covered inpatient stay? yesMedicare DELLA with in 48 working hours? yesHigh Complexity code valid on or before:SeptemberModerate Complexity code valid on or before:SeptemberHCP on file? noMOLST on file? noDischarge Summary available? yesPt presented to [facility] after experiencing a near syncopal episode [...] RBBB with LBBB.Pt was therefore transferred to [facility] for transvenous pacing which was successfully placed information technology consultant on 09/21/23, however pt was having intermittent [...] RESTART Tuesday09/25/2023FOLLOW UP IN EP CLINIC AT [facility] ON 10/06/2023 AT 10:30 AM MEDS [...] Directive: none on file KEITH GRANADO MD [address], [address], [facility] 10/14/2023 16:18:29 01/19/2024 text/html Hypertension F/UReported bypatient.Associated [...] complaints at this time. KEITH GRANADO MD [address], [address], [facility] 01/19/2024 09:30:29 04/17/2024 text/html Back PainReporte d bypatient.Quality:[place] Severity:same Duration:chronic Context:prior back problems; used medications [...] complaints at this time. KEITH GRANADO MD [address], [address], [facility] [place] 04/17/2024 11:49:27
--- OUTSIDE RECORDS SUMMARY | 2024-10-04 06:25 | XMS_ITS | Patient Health Record ---
Author Organization [facility] Address [address] [place] [address] Care Team Providers Care Boxing Inspector Name Role Phone Deana Corrales Primary Care Provider Unavail able Blayne Pena Unavailable [phone] Allergies Allergen (clinical drug ingredient) Drug/Non Drug [...] W/U Status Risk Notes Problem Atherosclerosis of takotna arteries of the extremities (322211250697116) Atherosclerosis of takot[place] artery of both lower extremities, with unspecified presence of clinical manifestation (I70.203) Active confirmed Vital Signs Height 5ft 11 in in 04/19/2024 Weight 211 lbs 04/19/2024 BMI 29.43 kg/m2 04/19/2024 Procedures Procedure Date Ordered Date Performed Result Body Sit e 70060-PUTOLVK NAIL, 6 OR MORE 10/13/2023 N/A 60058-FEII SKIN LESIONS, 2 TO 4 10/13/2023 N/A 38490-WMHOOME NAIL, 6 OR MORE 01/30/2024 N/A 02510-LRPN SKIN LESIONS, 2 TO 4 01/30/2024 N/A 67255-WDFDLCQ NAIL, 6 OR MORE 04/19/2024 N/A 26040-Gtnqzxvn Plate 04/19/2024 N/A 76992-WNLT SKIN LESIONS, 2 TO 4 04/19/2024 N/A Encounters Encounter Location Date Provider Diagnosis [address] [address] 10/13/2023 Blayne Jean Atherosclerosis of takot[place] artery of both lower extremities, with unspecified presence of clinical manifestation I70.203 ; Tinea unguium B35.1 ; Pain in right toe(s) M79.674 and Pain in left toe(s) M79.[address] [address] 01/30/2024 Blayne Jean Atherosclerosis of takot[place] artery of both lower extremities, with unspecified presence of clinical manifestation I70.203 ; Tinea unguium B35.1 ; Pain in right toe(s) M79.674 and Pain in left toe(s) M79.[address] [address] 04/19/2024 Blayne Jean Atherosclerosis of takotna artery of both lower extremities, with unspecified presence of clinical manifestation I70.203 ; Tinea unguium B35.1 ; Pain in right toe(s) M79.674 ; Pain in left toe(s) M79.675 and Ingrown nail L60.0 [facility] [place] [address] [facility] [address] [place] [address] 01/12/2024 Blayne Pena [facility] [place] [address] [place] [address] 07/31/2024 Blayne Pena Assessments Encounter Date Diagnosis (ICD Code) Assessment Notes Treatment Notes Treatment Clinical Notes Section Notes 10/13/2023 Tinea unguium (ICD-10 - B35.1) 10/13/2023 Atherosclerosis of takot[place] artery of both lower extremities, with unspecified presence of clinical manifestation (ICD-10 - I70.203) 01/30/2024 Tinea unguium (ICD-10 - B35.1) 01/30/2024 Atherosclerosis of takotna artery of both lower extremities, with unspecified presence of clinical manifestation (ICD-10 - I70.203) 04/19/2024 Tinea unguium (ICD-10 - B35.1) 04/19/2024 Atherosclerosis of takotna artery of both lower extremities, with unspecified [...] X ray : Foot, right 3V 04/21/2022 89821-AYXIEWB NAIL, 6 OR MORE 07/07/2023 48893-PDJTMPQ NAIL, 6 OR MORE 10/13/2023 58199-PHBQAGV NAIL, 6 OR MORE 01/30/2024 68939-JHWEUML NAIL, 6 OR MORE 04/19/2024 99806-UELDIWK NAIL, 6 OR MORE 07/01/2022 30732-KDBUKZX NAIL, 6 OR MORE 10/14/2021 40143-BLEOJIF NAIL, 6 OR MORE 01/06/2022 78687-DMBMATN NAIL, 6 OR MORE 03/30/2022 15804-HDSCKUC NAIL, 6 OR MORE 10/07/2022 78990-IYCDFVL NAIL, 6 OR MORE 12/30/2022 12453-ZGGHIYY NAIL, 6 OR MORE 03/31/2023 53657-Dhnvinfj Plate 04/19/2024 97934-Xvzdccli Plate 07/07/2023 42879-AQIA SKIN LESIONS, 2 TO 4 07/07/20 23 59028-HUSB SKIN LESIONS, 2 TO 4 01/30/20 24 63155-IQMH SKIN LESIONS, 2 TO 4 10/13/19 24 13649-ZQYO SKIN LESIONS, 2 TO 4 04/19/20 24 16462-NCRU SKIN LESIONS, 2 TO 4 03/31/20 23 37284-PMKI SKIN LESIONS, 2 TO 4 12/31/19 23 15057-ECMI SKIN LESIONS, 2 TO 4 10/08/19 23 41785-ALRV SKIN LESIONS, 2 TO 4 03/30/20 22 67396-ULSY SKIN LESIONS, 2 TO 4 01/07/20 22 87988-WCZB SKIN LESIONS, 2 TO 4 10/15/19 22 95629-GKKF SKIN LESIONS, 2 TO 4 07/01/20 22 Next Appt Details Provider Name:Blayne Sneed Jean , 10/05/2024 12:15:00 PM, [address] [facility], [place], [address], Insurance Providers Payer Name Payer Address Payer Phone Subscriber Number Group Number Insured Name Patient Relationship to Insured Coverage Start Date Coverage End Date Medicare [facility] [address] [place] [address] [id number] Seamus Castaneda Self - patient is the insured [facility] [address] [place] [address] [id number] Seamus Castaneda Self - patient is the insured Medical (General) History Medical History History ICD Code Back,Hip,and Knee pain Broken bones Parkinsons disease Tuberculosis Chicken pox Joint implants/screws CAD DVTs and PEs Pacemaker Surgical History Surgery Date(Month/Year) knee surgery, right back injections 2021 colonoscopy 10/05/22 Pacemaker 10/10/23 Hospitalization History Reason Date(Month/Year) [facility] Pacemaker w/new leads 09/2023
--- OUTSIDE RECORDS SUMMARY | 2024-10-04 06:25 | XMS_ITS | Encounter Summary ---
Author Organization [facility] Address [address] [place] [address] Phone Care Team Providers Care Cylinder Block Mechanic Name Role Phone Unavailable Primary Care Provider Unavailabl e Encounter Details Date Type Department Care Team (Late st Contact Info) Description 07/09/2024 Documentation Only [facility] [address] [address] Annita Landeros [address] [place] [address] Social History Tobacco Use Types Packs/Day Years [...] Visit [facility] [address] [address] Juan F Hutton MD [address] [place] [address] documented as of this encounter Visit Diagnoses Not on filedocumented in this encounter
--- OUTSIDE RECORDS SUMMARY | 2024-10-04 06:25 | XMS_ITS ---
Author Organization [facility] Address [address] [place] [address] Care Team Providers Care Through Freight Engineer Name Role Phone Deana Corrales Primary Care Provider Unavail Blayne Arriaza Unavailable [phone] Encounters Encounter Location Date Provider Diagnosis [facility] [address] [address] 08/02/2024 Blayne Pena Plan Of Treatment Next Appt Details Provider Name:Blayne Pena , 10/05/2024 12:15:00 PM, [address] [place] [address], [address], Progress Notes * Seamus FRAGA DDOB:1945 (78 yo M)Acc No.[id number]:08/02/2024 Progress Note Patient:?Seamus FRAGA Provider:?Blayne Pena DPM :1945???Age:78 Y???Sex:Male Rustam e:08/02/2024 Address:[address] [place] [address] Pcp:Deana Corrales Subjective: * Chief Complaints: * ??? * Medical History:? Objective: * Vitals:? Assessment: Plan: * Treatment: * Images: * The named appointment provid er may or may not be the originator of this progress note, and it is not deemed complete until electronically signed by the appointment provider. Sign off status: Pending * Provider:?Blayne Pena DPM Date:?2024 Generated for Natalie edmonds/Shana/Jaspal on:?10/04/2024 06:24 AM EDT
== END 2024-10-04 06:22 | disposition home or self-care (01) ==
LOC: CF 06:21
PROVIDERS: Visit Provider Internal Medicine
DX: M16.0 Bilateral primary osteoarthritis of hip (principal)
CPT/HCPCS: 20610; J2003; J2795; J3301; Q9967

== ENCOUNTER 2024-10-04 11:22 | Outpatient (AMB) | payer MEDICARE, OTHER, SELFPAY ==
[2024-10-04 11:38] VITALS: BP 146/78; PULSE 76; RESP 16; O2SAT 95
--- NOTE | 2024-10-04 11:38 | A.OFFVIS_ITS ---
Vital Signs 10/04/24 11:38 10/04/24 11:57 BP 146/78 H 120/74 Blood Pressure Location Lt brachial Lt brachial Position Sitting Sitting Respiration 16 16 Pulse 76 76 Pulse Source Pulse Oximeter Pulse Oximeter Pulse Oximetry (%) 95 97 Oxygen Delivery Method Room Air Room Air Intake Visit Reasons: Left hip inj w/ fluoro Allergies fluticasone furoate [Trelegy Ellipta] Allergy (Severe, Verified 10/04/24 11:39) Thrush umeclidinium [Trelegy Ellipta] Allergy (Severe, Verified 10/04/24 11:39) Thrush vilanterol [Trelegy Ellipta] Allergy (Severe, Verified 10/04/24 11:39) Thrush Medication List - Last Reconciled 10/04/24 by Baetrice Rader LPN amlodipine 2.5 mg PO DAILY atorvastatin 20 mg PO DAILY carbidopa-levodopa 25-100 mg 1 tab PO QID 90 days cholecalciferol (vitamin D3) 25 mcg PO DAILY 90 days clotrimazole 1% appl topical PRN Eliquis (apixaban) 5 mg PO BID NS escitalopram oxalate 10 mg PO DAILY fluocinolone acetonide oil 0.01% drps otic (ears) folic acid 1 mg PO DAILY 90 days gabapentin 300 mg PO BEDTIME 30 days ketoconazole 2% 1 appl topical 2XW lidocaine 5% (Lidoderm) 1 patch topical DAILY modafinil (Provigil) 100 mg PO QAM 90 days roflumilast 250 mcg PO DAILY tiotropium-olodaterol 2.5-2.5 mcg/actuation (Stiolto Respimat) 2 inhalations inhalation DAILY tizanidine 4 mg PO BEDTIME PRN HPI HPI Left hip inj w/ fluoro: Details: Patient presents for scheduled procedure. Denies any recent cough, cold, infection, fever or other significant changes in medical history since last office visit. [facility] Medical History Has daytime drowsiness Dyspnea Dyspnea Personal history of nicotine dependence Obesity [place] on CPAP Pulmonary emboli Pulmonary nodules COPD (chronic obstructive pulmonary disease) Surgical History S/P placement of cardiac pacemaker (~08/2023) History of total right knee replacement (TKR) (~2018) History of appendectomy Family History Father Heart disease Mother Heart disease Social History Alcohol intake: current Alcohol intake frequency: a few times a week Patient Tobacco Use Status: Former Tobacco user Physical Exam Vital Signs: Last Vital Signs Pulse 76 10/04/24 11:57 Resp 16 10/04/24 11:57 BP 120/74 10/04/24 11:57 Pulse Ox 97 10/04/24 11:57 Oxygen Delivery Method Room Air 10/04/24 11:57 Office Procedures AMB Joint Injection/Aspiration Joint Injection/Aspiration Details: Hip Intra-articular Injection, fluoroscopy guided, Left After informed written consent was obtained, the patient was placed in the lateral position. Pre-procedure oxygen saturation, heart rate, and blood pressure were recorded. The skin was prepped with Chloroprep, and draped in a sterile fashion. With the use of fluroscopy the hip joint was identified. A 22- gauge 3.5 spinal needle was then advanced toward the junction of the joint capsule and femoral neck. Once in position, and after negative aspiration, 0.5mL of Omnipaque was injected outlining the joint capsule followed by injection of 40mg Kenalog mixed with 0.25% ropivacaine (3mL total). There was no evidence of paresthesias throughout needle placement. The stylet was replaced and then the needle was withdrawn. Greater Trochanteric Bursa Injection, Left With the patient in the same position, the needle was then advanced toward the trochanteric bursa. Once in position, and after negative aspiration, 0.5mL of Omnipaque was injected outlining the bursa followed by injection of 40mg Kenalog mixed with 0.25% ropivcaine (3mL total). There was no evidence of paresthesias throughout needle placement. The stylet was replaced and then the needle was withdrawn. The patient tolerated the procedures well and there was no evidence of procedural complications. The patient was observed in the procedure room for 20 minutes, vitals were stable, and discharged in stable condition. EBL: <1cc Coding - Large joint - Glenohumeral/Tronchanteric Bursa/Intraarticular Procedure code (CPT) selection complete Assessment & Plan Assessment & Plan (1) Bilateral hip joint arthritis: Code(s): M16.0 - Bilateral primary osteoarthritis of hip Category: Medical Plan Patient is status post left intra-articular hip and GTB injections. Patient tolerated procedure well and was discharged home in stable condition with discharge instructions. All questions were answered. We will follow-up via telephone or in clinic to assess response to therapy. A jennifer barkerlow-up appointment was made during today's visit. Orders: Orders FL guidance in treatment room 10/04/24 M16.0 - Bilateral primary osteoarthritis of hip Coding Level of Care Code Procedure Only Diagnoses Bilateral hip joint arthritis M16.0 CPT Codes Coding - 32545 Large joint: 37325 - Large joint ([id number]) Coding - Joint 7: 81211 - Glenohumeral/Tronchanteric Bursa/Intraarticular ([id number])
[2024-10-04 11:57] VITALS: BP 120/74; PULSE 76; RESP 16; O2SAT 97
--- OUTSIDE RECORDS SUMMARY | 2024-10-04 14:43 | XMS_ITS | Encounter Summary ---
Author Organization [facility] Address [address] [place] [address] Phone Care Team Providers Care Product Inspection Supervisor Name Role Phone Unavailable Primary Care Provider Unavailabl e Encounter Details Date Type Department Care Team (Late st Contact Info) Description 07/09/2024 Documentation Only [facility] [address] [place] [address] Annita [address] [place] [phone] Social History Tobacco Use Types Packs/Day Years [...] Visit [facility] [address] [place] [phone] Juan F Hutton MD [address] [place] [phone] documented as of this encounter Visit Diagnoses Not on filedocumented in this encounter
--- OUTSIDE RECORDS SUMMARY | 2024-10-04 14:43 | XMS_ITS | Clinical Summary ---
Author Organization [facility], Address [address] [place] [address] [place] [address] Phone Care Team Providers Care Buyer Broker Name Role Phone Unavailable Primary Care Provider [...] time each day Active Cobalamin Combinations (VITAMIN I50-YTNTZ ACID PO)Indications:S tage 3a chronic kidney disease (HCC) vitamin V85-vpcsh acid 1 po qd Active amLODIPine (NORVASC) [...] Visit [facility] [address] [place] [address] Juan F Hutton MD Stage 3a chronic kidney disease (HCC) (Primary Dx); Vitamin D deficiency, not otherwise specified; Essential (primary) hypertension 07/09/2024 Documentation Only [facility] [address] [place] [address] Annita Landeros from Last 3 Months Immunizations [...] Visit [facility] [place], [address] [place] [address] Juan F Hutton MD [address] [place] [address] Health Maintenance Due Date Last [...] AM EDT) Hemoglobin A1C 6.1(H) (4.0-5.6) % [facility] Comment: MONITORING: In known diabetic patients, hemoglobin A1c targets should be discussed with health care provider. DIAGNOSTIC USE: ??The [place] Diabetes Association (ADA) and the World Health [...] Supplement 1 Testing performed or reported by [facility], a Service of [facility], [address] [place] [address] Juan Anotnio Pérez MD, Sander And Buffer Blood (Blood, Venous) 12/26/2020 8:04 AM EDT 12/26/2020 8:07 AM EDT us Juan F Hutton MD LAB BLOOD ORDERABLES Final Resul t [facility] from Last 3 Months or Most Recently Relevant to Health Maintenance Insurance MEDICARE [facility] [place]
--- OUTSIDE RECORDS SUMMARY | 2024-10-04 14:43 | XMS_ITS | Encounter Summary ---
Author Organization [facility] [place], Address [address] [place] [address] Phone Care Team Providers Care Electronic Assembler Group Leader Name Role Phone Unavailable Primary Care Provider Unavailabl e Encounter Details Date Type Department Care Team (Late st Contact Info) Description 05/05/2022 Documentation Only [facility] [place], [address] [place] [address] Zhen Renee PA Social History [...] Visit [facility] [place], [address] [address] Juan F Hutton MD [address] [place] [phone] documented as of this encounter Visit Diagnoses Not on filedocumented in this encounter
--- OUTSIDE RECORDS SUMMARY | 2024-10-04 14:43 | XMS_ITS ---
Author Organization [facility] Address [address] [place] [address] Care Team Providers Care Stereotyper Name Role Phone Deana Corrales Primary Care Provider Unavail Blayne Arriaza Unavailable [phone] Encounters Encounter Location Date Provider Diagnosis [facility] [address] [address] 08/30/2024 Blayne Pena Plan Of Treatment Next Appt Details Provider Name:Blayne Pena , 10/05/2024 12:15:00 PM, [address] [place] [address], [phone], Progress Notes * Seamus FRAGA DDOB:1945 (78 yo M)Acc No.[id number]:08/30/2024 Progress Note Patient:?Seamus FRAGA Provider:?Blayne Pena DPM :1945???Age:78 Y???Sex:Male Rustam e:08/30/2024 Address:[address] [place], [place] [phone] Pcp:Deana Corrales Subjective: * Chief Complaints: * [...] DPM Date:?2024 Generated for Natalie edmonds/Shana/Jaspal on:?10/04/2024 02:42 PM EDT
--- OUTSIDE RECORDS SUMMARY | 2024-10-04 14:43 | XMS_ITS | Clinical Summary ---
Author Organization [facility] Address [address] [place] [address] Phone Care Team Providers Care Is Support Analyst Name Role Phone Deana Corrales MD Primary [...] this topic Medical Devices Implanted Type Area Transportation Dispatcher Device Identifier Shelf Expiration Date Model / [...] LAB CHEMISTRY METHOD 05/28/2024 8:12 AM EST [facility] eGFR 53(L) >=60 mL/min/1. 73m2 LAB CHEMISTRY METHOD 05/28/2024 8:12 AM EST [facility] Comment:Calculation based on the??Chronic Kidney Disease Epidemiology Collaboration (CKD-EPI) equation refit??without adjustment for race. Blood Venous blood specimen / Unknown Venipuncture / Unknown 05/28/2024 7:18 AM EST 05/28/2024 7:25 AM EST us Delmar Butler MD LAB BLOOD ORDERABLES Final Resul t [facility] ([facility] [address] [place] [address], from Last 3 Months or Most Recently Relevant to Health Maintenance Insurance MEDICARE [facility] Care Teams Is Support Analyst Relationship Specialty Start Date End Date Deana Corrales MD [address] [phone] PCP - General Internal Medicine 05/15/24
== END 2024-10-04 11:58 | disposition home or self-care (01) ==
LOC: HO.PMCPRC 11:22
PROVIDERS: PCP Internal Medicine; Visit Provider Internal Medicine
DX: M16.0 Bilateral primary osteoarthritis of hip (principal)
CPT/HCPCS: 20610; 77002

== ENCOUNTER 2024-10-31 09:33 | Outpatient (AMB) | payer MEDICARE, OTHER, SELFPAY ==
--- NOTE | 2024-10-31 09:37 | A.OFFVIS_ITS ---
Vital Signs 10/31/24 09:39 Height 5 ft 11 in Weight 231 lb BMI 32.2 BP 144/76 H Blood Pressure Location Lt brachial Position Sitting Respiration 16 Pulse 112 H Pulse Source Pulse Oximeter Pulse Oximetry (%) 95 Oxygen Delivery Method Room Air Intake Visit Reasons: s/p left hip injection Dough Mixer Helper Required: No Allergies fluticasone furoate [Trelegy Ellipta] Allergy (Severe, Verified 10/31/24 09:41) Thrush umeclidinium [Trelegy Ellipta] Allergy (Severe, Verified 10/31/24 09:41) Thrush vilanterol [Trelegy Ellipta] Allergy (Severe, Verified 10/31/24 09:41) Thrush Medication List - Last Reconciled 10/31/24 by Beatrice Rader LPN amlodipine 2.5 mg PO DAILY atorvastatin 20 mg PO DAILY carbidopa-levodopa 25-100 mg 1 tab PO QID 90 days cholecalciferol (vitamin D3) 25 mcg PO DAILY 90 days clotrimazole 1% appl topical PRN Eliquis (apixaban) 5 mg PO BID NS escitalopram oxalate 10 mg PO DAILY fluocinolone acetonide oil 0.01% drps otic (ears) folic acid 1 mg PO DAILY 90 days gabapentin 300 mg PO BEDTIME 30 days ketoconazole 2% 1 appl topical 2XW lidocaine 5% (Lidoderm) 1 patch topical DAILY modafinil (Provigil) 100 mg PO QAM 90 days roflumilast 250 mcg PO DAILY tiotropium-olodaterol 2.5-2.5 mcg/actuation (Stiolto Respimat) 2 inhalations inhalation DAILY tizanidine 4 mg PO BEDTIME PRN HPI HPI s/p left hip injection: Details: History of Present Illness The patient is a 79-year-old male presenting for a follow-up after therapeutic intervention for left hip obstruction. Following a therapeutic injection, the patient experienced a significant improvement in pain management, reporting appr oximately 90% relief which facilitated increased physical activities, such as walking during vacation. The patient noted ineffective results with the prior use of a sprint system for back pain, leading to continuous efforts in managing his discomfort associated with arthritis. The patient's back pain has persisted, though not as intensely as previously experienced. No surgical interventions have been performed for his back pain as confirmed during the conversation. There is no associated radicular leg pain, and previous considerations for an MRI scan were postponed. The potential future use of radiofrequency ablation for chronic back pain was discussed to address persistent discomfort. Pain Description - Onset and Timing: Chronic pain, alleviated following the therapeutic injection, with past persistent symptoms. - Quality and Character: Improved significantly after intervention, described as approximately 90% relief. - Primary Location: Initially associated with left hip obstruction, persistent back pain described later. - Exacerbating and Relieving Factors: Therapeutic injection provided relief; sprint system not effective. - Functional Impact: Allowed increased activity and walking after injection; ongoing impact of back pain related to arthritis. Physical Exam - Appears afebrile. - Alert and oriented. - Mood and affect appropriate. - Follows and participates in conversation appropriately. - Respiratory effort is unlabored. - Able to transition from sit to stand unassisted. - Ambulates with bilaterally normal heel strike and toe off. - Able to stand and walk on toes and heels. Results - No completed diagnostic results discussed during this visit. Pain Management - Affect: Patient reports improvement in function and general well-being post- injection. - Analgesia: Injection yielded 90% relief; dissatisfaction with neuromodulation trial. - Adverse Effects: Not explicitly discussed. - Activities of Daily Living: Improved ability to walk and travel post-therapy; ongoing back pain management. - Aberrant Drug Related Behaviors: None reported. 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) History of appendectomy Family History Father Heart disease Mother Heart disease Social History Alcohol intake: current Alcohol intake frequency: a few times a week Patient Tobacco Use Status: Former Tobacco user Physical Exam Vital Signs: Last Vital Signs Pulse 112 H 10/31/24 09:39 Resp 16 10/31/24 09:39 BP 144/76 H 10/31/24 09:39 Pulse Ox 95 10/31/24 09:39 Oxygen Delivery Method Room Air 10/31/24 09:39 BMI result Body Mass Index 32.2 Assessment & Plan Assessment & Plan (1) Chronic low back pain: Code(s): M54.50 - Low back pain, unspecified; G89.29 - Other chronic pain Category: Medical (2) Lumbar spondylosis: Code(s): M47.816 - Spondylosis without myelopathy or radiculopathy, lumbar region Category: Medical (3) Bilateral hip joint arthritis: Code(s): M16.0 - Bilateral primary osteoarthritis of hip Category: Medical Plan Plan Following a successful therapeutic intervention for left hip pain, the patient experienced substantial pain relief. Future interventions could consider radiofrequency ablation if the back pain becomes more troublesome. The patient's dissatisfaction with prior neuromodulation was noted, while future injection timing was aligned with his travel plans. Continued monitoring of symptoms and future planning remain integral, particularly with the aim to space further interventions by at least three months whenever feasible. Patient was informed and verbally consented to the use of an ambient scribe for clinic note documentation during this visit. Discussion Notes I discussed with the patient the success of the recent therapeutic injection, which has yielded substantial pain relief. The ineffective trial with the sprint system was reviewed, and potential future options were discussed, including radiofrequency ablation if symptoms escalate. Anticipatory guidance was provided for future follow-ups and recognizing the optimal timing given his travel schedules. The potential benefits and infrequency of interventions were emphasized to maintain relief while minimizing procedural risks. Patient Instructions - Monitor any increase in back pain. - Plan therapeutic injections ahead of travel if needed, with intervals no less than three months. - Consider future treatment options like radiofrequency ablation if pain wors ens. - Communicate any changes in symptoms or additional concerns promptly. - Follow recommendations for managing arthritis and maintain physical activities as tolerated. Coding Level of Care Code Est Pt Level 3 (35551) Diagnoses Chronic low back pain M54.50; G89.29 Lumbar spondylosis M47.816 Bilateral hip joint arthritis M16.0
[2024-10-31 09:39] VITALS: BP 144/76; PULSE 112; RESP 16; O2SAT 95; BMI 32.2
--- OUTSIDE RECORDS SUMMARY | 2024-10-31 10:23 | XMS_ITS | Encounter Summary ---
Author Organization [facility], Address [address] [place] [address] Phone Care Team Providers Care Finishing Powder Press Operator Name Role Phone Unavailable Primary Care Provider Unavailabl e Encounter Details Date Type Department Care Team (Late st Contact Info) Description 05/05/2022 Documentation Only [facility], [address] [place] [address] Zhen Renee PA Social History [...] Visit [facility], [address] [place] [address] Juan F Hutton MD [address] [place] [phone] documented as of this encounter Visit Diagnoses Not on filedocumented in this encounter
--- OUTSIDE RECORDS SUMMARY | 2024-10-31 10:23 | XMS_ITS | Clinical Summary ---
Author Organization [facility], Address [address] [place] [address] [place] [address] Phone Care Team Providers Care Nursing Professor Name Role Phone Unavailable Primary Care Provider [...] time each day Active Cobalamin Combinations (VITAMIN R12-YFNCM ACID PO)Indications:S tage 3a chronic kidney disease (HCC) vitamin K05-dxito acid 1 po qd Active amLODIPine (NORVASC) [...] range 09/28/2013 12/19/2020 Umbilical hernia 09/28/2013 12/19/2020 Immunizations Name Administration Dates Next Due Influenza [...] Visit [facility] [place], [address] [place] [address] Juan F Hutton MD [address] [facility] [place] [address] Health Maintenance Due Date Last Done Comments Pneumococcal Vaccine: 65+ Years (3 of 3 - PPSV23 or PCV20) 11/08/2019 09/13/2019, 09/13/2019, 10/02/2014, Additional history exists Diabetes: Hemoglobin A1C 05/12/2021 12/26/2020 Diabetes: Pedal Pulse Checked 05/12/2021 Diabetes: Sensory Foot Exam 05/12/2021 Diabetes: Visual Foot Exam 05/12/2021 Influenza Vaccine (Season Ended) 2025 04/24/2023, 05/11/2022, 04/24/2021, Additional history exists Diabetes: Ophthalmology Exam 05/09/2025 05/09/2024 Hepatitis B Vaccine Aged Out No longe r eligible based on patient's age to complete this topic Procedures Procedure Name Priority Date/Time Associated Diagnosis Comments HEMOGLOBIN A1C Routine 12/26/2020 8:04 AM EDT Stage 3a chronic kidney disease (HCC) from Last 3 Months or Most Recently Relevant to Health Maintenance Results * (ABNORMAL) Hemoglobin A1c (12/26/2020 8:04 AM EDT) Hemoglobin A1C 6.1(H) (4.0-5.6) % [facility] Comment: MONITORING: In known diabetic patients, hemoglobin A1c targets should be discussed with health care provider. DIAGNOSTIC USE: ??The [place] Diabetes Association (ADA) and the World Health [...] Supplement 1 Testing performed or reported by [facility], a Service of [facility], [address] [place] [address] Juan Antonio Pérez MD, Director Of Government Sales Blood (Blood, Venous) 12/26/2020 8:04 AM EDT 12/26/2020 8:07 AM EDT us Juan F Hutton MD LAB BLOOD ORDERABLES Final Resul t [facility] from Last 3 Months or Most Recently Relevant to Health Maintenance Insurance MEDICARE [facility]
--- OUTSIDE RECORDS SUMMARY | 2024-10-31 10:23 | XMS_ITS ---
Author Organization [facility] Address [address] [place] [address] Care Team Providers Care Power Distribution Engineer Name Role Phone Deana Corrales Primary Care Provider Unavail Blayne Arriaza Unavailable [phone] Encounters Encounter Location Date Provider Diagnosis [facility] [address] [place] [phone] 08/30/2024 Blayne Pena Plan Of Treatment Next Appt Details Provider Name:Blayne Pena , 01/03/2025 09:30:00 AM, [address] [place] [address], [phone], Progress Notes * Seamus FRAGA DDOB:1945 (79 yo M)Acc No.[id number]:08/30/2024 Progress Note Patient:?Seamus FRAGA Provider:?Blayne Pena DPM :1945???Age:78 Y???Sex:Male Rusatm e:08/30/2024 Address:[address] [place] [address] Pcp:Deana Corrales Subjective: * Chief Complaints: * ??? * Medical History:? Objective: * Vitals:? Assessment: Plan: * Treatment: * Images: * The named appointment provid er may or may not be the originator of this progress note, and it is not deemed complete until electronically signed by the appointment provider. Sign off status: Pending * Provider:?Blayne Pena DPM Date:?2024 Generated for Natalie edmonds/Shana/Jaspal on:?10/31/2024 10:23 AM EDT
--- OUTSIDE RECORDS SUMMARY | 2024-10-31 10:24 | XMS_ITS ---
Author Organization [facility] Address [address] [place] [address] Care Team Providers Care Locker Attendant Name Role Phone Deana Corrales Primary Care Provider Unavail Blayne Arriaza Unavailable [phone] REASON FOR VISIT r/s for sooner apt Encounters Encounter Location Date Provider Diagnosis [address] [phone] 10/09/2024 Blayne Pena Plan Of Treatment Next Appt Details Provider Name:Blayne Pena , 01/03/2025 09:30:00 AM, [address] [facility], [address], [phone], Progress Notes * Seamus FRAGA DDOB:1945 (79 yo M)Acc No.[id number]:10/09/2024 Progress Note Patient:?Seamus FRAGA Provider:?Blayne Pena DPM :1945???Age:78 Y???Sex:Male Rustam e:10/09/2024 Address:[address] [place] [address] [place], [place] Pcp:Deana Corrales Subjective: * Chief Complaints: * ???1. R/s for sooner apt. * Medical History:? Objective: * Vitals:? Assessment: Plan: * Treatment: * Images: * The named appointment provid er may or may not be the originator of this progress note, and it is not deemed complete until electronically signed by the appointment provider. Sign off status: Pending * Provider:Duane Pena DPM Date:?2024 Generated for Natalie edmonds/Shana/Jaspal on:?10/31/2024 10:23 AM EDT
--- OUTSIDE RECORDS SUMMARY | 2024-10-31 10:24 | XMS_ITS | Encounter Summary ---
Author Organization [facility] Address [address] [place] [address] Phone Care Team Providers Care Nutrition Teacher Name Role Phone Unavailable Primary Care Provider Unavailabl e Encounter Details Date Type Department Care Team (Late st Contact Info) Description 07/09/2024 Documentation Only [facility] [address] [place] [address] Annita Landeros [address] [place] [phone] Social History Tobacco Use Types Packs/Day Years [...] Visit [facility] [address] [place] [phone] Juna F Hutton MD [address] [place] [phone] documented as of this encounter Visit Diagnoses Not on filedocumented in this encounter
--- OUTSIDE RECORDS SUMMARY | 2024-10-31 10:24 | XMS_ITS ---
Author Organization [facility] Address [address] [place] [address] Care Team Providers Care Institutional Research Director Name Role Phone Deana Corrales Primary Care Provider Unavail able Blayne Pena Unavailable [phone] Allergies Allergen (clinical drug ingredient) Drug/Non Drug Allergy documented on EMR Reaction Allergy Type Onset Date Status Povidone-Iodine IVP dye Drug Allergy A ctive REASON FOR VISIT At Risk Footcare, Painful Nail(s) aggravated by shoes and causing difficulty standing/walking. Medications Medication SIG (Take, Route, Frequency, Duration) Notes Start Date End Date Status Modafinil 100 MG 1 tablet in the morning Orally Once a day Active amLODIPine Besylate Active Escitalopram Oxalate 5 MG 1 tablet Orall y Once a day Not-Taking tiZANidine HCl 4 MG 1 tablet as needed Orally Three times a day Not-Taking zzzCompression Stockings 20-30mm Hg . . . for . Active Carbidopa-Levodopa 25-100 MG 1 tablet as needed Orally Two times a Week for 30 day(s) Active Eliquis 2.5 MG as directed Orally Active Roflumilast 250 MCG 2 tablets Orally Onc e a day Not-Taking Atorvastatin Calcium Active Tylenol Active Social History Tobacco Use: Social History Observation Description Date Details (start date - stop date) Never Smoker NA - NA Tobacco use other than smoking: Question Answer Notes Are you an other tobacco user? No Tobacco Control (Standard) Question Answer Notes Tobacco use: Nonsmoker Additional Findings: Tobacco non-user Current no nsmoker AUDIT-C (Standard) Question Answer Notes Did you have a drink containing alcohol in the p ast year? No Points 0 Interpretation Negative Procedures Procedure Date Ordered Date Performed Result Body Sit e 90949-VOHLEKN NAIL, 6 OR MORE 10/05/2024 N/A 06143-WRSW SKIN LESIONS, 2 TO 4 10/05/2024 N/A Encounters Encounter Location Date Provider Diagnosis [facility] [address] [place] [address] 10/05/2024 Blayne Jean Atherosclerosis of [place] vie[place] artery of both lower extremities, with unspecified presence of clinical manifestation I70.203 ; Tinea unguium B35.1 ; Pain in right toe(s) M79.674 and Pain in left toe(s) M79.675 Assessments Encounter Date Diagnosis (ICD Code) Assessment Notes Treatment Notes Treatment Clinical Notes Section Notes 10/05/2024 Atherosclerosis of [place] vie[place] artery of both lower extremities, with unspecified presence of clinical manifestation (ICD-10 - I70.203) Q7(A), Q8(2B), Q9(1B,2C) 10/05/2024 Tinea unguium (ICD-10 - B35.1) 10/05/2024 Pain in right toe(s) (ICD-10 - M79.674) 10/05/2024 Pain in left toe(s) (ICD-10 - M79.675) Plan Of Treatment Pending Test Test Name Order Date 62975-UWEHMTZ NAIL, 6 OR MORE 10/05/2024 46177-SVJV SKIN LESIONS, 2 TO 4 10/06/19 25 Next Appt Details Follow Up: prn, Reason: Provider Name:Blayne Pena , 01/03/2025 09:30:00 AM, [address] [facility], [address], [place], [address], Procedure Notes * Category Sub-Category Detail Notes Debride Nail 6-10 Nail debridement Due to the cl inical pathology outlined in the exam findings, performance of this nail treatment is medically necessary as its management by an unskilled/untrained nonprofessional would put this patients foot and overall health at risk. Therefore, debridement to affected nail(s), as described in exam ( TA, T1, T2, T3, T4, T5, T6, T8, T9 ), was performed exclusively by the physician of record to reduce/remove overall nail length, girth, thickness, subungual debris, and necrotic tissue, by manual and/or electrical means through the use of a nail nipper and/or dremel-type napper grinder, to a more viable healthy nail plate or bed tissue 6-10 nails in total. Silver nitrate was used for any petechial bleeding as necessary. Definitive antifungal treatment options, both pharmaceutical and surgical, have been reviewed and discussed with the patient. The patient solely prefers the use of intermittent/as needed professional debridement services for their nail condition and understands the need for additional periodic treatments to maintain effectiveness in symptomatic relief - 22337 Keratoma Treatment Parring or Cutting o f Benign Hyperkeratotic Lesion(s) (-56) 2-4 Lesions - Due to the at risk nature of the patients medical condition as documented in the exam findings, performance of this keratoderma treatment is medically necessary as its management by an unskilled/untrained nonprofessional would put this patients foot and overall health at risk. Therefore, the benign hyperkeratotic lesions, ( 3 ) in total, locations as stated and described in the exam ( Medial plantar, IPJ, TA, Medial, DIPJ, T9, SUB MTH (s), 1, Right ), were pared, and/or cut utilizing a sterile 15 blade, tissue nippers, and/or power dremel instrumentation by the physician of record - 86834, Q8 Progress Notes * Seamus FRAGA DDOB:1945 (78 yo M)Acc No.[id number]:10/05/2024 Progress Note Patient:?Seamus FRAGA Staci Provider:?Blayne Pena DPM :1945???Age:78 Y???Sex:Male Rustam e:10/05/2024 Address:[address] [place] [address] [phone] Pcp:Deana Corrales Subjective: * Chief Complaints: * ???At Risk FootcarePainful N ail(s) aggravated by shoes and causing difficulty standing/walking. * HPI: ???At Risk footcare:?Pt States Last PCP Visit:?Date?04/17/2024 * ROS:?General/Constitutional:?Nausea?denies.?Vomiting?denies.?Hunger Thirst?denies.?Loss appetite?denies.?Chills?denies.?Fatigue?denies.?Fever?denies.?Night Sweats?denies.?Unexplained weight loss?denies.?Unexplained weight gain?denies.?HEENTM:?Dentures?denies.?Dizziness?denies.?Glasses/contacts?admits.?Retinopathy?de nies.?Blurred/double vision?denies.?TMJ?denies.?Discharge/drainage?denies.?Implants?denies.?Sore throat?denies.?Dental implants?denies.?Hard of hearing ?denies.?Difficulty chewing/swallowing/speaking?denies.?Nose bleeds?denies.?Sore mouth?denies.?Respiratory:?On Oxygen?denies.?Pneumonia/pleurisy?denies.?Bronchitis?denies.?Emphysema?denies.?C oughing?denies.?Cough blood?denies.?Shortness of breath?denies.?Wheezing?denies.?Cardiovascular:?Pacemaker?denies.?MVP?denies.?WPW?denies.?CHF?denies.?Heart attack?denies.?Septal defect?denies.?Rapid beat?denies.?Chest pain ?denies.?Atrial Fib.?denies.?Murmur/Palpitations?denies.?Gastrointestinal:?Hemorrhoids?denies.?Stomach/Abdominal pain?denies.?Dark blood stool?denies.?Irritable bowel ?denies.?Constipation?denies.?Diarrhea?denies.?Hematology:?Swelling?admits.?Clots?Admits.?Varicose Veins?admits.?Bruising?admits, on anticoagulants.?Bleeding problem?admits, on anticoagulants.?Genitourinary:?Blood urine?denies.?Frequent/Painfu/urination/bladder control?denies.?Kidney stones?denies.?Infection (UTI)?denies.?Nephropathy?denies.?sex trans dis (STD)?denies.?Prostate?denies.?Musculoskeletal:?Hammertoes?admits.?Bunions?denies.?Back Pain?denies.?Muscle Cramps/ Resting?admits.?Muscle cramps / walking?denies.?Generalized aches and pains?denies.?Weakness?denies.?Integ.:?Eng?denies.?Scars?denies.?Corns/calluses?admits.?Ingrown nails?admits.?Painful nails?admits.?Open Sores?denies.?Rashes?denies.?Neurologic:?Difficulty sleeping?denies.?Brain disorder?denies.?Numbness?denies.?Balance trouble?admits.?Confusion?denies.?Fainting/blackouts?denies.?Tingling?denies.?Tr emors?denies.? * Medical History:? * Surgical History:?knee surge ry, right back injections olonoscopy 10/05/22Pacemaker 10/10/23 * Hospitalization/Major Diagno stic Procedure:?[facility] Pacemaker w/new leads 09/2023 * Family History:?Mother: dece ased, stroke.?Father: , diagnosed with Family history of arthritis.?Spouse: alive.? * Social History:?Tobacco Use:?Tobacco use other than smoking?Are you an other tobacco user??No ?Tobacco Control (Standard)?Tobacco use:?Nonsmoker ?Additional Findings: Tobacco non-user?Current nonsmoker ???Drugs/Alcohol:?Drugs?Have you used drugs other than those for medical reasons in the past 12 months??No ???Drug/Alcohol:?AUDIT-C (Standard)?Did you have a drink containing alcohol in the past year??No ?Points?0 ?Interpretation?Negative * Medications:?TakingamLODIPin e Besylate Modafinil 100 MG Tablet 1 tablet in the morning Orally Once a day Atorvastatin Calcium Carbidopa-Levodopa 25-100 MG Tablet 1 tablet as needed Orally Two times a Week Eliquis 2.5 MG Tablet as directed Orally Tylenol zzzCompression Stockings 20-30mm Hg 1 pair closed toe- knee high . . . Taking amLODIPine Besylate Taking Modafinil 100 MG Tablet 1 tablet in the morning Orally Once a day Taking Atorvastatin Calcium Taking Carbidopa-Levodopa 25-100 MG Tablet 1 tablet as needed Orally Two times a Week Taking Eliquis 2.5 MG Tablet as directed Orally Taking Tylenol Taking zzzCompression Stockings 20-30mm Hg 1 pair closed toe- knee high . . . Not-Taking/PRNRoflumilast 250 MCG Tablet 2 tablets Orally Once a day Escitalopram Oxalate 5 MG Tablet 1 tablet Orally Once a day tiZANidine HCl 4 MG Tablet 1 tablet as needed Orally Three times a day Medication List reviewed and reconciled with the patientNot-Taking/PRN Roflumilast 250 MCG Tablet 2 tablets Orally Once a day Not-Taking/PRN Escitalopram Oxalate 5 MG Tablet 1 tablet Orally Once a day Not-Taking/PRN tiZANidine HCl 4 MG Tablet 1 tablet as needed Orally Three times a day Medication List reviewed and reconciled with the patient * Allergies:?Povidone-Iodine: IVP luciano[Allergies Verified] Objective: * Vitals:? * Examination: ???Vascular: ?DP PULSES (B):? 0-1/4, B/L.?PT PULSES (B):? 0/4, B/L.?CAPILLARY FILL TIME:? delayed, all digits, B/L.?TROPHIC CONDITION-TEXTURE/ELASTICITY/TURGOR/HAIR GROWTH (B):? decreased, with sparse to absent hair growth, B/L.?TEMPERTURE GRADIENT (C):? decreased, cool to cool, proximal to distal, B/L.?PIGMENTATION:? mottled, B/L.?EDEMA (C):? 2/4, non-pitting, without, aching pain, B/L, Leg(s), Ankle(s), Feet.?CLAUDICATION (C):?denies, B/L.?REST PAIN:?denies, B/L.?Nails: ?NAILS are:? Elongated, overgrown, dystrophic, lytic, greater than 3mm thick, discolored and friable with crumbly malodorous subungual debris, with pain on palpation, TA, T1, T2, T3, T4, T5, T6, T8, T9,all other nails not described with characteristics as possessing mycosis are elongated, overgrown, and dystrophic.?Dermatologic: ?SKIN FINDINGS:? Skin exam reveals Keratotic lesion(s) located at, Medial plantar, IPJ, TA, Medial, DIPJ, T9, SUB MTH (s), 1, Right .? Assessment: * Assessment: 1.?Tinea unguium - B35.1???2 .?Atherosclerosis of lac vieux artery of both lower extremities, with unspecified presence of clinical manifestation - I70.203 (Primary)???Specify :Q8???Notes :Q7(A), Q8(2B), Q9(1B,2C)???3.?Pain in right toe(s) - M79.674???4.?Pain in left toe(s) - M79.675??? Plan: * Treatment: 2.?Tinea unguium?Procedure: 62192-ZDVJUES NAIL, 6 OR MORE * Procedures:?Debride Nail 6-10:?Nail debridement?Due to the clinical pathology outlined in the exam findings, performance of this nail treatment is medically necessary as its management by an unskilled/untrained nonprofessional would put this patients foot and overall health at risk. Therefore, debridement to affected nail(s), as described in exam (?TA,?T1,?T2,?T3,?T4,?T5,?T6,?T8,?T9?), was performed exclusively by the physician of record to reduce/remove overall nail length, girth, thickness, subungual debris, and necrotic tissue, by manual and/or electrical means through the use of a nail nipper and/or dremel-type napper grinder, to a more viable healthy nail plate or bed tissue 6- 10 nails in total. Silver nitrate was used for any petechial bleeding as necessary. Definitive antifungal treatment options, both pharmaceutical and surgical, have been reviewed and discussed with the patient. The patient solely prefers the use of intermittent/as needed professional debridement services for their nail condition and understands the need for additional periodic treatments to maintain effectiveness in symptomatic relief - 04225.?Keratoma Treatment:?Parring or Cutting of Benign Hyperkeratotic Lesion(s)?(-56) 2-4 Lesions - Due to the at risk nature of the patients medical condition as documented in the exam findings, performance of this keratoderma treatment is medically necessary as its management by an unskilled/untrained nonprofessional would put this patients foot and overall health at risk. Therefore, the benign hyperkeratotic lesions, ( 3 ) in total, locations as stated and described in the exam (?Medial plantar,?IPJ,?TA,?Medial,?DIPJ,?T9,?SUB MTH (s),?1,?Right?), were pared, and/or cut utilizing a sterile 15 blade, tissue nippers, and/or power dremel instrumentation by the physician of record - 51608, Q8.? * Procedure Codes:?96058 DEBRI DE NAIL, 6 OR MORE, Modifiers: XS 01055 TRIM SKIN LESIONS, 2 TO 4, Modifiers: XS , Q8 * Follow Up:?prn * Images: * Sign off status: Completed true * Provider:?Blayne Pena DPM Date:?2024 Generated for Natalie edmonds/Shana/Gianniitting on:?10/31/2024 10:24 AM EDT History and Physical Notes * HPI (History of Present Illness) Category Sub-Category Detail Notes Category Not es At Risk footcare Pt States Last PCP Visit: Date: 4 Examination Category Sub-Category Detail Notes Category Not es Dermatologic SKIN FINDINGS: Skin exam reveal s Keratotic lesion(s) located at, Medial plantar, IPJ, TA, Medial, DIPJ, T9, SUB MTH (s), 1, Right Vascular DP PULSES (B): 0-1/4, B/L PT PULSES (B): 0/4, B/L CAPILLARY FILL TIME: delayed, all digits , B/L TEMPERTURE GRADIENT (C): decreased, cool to cool, proximal to distal, B/L TROPHIC CONDITION-TEXTURE/ELASTICITY/TURGOR/HAIR GROWTH (B): decreased, with sparse to absent hair gr owth, B/L EDEMA (C): 2/4, non-pitting, wi thout, aching pain, B/L, Leg(s), Ankle(s), Feet CLAUDICATION (C): denies, B/L REST PAIN: denies, B/L PIGMENTATION: mottled, B/L Nails NAILS are: Elongated, overg rown, dystrophic, lytic, greater than 3mm thick, discolored and friable with crumbly malodorous subungual debris, with pain on palpation, TA, T1, T2, T3, T4, T5, T6, T8, T9,all other nails not described with characteristics as possessing mycosis are elongated, overgrown, and dystrophic
--- OUTSIDE RECORDS SUMMARY | 2024-10-31 10:24 | XMS_ITS | Patient Health Record ---
[facility] Organization [facility] Address [address] [facility], [place] [address] Care Team Providers Care Matrix Worker Name Role Phone Deana Corrales Primary Care Provider Unavail able Blayne Pena Unavailable [phone] Allergies Allergen (clinical drug ingredient) Drug/Non Drug Allergy documented on EMR Reaction Allergy Type Onset Date Status Povidone-Iodine IVP dye Drug Allergy A ctive Reason For Referral No Information Medications Medication SIG (Take, Route, Frequency, Duration) Notes Start Date End Date Status Carbidopa-Levodopa 25-100 MG 1 tablet as needed Orally Two times a Week for 30 day(s) Active Eliquis 2.5 MG as directed Orally Active Roflumilast 250 MCG 2 tablets Orally Onc e a day Not-Taking Atorvastatin Calcium Active Modafinil 100 MG 1 tablet in the morning Orally Once a day Active amLODIPine Besylate Active Escitalopram Oxalate 5 MG 1 tablet Orall y Once a day Not-Taking tiZANidine HCl 4 MG 1 tablet as needed Orally Three times a day Not-Taking Tylenol Active zzzCompression Stockings 20-30mm Hg . . . for . Active Immunizations Vaccine Route Administration Date Status [...] ast year? No Points 0 Interpretation Negative Problems Problem Type SNOMED Code ICD Code Onset Dates Problem Status W/U Status Risk Notes Problem Atherosclerosis of [place] tribe arteries of the extremities ([id number]) Atherosclerosis of [place] tribe artery of both lower extremities, with unspecified presence of clinical manifestation (I70.203) Active confirmed Q7(A), Q8(2B), Q9(1B,2 C) Vital Signs Height 5ft 11 in in 04/19/2024 Weight 211 lbs 04/19/2024 BMI 29.43 kg/m2 04/19/2024 Procedures Procedure Date Ordered Date Performed Result Body Sit e 65999-URIUZDN NAIL, 6 OR MORE 01/30/2024 N/A 58921-QDZI SKIN LESIONS, 2 TO 4 01/30/2024 N/A 84901-BHHLHRX NAIL, 6 OR MORE 04/19/2024 N/A 85645-Eyaommry Plate 04/19/2024 N/A 49609-UZIO SKIN LESIONS, 2 TO 4 04/19/2024 N/A 30947-JJIS SKIN LESIONS, 2 TO 4 10/05/2024 N/A 40240-OWWTDMU NAIL, 6 OR MORE 10/05/2024 N/A Encounters Encounter Location Date Provider Diagnosis [address] [address] 01/30/2024 Blayne Pena Atherosclerosis of [place] tribe artery of both lower extremities, with unspecified presence of clinical manifestation I70.203 ; Tinea unguium B35.1 ; Pain in right toe(s) M79.674 and Pain in left toe(s) M79.[address] [address] 04/19/2024 Blaynebandar Pena Atherosclerosis of [place] tribe artery of both lower extremities, with unspecified presence of clinical manifestation I70.203 ; Tinea unguium B35.1 ; Pain in right toe(s) M79.674 ; Pain in left toe(s) M79.675 and Ingrown nail L60.0 [facility] [address] [place] [address] 10/05/2024 Blayne Pena Atherosclerosis of [place] tribe artery of both lower extremities, with unspecified presence of clinical manifestation I70.203 ; Tinea unguium B35.1 ; Pain in right toe(s) M79.674 and Pain in left toe(s) M79.675 [facility] [address] [facility] [address] [place] [address] 01/12/2024 [facility]ena [facility] [place] [address] [place] [address] 07/31/2024 Blayne Pena Assessments Encounter Date Diagnosis (ICD Code) Assessment Notes Treatment Notes Treatment Clinical Notes Section Notes 01/30/2024 Tinea unguium (ICD-10 - B35.1) 01/30/2024 Atherosclerosis of [place] tribe artery of both lower extremities, with unspecified presence of clinical manifestation (ICD-10 - I70.203) 04/19/2024 Tinea unguium (ICD-10 - B35.1) 04/19/2024 Atherosclerosis of um[place] tribe artery of both lower extremities, with unspecified presence of clinical manifestation (ICD-10 - I70.203) 10/05/2024 Tinea unguium (ICD-10 - B35.1) 10/05/2024 Atherosclerosis of [place] tribe artery of both lower extremities, with unspecified presence of clinical manifestation (ICD-10 - I70.203) Q7(A), Q8(2B), Q9(1B,2C) 01/30/2024 Pain in right toe(s) (ICD-10 - M79.674) 10/05/2024 Pain in right toe(s) (ICD-10 - M79.674) 04/19/2024 Pain in right toe(s) (ICD-10 - M79.674) 01/30/2024 Pain in left toe(s) (ICD-10 - M79.675) 04/19/2024 Pain in left toe(s) (ICD-10 - M79.675) 10/05/2024 Pain in left toe(s) (ICD-10 - M79.675) 04/19/2024 Ingrown nail (ICD-10 - L60.0) Plan Of Treatment Pending Test Test Name Order Date X ray : Foot, left 3V 04/21/2022 X ray : Foot, right 3V 06/07/2022 X ray : Foot, right 3V 04/21/2022 67677-PCCYRZF NAIL, 6 OR MORE 07/07/2023 55503-UVWEWWU NAIL, 6 OR MORE 10/13/2023 55680-EQFVVNI NAIL, 6 OR MORE 01/30/2024 33348-JFICKMX NAIL, 6 OR MORE 04/19/2024 62577-TCUHCAN NAIL, 6 OR MORE 10/05/2024 75573-FUDQVJI NAIL, 6 OR MORE 07/01/2022 44090-DDLQGMV NAIL, 6 OR MORE 10/14/2021 82621-SBHABSP NAIL, 6 OR MORE 01/06/2022 53204-VFFAVME NAIL, 6 OR MORE 03/30/2022 80932-ALPCORY NAIL, 6 OR MORE 10/07/2022 56779-INHREOS NAIL, 6 OR MORE 12/30/2022 84863-BFTZYFV NAIL, 6 OR MORE 03/31/2023 89931-Siwlzxud Plate 04/19/2024 66953-Zhanlizr Plate 07/07/2023 14151-YYXP SKIN LESIONS, 2 TO 4 07/07/20 23 02808-ZFNO SKIN LESIONS, 2 TO 4 01/30/20 24 73064-SBPO SKIN LESIONS, 2 TO 4 10/13/19 24 15260-DJGV SKIN LESIONS, 2 TO 4 10/06/19 25 27425-HALP SKIN LESIONS, 2 TO 4 04/19/20 24 95629-KMRX SKIN LESIONS, 2 TO 4 03/31/20 23 04999-UPMU SKIN LESIONS, 2 TO 4 12/31/19 23 53011-BZKF SKIN LESIONS, 2 TO 4 10/08/19 23 14739-YBRZ SKIN LESIONS, 2 TO 4 03/30/20 22 56976-YBJP SKIN LESIONS, 2 TO 4 01/07/20 22 25837-WUXA SKIN LESIONS, 2 TO 4 10/15/19 22 42750-WHNZ SKIN LESIONS, 2 TO 4 07/01/20 22 Next Appt Details Provider Name:Blayne Naren Pena , 01/03/2025 09:30:00 AM, [address] [facility], [address], [place], [address], Insurance Providers Payer Name Payer Address Payer Phone Subscriber Number Group Number Insured Name Patient Relationship to Insured Coverage Start Date Coverage End Date Medicare [facility] [address] [place] [address] [id number] LeonelSeamus Self - patient is the insured for Life [address] [place] [address] [id number] Leonel Seamus Self - patient is the insured Medical (General) History Medical History History ICD Code Back,Hip,and Knee pain Broken bones Parkinsons disease Tuberculosis Chicken pox Joint implants/screws CAD DVTs and PEs Pacemaker Surgical History Surgery Date(Month/Year) knee surgery, right back injections 2021 colonoscopy 10/05/22 Pacemaker 10/10/23 Hospitalization History Reason Date(Month/Year) [facility] Pacemaker w/new leads 09/2023
--- OUTSIDE RECORDS SUMMARY | 2024-10-31 10:24 | XMS_ITS | Clinical Summary ---
Author Organization [facility] Address [address] [place] [address] Phone Care Team Providers Care Aircraft Air Conditioning Mechanic Name Role Phone Deana Corrales MD Primary Care Provider [phone] Allergies Active Allergy Reactions Criticality Noted Date [...] Irregular heart beat Sleep apnea Pulmonary embolism Hyperlipidemia DVT (deep venous thrombosis) (CMS/HCC) PTSD (post-traumatic stress disorder) Agent orange exposure Right bundle branch block (RBBB) Rheumatic fever Parkinson's disease CHB (complete heart block) (CMS/[facility]) Social History Tobacco Use Types Packs/Day Years [...] Additional history exists Influenza Vaccine (#1) 2024 , 05/11/2022, 04/07/2022, Additional history exists Diabetes: Annual [...] Vaccines Completed 03/25/2022, 12/25, 08/11/2011 RSV Immunization Adult Patients Completed 06/09/2023 HIB Vaccines Aged Out No [...] age to complete this topic Meningococcal B Vaccine Aged Out No l onger eligible based on patient's age to complete this topic RSV Immunization Patients Under 20 months Aged Out No longer eligible based on patient's age to complete this topic Varicella Vaccines Aged Out No longer eligible based on patient's age to complete this topic Medical Devices Implanted Type Area Community Relations Liaison Device Identifier Shelf Expiration Date Model / [...] LAB CHEMISTRY METHOD 05/28/2024 8:12 AM EST [facility] eGFR 53(L) >=60 mL/min/1. 73m2 LAB CHEMISTRY METHOD 05/28/2024 8:12 AM EST [facility] Comment:Calculation based on the??Chronic Kidney Disease Epidemiology Collaboration (CKD-EPI) equation refit??without adjustment for race. Blood Venous blood specimen / Unknown Venipuncture / Unknown 05/28/2024 7:18 AM EST 05/28/2024 7:25 AM EST us Delmar Butler MD LAB BLOOD ORDERABLES Final Resul t [facility] ([facility]) [facility] [address] [place] [address], from Last 3 Months or Most Recently Relevant to Health Maintenance Insurance MEDICARE [id number] Care Teams Aircraft Air Conditioning Mechanic Relationship Specialty Start Date End Date Deana Corrales MD [address] [address] PCP - General Internal Medicine 05/15/24
--- OUTSIDE RECORDS SUMMARY | 2024-10-31 10:24 | XMS_ITS | Data Portability ---
Author Organization [facility], Main Office Address [address] [facility] [address] [place] [address] Care Team Providers Care Install And Repair Technician Name Role Phone SUSANNE HUERTA Sales Professional [phone] REGINE GARCIA Spinning Frame Changer NADIA STEEL Orthopedic Surgeon JASMYN RAMOS Neurologist ROJAS KEYES Urologist KRISTEN TODD Dobby Loom Chain Pegger [phone] VERO DASILVA Top Cleaner BANDAR FERRARO Sales Professional KEITH GRANADO Primary Care Provider Assessment No assessment recorded. Plan of Treatment Reminders Order Date Submit Date Provider Last Modified By Organization Details Last Modified Time Details Appointments None recorded. Lab HbA1c (hemoglobin A1c), blood 2024 025 [facility]LECIA [facility] (Centralized Electronic Ordering - All Locations), Patient Can Go To The Location Of Their Choice, [address] 10:06:18 TSH, ultra-sensi tive, serum 2024 025 [facility]LECIA [facility], [address], [place], [address], 10:06:19 hepatic function panel, serum 2024 025 FELECIA [facility] (Centralized Electronic Ordering - All Locations), Patient Can Go To The Location Of Their Choice, [address] 5 10:06:17 lipid panel, serum 2024 025 [facility], [address], [place], [address], 5 10:06:18 vitamin D, 25-hydroxy, total, serum 2024 025 [facility]LECIA [facility] (Centralized Electronic Ordering - All Locations), Patient Can Go To The Location Of Their Choice, [facility] 5 10:06:19 HbA1c (hemoglobin A1c), blood 2023 024 FELECIA [facility] (Centralized Electronic Ordering - All Locations), Patient Can Go To The Location Of Their Choice, [address] 4 06:08:51 BMP, serum or plasma 2023 024 [facility], [address], [place], [address], 4 06:08:49 lipid panel, serum 2023 024 [facility], [address], [place], [address], 4 06:08:50 CBC w/ auto diff 2023 024 [facility], [address], [place], [address], 4 06:08:49 TSH, ultra-sensi tive, serum 2023 024 [facility]IA [facility], [address], [place], [address], 4 06:08:51 Referral None recorded. Procedures None recorded. Surgeries None recorded. Imaging MRI, lumbar spine, w/o contrast - on-going back pain for several years, undergoes steroid infections with mild relief. ordered repeat MRI to check for worsening and will be referred to neurosurger yun gamble [email or web address] [place] [address], [address] [place], [address], 4 12:01:33 Medication Orders hydrocortis one-acetic acid 1 %-2 % ear drops 2024 025 [facility], [address] [place], [address], 5 13:33:52 Fioricet 50 mg-300 mg-40 mg capsule [address] [place] [address] [facility] [address], [address] [place], [address], 5 13:33:59 tizanidine 4 mg tablet [address] [place] [address] Pharm[address], [address] [place], [address], 4 11:24:50 DermOtic Oil 0.01 % ear drops 2023 024 [place] [facility], [address] [place] [address], [address], 4 09:27:31 Fioricet 50 mg-300 mg-40 mg capsule 2023 024 [email or web address] 3 [facility], [address] [place], [address], 5 12:58:22 hydrocortis one-acetic acid 1 %-2 % ear drops 2023 024 [facility], [address] [place], [address], 4 09:15:13 Patient TargetsNo targets recorded. Patient Instructions Encounter Date Encounter Id Patient Instructions Last Modified By Organization Details Last Modified Time 10/14/2023 [id number] headache: care instructions Not available 10/14/2023 14:20:25 eustachian tube problems: care instructions Not available 10/14/2023 13:53:25 medicines to avoid with kidney disease: care instructions Not available 10/14/2023 13:53:25 dizziness: care instructions Not available 10/14/2023 16:17:45 01/19/2024 [id number] medicines to avoid with kidney disease: care instructions Not available 01/19/2024 09:27:29 04/17/2024 [id number] chronic obstructive pulmonary disease (COPD): care instructions Not available 04/17/2024 11:25:02 learning about copd and how to prevent lung infections Not available 04/17/2024 11:25:02 10/23/2024 [id number] advance care planning: care instructions Not available 10/23/2024 13:33:48 chronic obstructive pulmonary disease (COPD): care instructions Not available 10/23/2024 13:33:49 learning about copd and how to prevent lung infections Not available 10/23/2024 13:33:48 sleep apnea: car e instructions Not available 10/23/2024 13:33:48 hearing loss: care instructions Not available 10/23/2024 13:33:48 eustachian tube problems: care instructions Not available 10/23/2024 13:33:48 headache: care instructions Not available 10/23/2024 13:33:48 starting a weigh t loss plan: care instructions Not available 10/23/2024 13:36:04 Reason for Referral None Reported. Results Created Date Observation Date Name Description Value Unit Range Abnormal Flag Note LastModifiedBy Organization Detail LastModifiedTime 04/18/2004/19/2024 CBC WITH DIFFE RENTI AL/PL ATELE T WBC 6.1 x10e3 /uL 3.4-10 .8 normal Not Available [facility] ([facility]) [address] [facility], [place], [address], 04/19/2024 06:08:49 04/18/2004/19/2024 CBC WITH DIFFE RENTI AL/PL ATELE T RBC 4.62 x10e6 /uL 4.14-5 .80 normal CBC resul ts repor everton were obtai omayra after the speci men had been warme d to 37 degre es C. This may indic ate the prese nce of Cold Maggielu todd s. Not Available [facility] ([facility]) [address] [facility], [place], [address], 04/19/2024 06:08:49 04/18/20 24 04/19/2024 CBC WITH DIFFE RENTI AL/PL ATELE T hemoglobin 14.9 g/dL 13.0-1 7.7 normal Not Available [facility] ([facility]) [address] [place], [address], 04/19/2024 06:08:49 04/18/2004/19/2024 CBC WITH DIFFE RENTI AL/PL ATELE T hematocrit 44.6 % 37.5-5 1.0 normal Not Available [facility] ([facility]) [address] [place], [address], 04/19/2024 06:08:49 04/18/20 24 04/19/2024 CBC WITH DIFFE RENTI AL/PL ATELE T MCV 97 fL 79-97 normal Not Available [facility] ([facility]) [address] [place], [address], 04/19/2024 06:08:49 04/18/2004/19/2024 CBC WITH DIFFE RENTI AL/PL ATELE T MCH 32.3 pg 26.6-3 3.0 normal Not Available [facility] ([facility]) [address] [place], [address], 04/19/2024 06:08:49 04/18/2004/19/2024 CBC WITH DIFFE RENTI AL/PL ATELE T MCHC 33.4 g/dL 31.5-3 5.7 normal Not Available [facility] ([facility]) [address] [place], [address], 04/19/2024 06:08:49 04/18/20 24 04/19/2024 CBC WITH DIFFE RENTI AL/PL ATELE T RDW 13.0 % 11.6-1 5.4 Not Available [facility] ([facility]) [address] [facility], [place], [address], 04/19/2024 06:08:49 04/18/20 24 04/19/2024 CBC WITH DIFFE RENTI AL/PL ATELE T platelets 198 x10e3 /uL 150-45 0 normal Not Available [facility] ([facility]) [address] [facility], [place], [address], 04/19/2024 06:08:49 04/18/20 24 04/19/2024 CBC WITH DIFFE RENTI AL/PL ATELE T neutrophils 54 % not estab. normal Not Available [facility] ([facility]) [address] [facility], [place], [address], 04/19/2024 06:08:49 04/18/20 24 04/19/2024 CBC WITH DIFFE RENTI AL/PL ATELE T lymphs 32 % not estab. normal Not Available [facility] ([facility]) [address] [facility], [place], [address], 04/19/2024 06:08:49 04/18/20 24 04/19/2024 CBC WITH DIFFE RENTI AL/PL ATELE T monocytes 9 % not estab. normal Not Available [facility] ([facility]) [address] [facility], [place], [address], 04/19/2024 06:08:49 04/18/20 24 04/19/2024 CBC WITH DIFFE RENTI AL/PL ATELE T eos 4 % not estab. normal Not Available [facility] ([facility]) [address] [facility], [place], [address], 04/19/2024 06:08:49 04/18/20 24 04/19/2024 CBC WITH DIFFE RENTI AL/PL ATELE T basos 1 % not estab. normal Not Available [facility] ([facility]) [address] [place], [address], 04/19/2024 06:08:49 04/18/20 24 04/19/2024 CBC WITH DIFFE RENTI AL/PL ATELE T immature cells BALLPOINT PEN ASSEMBLY MACHINE OPERATOR Not Available [facility] ([facility]) [address] [place], [address], 04/19/2024 06:08:49 04/18/20 24 04/19/2024 CBC WITH DIFFE RENTI AL/PL ATELE T neutrophils (absolute) 3.3 x10e3 /uL 1.4-7. 0 normal Not Available [facility] ([facility]) [address] [place], [address], 04/19/2024 06:08:49 04/18/20 24 04/19/2024 CBC WITH DIFFE RENTI AL/PL ATELE T lymphs (absolute) 1.9 x10e3 /uL 0.7-3. 1 normal Not Available [facility] ([facility]) [address] [place], [address], 04/19/2024 06:08:49 04/18/20 24 04/19/2024 CBC WITH DIFFE RENTI AL/PL ATELE T monocytes(ab solute) 0.6 x10e3 /uL 0.1-0. 9 normal Not Available [facility] ([facility]) [address] [place], [address], 04/19/2024 06:08:49 04/18/20 24 04/19/2024 CBC WITH DIFFE RENTI AL/PL ATELE T eos (absolute) 0.2 x10e3 /uL 0.0-0. 4 normal Not Available [facility] ([facility]) [address] [place], [address], 04/19/2024 06:08:49 04/18/20 24 04/19/2024 CBC WITH DIFFE RENTI AL/PL ATELE T baso (absolute) 0.1 x10e3 /uL 0.0-0. 2 normal Not Available [facility] ([facility]) [address] [place], [address], 04/19/2024 06:08:49 04/18/20 24 04/19/2024 CBC WITH DIFFE RENTI AL/PL ATELE T immature granulocytes 0 % not estab. Not Available [facility] ([facility]) [address] [place], [address], 04/19/2024 06:08:49 04/18/20 24 04/19/2024 CBC WITH DIFFE RENTI AL/PL ATELE T immature grans (abs) 0.0 x10e3 /uL 0.0-0. 1 Not Available [facility] ([facility]) [address] [place], [address], 04/19/2024 06:08:49 04/18/20 24 04/19/2024 CBC WITH DIFFE RENTI AL/PL ATELE T NRBC BALLPOINT PEN ASSEMBLY MACHINE OPERATOR Not Available [facility] ([facility]) [address] [place], [address], 04/19/2024 06:08:49 04/18/20 24 04/19/2024 CBC WITH DIFFE RENTI AL/PL ATELE T hematology comments: BALLPOINT PEN ASSEMBLY MACHINE OPERATOR Not Available [facility] ([facility]) [address] [place], [address], 04/19/2024 06:08:49 04/18/20 24 04/19/2024 BASIC METAB OLIC PANEL (8) glucose 122 mg/dL 70-99 above high normal Not Available [facility] ([facility]) [address] [place], [address], 04/19/2024 06:08:49 04/18/20 24 04/19/2024 BASIC METAB OLIC PANEL (8) BUN 13 mg/dL 8-27 normal Not Available [facility] ([facility]) [address] [facility] [place], [address], 04/19/2024 06:08:49 04/18/20 24 04/19/2024 BASIC METAB OLIC PANEL (8) creatinine 1.39 mg/dL 0.76-1 .27 above high normal Not Available [facility] ([facility]) [address] [facility] [place], [address], 04/19/2024 06:08:49 04/18/20 24 04/19/2024 BASIC METAB OLIC PANEL (8) eGFR 53 mL/mi n/1.7 3 >59 below low normal Not Available [facility] ([facility]) [address] [facility] [place], [address], 04/19/2024 06:08:49 04/18/20 24 04/19/2024 BASIC METAB OLIC PANEL (8) BUN/creatini ne ratio 9 10-24 below low normal Not Available [facility] ([facility]) [address] [place], [address], 04/19/2024 06:08:49 04/18/20 24 04/19/2024 BASIC METAB OLIC PANEL (8) sodium 141 mmol/ L 134-14 4 normal Not Available [facility] ([facility]) [address] [place], [address], 04/19/2024 06:08:49 04/18/20 24 04/19/2024 BASIC METAB OLIC PANEL (8) potassium 4.4 mmol/ L 3.5-5. 2 normal Not Available [facility] ([facility]) [address] [place], [address], 04/19/2024 06:08:49 04/18/20 24 04/19/2024 BASIC METAB OLIC PANEL (8) chloride 106 mmol/ L 96-106 normal Not Available [facility] ([facility]) [address] [place], [address], 04/19/2024 06:08:49 04/18/20 24 04/19/2024 BASIC METAB OLIC PANEL (8) carbon dioxide, total 21 mmol/ L 20-29 normal Not Available [facility] ([facility]) [address] [place], [address], 04/19/2024 06:08:49 04/18/20 24 04/19/2024 BASIC METAB OLIC PANEL (8) calcium 9.4 mg/dL 8.6-10 .2 normal Not Available [facility] ([facility]) [address] [place], [address], 04/19/2024 06:08:49 04/18/20 24 04/19/2024 LIPID PANEL cholesterol, total 129 mg/dL 100-19 9 normal Not Available [facility] ([facility]) [address] [place], [address], 04/19/2024 06:08:50 04/18/20 24 04/19/2024 LIPID PANEL triglyceride s 93 mg/dL 0-149 normal Not Available [facility] ([facility]) [address] [place], [address], 04/19/2024 06:08:50 04/18/20 24 04/19/2024 LIPID PANEL HDL cholesterol 47 mg/dL >39 normal Not Available [facility] ([facility]) [address] [place], [address], 04/19/2024 06:08:50 04/18/20 24 04/19/2024 LIPID PANEL VLDL cholesterol doc 18 mg/dL 5-40 Not Available [facility] ([facility]) [address] [place], [address], 04/19/2024 06:08:50 04/18/20 24 04/19/2024 LIPID PANEL LDL chol calc ([facility]) 64 mg/dL 0-99 Not Available [facility] ([facility]) [address] [facility], [place], [address], 04/19/2024 06:08:50 04/18/2004/19/2024 LIPID PANEL LDL calc comment: BALLPOINT PEN ASSEMBLY MACHINE OPERATOR Not Available [facility] ([facility]) [address] [facility], [place], [address], 04/19/2024 06:08:50 04/18/20 24 04/19/2024 HEMOG LOBIN A1C hemoglobin A1C 6.3 % 4.8-5. 6 above high normal Predi abete s: 5.7 - 6.4 Diabe jody: >6.4 Glyce ari contr ol for adult s with diabe jody: <7.0 Not Available [facility] ([facility]) [address] [facility], [place], [address], 04/19/2024 06:08:51 04/18/2004/19/2024 TSH RFX ON ABNOR MAL TO FREE T4 TSH 2.940 uIU/m L 0.450- 4.500 normal Not Available [facility] ([facility]) [address] [place], [address], 04/19/2024 06:08:51 04/18/20 24 04/21/2024 COOMB S', DIREC T jack', direct Negati ve negati ve Not Available [facility] ([facility]) [address] [place], [address], 04/21/2024 12:06:09 04/18/20 24 04/20/2024 SIGRID EN AUTHO RIZAT ION written authorizatio n Ramon Kilpatrick en Autho rizat ion Recei franchesca. Autho rizat ion recei franchesca from BRITTANY Riley for Link Reque st on 04-20 Logge d by Emeli Winston Not Available [facility] ([facility]) [address] [facility], [place], [address], 04/21/2024 12:06:10 05/28/20 24 05/28/2024 COMPL ETE BLOOD COUNT WBC 6.7 K/mcL 4.8-10 .8 Not Available [facility] (Direct Fax All) [facility], [place], [address], 05/28/2024 07:53:31 05/28/20 24 05/28/2024 COMPL ETE BLOOD COUNT RBC 4.00 M/mcL 4.50-5 .50 low Not Available [facility] (Direct Fax All) Any [facility], [place], [address], 05/28/2024 07:53:31 05/28/20 24 05/28/2024 COMPL ETE BLOOD COUNT hemoglobin 13.7 g/dL 13.5-1 7.5 Not Available [facility] (Direct Fax All) Any [facility], [place], [address], 05/28/2024 07:53:31 05/28/20 24 05/28/2024 COMPL ETE BLOOD COUNT hematocrit 40.0 % 42.0-5 4.0 low Not Available [facility] (Direct Fax All) Any [facility], [place], [address], 05/28/2024 07:53:31 05/28/20 24 05/28/2024 COMPL ETE BLOOD COUNT MCV 100.5 fL 79.0-9 8.0 high Not Available [facility] (Direct Fax All) Any [facility], [place], [address], 05/28/2024 07:53:31 05/28/20 24 05/28/2024 COMPL ETE BLOOD COUNT MCH 34.4 pcg 27.0-3 2.0 high Not Available [facility] (Direct Fax All) Any [facility], [place], [address], 05/28/2024 07:53:31 05/28/20 24 05/28/2024 COMPL ETE BLOOD COUNT MCHC 34.3 g/dL 32.0-3 7.0 Not Available [facility] (Direct Fax All) Any [facility], [place], [address], 05/28/2024 07:53:31 05/28/20 24 05/28/2024 COMPL ETE BLOOD COUNT RDW 13.7 % 11.0-1 5.0 Not Available [facility] (Direct Fax All) Any [facility], [place], [address], 05/28/2024 07:53:31 05/28/20 24 05/28/2024 COMPL ETE BLOOD COUNT platelets 216 K/mcL 130-40 0 Not Available [facility] (Direct Fax All) Any [facility], [place], [address], 05/28/2024 07:53:31 05/28/20 24 05/28/2024 COMPL ETE BLOOD COUNT MPV 9.3 fL 7.0-11 .0 Not Available [facility] (Direct Fax All) Any [facility], [place], [address], 05/28/2024 07:53:31 05/28/20 24 05/28/2024 COMPL ETE BLOOD COUNT NRBC 0.0 % <1.0 Not Available [facility] (Direct Fax All) Any [facility], [place], [address], 05/28/2024 07:53:31 05/28/20 24 05/28/2024 COMPL ETE BLOOD COUNT NRBC absolute 0.00 K/mcL <0.10 Not Available [facility] (Direct Fax All) Any [facility], [place], [address], 05/28/2024 07:53:31 05/28/20 24 05/28/2024 COMPL ETE BLOOD COUNT note See Report [facility], [address], [place], [place] [address] Not Available [facility] (Direct Fax All) Any [facility], [place], [address], 05/28/2024 07:53:31 05/28/20 24 05/28/2024 BUN BUN 13 mg/dL 5-25 Not Available [facility] (Direct Fax All) Any [facility], [place], [address], 05/28/2024 08:15:07 05/28/20 24 05/28/2024 BUN note See Report [facility], [address], [place], [place] [address] Not Available [facility] (Direct Fax All) Any [facility], [place], [address], 05/28/2024 08:15:07 05/28/20 24 05/28/2024 ELECT ROLYT E PANEL sodium 142 mmol/ L 133-14 5 Not Available [facility] (Direct Fax All) Any [facility], [place], [address], 05/28/2024 08:15:08 05/28/20 24 05/28/2024 ELECT ROLYT E PANEL potassium 4.4 mmol/ L 3.5-5. 5 Not Available [facility] Any [facility], [place], [address], 05/28/2024 08:15:08 05/28/20 24 05/28/2024 ELECT ROLYT E PANEL chloride 111 mmol/ L 96-110 high Not Available [facility] (Direct Fax All) Any [facility], [place], [address], 05/28/2024 08:15:08 05/28/20 24 05/28/2024 ELECT ROLYT E PANEL CO2 26 mmol/ L 21-32 Not Available [facility] (Direct Fax All) Any [facility], [place], [address], 05/28/2024 08:15:08 05/28/20 24 05/28/2024 ELECT ROLYT E PANEL anion gap 5 3-11 Not Available [facility] (Direct Fax All) Any [facility], [place], [address], 05/28/2024 08:15:08 05/28/20 24 05/28/2024 ELECT ROLYT E PANEL note See Report [facility] [place] r, [address] t, [place], [facility] [place] [phone] Not Available [facility] (Direct Fax All) Any [facility], [place], [address], 05/28/2024 08:15:08 05/28/20 24 05/28/2024 CREAT ININE creatinine 1.38 mg/dL 0.70-1 .30 high Not Available [facility] (Direct Fax All) Any [facility], [place], [address], 05/28/2024 08:15:10 05/28/20 24 05/28/2024 CREAT ININE eGFR 53 mL/mi n/1.7 3m2 >=60 low Calcu latio n based on the?C hroni c Kidne y Disea se Epide miolo gy Colla borat ion (CKD- EPI) equat ion refit ?with out adjus tment for race. Not Available [facility] (Direct Fax All) Any [facility], [place], [address], 05/28/2024 08:15:10 05/28/20 24 05/28/2024 CREAT ININE note See Report [facility] Elsie r, [address], [place], [place] [address] Not Available [facility] (Direct Fax All) Any [facility], [place], [address], 05/28/2024 08:15:10 05/09/20 24 05/09/2024 XR, chest [...] acute cardio pulmon ailin diseas e. WSN: [id number] Orderi ng Physic ernesto: Jason Solis Dictat ed By: Zee Bradford MD Dictat ed Date/T simon: 11:06 a Review ed By: Zee Bradford MD Signed By: Zee Bradford MD Signed Date/T simon: 11:06 am Transc ribed By: MAGY Transc ribed Date/T simon: 11:06 am Patien t Class: Outpat ient [facility] (Outpt Imaging) [address] , [place], [address], 05/14/2024 15:06:42 05/28/2005/28/2024 op note No observ ation record ed. [facility] ([facility] Central Scheduling) Any [facility], [place], [address], 05/28/2024 10:11:14 07/16/20 24 07/16/2024 CT chest ldct lung progr am CT Chest LDCT Lung Progra m INDICA TION: Reason : Other: ; LDCT LUNG CANCER SCREEN ING ENRICO BROWN SMOKER , 42 PACK YEAR HX; Clinic al Questi on(s): Other: ; Specia l Instru ctions : BOOK AT [address] [facility], [place], [place] BOOK AFTER 07 14 2024 NO [...] signif icant incide ntal findin gs. WSN: [id number] Orderi ng Physic ernesto: Jason Solis Dictat ed By: Diann Stafford MD Dictat ed Date/T simon: 4:27 pm Review ed By: Diann Stafford MD Signed By: Diann Stafford MD Signed Date/T simon: 4:27 pm Transc ribed By: KENDALLB Transc ribed Date/T simon: 4:17 pm Patien t [facility] [address] [place] [address], [address], 07/31/2024 13:58:27 07/16/20 24 07/16/2024 CT chest ldct lung progr am A D D E N D U M as of: [id number] CTDIvo l Body 2.6 mGy DLP Body: 101.1m Gy*cm WSN: [id number] Orderi ng Physic ernesto: Jason Solis Dictat ed By: Diann Stafford MD Dictat ed Date/T simon: 4:36 pm Review ed By: Diann Stafford MD Signed By: Diann Stafford MD Signed Date/T simon: 4:36 pm Transc ribed By: MAGY Transc ribed Date/T simon: 4:[address] Chest LDCT Lung Progra m INDICA TION: Reason : Other: ; LDCT LUNG CANCER SCREEN ING PROGRA M CURREN T SMOKER , 42 PACK YEAR HX; Clinic al Questi on(s): Other: ; Specia l Instru ctions : BOOK AT [address] [place] [address], [place], [place] BOOK AFTER 07 14 2024 NO [...] signif icant incide ntal findin gs. WSN: [id number] Orderi ng Physic ernesto: Jason Solis ie Dictat ed By: Diann Stafford MD Dictat ed Date/T simon: 4:27 pm Review ed By: Diann Stafford MD Signed By: Diann Stafford MD Signed Date/T simon: 4:27 pm Transc ribed By: MAGY Transc ribed Date/T simon: 4:17 pm Patien t Class: Outpat ient [facility] (Outpt Imaging) [address] [place], [address], 07/17/2024 14:02:34 07/23/20 24 07/16/2024 LDCT, chest , for lung fang augustine No observ ation record ed. dm [facility] Information Management [address] [facility], [place], [address], 08/07/2024 10:43:35 Result Notes None recorded. Problems [...] 09/26/19 13 2:16PM BY SONAL MUELLER MA, JOHNATI ON/ADDEN DUM JULIANNE Ordonez, [facility] 7 14:40:36 Arthropa thy of knee joint [id number] Completed 201308/20/2016 IMPRESSI ON: INJECTIO NS FROM ORHTO IN THE PAST; RECORDED 01/10/20 14 8:38AM BY EDNA COX I, OFFICE VISIT Teri hawkins [facility] 7 15:01:59 Tobacco user [id number] Completed 201308/20/2016 RECORDED 01/10/20 14 8:38AM BY EDNA COX I, OFFICE VISIT KEITH GRANADO MD [address] [facility] [facility], [address], [place], [address] , [facility] [place] 5 13:36:19 History of clinical finding in subject [id number] Completed 201308/20/2016 RECORDED 09/29/19 14 9:22AM BY MEG ORDONEZ ON/JULIANNE Allen, [facility] 7 14:40:52 Elevated blood-pr essure reading without diagnosi s of hyperten saray [id number] Completed 201308/20/2016 IMPRESSI ON: STRESSED , RECHECK IN ONE MONTH; RECORDED 01/10/20 14 8:38AM BY EDNA COX I, OFFICE VISIT Teri hawkins, [facility] 7 15:01:50 Chronic obstruct yazmin pulmonar y disease 88035965 Active 2013 Odalis hawkins, [facility] 8 08:33:43 Diarrhea 25865256 Completed 200702/12/2014 IMPRESSI ON: FULL WORKUP WITH EGD, COLONOSC OPY, SMALL BOWEL LOOK, NO PATHOLOG Y, ON HIGH FIBERM POSSIBLE IRRITABL E BOWEL; RECORDED 07/09/20 08 9:37AM BY SONAL MUELLER MA, ANNOTATI ON/ADDEN DUM Not Available [facility] 4 15:15:18 Disorder of vein 93792286 Completed 201308/20/2016 IMPRESSI ON: OFF COUMADIN AND ON BABY ASA AND DOING WELL, KNOWS TO AVOID PRLONGED PERIOD SOF SITTING. ..; RECORDED 01/10/20 14 8:38AM BY EDNA COX I, OFFICE VISIT JULIANNE Ordonez, [facility] 7 14:41:01 Respirat ory finding [id number] Completed 201308/20/2016 IMPRESSI ON: CONCERN FOR DVT RIGHT LEG WITH PE GIVEN HE IS TACHYCAR DIC, TACHYPNE IC. AMBULANC E CALLED. NEEDS EITHER DOPPLER LEG OR CT. HIGH RISK CONDITIO N WITH THREAT TO LIFE; RECORDED 01/10/20 14 8:38AM BY EDNA COX I, OFFICE VISIT JULIANNE Ordonez, [facility] 7 14:40:57 Dysuria 29238708 Completed 201202/12/2014 RECORDED 09/20/19 13 8:51AM BY OLIMPIA GARCIA MA, ANNOTATI ON/ADDEN DUM Not Available [facility] 4 15:15:18 Prostate specific antigen above referenc e range 988234566 Active 2013 JULIANNE Ordonez, [facility] 3 13:57:16 Influenz a vaccine needed 56576735698 06 Completed 201202/12/2014 RECORDED 04/23/20 13 2:46PM BY LEATHA BUENO, OFFICE VISIT Not Available [facility] 4 15:15:18 Tobacco user 000578297 Completed 201302/12/2014 RECORDED 09/29/19 14 9:22AM BY JOHN ORDONEZATI ON/ADDEN DUM KEITH GRANADO MD [address] [facility], [address], [facility], [address] , [facility] 5 13:36:19 Adult health examinat ion Completed 201308/20/2016 IMPRESSI ON: PT IS DOING WELL, HE WILL INCREASE EXERCISE , HAS STAYED AWAY FROM SMOKING; RECORDED 09/29/19 14 1:30PM BY TERI Delgado MD, OFFICE VISIT JULIANNE Ordonez, [facility] 7 14:40:36 Hearing loss 71480268 Active 2013 JULIANNE Ordonez, [facility] 3 13:57:16 Pure hypercho lesterol emia 755822804 Completed 201102/12/2014 IMPRESSI ON: CHECK TODAY; RECORDED 02/29/20 12 8:00AM BY NAZ PAZ MA, MEG ON/ADDEN DUM Not Available [facility] 4 15:15:19 Follow-u p encounte r Completed 201202/12/2014 RECORDED 10/12/19 13 9:07AM BY OLIMPIA GARCIA MA, JOHNATI ON/ADDEN DUM Not Available [facility] 4 15:15:19 Knee pain Completed 201102/12/2014 IMPRESSI ON: CARTILAG E ISSUE, PT TO SET UP APPT WITH [facility]; RECORDED 02/29/20 12 8:00AM BY NAZ PAZ MA, ANNOTATI ON/ADDEN DUM Not Available [facility] 4 15:15:19 Cramp in limb 863346128 Completed 201202/12/2014 IMPRESSI ON: HYDRATE STRETCHA DN CHECK LYTES; RECORDED 09/26/19 13 2:17PM BY SONAL MUELLER MA, ANNOTATI ON/ADDEN DUM Not Available [facility] 4 15:15:19 Nonvenom ous insect bite of multiple sites 043229306 Completed 200702/12/2014 IMPRESSI ON: EDEMA, MILD PAIN, NO INFECTIO N, ICE, ELEVATE AND MOTRIN; RECORDED 07/09/20 08 9:37AM BY SONAL MUELLER MA, ANNOTATI ON/ADDEN DUM Not Available [facility] 4 15:15:19 Administ ration of viral vaccine Completed 201102/12/2014 DATE: 08/11/19 12; RECORDED 02/29/20 12 8:00AM BY NAZ PAZ MA, ANNOTATI ON/ADDEN DUM Not Available [facility] 4 15:15:19 Administ ration of bacteria l and viral vaccine Completed 201102/12/2014 RECORDED 07/29/19 12 10:31AM BY TERI Delgado MD, OFFICE VISIT Not Available [facility] 4 15:15:19 Abnormal findings on diagnost ic imaging of lung 296753185 Completed 201102/12/2014 IMPRESSI ON: CT OF CHEST [...] PAZ MA, ANNOTATI ON/ADDEN DUM Not Available [facility] 4 15:15:19 Disorder of oral soft tissues 42146110 Completed 201308/20/2016 IMPRESSI ON: SLIGHTLY RED AREA ON HARD PALATE ON THE LEFT. NO CLEAR ULCERATI ON OR MASS.; RECORDED 09/29/19 14 9:25AM BY LEATHA BUENO, OFFICE VISIT Teri hawkins [facility] 7 15:01:57 Onychia of finger 08452621 Completed 201308/20/2016 RECORDED 01/10/20 14 8:38AM BY EDNA COX I, OFFICE VISIT Teri augusteenzmatt hawkins [facility] 7 15:01:47 Paronych ia of finger 697474442 Completed 201308/20/2016 RECORDED 09/29/19 14 9:25AM BY LEATHA BUENO, OFFICE VISIT Terikarl LundyFede augusteenzmatt hawkins [facility] 7 15:02:02 Disorder of prostate 17183958 Completed 201301/17/2017 IMPRESSI ON: PSA WAS CHECKED 09/06 AND WAS 3.6, SOME VARIABIL ITY WITH THE LEVELS UROLOGY ESTELLE MOHAN, IN LIGHT OF PT IWTH A NEW DVT/PE I ASKED PT TO SEE UROLOGY AND JUST MAKE SURE THEY DID NOT SEE ANY OTHE NEED FOR WORKUP/C ONCERN FOR PROSTATE MALIGNAN CY. PT HD OTHER RISK FACTORS FOR HIS DVT/PE WITH AN ANKLE INJURY SO WAS LESS MOBILE THEN PLANE FLIGHT.; RECORDED 01/10/20 14 8:38AM BY EDNA COX I, OFFICE VISIT Terikarl LundyFede augusteenzmatt hawkins [facility] 7 10:05:28 Acute prostati tis 53812241 Completed 201202/12/2014 IMPRESSI ON: PROSTATI TIS WITH FEVER. WILL TREAT AN OUTPT BUT DISCUSSE D WITH PT THAT HE MAY NEED TO GO TO ER FOR IV ABX FOR THIS. HE UNDERSTA NDS. IF ANY WORSENIN G SXS, NOT IMPROVIN G WITH ABX, ETC. F/U WITH UROLOGY IN 1 WEEK.; RECORDED 09/20/19 13 8:52AM BY OLIMPIA GARCIA MA, ANNOTATI ON/ADDEN DUM Not Available [facility] 4 15:15:19 Pulmonar y embolism 15914692 Completed 201308/22/2017 Teri hawkins, [facility] 8 10:32:12 Screenin g for malignan t neoplasm of colon Completed 200702/12/2014 RECORDED 07/09/20 08 9:37AM BY SONAL MUELLER MA, JOHNATI ON/ADDEN DUM Not Available [facility] 4 15:15:19 Tobacco dependen ce syndrome 07002922 Completed 201202/12/2014 IMPRESSI ON: PT TO START WELLBUTR IN AGAIN, QUIT LAST ITME FOR 3 YEARS; RECORDED 09/26/19 13 2:19PM BY SONAL MUELLER MA, JOHNATI ON/ADDEN DUM Not Available [facility] 4 15:15:20 Umbilica l hernia 068654017 Active 2013 JULIANNE Ordonez, [facility] 3 13:57:16 Adult health examinat ion Completed 201203/04/2014 IMPRESSI ON: PT WANTS TO START EXERCISI USHA WOMACK ED HIM TO, NEEDS TO EAT HEALTHY, IN PAST HAD ONEELEVT E DPSA THEN RETURNED TO [place], THOUGHT DUE TO INFLAMMA TION RECHECK TODAY; RECORDED 09/26/19 13 2:16PM BY SONAL MUELLER MA, ANNOTATI ON/ADDEN DUM JULIANNE Ordonez, [facility] 7 14:40:36 Diarrhea 34116248 Completed 200703/04/2014 IMPRESSI ON: FULL WORKUP WITH EGD, COLONOSC OPY, SMALL BOWEL LOOK, NO PATHOLOG Y, ON HIGH FIBERM POSSIBLE IRRITABL E BOWEL; RECORDED 07/09/20 08 9:37AM BY SONAL MUELLER MA, ANNOTATI ON/ADDEN DUM Not Available [facility] 4 06:00:51 Dysuria 63458985 Completed 201203/04/2014 RECORDED 09/20/19 13 8:51AM BY OLIMPIA GARCIA MA, ANNOTATI ON/ADDEN DUM Not Available [facility] 4 06:00:51 Coag./bl eeding tests abnormal 160955766 Completed 201310/23/2024 next blod work check for clood agglutin in and hemolysi s, folate, vitamin b12 KEITH GRANADO MD [address] [facility], [address], [place], [address] , [facility] 5 13:36:39 Prostate specific antigen above referenc e range 326169903 Completed 201303/04/2014 IMPRESSI ON: PT TO SET UP APPT WITH DR KEYES FOR ANNUAL EVAL, NL EXAM HERE TODAY WILL LET HIM GET PSA; RECORDED 01/10/20 14 8:38AM BY EDNA COX I, ANNOTATI ON/ADDEN DUM Odalis hawkins, [facility] 8 08:33:53 Influenz a vaccine needed 27768088167 06 Completed 201203/04/2014 RECORDED 04/23/20 13 2:46PM BY LEATHA BUENO, OFFICE VISIT Not Available [facility] 4 06:00:51 Pure hypercho lesterol emia 040845727 Completed 201103/04/2014 IMPRESSI ON: CHECK TODAY; RECORDED 02/29/20 12 8:00AM BY NAZ PAZ MA, ANNOTATI ON/ADDEN DUM Not Available [facility] 4 06:00:51 History of pulmonar y embolus 275906128 Active 2013 JULIANNE Ordonez, [facility] 3 13:57:16 Follow-u p encounte r Completed 201203/04/2014 RECORDED 10/12/19 13 9:07AM BY OLIMPIA GARCIA MA, ANNOTATI ON/ADDEN DUM Not Available [facility] 4 06:00:51 Knee pain Completed 201103/04/2014 IMPRESSI ON: CARTILAG E ISSUE, PT TO SET UP APPT WITH [facility]; RECORDED 02/29/20 12 8:00AM BY NAZ PAZ MA, ANNOTATI ON/ADDEN DUM Not Available [facility] 4 06:00:51 Cramp in limb 350211669 Completed 201203/04/2014 IMPRESSI ON: HYDRATE STRETCHA DN CHECK LYTES; RECORDED 09/26/19 13 2:17PM BY SONAL MUELLER MA, ANNOTATI ON/ADDEN DUM Not Available [facility] 4 06:00:51 Nonvenom ous insect bite of multiple sites 946990464 Completed 200703/04/2014 IMPRESSI ON: EDEMA, MILD PAIN, NO INFECTIO N, ICE, ELEVATE AND MOTRIN; RECORDED 07/09/20 08 9:37AM BY SONAL MUELLER MA, JOHNATI ON/ADDEN DUM Not Available [facility] 4 06:00:51 Administ ration of viral vaccine Completed 201103/04/2014 DATE: 08/11/19 12; RECORDED 02/29/20 12 8:00AM BY NAZ PAZ MA, ANNOTATI ON/ADDEN DUM Not Available [facility] 4 06:00:51 Administ ration of bacteria l and viral vaccine Completed 201103/04/2014 RECORDED 07/29/19 12 10:31AM BY TERI Delgado MD, OFFICE VISIT Not Available [facility] 4 06:00:51 Abnormal findings on diagnost ic imaging of lung 832335214 Completed 201103/04/2014 IMPRESSI ON: CT OF CHEST [...] PAZ MA, ANNOTATI ON/ADDEN DUM Not Available [facility] 4 06:00:51 Disorder of oral soft tissues 84875658 Completed 201303/04/2014 IMPRESSI ON: SLIGHTLY RED AREA ON HARD PALATE ON THE LEFT. NO CLEAR ULCERATI ON OR MASS.; RECORDED 01/10/20 14 8:38AM BY JOHN FELDERATI ON/ADDEN DUM Teri LincolnJazmín augusteenzmatt hawkins, [facility] 7 15:01:57 [place] ht [id number] Completed 201303/04/2014 RECORDED 01/10/20 14 8:38AM BY EDNA COX I ANNOTATI ON/ADDEN DUM Rosa Rivas shruthi, [facility] 1 14:26:43 Acute prostati tis 79257157 Completed 201203/04/2014 IMPRESSI ON: PROSTATI TIS WITH FEVER. WILL TREAT AN OUTPT BUT DISCUSSE D WITH PT THAT HE MAY NEED TO GO TO ER FOR IV ABX FOR THIS. HE UNDERSTA NDS. IF ANY WORSENIN G SXS, NOT IMPROVIN G WITH ABX, ETC. F/U WITH UROLOGY IN 1 WEEK.; RECORDED 09/20/19 13 8:52AM BY OLIMPIA GARCIA MA, ANNOTATI ON/ADDEN DUM Not Available [facility] 4 06:00:51 Screenin g for malignan t neoplasm of colon Completed 200703/04/2014 RECORDED 07/09/20 08 9:37AM BY SONAL MUELLER MA, ANNOTATI ON/ADDEN DUM Not Available [facility] 4 06:00:51 Tobacco dependen ce syndrome 27174506 Completed 201203/04/2014 IMPRESSI ON: PT TO START WELLBUTR IN AGAIN, QUIT LAST ITME FOR 3 YEARS; RECORDED 09/26/19 13 2:19PM BY SONAL MUELLER MA, ANNOTATI ON/ADDEN DUM Not Available [facility] 4 06:00:51 Umbilica l hernia 185736053 Completed 201303/04/2014 IMPRESSI ON: NEW PROBLEM TO EXAMINER , PT TO SEE DR AMY Leo, HE WAS WARND TO GO TO THE ER IF ANY COLOR CAHNGE, INCREASE IN PAIN OF THE HERNIA.; RECORDED 01/10/20 14 8:38AM BY EDNA COX I ANNOTATI ON/ADDEN DUM Odalis hawkins [facility] 8 08:33:56 Acute otitis externa 72567542 Completed 08/20/2016 JULIANNE Ordonez [facility] 7 14:40:41 Conjunct ivitis 7630129 Completed 08/20/2016 JULIANNE Ordonez [facility] 7 14:41:08 Fatigue 14435113 Completed 08/20/2016 JULIANNE Ordonez [facility] 7 14:41:10 Cellulit is 593697957 Completed 08/20/2016 Teri Glading-Nisha hawkins [facility] 7 15:01:31 Increase d frequenc y of urinatio n 791540875 Completed 08/20/2016 JULIANNE Ordonez [facility] 7 14:40:29 Disorder of the urinary system 309308027 Completed 08/20/2016 Teri Glading-Di neal hawkins [facility] 7 15:01:28 Sleep apnea 91045413 Active JULIANNE Ordonez [facility] 3 13:57:16 Otalgia 87048788 Completed 08/20/2016 Teri Glading-Di neal shruthi [facility] 7 15:01:36 Multiple skin tags 088093901 Completed 08/20/2016 Teri Glading-Di neal shruthi [facility] 7 15:01:54 Advance directiv e discusse d with patient 168142018 Completed 201608/22/2017 Odalis hawkins [facility] 8 08:34:14 Parkinso n's disease 24169375 Completed 201805/04/2019 Teri hawkins, [facility] 9 11:10:37 History of right total knee replacem ent 58729123898 82607 Completed 201804/06/2023 KEITH GRANADO MD [address], [place], [address] , [facility] 3 13:13:11 Parkinso nis 19360792 Completed 201910/01/2020 KEITH GRANADO MD [address], [place], [address] , [facility] 3 13:15:27 Advance care planning Active 2020 JULIANNE Ordonez, [facility] 3 13:57:16 Steatosi s of liver 630129181 Active 2020 JULIANNE Ordonez, [facility] 3 13:57:16 Vertigo 016096319 Active 2020 JULIANNE Ordonez, [facility] 3 13:57:16 Serum creatini ne outside referenc e range 964593050 Completed 202003/26/2021 KEITH GRANADO MD [address], [place], [address] , [facility] 3 13:13:17 Type 2 diabetes mellitus without complica tion 343074252 Completed 202005/12/2021 JULIANNE Ordonez, [facility] 3 13:57:16 Serum creatini ne outside referenc e range 760366864 Completed 202004/06/2023 KEITH GRANADO MD [address], [place], [address] , [facility] 3 13:13:17 Tobacco user 955203860 Completed 201310/23/2024 KEITH GRANADO MD [address], [place], [address] , [facility] 5 13:36:19 [facility] 10[facility] Active 2019 KEITH GRANADO MD [address], [place], [address] , [facility] 3 13:15:27 Chronic kidney disease stage 3A 144799306 [facility] 2022 [facility] 3 12:48:08 Prediabe jody 797197988 Active 2022 KEITH GRANADO MD [address], [place], [address] , [facility] 3 21:01:56 Urethral strictur e 08643230 Active 2024 self-cat hs KEITH GRANADO MD [address], [place], [address] , [facility] 5 13:09:25 Benign prostati c hyperpla rafael 820874064 Active 2024 KEITH GRANADO MD [address], [place], [address] , [facility] 5 13:09:33 Ex-smoke r 2550465 Active 2024 KEITH GRANADO MD [address], [place], [address] , [facility] 5 13:36:32 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 Procedures Surgical History Date Name Laterality Status Provider Name and Address Organization Details Recorded Time 10/24/19 Advanced Care Planning completed KEITH GRANADO MD [address] [facility] [address], [place], [address], [facility] 10/22/2024 07:09:31 10/06/19 23 Colonoscopy completed Jessica Montiel [facility] 10/05/2022 10:02:30 10/03/19 22 Diabetic Foot Exam (Monofilament) completed Olimpia Garcia MA [facility] 10/02/2021 09:20:16 10/02/19 21 Six-Item Cognitive Test completed Leatha Bueno MA [facility] 10/01/2020 10:25:57 09/13/19 20 Mini-Cog Test completed Sonal riley MA [facility] 09/13/2019 13:18:51 12/13/19 19 total knee replacement completed Chelle Yu [facility] 01/02/2019 16:23:22 09/08/19 19 Mini-Cog Test completed Leatha Bueno MA [facility] 09/08/2018 08:56:18 08/22/19 18 Fall Risk Assessment completed Leatha Bueno MA [facility] 08/22/2017 10:02:46 08/22/19 18 Mini-Cog Test completed Leatha Bueno MA [facility] 08/22/2017 10:02:23 08/20/19 17 Fall Risk Assessment completed Leatha Bueno MA [facility] 08/20/2016 14:45:19 08/20/19 17 Mini-Cog Test completed Leatha Bueno MA [facility] 08/20/2016 14:44:17 08/20/19 17 Advanced Care Planning completed Teri guevara [facility] 08/20/2016 15:00:56 10/01/19 15 Fall Risk Assessment completed Leatha Bueno MA [facility] 09/30/2014 10:08:54 10/01/19 15 Mini-Cog Test completed Leatha Bueno MA [facility] 09/30/2014 09:58:57 Imaging Results Imaging Date Name Status LastModified by Organiz ation Details LastModified Time 05/09/2024 XR, chest, 2 view completed [facility] (Outpt Imaging) [address] [place], [address], 05/14/2024 15:06:42 05/28/2024 op note completed [email or web address] [place] [address] ( [facility] Central Scheduling) Any [place] [facility], [place], [address], 05/28/2024 10:11:14 07/16/2024 CT chest ldct lung program completed [facility] (Outpt Imaging) [address] [place], [address], 07/31/2024 13:58:27 07/16/2024 CT chest ldct lung program completed [address] (Outpt Imaging) [address] [place], [address], 07/17/2024 14:02:34 07/16/2024 LDCT, chest, for lung cancer screening completed [facility] - Health Information Management [address] [facility], [place], [address], 08/07/2024 10:43:35 Procedure Notes None recorded. 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 Agency Serial Number Lot Number Status Provider Name and Address Organization Details Recorded Time Cardiac pacemaker FDA Y [facility] 05/04/2024 08:24:38 Allergies Allergen ID Allergen Name Allergen Category Reaction Reaction Severity Criticality Documentation Date Start Date Code Code System Note Provider Name and Address Organization Details Recorded Time 72619 Iodinated contrast media (substanc e) medicatio n Not available Not available Not available 02/05/20142013 04567 2003 SNOMED cause d redne ss Not Available [facility] 2 16:57:12 94104 iodine medicatio n Not available Not available Not available 12/25/20202020 5933 RxNorm KEITH GRANADO MD [address] [facility] [address], [facility] [place], [address] , [facility] 13:07:49 Medications Name Sig Start Date Stop Date [...] TIMES PER DAY NEEDED FOR 90 DAYs 2024 active Not Available Not Available Not Avai lable betametha sone valerate 0.1 % topical cream [...] Not Available lidocaine 5 % topical patch 10/23 completed Not Available Not Available Not Available polymyxin [...] Take 1 {tbl} by oral route. active on hold Not Available Not Available [...] Take 1 {tbl} by oral route. active QID Not Available Not Available No t Available clotrimaz ole 1 % topical cream Apply 1 applicat ion every 12 hours by topical route for 10 days. 10/23 completed Not Available Not Available Not Available sertralin e 50 mg tablet Take 1 tablet every day by oral route for 60 days. 10/22 completed 01/19/24 ON HOLD Not Available Not Available [...] 6 hours by oral route as needed. 10/23 completed Not Available Not Available Not Available modafinil 100 mg tablet Take 1 [...] completed Not Available Not Available Not Available [place] 3 DAILY 01/17 completed Not Available Not Available Not Available vitamin Q19-gmhzp acid 1 po qd 10/07 completed Not [...] completed Not Available Not Available Not Available Eliquis 5 mg tablet Take 1 tablet twice a day by oral route. active Not Available Not Available No t Available Eliquis 2.5 mg tablet Take 1 tablet twice a day by oral route. 01/05 completed Not Available Not Available Not Available Fioricet 50 mg-300 mg-40 mg capsule Take 1 capsule every day by oral route as needed for 10 days. 2024 active no refills Not Available Not Available Not Available Spiriva [...] Available Not Available No t Available Fluvirin 2140-9191 (PF) 45 mcg (15 mcg x 3)/0.5 [...] Updated DateTime 4 176.53 cm 32.2 kg/m2 383571. 91 g 90 /min 95 % 95 % 100 [degF] 142 mm[Hg] 79 mm[Hg] Arin Tiwari MA [facility] 13:31:42 Date Recorded Systolic blood pressure Diastolic blood pressure Provider Name and Address Organization Details Last Updated DateTime 10/14/2023 140 mm[Hg] 80 mm[Hg] KEITH GRANADO MD [address] [address], [place], [address], [facility] 10/14/2023 13:59:35 Date Recorded Body height Body mass index (BMI) Body weight Heart rate Oxygen saturation Oxygen saturation in Arterial blood by Pulse oximetry Body temperature Systolic blood pressure Diastolic blood pressure Provider Name and Address Organization Details Last Updated DateTime 4 176.53 cm 32.2 kg/m2 864847. 91 g 100 /min 95 % 95 % 98.7 [degF] 105 mm[Hg] 66 mm[Hg] Tabatha Munson [facility] 4 09:16:44 Date Recorded Body height Body mass index (BMI) Body weight Heart rate Oxygen saturation Oxygen saturation in Arterial blood by Pulse oximetry Body temperature Systolic blood pressure Diastolic blood pressure Provider Name and Address Organization Details Last Updated DateTime 4 176.53 cm 32 kg/m2 40460.3 2 g 79 /min 96 % 96 % 98.4 [degF] 126 mm[Hg] 72 mm[Hg] [facility] 4 11:07:14 Date Recorded Body height Body mass index (BMI) Body weight Oxygen saturation Oxygen saturation in Arterial blood by Pulse oximetry Heart rate Body temperature Systolic blood pressure Diastolic blood pressure Provider Name and Address Organization Details Last Updated DateTime 5 176.53 cm 33.5 kg/m2 592663. 65 g 97 % 97 % 87 /min 98.4 [degF] 128 mm[Hg] 71 mm[Hg] Leatha Bueno MA [facility] 5 12:57:35 Social History Question Answer Notes LastModified by Organizat ion Details LastModified Time Tobacco Smoking Status Former Smoker Naz hawkins [facility] 04/22/2014 11:01:44 Do You Have An Advance Directive? No Information not available 09/28/2021 What Is Your Level Of Alcohol Consumption? Moderate [email or web address] Information not available 10/01/2020 Is Blood Transfusion Acceptable In An Emergency? Yes [email or web address] Information not available 10/01/2020 What Is Your Level Of Caffeine Consumption? Moderate 1 Cup Of Coffee Daily Information not available 09/13/2019 How Much Tobacco Do You Chew? None Information not available 09/13/2019 Are You Currently Employed? No Retired Information not available 09/13/2019 What Type Of Diet Are You Following? REGULAR [email or web address] Information not available 09/30/2014 Which Illicit Or Recreational Drugs Have You Used? Cannabis Information not available 09/13/2019 Do You Or Have You Ever Used E-cigarettes Or Vape? 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 6-10yearssinc [email or web address] Information not available 10/01/2020 Live Alone Or With Others? With Others (Olga) Information not available 09/28/2021 Do You Take Precautions To Prevent Distracted Driving? Yes [email or web address] Information not available 10/01/2020 How Often Do You Need To Have Someone Help You When You Read Instructions, Pamphlets, Or Other Written Material From Your Doctor Or Pharmacy? Sometimes [email or web address] Information not available 10/01/2020 Have You Served In The ? Yes [employer] [email or web address] Information not available 10/01/2020 Have You Or [...] OUD But Is Possibly At Risk. No [email or web address] Information not available 10/01/2020 Have You Recently Traveled To A COVID-19 High Risk Area Or Gathering In The Last 10 Days? No [email or web address] Information not available 10/01/2020 What Was The Date Of Your Most Recent Tobacco Screening? 10/23/2024 [email or web address] Information not available 10/23/2024 How Many Children Do You Have? 3 Information not available 09/13/2019 What Is Your Current Pack Years? 30ormorepacky ears [email or web address] Information not available 10/23/2024 Do You Use Protection During Sex? Always [email or web address] Information not available 10/01/2020 Seat Belts Used Routinely Yes Information not available 09/28/2021 Are You Sexually Active? Yes Information not available 10/01/2020 Smoke Alarm In Home Yes Information not available 09/28/2021 At What Age Did You Start Smoking Tobacco? 32 [email or web address] Information not available 10/01/2020 Are You Passively Exposed To Smoke? No [email or web address] Information not available 10/01/2020 Do You Or Have You Ever Used Smokeless Tobacco? Never Used Smokeless Tobacco [email or web address] Information not available 05/21/2020 How Much Tobacco Do You Smoke? 1.5 PPD Information not available 09/28/2021 General Stress Level Medium Information not available 09/28/2021 Do You Use Any Illicit Or Recreational Drugs? No Information not available 10/02/2021 Do You Use Sunscreen Routinely? Yes [email or web address] Information not available 09/30/2014 How Many Years Have You Smoked Tobacco? 30 Information not available 10/01/2020 Do You Or Have You Ever Used Any Other Forms Of Tobacco Or Nicotine? No Information not available 10/02/2021 Sex: Unknown Functional Status Question Answer Note LastModified by Organizat ion Details LastModified Time Are you able to walk? YESASSIST cane 90 percent of the time [email or web address] Information not available 10/07/2022 Are you able to care for yourself? Yes [email or web address] Information not available 09/30/2014 What is your exercise level? Occasional [email or web address] Information not available 10/01/2020 Mental Status None recorded. Family History Relationship Description Onset Age of this Age Resolved Age Notes LastModified by Organization Details LastModified Time Mother Cerebrovascu lar accident [email or web address] Not available 09:55:39 Mother Dementia 97 [email or web address] Not available 09/13/2019 13:10:22 Father Heart disease [email or web address] Not available 09/30 09:55:39 Notes:No FH of colon or wilfrido st Medical History Condition Response Other N Gout N Kidney Stones N Blood Diseases N Hyperthyroidism N Breast Cancer N Depression N COPD Y Lung Disease N Hypothyroidism N Defects or Inherited Disease N Anesthesia Complications N Headaches/Migraines N Varicose Veins N Anxiety Disorder N Obesity N Vision or Eye Problems N Arthritis N Head Injury/Concussion N Polyps N Infertility N Congenital Anomalies N Acid Reflux (GERD) N Cancer N Stroke N ADHD N Endometriosis N High Cholesterol N Liver Disease N Fibromyalgia N Kidney Disease N Heart Problems N Ear or Hearing Problems Y Hospitalizations N Thyroid Problems N GI Problems N Acne N Eating Disorder N Skin Problems N Anemia N Constipation N Bladder Problems N Mental Illness N Ovarian Cancer N Diabetes N Blood Transfusions N Seizures/Epilepsy N Tuberculosis Y AIDS/HIV N Congestive Heart Failure (CHF) N Eczema N Diverticulitis N Abuse/Domestic Violence N Asthma N Allergies N Reflux/GERD N Hepatitis N Pulmonary Embolism Y Hypertension N Chicken Pox Y Autism Spectrum Disorder (ASD) N Osteoporosis N Immunizations Vaccine Type Date Status Note Provider Nam e and Address Organization Details Recorded Time Influenza, split virus, quadrivalent, preservative 6 completed JULIANNE Lovett [facility] 05/24/2016 13:17:04 COVID-19, mRNA, LNP-S, PF, 30 mcg/0.3 mL dose 1 completed JULIANNE Ordonez [facility] 10/07/2022 14:03:59 COVID-19, mRNA, LNP-S, PF, 30 mcg/0.3 mL dose 1 completed JULIANNE Ordonez [facility] 10/07/2022 14:03:59 Influenza, high-dose, trivalent, PF 9 completed JULIANNE Ordonez [facility] 10/07/2022 14:04:00 Influenza, high-dose, trivalent, PF 7 completed JULIANNE Ordonez [facility] 10/07/2022 14:04:00 Pneumococcal conjugate PCV 13 5 completed Leatha Bueno JULIANNE hawkins, [facility] 10/07/2022 14:04:00 Influenza, split virus, trivalent, PF 4 completed Leatha Bueno JULIANNE null, [facility] 10/07/2022 14:04:00 Pneumococcal conjugate PCV 13 0 completed Leatha Bueno JULIANNE null, [facility] 10/07/2022 14:04:00 Influenza, high-dose, trivalent, PF 8 completed Leatha Bueno JULIANNE shruthi, [facility] 10/07/2022 14:04:00 Influenza, high-dose, quadrivalent, PF 1 completed Leatha Bueno JULIANNE shruthi, [facility] 10/07/2022 13:57:41 COVID-19, mRNA, LNP-S, PF, 30 mcg/0.3 mL dose 1 completed Leatha Bueno JULIANNE shruthi, [facility] 10/07/2022 13:57:41 Tdap 1 completed Leatha Bueno JULIANNE shruthi, [facility] 10/07/2022 13:57:41 zoster recombinant 2 completed Leatha Bueno JULIANNE shruthi, [facility] 10/07/2022 13:57:41 zoster recombinant 2 completed Leathaezekiel Bueno JULIANNE hawkins, [facility] 10/07/2022 13:57:41 Influenza, high-dose, quadrivalent, PF 0 completed Leatha Bueno JULIANNE hawkins, [facility] 10/07/2022 14:03:59 COVID-19, mRNA, LNP-S, bivalent, PF, 30 mcg/0.3 mL dose 2 completed Leatha Bueno JULIANNE shruthi, [facility] 10/07/2022 14:04:00 RSV, recombinant, protein subunit RSVpreF, adjuvant reconstituted, 0.5 mL, PF 3 completed JULIANNE Gallo [facility] 01/19/2024 09:05:29 COVID-19, mRNA, LNP-S, PF, 50 mcg/0.5 mL 3 completed JULIANNE Gallo [facility] 01/19/2024 09:05:29 COVID-19, mRNA, LNP-S, PF, hai-sucrose, 30 mcg/0.3 mL 4 completed JULIANNE Ordonez [facility] 10/23/2024 12:51:26 Influenza, high-dose, trivalent, PF 4 completed JULIANNE Ordonez [facility] 10/23/2024 12:51:26 Influenza, high-dose, quadrivalent, PF 2 completed Marisa hawkins [facility] 04/21/2022 00:41:42 Td (adult), 2 Lf tetanus toxoid, preservative free, adsorbed 4 completed JULIANNE Ordonez [facility] 10/07/2022 14:04:00 Influenza, split virus, trivalent, preservative 2 completed Not Available [facility] 02/05/2014 13:23:48 Tdap 2 completed Not Available [facility] 02/05/2014 13:23:48 zoster live 2 completed Not Available [facility] 02/05/2014 13:23:48 pneumococcal polysaccharide PPV23 3 completed JULIANNE Ordonez [facility] 10/07/2022 14:04:00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 to urinate- pt would to follow-up with Dr. Keyes for this new problem [id number] KEITH GRANADO MD Main Office [address] [place] [address] [place] [address] 09/23/2023 08:37:49 09/23/2023 17:16:23 [id number] KEITH GRANADO MD Main Office [address] [place] [address] 10/14/2023 13:23:04 10/14/2023 14:04:38 Adult health examination 654784054 Z00.00 Health Maintenanc e Lulú) Patient was [...] acute complaints Chronic ob structive pulmonary disease 06093427 J44.9 - under good control- pt has stopped smoking about 10 years ago- c/w respirmat 2puff QD- started on daliresp -> pt is not tolerating well, having a lot diarrhea- follows with pulm, last seen on 04/19/23 -> no change in regimen Steatosis of liver 1007 K76.0 - resolved- ALT-28// T- checked 04/16 Parkinsonism 28251353 G2 0.A1 - pt follows with neurology, last seen on 05/12/23 -> no change in regimen- c/w carbidopa 25mg-levod opa 100mg TID Hyperlipidemia 01016676 E78.5 Z00.00 - at goal- lipid panel [...] fruits and veggies. History of pulmonary embolus 398469286 Z86.711 - and DVT (2X)- CHADVASC2 score: 4= 4.8% stroke risk per year- HASBLEED score: 1= low risk of major bleeding- risk of being off anticoagul ation does not out-weight benefit will continue- counselled on bleeding risks- c/w Eliquis 5mg BID Hypertensi ve renal disease 71986325 I12.9 - elevated today- BP today 142/79 [...] with your vision. Cramp in lower limb 6299 94919 R25.2 - will use tizanidine 4mg as needed Benign pro static hyperplasia 983422095 N40.1 - pt mentions his urinary stream is reduced and he does wake up at night to urinate- pt would to follow-up with Dr. Keyes for this new problem Administra tion of pneumococcal vaccine 20109655 Z23 - pt will like to have it done in 6 months Chronic ki dney disease stage 2 636205451 N18.2 - creatine 1.3, GFR 60, stable- counselled on staying hydrated and avoiding NSAIDS- follows with nephrology , last seen on 05/11/2022 Prediabetes 522493598 R7 3.03 - HbA1c is 6.1 done on 04/16 (worse form last year, 5.9) Ex-smoker 4369080 Z87.89 1 - pack years: 55- quit smokin Dysfunctio n of eustachian tube 82897454 H69.93 Headache 54673369 R51.9 Cardiac pa marge in situ 405033269 Z95.0 - [employer] Transition from acute care to self-care 1077124457 75916 Z76.89 - reviewed hospital stay Dizziness 690487320 R42 - improved after placing pace maker [id number] KEITH GRANADO MD Main Office [address] [facility] [address] [place] [address] 10/12/2023 08:36:02 10/12/2023 14:05:34 [id number] KEITH GRANADO MD Main Office [address] [facility] [address] [place] [address] 01/19/2024 08:56:32 01/19/2024 09:29:20 Chronic kidney disease stage 2 437579648 N18.2 - creatine 1.3, GFR 60, stable- counselled on staying hydrated and avoiding NSAIDS- follows with nephrology , last seen on 05/11/2022 Hypertensi ve renal disease 19322313 I12.9 - at goal- BP today 105/66- [...] with your vision. Cramp in lower limb 3869 74584 R25.2 - will use tizanidine 4mg as needed Itching of ear 420410592 L29.8 - pt wanted to switch from dermotic to another solution [id number] KEITH GRANADO MD Main Office [address] [facility] [address] [place] [address] 04/17/2024 10:36:19 04/17/2024 11:31:05 Chronic kidney disease stage 3A 575002809 N18.31 - creatine 1.3 with FGR of 60- pt does follow with a nephrologi st- pt advised to stay hydrated and avoid NSAIDs Chronic ob structive pulmonary disease 76534371 J44.9 - under good control- pt has stopped smoking about 10 years ago- c/w respirmat 2puff QD- c/w roflumilas t 250mg QD- follows with pulm, last seen on 02/21/2024 -> no change in regimen Parkinsonism 29293301 G2 0.A1 - pt follows with neurology, last seen on 05/12/23 -> no change in regimen- c/w carbidopa 25mg-levod opa 100mg TID Prediabetes 896457527 R7 3.03 - HbA1c is 6.1 done on 04/16 (worse form last year, 5.9)- ordered repeat levels Influenza vaccine needed 4757219268 106 Z23 Will is scheduled flu shot on 04/18/24 at pharmacy Lumbar radiculopathy 128 670682 M54.16 - has been on-going for several years, pt is following with pain management getting infections - pt would like to consider surgery- pt would like to stop tizanidine as it is not providing too much relief- as patient would like surgery would updated MRI lumbar spine and will refer to neurosurge ry Fatigue 01936287 R53.83 Z00.00 Hyperlipidemia 83317444 E78.5 Z00.00 FASTING [id number] KEITH GRANADO MD Main Office [address] [facility] [address] [place] [address] 10/23/2024 12:45:00 10/23/2024 13:31:24 Advance directive discussed with patient 306975301 Z71.89 - discussed POLTS and HCP Chronic ki dney disease stage 3A 067315710 N18.31 - creatine 1.38 with GFR of 53- pt does follow with a nephrologi st- pt advised to stay hydrated and avoid NSAIDs Chronic ob structive pulmonary disease 69603495 J44.9 - under good control- pt has stopped smoking about 10 years ago- c/w respirmat 2puff QD- c/w roflumilas t 250mg QD- follows with pulm, last seen on 08/17/2024 -> no change in regimen Hearing loss 53188942 H9 0.3 - wears hearing aids intermitte ntly Parkinsonism 27240937 G2 0.A1 - pt follows with neurology, last seen on 05/14/2024 -> no change in regimen- c/w carbidopa 25mg-levod opa 100mg TID History of pulmonary embolus 453052727 Z86.711 - and DVT (2X)- CHADVASC2 score: 4= 4.8% stroke risk per year- HASBLEED score: 1= low risk of major bleeding- risk of being off anticoagul ation does not out-weight benefit will continue- counselled on bleeding risks- c/w Eliquis 5mg BID Prediabetes 814549716 R7 3.03 - HbA1c is 6.1 done on 04/16 (worse form last year, 5.9)- ordered repeat levels Sleep apnea 90268485 G47 .30 - using cpap Steatosis of liver 1007 K76.0 - resolved- ALT-28// T-26 checked 04/16 Adult [facility] examination 425837648 Z00.00 Health Maintenanc e Lulú) Patient was counseled on healthy diet, exercise and nutrition due to BMI of 33.5 B) Screening: Last PSADate: 04/18/2023R esult: 2.4Next: no longer needed (due to age) Last Colonoscop y: start at age 45-65Date: 10/05/2022R esult: several polyps, will get path resultsNex t: 3 years AAA: US done on 03/2023 was normal Low dose CT canDate: 07/16/2024 Result: stable, LUNG-RAD-2 Next: 1 year C) Vaccines:I nfluenza: 05/09/2024 TdAP: 07/15/2021 Zoster: 01/21/2022, 2PC V13: 10/02/2014, 09/13/2019P PSV23: 10/06/2012C OVID: 09/27/2020, 10/18/2020, 05/07/2021 , 04/14/2022, 04/29/2023, 05/09/2024 RSV: 06/09/2023 D) Routine blood work performedE ) Updated patient's history RTC in one year for annual exam or sooner if any acute complaints Lumbar radiculopathy 128 768014 M54.16 - has been on-going for several years, pt is following with pain management getting infections - pt would like to consider surgery- pt would like to stop tizanidine as it is not providing too much relief- as patient would like surgery would updated MRI lumbar spine and will refer to neurosurge ry Fatigue 80422865 R53.83 Z00.00 Hyperlipidemia 75080530 E78.5 Z00.00 Ex-smoker 2694863 Z87.89 1 - pack years: 55- quit smokin Hypertensi ve renal disease 57468031 I12.9 - at goal- BP today 128/71- c/w amlodipine 2.5mg QD- RTC in 6 months Pt counselled on:-Dietar y Approaches to Stop [...] with your vision. Cramp in lower limb 2849 51520 R25.2 - will use tizanidine 4mg as needed Benign pro static hyperplasia 492297473 N40.1 - pt mentions his urinary stream is reduced and he does wake up at night to urinate- pt would to follow-up with Dr. Keyes for this new problem Dysfunctio n of eustachian tube 01892397 H69.93 Headache 00977068 R51.9 Cardiac pa marge in situ 786373938 Z95.0 - [employer] Vitamin D deficiency 347 56792 E55.9 - vitamin D 19 Body mass index 30+ - obesity 390391678 E66.9 Z68.33 - BMI of 33.5- Cut down on (limit) fast foods, sweets, and processed snack foods. - Limit alcohol intake to no more than 1- 2 drinks a day for men. One drink equals 12 oz of beer, 5 oz of wine, or 1 oz of hard liquor. - Keep a weight loss journal and keep track of the food and portions that you eat. - The exercise that you do- 4 times a week or 150 minutes cumulative of moderate exercise recommende d. Health Concerns Section Related Observation LastModified by Organization Detai ls LastModified Time None Recorded Concern Status LastModified by Organization Details LastModified Time None Recorded Advance Directives Directive N: Payers Encounter Date Sequence Insurance Name Policy Number Policy Sidhu Covered Member ID Sidhu Member ID Guarantor Name 10/12/2023 2 WPS - FOR LIFE (MEDICARE SUPPLEMENT) Seamus Castaneda [id number] Seamus Castaneda 10/12/2023 1 [place] [employer] Seamus Castaneda [id number] Seamus Castaneda 10/14/2023 2 WPS - FOR LIFE (MEDICARE SUPPLEMENT) Seamus Castaneda [id number] Seamus Castaneda 10/14/2023 1 [place] [employer] Seamus Castaneda [id number] Seamus Castaneda 01/19/2024 2 WPS - FOR LIFE (MEDICARE SUPPLEMENT) Seamus Castaneda [id number] Seamus Castaneda 01/19/2024 1 [place] [employer] Seamus Castaneda [id number] Seamus Castaneda 04/17/2024 2 WPS - FOR LIFE (MEDICARE SUPPLEMENT) Seamus Castaneda [id number] Seamus Castaneda 04/17/2024 1 [place] Seamus Castaneda [id number] Seamus Castaneda 10/23/2024 2 WPS - FOR LIFE (MEDICARE SUPPLEMENT) Seamus Castaneda [id number] Seamus Castaneda 10/23/2024 1 [place] Seamus Castaneda [id number] Seamus Castaneda Notes Date Note Type Note Provider Name and Address Organization Details Recorded Time 10/12/2023 text/html Hospitalization Contact RecordReported bypatient.Follow UpHospital: [facility]; admit date: (Please enter in format [...] 2 weeks. MEDS RECONCILED KEITH GRANADO MD [address] [facility] [address], [place], [address], [facility] 10/12/2023 14:05:31 10/14/2023 text/html Hospitalization Contact RecordReported bypatient.Follow UpHospital: [facility]; admit date: (Please enter in format 'MM/DD/YYYY') (09/20/2023); date of discharge: (Please enter in format 'MM/DD/YYYY') (09/22/2023); date of contact: (Please enter in format 'MM/DD/YYYY') (09/23/2023)Notes:Medic are covered inpatient stay? yesMedicare DELLA with in 48 working hours? yesHigh Complexity code valid on or before:SeptemberModerate Complexity code valid on or before:SeptemberHCP on file? noMOLST on file? noDischarge Summary available? yesPt presented to [facility] after experiencing a near syncopal [...] RBBB with LBBB.Pt was therefore transferred to [facility] for transvenous pacing which was successfully placed medical appliance maker on 09/21/23, however pt was having intermittent [...] RESTART Tuesday09/25/2023FOLLOW UP IN EP CLINIC AT [facility] ON 10/06/2023 AT 10:30 AM MEDS [...] Directive: none on file KEITH GRANADO MD [address], [address], [facility] 10/14/2023 16:18:29 01/19/2024 text/html Hypertension F/UReported bypatient.Associated [...] at this time. KEITH GRANADO MD [address], [address], [facility] 01/19/2024 09:30:29 04/17/2024 text/html Back PainReporte d [...] at this time. KEITH GRANADO MD [address], [address], [facility] 04/17/2024 11:49:27 10/23/2024 text/html Medicare Annual Wellness VisitReported bypatient.Diet and Nutrition:healthy diet; discussed vitamin and supplement use; vitamin D Fracture Risk:no history of fractures Physical Activity:recent [...] bathroom/shower; good lighting in the home Medicare jordynSeamus Castaneda is a 78 year old F who presents to complete their Annual Wellness Visit. Visit Type: Annual How would you rate your health? Fair Have you been discharged from the hospital recently? NoHave you been to the emergency room or urgent care recently? NoDo you have any significant previous hospital stays, injuries, or treatment? No Recently had a procedure with urology due to urethral stricture. Had a dilation. Home Safety:Is the tub or shower floor [...] Directive: none on file KEITH GRANADO MD [address] [address], [place], [address], [facility] 10/23/2024 13:37:43
== END 2024-10-31 09:49 | disposition home or self-care (01) ==
LOC: HO.PMC 09:34
PROVIDERS: PCP Internal Medicine; Visit Provider Internal Medicine
DX: M54.50 Low back pain, unspecified (principal); G89.29 Other chronic pain; M47.816 Spondylosis without myelopathy or radiculopathy, lumbar region; M16.0 Bilateral primary osteoarthritis of hip
CPT/HCPCS: 99213

== ENCOUNTER → 2024-10-31 09:33 | Outpatient (BNVA) | payer MEDICARE, OTHER, SELFPAY | PROVIDERS: PCP Internal Medicine; Visit Provider Internal Medicine | DX: M47.816 Spondylosis without myelopathy or radiculopathy, lumbar region (principal); G89.29 Other chronic pain; M16.0 Bilateral primary osteoarthritis of hip | CPT/HCPCS: 99212 ==

== ENCOUNTER 2024-11-29 10:40 | Outpatient (AMB) | payer MEDICARE, OTHER, SELFPAY ==
[2024-11-29 10:53] VITALS: BP 140/70; PULSE 86; O2SAT 96; BMI 32.6
--- NOTE | 2024-11-29 10:53 | MHC.OFFVIS ---
Vital Signs 11/29/24 10:53 Height 5 ft 11 in Weight 234 lb BMI 32.6 BP 140/70 H Blood Pressure Location Rt brachial Pulse 86 Pulse Source Pulse Oximeter Pulse Oximetry (%) 96 Oxygen Delivery Method Room Air Intake Visit Reasons: Follow Up 6mo Intake Note: Patient presents 6 month follow up for movement disorder. Supervisor Harvesting Required: No Accompanied by: Self / Same As Patient Allergies fluticasone furoate [Trelegy Ellipta] Allergy (Severe, Verified 11/29/24 10:53) Thrush umeclidinium [Trelegy Ellipta] Allergy (Severe, Verified 11/29/24 10:53) Thrush vilanterol [Trelegy Ellipta] Allergy (Severe, Verified 11/29/24 10:53) Thrush Medication List - Last Reconciled 11/29/24 by GERALDO Crandall amlodipine 2.5 mg PO DAILY atorvastatin 20 mg PO DAILY carbidopa-levodopa 25-100 mg 1 tab PO QID 90 days cholecalciferol (vitamin D3) 25 mcg PO DAILY 90 days clotrimazole 1% appl topical PRN Eliquis (apixaban) 5 mg PO BID NS escitalopram oxalate 10 mg PO DAILY fluocinolone acetonide oil 0.01% drps otic (ears) folic acid 1 mg PO DAILY 90 days gabapentin 300 mg PO BEDTIME 30 days ketoconazole 2% 1 appl topical 2XW lidocaine 5% (Lidoderm) 1 patch topical DAILY modafinil (Provigil) 100 mg PO QAM 90 days roflumilast 250 mcg PO DAILY tiotropium-olodaterol 2.5-2.5 mcg/actuation (Stiolto Respimat) 2 inhalations inhalation DAILY tizanidine 4 mg PO BEDTIME PRN HPI Comments Details: 79-yr-old male presents for f/u visit of movement disorder. He states he has urethral stricture, and now needs to self-cath, [facility] on May 26- Dr Garcia at [facility]. His PCP has increased his vit D supplement [facility]- but sent order as CD-LD ER 25-100mg- but he still [facility] CD-LD 25-100mg IR tabs. So he is taking CD-LD ER 1 tab bid (am, lunch), and CD-LD IR 25-100mg 2 tabs at bedtime. His BUE tremor has increased some, worse is holding something heavier. He does have some lightheadedness- at times. He wonders if his citalopram is causing some of his dizziness/lightheadedness symptoms. He feels like he tends to sway when he is walking- like he was drunk but not. He reports 1 interval fall- popped up from his recliner, to shut off a light, and then just fell, and bumped his head. Since, he has been standing up slowly. Denies hallucinations. He would like to start the [facility]- [place] [employer] exercise class. Has an occasional random headache- uses Tylenol w/ codeine- managed by PCP. Previously tried- Gammacore x's 2- did not tolerate. [facility] Medical History Has daytime drowsiness Dyspnea Dyspnea Personal history of nicotine dependence Obesity [place] on CPAP Pulmonary emboli Pulmonary nodules COPD (chronic obstructive pulmonary disease) Surgical History S/P placement of cardiac pacemaker (~08/2023) History of total right knee replacement (TKR) (~2018) History of appendectomy Family History Father Heart disease Mother Heart disease Social History Alcohol intake: current Alcohol intake frequency: a few times a week Patient Tobacco Use Status: Former Tobacco user Physical Exam Vital Signs: Last Vital Signs Pulse 86 11/29/24 10:53 BP 140/70 H 11/29/24 10:53 Pulse Ox 96 11/29/24 10:53 Oxygen Delivery Method Room Air 11/29/24 10:53 BMI result Body Mass Index 32.6 Const General: alert Neck Neck: Yes normal visual inspection, Yes full ROM and Yes no lymphadenopathy Chest Chest palpation & inspection: normal inspection of the chest Resp Effort & Inspection: normal respiratory effort Cardio Rate: regular rate Rhythm: regular rhythm Heart sounds: S1 normal heart sound present and S2 normal heart sound present GI Palpation (GI): Soft to palpation and nontender Auscultation: normal bowel sounds Skin General skin exam: rashes and/or lesions noted Neuro Other: General: A&O x's 3 Expression: ok Voice: ok Tremor: RUE rest tremor, RUE postural tremor, BUE R > L wing beat tremor Tone: R > L UE tightness in elbows. FFM: Bradykinesia, mild, more so on left Foot taps- Bradykinesia, mild, more so on left Dyskinesia: None Gait: Stands easily, short steps, wider base. Psych: pleasant affect Cranial nerves: Yes CN's II-XII intact bilaterally Extrem General: Yes edema Assessment & Plan Assessment & Plan (1) Extrapyramidal and movement disorder: Comment: Left upper extremity rest and postural tremor, decreased arm swing, REM sleep behaviors, history of Agent [place] exposure. Levodopa responsive. DaTSCAN negative. Code(s): G25.9 - Extrapyramidal and movement disorder, unspecified Category: Medical (2) Muscle cramps: Code(s): R25.2 - Cramp and spasm Category: Medical (3) Tremor: Code(s): R25.1 - Tremor, unspecified Category: Medical (4) Lightheadedness: Code(s): R42 - Dizziness and giddiness Category: Medical Plan Reviewed available labs from PCP: Notable for BUN 9, creatinine 1.39, glucose 122, hemoglobin A1c 6.3% with normal CBC, TSH, lipid panel. He may continue his current carbidopa levodopa regimen with carbidopa levodopa ER 25-100 mg 1 tab b.i.d. (a.m. and afternoon) and carbidopa levodopa IR 25-100 mg 2 tabs q.h.s. Once he completes his current supply of carbidopa levodopa IR tabs, he may start carbidopa levodopa ER 25-100 mg 1 tab b.i.d. (a.m. and afternoon) and 2 tabs q.h.s. However advised that if he notices an increase in his tremor or stiffness, to reach out to us for dose adjustment, as the CD-LD ER formulation is slightly less bile available than the IR formulation. All levod[facility]/dopaminergic therapy orders [facility] will [facility]. Continue folic acid for now. Discussed that it is possible that escitalopram maybe contributing to dizziness. An alternative option, might be sertraline, which can be helpful in chronic dizziness/orthostatic lightheadedness. Continue increased fluids, including sports drinks or liquid IV and high-fluid foods. Maintain regular physical activity. Concur with starting [facility] Parkinson's exercise program- we will complete medical clearance form once available. For headaches, may continue Tylenol with codeine for now, managed by PCP. Pt did not tolerate GammaCore- ? if poor tolerance r/t unknown AV block. Now has pacemaker implant. ? Will follow-up upon review of above and patient to follow-up in clinic in 6 months or sooner prn. Coding Level of Care Code Est Pt Level 4 (10499) Diagnoses Extrapyramidal and movement disorder G25.9 Muscle cramps R25.2 Tremor R25.1 Lightheadedness R42
--- OUTSIDE RECORDS SUMMARY | 2024-11-29 12:03 | XMS_ITS | Clinical Summary ---
Author Organization [facility], Address [address] [place] [address] [place] [address] Phone Care Team Providers Care Rabbit Breeder Name Role Phone Unavailable Primary Care Provider [...] time each day Active Cobalamin Combinations (VITAMIN H52-VGWUN ACID PO)Indications:S tage 3a chronic kidney disease (HCC) vitamin M95-pypwu acid 1 po qd Active amLODIPine (NORVASC) [...] 09/28/2013 12/19/2020 Umbilical hernia 09/28/2013 12/19/2020 Immunizations Immunization Administration Dates Next Due Influenza (IM) Preservative [...] Visit [facility], [address] [place] [address] Juan F Hutton MD [address] [place] [address] Health Maintenance Due Date Last Done Comments Pneumococcal Vaccine: 50+ Years (3 of 3 - PPSV23, PCV20 or PCV21) 11/08/2019 09/13/2019, 09/13/2019, 10/02/2014, Additional history exists Diabetes: Hemoglobin A1C 05/12/2021 12/26/2020 Diabetes: Pedal Pulse Checked 05/12/2021 Diabetes: Sensory Foot Exam 05/12/2021 Diabetes: Visual Foot Exam 05/12/2021 Influenza Vaccine (Season Ended) 2025 04/24/2023, 05/11/2022, 04/24/2021, Additional history exists Diabetes: Ophthalmology Exam 05/09/2025 05/09/2024 Pneumococcal Vaccine: Peds (0 to 5 Years) and At-Risk Patients (6 to 49 Years) Discontinued 09/13/2019, 09/13/2019, 10/02/2014, Additional history exists Hepatitis B Vaccine Aged Out No longe r eligible based on patient's age to complete this topic Procedures Procedure Name Priority Date/Time Associated Diagnosis Comments HEMOGLOBIN A1C Routine 12/26/2020 8:04 AM EDT Stage 3a chronic kidney disease (HCC) from Last 3 Months or Most Recently Relevant to Health Maintenance Results * (ABNORMAL) Hemoglobin A1c (12/26/2020 8:04 AM EDT) Hemoglobin A1C 6.1(H) (4.0-5.6) % [facility] Comment: MONITORING: In known diabetic patients, hemoglobin A1c targets should be discussed with health care provider. DIAGNOSTIC USE: ??The [place] Diabetes Association (ADA) and the World Health [...] Supplement 1 Testing performed or reported by [facility], a Service of [facility], [address] [place] [id number] Juan Antonio Pérez MD, Inside Sales Account Executive Blood (Blood, Venous) 12/26/2020 8:04 AM EDT 12/26/2020 8:07 AM EDT us Juan F Hutton MD LAB BLOOD ORDERABLES Final Resul t [facility] from Last 3 Months or Most Recently Relevant to Health Maintenance Insurance Medicare [facility]
--- OUTSIDE RECORDS SUMMARY | 2024-11-29 12:03 | XMS_ITS | Encounter Summary ---
Author Organization [facility], Address [address] [place] [address] Phone Care Team Providers Care Laborer Livestock Name Role Phone Unavailable Primary Care Provider Unavailabl e Encounter Details Date Type Department Care Team (Late st Contact Info) Description 05/05/2022 Documentation Only [facility], [address] [place] [address] Zhen Renee PA Social History [...] Visit [facility], [address] [place] [address] Juan F Hutton MD [address] [place] [phone] documented as of this encounter Visit Diagnoses Not on filedocumented in this encounter
--- OUTSIDE RECORDS SUMMARY | 2024-11-29 12:03 | XMS_ITS ---
Author Organization [facility] Address [address] [place] [address] Care Team Providers Care Gasoline Service Attendant Name Role Phone Deana Corrales Primary Care Provider Unavail Blayne Arriaza Unavailable [phone] Encounters Encounter Location Date Provider Diagnosis [facility] [address] [place] [phone] 08/30/2024 Blayne Pena Plan Of Treatment Next Appt Details Provider Name:Blayne Pena , 01/03/2025 09:30:00 AM, [address] [place] [address], [id number], Progress Notes * Seamus FRAGA DDOB:1945 (79 yo M)Acc No.[id number]:08/30/2024 Progress Note Patient:?Seamus FRAGA Provider:?Blayne Pena DPM :1945???Age:78 Y???Sex:Male Rustam e:08/30/2024 Address:[address] [place] [address] Pcp:Deana Corrales Subjective: * Chief Complaints: * ??? * Medical History:? Objective: * Vitals:? Assessment: Plan: * Treatment: * Images: * The named appointment provid er may or may not be the originator of this progress note, and it is not deemed complete until electronically signed by the appointment provider. Sign off status: Pending * Provider:?Blayne Pena DPM Date:?2024 Generated for Natalie edmonds/Shana/Jaspal on:?11/29/2024 12:03 PM EDT
--- OUTSIDE RECORDS SUMMARY | 2024-11-29 12:04 | XMS_ITS | Clinical Summary ---
Author Organization [facility] Address [address] [place] [address] Phone Care Team Providers Care Hand Cigar Maker Name Role Phone Deana Corrales MD Primary [...] Comments Hypertension COPD (chronic obstructive pulmonary disease) ( [facility] V24, [facility] V28) Irregular heart beat Sleep apnea Pulmonary embolism ([facility] V24, [facility] V28) Hyperlipidemia DVT (deep venous thrombosis) ([facility] V24, [facility] V28) PTSD (post-traumatic stress disorder) Agent orange exposure Right bundle branch block (RBBB) Rheumatic fever Parkinson's disease ([facility] V24, [facility] V28) CHB (complete heart block) ([facility] V24, [facility] V28) Social History Tobacco Use Types Packs/Day Years [...] 2024 04/29/2023, 04/14/2022, 05/07/2021, Additional history exists Diabetes: Annual Urine Albumin-Creatinine Ratio (uACR) 05/16/2024 Diabetes: Blood Sugar Control Test (HGBA1C) 05/16/2024 12/26/2020 Influenza Vaccine (Season Ended) 2025 04/24/2023, 05/11/2022, 04/07/2022, Additional history exists Diabetes: Annual GFR (Glomerular Filtration Rate) 05/28/2025 [...] this topic Medical Devices Implanted Type Area Finisher Hand Device Identifier Shelf Expiration Date Model / [...] LAB CHEMISTRY METHOD 05/28/2024 8:[address] [facility] eGFR 53(L) >=60 mL/min/1. 73m2 LAB CHEMISTRY METHOD 05/28/2024 8:[address] [facility] Comment:Calculation based on the??Chronic Kidney Disease Epidemiology Collaboration (CKD-EPI) equation refit??without adjustment for race. Blood Venous blood specimen / Unknown Venipuncture / Unknown 05/28/2024 7:18 AM EST 05/28/2024 7:25 AM EST Delmar Butler MD LAB BLOOD ORDERABLES Final Resul t [facility] [address] [place] [address], from Last 3 Months or Most Recently Relevant to Health Maintenance Insurance MEDICARE [facility] Care Teams Hand Cigar Maker Relationship Specialty Start Date End Date Deana Corrales MD [address] [phone] PCP - General Internal Medicine 05/15/24
--- OUTSIDE RECORDS SUMMARY | 2024-11-29 12:04 | XMS_ITS | Encounter Summary ---
Author Organization [facility] Address [address] [place] [address] Phone Care Team Providers Care Events And Promotions Assistant Name Role Phone Unavailable Primary Care Provider Unavailabl e Encounter Details Date Type Department Care Team (Late st Contact Info) Description 07/09/2024 Documentation Only [facility] [address] [place] [address] Annita Landeros [address] [place] [phone] Social History Tobacco Use Types Packs/Day Years [...] Visit [facility] [address] [place] [phone] Juan F Hutton MD [address] [place] [phone] documented as of this encounter Visit Diagnoses Not on filedocumented in this encounter
--- OUTSIDE RECORDS SUMMARY | 2024-11-29 12:04 | XMS_ITS | Data Portability ---
Author Organization [facility], Main Office Address [address] [facility] [address] [place] [address] Care Team Providers Care Hydroelectric Systems Technician Name Role Phone SUSANNE HUERTA Ladies' Hat Trimmer [phone] REGINE GARCIA Subcontract Manager NADIA STEEL Orthopedic Surgeon [phone] JASMYN RAMOS Neurologist ROJAS KEYES Urologist KRISTEN TODD Heel Seat Sander [phone] VERO DASILVA Machine Applicator Cementer BANDAR FERRARO Ladies' Hat Trimmer KEITH GRANADO Primary Care Provider Assessment No assessment recorded. Plan of Treatment Reminders Order Date Submit Date Provider Last Modified By Organization Details Last Modified Time Details Appointments None recorded. Lab HbA1c (hemoglobin A1c), blood 2024 025 [facility] (Centralized Electronic Ordering - All Locations), Patient Can Go To The Location Of Their Choice, [id number] 10:06:18 TSH, ultra-sensi tive, serum 2024 025 [facility], [address], [place], [address], 10:06:19 hepatic function panel, serum 2024 025 [facility] (Centralized Electronic Ordering - All Locations), Patient Can Go To The Location Of Their Choice, [address] 5 10:06:17 lipid panel, serum 2024 025 [facility], [address], [place], [address], 5 10:06:18 vitamin D, 25-hydroxy, total, serum 2024 025 [facility] (Centralized Electronic Ordering - All Locations), Patient Can Go To The Location Of Their Choice, [facility] 5 10:06:19 HbA1c (hemoglobin A1c), blood 2023 024 [facility] (Centralized Electronic Ordering - All Locations), Patient Can Go To The Location Of Their Choice, [address] 4 06:08:51 BMP, serum or plasma 2023 024 [facility], [address], [place], [address], 4 06:08:49 lipid panel, serum 2023 024 [facility], [address], [place], [address], 4 06:08:50 CBC w/ auto diff 2023 024 [facility], [address], [place], [address], 4 06:08:49 TSH, ultra-sensi tive, serum 2023 024 [facility], [address], [place], [address], 4 06:08:51 Referral None recorded. Procedures None recorded. Surgeries None recorded. Imaging MRI, lumbar spine, w/o contrast - on-going back pain for several years, undergoes steroid infections with mild relief. ordered repeat MRI to check for worsening and will be referred to neurosurger yun gamble [email or web address] [place] [address], [address] [place], [address], 4 12:01:33 Medication Orders hydrocortis one-acetic acid 1 %-2 % ear drops 2024 025 [facility], [address] [place], [address], 5 13:33:52 Fioricet 50 mg-300 mg-40 mg capsule [email or web address] [place] [address] [facility] [address], [address] [place], [address], 5 13:33:59 tizanidine 4 mg tablet 2023 [email or web address] [place] [address] [facility] [address], [address] [place], [address], 4 11:24:50 DermOtic Oil 0.01 % ear drops 2023 024 [employer] [facility], [address] [place] [address], [address], 4 09:27:31 Fioricet 50 mg-300 mg-40 mg capsule 2023 024 [email or web address] [address] [facility], [address] [place], [address], 5 12:58:22 hydrocortis one-acetic acid 1 %-2 % ear drops 2023 024 [facility], [address] [place], [address], 4 09:15:13 Patient TargetsNo targets recorded. Patient Instructions Encounter Date Encounter Id Patient Instructions Last Modified By Organization Details Last Modified Time 10/14/2023 [id number] headache: care instructions Not available 10/14/2023 14:20:25 eustachian tube problems: care instructions Not available 10/14/2023 13:53:25 medicines to avoid with kidney disease: care instructions Not available 10/14/2023 13:53:25 dizziness: care instructions Not available 10/14/2023 16:17:45 01/19/2024 [id number] medicines to avoid with kidney disease: care instructions Not available 01/19/2024 09:27:29 04/17/2024 [id number] chronic obstructive pulmonary disease (COPD): care instructions Not available 04/17/2024 11:25:02 learning about copd and how to prevent lung infections Not available 04/17/2024 11:25:02 10/23/2024 [id number] advance care planning: care instructions Not available [...] /uL 3.4-10 .8 normal Not Available [facility] ([facility]) [address] [facility], [place], [address], 04/19/2024 06:08:49 04/18/2004/19/2024 CBC WITH DIFFE RENTI AL/PL ATELE T RBC 4.62 x10e6 /uL 4.14-5 .80 normal CBC resul ts repor everton were obtai omayra after the speci men had been warme d to 37 degre es C. This may indic ate the prese nce of Cold Maggielu todd s. Not Available [facility] ([facility]) [address] [facility], [place], [address], 04/19/2024 06:08:49 04/18/20 24 04/19/2024 CBC WITH DIFFE RENTI AL/PL ATELE T hemoglobin 14.9 g/dL 13.0-1 7.7 normal Not Available [facility] ([facility]) [address] [place], [address], 04/19/2024 06:08:49 04/18/2004/19/2024 CBC WITH DIFFE RENTI AL/PL ATELE T hematocrit 44.6 % 37.5-5 1.0 normal Not Available [facility] ([facility]) [address] [place], [address], 04/19/2024 06:08:49 04/18/20 24 04/19/2024 CBC WITH DIFFE RENTI AL/PL ATELE T MCV 97 fL 79-97 normal Not Available [facility] ([facility]) [address] [place], [address], 04/19/2024 06:08:49 04/18/2004/19/2024 CBC WITH DIFFE RENTI AL/PL ATELE T MCH 32.3 pg 26.6-3 3.0 normal Not Available [facility] ([facility]) [address] [place], [address], 04/19/2024 06:08:49 04/18/2004/19/2024 CBC WITH DIFFE RENTI AL/PL ATELE T MCHC 33.4 g/dL 31.5-3 5.7 normal Not Available [facility] ([facility]) [address] [place], [address], 04/19/2024 06:08:49 04/18/20 24 04/19/2024 CBC WITH DIFFE RENTI AL/PL ATELE T RDW 13.0 % 11.6-1 5.4 Not Available [facility] ([facility]) [address] [facility], [place], [address], 04/19/2024 06:08:49 04/18/20 24 04/19/2024 CBC WITH DIFFE RENTI AL/PL ATELE T platelets 198 x10e3 /uL 150-45 0 normal Not Available [facility] ([facility]) [address] [facility], [place], [address], 04/19/2024 06:08:49 04/18/20 24 04/19/2024 CBC WITH DIFFE RENTI AL/PL ATELE T neutrophils 54 % not estab. normal Not Available [facility] ([facility]) [address] [facility], [place], [address], 04/19/2024 06:08:49 04/18/20 24 04/19/2024 CBC WITH DIFFE RENTI AL/PL ATELE T lymphs 32 % not estab. normal Not Available [facility] ([facility]) [address] [facility], [place], [address], 04/19/2024 06:08:49 04/18/20 24 04/19/2024 CBC WITH DIFFE RENTI AL/PL ATELE T monocytes 9 % not estab. normal Not Available [facility] ([facility]) [address] [facility], [place], [address], 04/19/2024 06:08:49 04/18/20 24 04/19/2024 CBC WITH DIFFE RENTI AL/PL ATELE T eos 4 % not estab. normal Not Available [facility] ([facility]) [address] [facility], [place], [address], 04/19/2024 06:08:49 04/18/20 24 04/19/2024 CBC WITH DIFFE RENTI AL/PL ATELE T basos 1 % not estab. normal Not Available [facility] ([facility]) [address] [place], [address], 04/19/2024 06:08:49 04/18/20 24 04/19/2024 CBC WITH DIFFE RENTI AL/PL ATELE T immature cells RIVER PILOT Not Available [facility] ([facility]) [address] [place], [address], 04/19/2024 06:08:49 04/18/20 24 04/19/2024 CBC WITH DIFFE RENTI AL/PL ATELE T neutrophils (absolute) 3.3 x10e3 /uL 1.4-7. 0 normal Not Available [facility] ([facility]) [address] [place], [address], 04/19/2024 06:08:49 04/18/20 24 04/19/2024 CBC WITH DIFFE RENTI AL/PL ATELE T lymphs (absolute) 1.9 x10e3 /uL 0.7-3. 1 normal Not Available [facility] ([facility]) [address] [place], [address], 04/19/2024 06:08:49 04/18/20 24 04/19/2024 CBC WITH DIFFE RENTI AL/PL ATELE T monocytes(ab solute) 0.6 x10e3 /uL 0.1-0. 9 normal Not Available [facility] ([facility]) [address] [place], [address], 04/19/2024 06:08:49 04/18/20 24 04/19/2024 CBC WITH DIFFE RENTI AL/PL ATELE T eos (absolute) 0.2 x10e3 /uL 0.0-0. 4 normal Not Available [facility] ([facility]) [address] [place], [address], 04/19/2024 06:08:49 04/18/20 24 04/19/2024 CBC WITH DIFFE RENTI AL/PL ATELE T baso (absolute) 0.1 x10e3 /uL 0.0-0. 2 normal Not Available [facility] ([facility]) [address] [place], [address], 04/19/2024 06:08:49 04/18/20 24 04/19/2024 CBC WITH DIFFE RENTI AL/PL ATELE T immature granulocytes 0 % not estab. Not Available [facility] ([facility]) [address] [place], [address], 04/19/2024 06:08:49 04/18/20 24 04/19/2024 CBC WITH DIFFE RENTI AL/PL ATELE T immature grans (abs) 0.0 x10e3 /uL 0.0-0. 1 Not Available [facility] ([facility]) [address] [place], [address], 04/19/2024 06:08:49 04/18/20 24 04/19/2024 CBC WITH DIFFE RENTI AL/PL ATELE T NRBC RIVER PILOT Not Available [facility] ([facility]) [address] [place], [address], 04/19/2024 06:08:49 04/18/20 24 04/19/2024 CBC WITH DIFFE RENTI AL/PL ATELE T hematology comments: RIVER PILOT Not Available [facility] ([facility]) [address] [place], [address], 04/19/2024 06:08:49 04/18/20 24 04/19/2024 BASIC METAB OLIC PANEL (8) glucose 122 mg/dL 70-99 above high normal Not Available [facility] ([facility]) [address] [place], [address], 04/19/2024 06:08:49 04/18/20 24 04/19/2024 BASIC METAB OLIC PANEL (8) BUN 13 mg/dL 8-27 normal Not Available [facility] ([facility]) [address] [facility] [place], [address], 04/19/2024 06:08:49 04/18/20 24 04/19/2024 BASIC METAB OLIC PANEL (8) creatinine 1.39 mg/dL 0.76-1 .27 above high normal Not Available [facility] ([facility]) [address] [facility] [place], [address], 04/19/2024 06:08:49 04/18/20 24 04/19/2024 BASIC METAB OLIC PANEL (8) eGFR 53 mL/mi n/1.7 3 >59 below low normal Not Available [facility] ([facility]) [address] [facility] [place], [address], 04/19/2024 06:08:49 04/18/20 24 04/19/2024 BASIC METAB OLIC PANEL (8) BUN/creatini ne ratio 9 10-24 below low normal Not Available [facility] ([facility]) [address] [place], [address], 04/19/2024 06:08:49 04/18/20 24 04/19/2024 BASIC METAB OLIC PANEL (8) sodium 141 mmol/ L 134-14 4 normal Not Available [facility] ([facility]) [address] [place], [address], 04/19/2024 06:08:49 04/18/20 24 04/19/2024 BASIC METAB OLIC PANEL (8) potassium 4.4 mmol/ L 3.5-5. 2 normal Not Available [facility] ([facility]) [address] [place], [address], 04/19/2024 06:08:49 04/18/20 24 04/19/2024 BASIC METAB OLIC PANEL (8) chloride 106 mmol/ L 96-106 normal Not Available [facility] ([facility]) [address] [place], [address], 04/19/2024 06:08:49 04/18/20 24 04/19/2024 BASIC METAB OLIC PANEL (8) carbon dioxide, total 21 mmol/ L 20-29 normal Not Available [facility] ([facility]) [address] [place], [address], 04/19/2024 06:08:49 04/18/20 24 04/19/2024 BASIC METAB OLIC PANEL (8) calcium 9.4 mg/dL 8.6-10 .2 normal Not Available [facility] ([facility]) [address] [place], [address], 04/19/2024 06:08:49 04/18/20 24 04/19/2024 LIPID PANEL cholesterol, total 129 mg/dL 100-19 9 normal Not Available [facility] ([facility]) [address] [place], [address], 04/19/2024 06:08:50 04/18/20 24 04/19/2024 LIPID PANEL triglyceride s 93 mg/dL 0-149 normal Not Available [facility] ([facility]) [address] [place], [address], 04/19/2024 06:08:50 04/18/20 24 04/19/2024 LIPID PANEL HDL cholesterol 47 mg/dL >39 normal Not Available [facility] ([facility]) [address] [place], [address], 04/19/2024 06:08:50 04/18/20 24 04/19/2024 LIPID PANEL VLDL cholesterol doc 18 mg/dL 5-40 Not Available [facility] ([facility]) [address] [place], [address], 04/19/2024 06:08:50 04/18/20 24 04/19/2024 LIPID PANEL LDL chol calc ([facility]) 64 mg/dL 0-99 Not Available [facility] ([facility]) [address] [facility], [place], [address], 04/19/2024 06:08:50 04/18/2004/19/2024 LIPID PANEL LDL calc comment: RIVER PILOT Not Available [facility] ([facility]) [address] [facility], [place], [address], 04/19/2024 06:08:50 04/18/20 24 04/19/2024 HEMOG LOBIN A1C hemoglobin A1C 6.3 % 4.8-5. 6 above high normal Predi abete s: 5.7 - 6.4 Diabe jody: >6.4 Glyce ari contr ol for adult s with diabe jody: <7.0 Not Available [facility] ([facility]) [address] [facility], [place], [address], 04/19/2024 06:08:51 04/18/2004/19/2024 TSH RFX ON ABNOR MAL TO FREE T4 TSH 2.940 uIU/m L 0.450- 4.500 normal Not Available [facility] ([facility]) [address] [place], [address], 04/19/2024 06:08:51 04/18/20 24 04/21/2024 COOMB S', DIREC T jack', direct Negati ve negati ve Not Available [facility] ([facility]) [address] [place], [address], 04/21/2024 12:06:09 04/18/20 24 04/20/2024 SIGRID EN AUTHO RIZAT ION written authorizatio n Ramon Kilpatrick en Autho rizat ion Recei franchesca. Autho rizat ion recei franchesca from BRITTANY Riley for Link Reque st on 04-20 Logge d by Emeli Winston Not Available [facility] ([facility]) [address] [facility], [place], [address], 04/21/2024 12:06:10 05/28/20 24 05/28/2024 COMPL ETE BLOOD COUNT WBC 6.7 K/mcL 4.8-10 .8 Not Available [facility] (Direct Fax All) Any [facility], [place], [id number], 05/28/2024 07:53:31 05/28/20 24 05/28/2024 COMPL ETE BLOOD COUNT RBC 4.00 M/mcL 4.50-5 .50 low Not Available [facility] (Direct Fax All) Any [facility], [place], [id number], 05/28/2024 07:53:31 05/28/20 24 05/28/2024 COMPL ETE BLOOD COUNT hemoglobin 13.7 g/dL 13.5-1 7.5 Not Available [facility] (Direct Fax All) Any [facility], [place], [id number], 05/28/2024 07:53:31 05/28/20 24 05/28/2024 COMPL ETE BLOOD COUNT hematocrit 40.0 % 42.0-5 4.0 low Not Available [facility] (Direct Fax All) Any [facility], [place], [id number], 05/28/2024 07:53:31 05/28/20 24 05/28/2024 COMPL ETE BLOOD COUNT MCV 100.5 fL 79.0-9 8.0 high Not Available [facility] (Direct Fax All) Any [facility], [place], [id number], 05/28/2024 07:53:31 05/28/20 24 05/28/2024 COMPL ETE BLOOD COUNT MCH 34.4 pcg 27.0-3 2.0 high Not Available [facility] (Direct Fax All) Any [facility], [place], [address], 05/28/2024 07:53:31 05/28/20 24 05/28/2024 COMPL ETE BLOOD COUNT MCHC 34.3 g/dL 32.0-3 7.0 Not Available [facility] (Direct Fax All) Any [facility], [place], [address], 05/28/2024 07:53:31 05/28/20 24 05/28/2024 COMPL ETE BLOOD COUNT RDW 13.7 % 11.0-[address] [facility] (Direct Fax All) Any [facility], [place], [address], 05/28/2024 07:53:31 05/28/20 24 05/28/2024 COMPL ETE BLOOD COUNT platelets 216 K/mcL 130-40 0 Not Available [facility] (Direct Fax All) Any [facility], [place], [address], 05/28/2024 07:53:31 05/28/20 24 05/28/2024 COMPL ETE BLOOD COUNT MPV 9.3 fL 7.0-11 .0 Not Available [facility] (Direct Fax All) Any [facility], [place], [address], 05/28/2024 07:53:31 05/28/20 24 05/28/2024 COMPL ETE BLOOD COUNT NRBC 0.0 % <1.0 Not Available [facility] (Direct Fax All) Any [facility], [place], [address], 05/28/2024 07:53:31 05/28/20 24 05/28/2024 COMPL ETE BLOOD COUNT NRBC absolute 0.00 K/mcL <0.10 Not Available [facility] (Direct Fax All) Any [facility], [place], [address], 05/28/2024 07:53:31 05/28/20 24 05/28/2024 COMPL ETE BLOOD COUNT note See Report [facility], [address], [place], [place] [id number] [facility] (Direct Fax All) Any [facility], [place], [address], 05/28/2024 07:53:31 05/28/20 24 05/28/2024 BUN BUN 13 mg/dL 5-[address] [facility] (Direct Fax All) Any [facility], [place], [address], 05/28/2024 08:15:07 05/28/20 24 05/28/2024 BUN note See Report [facility], [address], [place], [place] [address] [facility] (Direct Fax All) Any [facility], [place], [address], 05/28/2024 08:15:07 05/28/20 24 05/28/2024 ELECT ROLYT E PANEL sodium 142 mmol/ L 133-[address] [facility] (Direct Fax All) Any [facility], [place], [address], 05/28/2024 08:15:08 05/28/20 24 05/28/2024 ELECT ROLYT E PANEL potassium 4.4 mmol/ L 3.5-5. 5 Not Available [facility] (Direct Fax All) Any [facility], [place], [address], 05/28/2024 08:15:08 05/28/20 24 05/28/2024 ELECT ROLYT E PANEL chloride 111 mmol/ L 96-110 high Not Available [facility] (Direct Fax All) Any [facility], [place], [id number], 05/28/2024 08:15:08 05/28/20 24 05/28/2024 ELECT ROLYT E PANEL CO2 26 mmol/ L 21-[address] [facility] (Direct Fax All) Any [facility], [place], [address], 05/28/2024 08:15:08 05/28/20 24 05/28/2024 ELECT ROLYT E PANEL anion gap 5 3-11 Not Available [facility] (Direct Fax All) Any [facility], [place], [id number], 05/28/2024 08:15:08 05/28/20 24 05/28/2024 ELECT ROLYT E PANEL note See Report [facility] [place] r, [address], [place], [facility] [place] [id number] [facility] (Direct Fax All) Any [facility], [place], [id number], 05/28/2024 08:15:08 05/28/20 24 05/28/2024 CREAT ININE creatinine 1.38 mg/dL 0.70-[address] [facility] (Direct Fax All) Any [facility], [place], [id number], 05/28/2024 08:15:10 05/28/20 24 05/28/2024 CREAT ININE eGFR 53 mL/mi n/1.7 3m2 >=60 low Calcu latio n based on the?C hroni c Kidne y Disea se Epide miolo gy Colla borat ion (CKD- EPI) equat ion refit ?with out adjus tment for race. Not Available [facility] (Direct Fax All) Any [facility], [place], [id number], 05/28/2024 08:15:10 05/28/20 24 05/28/2024 CREAT ININE note See Report [facility] Elsie r, [address], [place] [address], [place] [address] Not Available [facility] (Direct Fax All) Any [facility], [place], [address], 05/28/2024 08:15:10 10/24/19 25 10/24/2024 HEPAT IC FUNCT ION PANEL (7) protein, total 6.6 g/dL 6.0-8. 5 normal Not Available [facility] ([facility]) [address] [place], [address], 10/24/2024 10:06:17 10/24/19 25 10/24/2024 HEPAT IC FUNCT ION PANEL (7) albumin 4.4 g/dL 3.8-4. 8 normal Not Available [facility] ([facility]) [address] [place], [address], 10/24/2024 10:06:17 10/24/19 25 10/24/2024 HEPAT IC FUNCT ION PANEL (7) bilirubin, total 0.6 mg/dL 0.0-1. 2 normal Not Available [facility] ([facility]) [address] [place], [address], 10/24/2024 10:06:17 10/24/19 25 10/24/2024 HEPAT IC FUNCT ION PANEL (7) bilirubin, direct 0.24 mg/dL 0.00-0 .40 normal Not Available [facility] ([facility]) [address] [place], [address], 10/24/2024 10:06:17 10/24/19 25 10/24/2024 HEPAT IC FUNCT ION PANEL (7) alkaline phosphatase 79 IU/L 44-121 normal Not Available [facility] ([facility]) [address] [place], [address], 10/24/2024 10:06:17 10/24/19 25 10/24/2024 HEPAT IC FUNCT ION PANEL (7) AST (SGOT) 18 IU/L 0-40 normal Not Available [facility] ([facility]) [address] [place], [address], 10/24/2024 10:06:17 10/24/19 25 10/24/2024 HEPAT IC FUNCT ION PANEL (7) ALT (SGPT) 25 IU/L 0-44 normal Not Available [facility] ([facility]) [address] [place], [address], 10/24/2024 10:06:17 10/24/19 25 10/24/2024 LIPID PANEL cholesterol, total 141 mg/dL 100-19 9 normal Not Available [facility] ([facility]) [address] [place], [address], 10/24/2024 10:06:18 10/24/19 25 10/24/2024 LIPID PANEL triglyceride s 88 mg/dL 0-149 normal Not Available [facility] ([facility]) [address] [place], [address], 10/24/2024 10:06:18 10/24/19 25 10/24/2024 LIPID PANEL HDL cholesterol 56 mg/dL >39 normal Not Available [facility] ([facility]) [address] [place], [address], 10/24/2024 10:06:18 10/24/19 25 10/24/2024 LIPID PANEL VLDL cholesterol doc 17 mg/dL 5-40 Not Available [facility] ([facility]) [address] [place], [address], 10/24/2024 10:06:18 10/24/19 25 10/24/2024 LIPID PANEL LDL chol calc ([facility]) 68 mg/dL 0-99 Not Available [facility] ([facility]) [address] [facility], [place], [address], 10/24/2024 10:06:18 10/24/19 25 10/24/2024 LIPID PANEL LDL calc comment: RIVER PILOT Not Available [facility] ([facility]) [address] [facility], [place], [address], 10/24/2024 10:06:18 10/24/19 25 10/24/2024 HEMOG LOBIN A1C hemoglobin A1C 6.4 % 4.8-5. 6 above high normal Predi abete s: 5.7 - 6.4 Diabe jody: >6.4 Glyce ari contr ol for adult s with diabe jody: <7.0 Not Available [facility] ([facility]) [address] [facility], [place], [address], 10/24/2024 10:06:18 10/24/19 25 10/24/2024 VITAM IN D, 25-HY DROXY vitamin D, 25-hydroxy 25.4 NG/mL 30.0-1 00.0 below low normal Vitam in D defic iency has been defin ed by the Insti tute of Medic ine and an Endoc rine Socie ty pract ice guide line as a level of serum 25-OH vitam in D less than 20 ng/mL (1,2) . The Endoc rine Socie ty went on to [facility] er defin e vitam in D insuf ficie ncy as a level betwe en 21 and 29 ng/mL (2). 1. IOM (Inst itute of Medic ine). 2010. Dieta ry refer ence gael es for calci um and D. Aubrie cardona [place]: [facility] Press . 2. Aureliano gibbs [place], Amrit davenport [place], Moon off-F errar i YO, et al. Evalu ation , treat ment, and preve ntion of vitam in D defic iency : an Endoc rine Socie ty clini doc pract ice guide line. JCEM. 2010; 96(7) :1911 -30. Not Available [facility] ([facility]) [address] [facility], [place], [address], 10/24/2024 10:06:19 10/24/19 25 10/24/2024 TSH RFX ON ABNOR MAL TO FREE T4 TSH 2.710 uIU/m L 0.450- 4.500 normal Not Available [facility] ([facility]) [address] [facility], [place], [address], 10/24/2024 10:06:19 05/09/20 24 05/09/2024 XR, chest , 2 [...] acute cardio pulmon ailin diseas e. WSN: [id number] Orderi ng Physic ernesto: Jason Solis ie Dictat ed By: Zee Bradford MD Dictat ed Date/T simon: 11:06 a Review ed By: Zee Bradford MD Signed By: Zee Bradford MD Signed Date/T simon: 11:06 am Transc ribed By: MAGY Transc ribed Date/T simon: 11:06 am Patien t Class: Outpat ient [facility] (Outpt Imaging) [address] [facility], [place], [address], 05/14/2024 15:06:42 05/28/20 24 05/28/2024 op note No observ ation record ed. [facility] ([facility] Central Scheduling) [facility] [place], [place], [address], 05/28/2024 10:11:14 07/16/20 24 07/16/2024 CT chest ldct lung progr am CT Chest LDCT Lung Progra m INDICA TION: Reason : Other: ; LDCT LUNG CANCER SCREEN ING ENRICO BROWN SMOKER , 42 PACK YEAR HX; Clinic al Questi on(s): Other: ; Specia l Instru ctions : BOOK AT [address] [facility], [place] BOOK AFTER 07 14 2024 NO CHEST [...] signif icant incide ntal findin gs. WSN: [id number] Orderezekiel ng Physic ernesto: Jason Solis ie Dictat ed By: Diann Stafford MD Dictat ed Date/T simon: 4:27 pm Review ed By: Diann Stafford MD Signed By: Diann Stafford MD Signed Date/T simon: 4:27 pm Transc ribed By: KENDALLB Transc ribed Date/T simon: 4:17 pm Patien t Class: [facility] (Out[facility] Imaging) [address] [place] [address], [address], 07/31/2024 13:58:27 07/16/20 24 07/16/2024 CT chest ldct lung progr am A D D E N D U M as of: [id number] CTDIvo l Body 2.6 mGy DLP Body: 101.1m Gy*cm WSN: [id number] Orderi grey Physic ernesto: Jason Solis Dictat ed By: Diann Stafford MD Dictat ed Date/T simon: 4:36 pm Review ed By: Diann Stafford MD Signed By: Diann Stafford MD Signed Date/T simno: 4:36 pm Transc ribed By: CSB Transc ribed Date/T simon: 4:[address] Chest LDCT Lung Progra m INDICA TION: Reason : Other: ; LDCT LUNG CANCER SCREEN ING PROGRJohny MENRICO T SMOKER , 42 PACK YEAR HX; Clinic al Questi on(s): Other: ; Specia l Instru ctions : BOOK AT [address] [facility], [place], [place] BOOK AFTER 07 14 2024 NO [...] signif icant incide ntal findin gs. WSN: [id number] Orderi ng Physic ernesto: Jason Solis ie Dictat ed By: Diann Stafford MD Dictat ed Date/T simon: 4:27 pm Review ed By: Diann Stafford MD Signed By: Diann Stafford MD Signed Date/T simon: 4:27 pm Transc ribed By: MAGY Transc ribed Date/T simon: 4:17 pm Patien t Class: Outpat ient [facility] (Outpt Imaging) [address] , [place], [address], 07/17/2024 14:02:34 07/23/20 24 07/16/2024 LDCT, chest , for lung fang augustine No observ ation record ed. [email or web address] [address] [facility], [place], [address], 08/07/2024 10:43:35 Result Notes None recorded. Problems Name Problem SNOMED Code Status Onset Date Resolution Date Notes Provider Name and Address Organization Details Recorded Time Adult health examinat ion Completed 201202/12/2014 IMPRESSI ON: PT WANTS TO START EXERCISUSHA ELLIS ED HIM TO, NEEDS TO EAT HEALTHY, IN PAST HAD ONEELEVT E DPSA THEN RETURNED TO NL, THOUGHT DUE TO INFLAMMA TION RECHECK TODAY; RECORDED 09/26/19 13 2:16PM BY SONAL MUELLER MA, JOHNATI ON/JULIANNE Allen, [facility] 7 14:40:36 Arthropa thy of knee joint 154017018 Completed 201308/20/2016 IMPRESSI ON: INJECTIO NS FROM ORHTO IN THE PAST; RECORDED 01/10/20 14 8:38AM BY EDNA COX I, OFFICE VISIT Teri hawkins, [facility] 7 15:01:59 Tobacco user [id number] Completed 201308/20/2016 RECORDED 01/10/20 14 8:38AM BY EDNA COX I, OFFICE VISIT KEITH GRANAOD MD [address], [place], [address] , [facility] 5 13:36:19 History of clinical finding in subject [id number] Completed 201308/20/2016 RECORDED 09/29/19 14 9:22AM BY MEG ORDONEZ ON/JULIANNE Allen, [place] [facility] 7 14:40:52 Elevated blood-pr essure reading without diagnosi s of hyperten saray 547164970 Completed 201308/20/2016 IMPRESSI ON: STRESSED , RECHECK IN ONE MONTH; RECORDED 01/10/20 14 8:38AM BY EDNA COX I, OFFICE VISIT Teri hawkins, [facility] 7 15:01:50 Chronic obstruct yazmin pulmonar y disease 36444024 Active 2013 Odalis hawkins, [facility] 8 08:33:43 Diarrhea 50274755 Completed 200702/12/2014 IMPRESSI ON: FULL WORKUP WITH EGD, COLONOSC OPY, SMALL BOWEL LOOK, NO PATHOLOG Y, ON HIGH FIBERM POSSIBLE IRRITABL E BOWEL; RECORDED 07/09/20 08 9:37AM BY SONAL MUELLER MA, ANNOTATI ON/ADDEN DUM Not Available [facility] 4 15:15:18 Disorder of vein 25486677 Completed 201308/20/2016 IMPRESSI ON: OFF COUMADIN AND ON BABY ASA AND DOING WELL, KNOWS TO AVOID PRLONGED PERIOD SOF SITTING. ..; RECORDED 01/10/20 14 8:38AM BY EDNA COX I, OFFICE VISIT JULIANNE Ordonez, [facility] 7 14:41:01 Respirat ory finding 221963530 Completed 201308/20/2016 IMPRESSI ON: CONCERN FOR DVT RIGHT LEG WITH PE GIVEN HE IS TACHYCAR DIC, TACHYPNE IC. AMBULANC E CALLED. NEEDS EITHER DOPPLER LEG OR CT. HIGH RISK CONDITIO N WITH THREAT TO LIFE; RECORDED 01/10/20 14 8:38AM BY EDNA COX I, OFFICE VISIT JULIANNE Ordonez, [facility] 7 14:40:57 Dysuria 35609008 Completed 201202/12/2014 RECORDED 09/20/19 13 8:51AM BY OLIMPIA GARCIA MA, ANNOTATI ON/ADDEN DUM Not Available [facility] 4 15:15:18 Prostate specific antigen above referenc e range 733064861 Active 2013 Leatha Bueno [place] null, [facility] 3 13:57:16 Influenz a vaccine needed 44074671888 06 Completed 201202/12/2014 RECORDED 04/23/20 13 2:46PM BY LEATHA BUENO, OFFICE VISIT Not Available [facility] 4 15:15:18 Tobacco user 727015390 Completed 201302/12/2014 RECORDED 09/29/19 14 9:22AM BY MEG ORDONEZ ON/ADDEN DUM KEITH GRANADO MD [address] [address], [place], [address] , [facility] 5 13:36:19 Adult health examinat ion Completed 201308/20/2016 IMPRESSI ON: PT IS DOING WELL, HE WILL INCREASE EXERCISE , HAS STAYED AWAY FROM SMOKING; RECORDED 09/29/19 14 1:30PM BY TERI Delgado MD, OFFICE VISIT Leatha Bueno [place] null, [facility] 7 14:40:36 Hearing loss 68725484 Active 2013 JULIANNE Ordonez, [facility] 3 13:57:16 Pure hypercho lesterol emia 233467741 Completed 201102/12/2014 IMPRESSI ON: CHECK TODAY; RECORDED 02/29/20 12 8:00AM BY NAZ PAZ MA, MEG ON/ADDEN DUM Not Available [facility] 4 15:15:19 Follow-u p encounte r Completed 201202/12/2014 RECORDED 10/12/19 13 9:07AM BY OLIMPIA GARCIA MA, JOHNATI ON/ADDEN DUM Not Available [facility] 4 15:15:19 Knee pain Completed 201102/12/2014 IMPRESSI ON: CARTILAG E ISSUE, PT TO SET UP APPT WITH [facility]; RECORDED 02/29/20 12 8:00AM BY NAZ PAZ MA, ANNOTATI ON/ADDEN DUM Not Available [facility] 4 15:15:19 Cramp in limb 116587236 Completed 201202/12/2014 IMPRESSI ON: HYDRATE STRETCHA DN CHECK LYTES; RECORDED 09/26/19 13 2:17PM BY SONAL MUELLER MA, ANNOTATI ON/ADDEN DUM Not Available [facility] 4 15:15:19 Nonvenom ous insect bite of multiple sites 009057190 Completed 200702/12/2014 IMPRESSI ON: EDEMA, MILD PAIN, NO INFECTIO N, ICE, ELEVATE AND MOTRIN; RECORDED 07/09/20 08 9:37AM BY SONAL MUELLER MA, JOHNATI ON/ADDEN DUM Not Available [facility] 4 15:15:19 Administ ration of viral vaccine Completed 201102/12/2014 DATE: 08/11/19 12; RECORDED 02/29/20 12 8:00AM BY NAZ PAZ MA, ANNOTATI ON/ADDEN DUM Not Available [facility] 4 15:15:19 Administ ration of bacteria l and viral vaccine Completed 201102/12/2014 RECORDED 07/29/19 12 10:31AM BY TERI Delgado MD, OFFICE VISIT Not Available [facility] 4 15:15:19 Abnormal findings on diagnost ic imaging of lung 175760484 Completed 201102/12/2014 IMPRESSI ON: CT OF CHEST [...] PAZ MA, ANNOTATI ON/ADDEN DUM Not Available [facility] 4 15:15:19 Disorder of oral soft tissues 54989870 Completed 201308/20/2016 IMPRESSI ON: SLIGHTLY RED AREA ON HARD PALATE ON THE LEFT. NO CLEAR ULCERATI ON OR MASS.; RECORDED 09/29/19 14 9:25AM BY LEATHA BUENO, OFFICE VISIT Teri augusteenzmatt hawkins, [facility] 7 15:01:57 Onychia of finger 15236565 Completed 201308/20/2016 RECORDED 01/10/20 14 8:38AM BY EDNA COX I, OFFICE VISIT Teri Jose neal null, [facility] 7 15:01:47 Paronych ia of finger 896608322 Completed 201308/20/2016 RECORDED 09/29/19 14 9:25AM BY LEATHA BUENO, OFFICE VISIT [facility] 7 15:02:02 Disorder of prostate 76605891 Completed 201301/17/2017 IMPRESSI ON: PSA WAS CHECKED 09/06 AND WAS 3.6, SOME VARIABIL ITY WITH THE LEVELS UROLOGY AHStaci GOTTEN, IN LIGHT OF PT IWTH A [...] EDNA COX I, OFFICE VISIT Teri augusteenzmatt hawkins, [facility] 7 10:05:28 Acute prostati tis 01663795 Completed 201202/12/2014 IMPRESSI ON: PROSTATI TIS WITH FEVER. WILL TREAT AN OUTPT BUT DISCUSSE D WITH PT THAT HE MAY NEED TO GO TO ER FOR IV ABX FOR THIS. HE UNDERSTA NDS. IF ANY WORSENIN G SXS, NOT IMPROVIN G WITH ABX, ETC. F/U WITH UROLOGY IN 1 WEEK.; RECORDED 09/20/19 13 8:52AM BY OLIMPIA GARCIA MA, ANNOTATI ON/ADDEN DUM Not Available [facility] 4 15:15:19 Pulmonar y embolism 45959972 Completed 201308/22/2017 Teri hawkins, [facility] 8 10:32:12 Screenin g for malignan t neoplasm of colon Completed 200702/12/2014 RECORDED 07/09/20 08 9:37AM BY SONAL MUELLER MA, JOHNATI ON/ADDEN DUM Not Available [facility] 4 15:15:19 Tobacco dependen ce syndrome 62887602 Completed 201202/12/2014 IMPRESSI ON: PT TO START WELLBUTR IN AGAIN, QUIT LAST ITME FOR 3 YEARS; RECORDED 09/26/19 13 2:19PM BY SONAL MUELLER MA, MEG ON/ADDEN DUM Not Available [facility] 4 15:15:20 Umbilica l hernia 248243870 Active 2013 JULIANNE Ordonez, [facility] 3 13:57:16 Adult health examinat ion Completed 201203/04/2014 IMPRESSI ON: PT WANTS TO START EXERCISI NG, USHA ED HIM TO, NEEDS TO EAT HEALTHY, IN PAST HAD ONEELEVT E DPSA THEN RETURNED TO NL, THOUGHT DUE TO INFLAMMA TION RECHECK TODAY; RECORDED 09/26/19 13 2:16PM BY SONAL MUELLER MA, ANNOTATI ON/ADDEN DUM JULIANNE Ordonez, [facility] 7 14:40:36 Diarrhea 03184913 Completed 200703/04/2014 IMPRESSI ON: FULL WORKUP WITH EGD, COLONOSC OPY, SMALL BOWEL LOOK, NO PATHOLOG Y, ON HIGH FIBERM POSSIBLE IRRITABL E BOWEL; RECORDED 07/09/20 08 9:37AM BY SONAL MUELLER MA, ANNOTATI ON/ADDEN DUM Not Available [facility] 4 06:00:51 Dysuria 61118751 Completed 201203/04/2014 RECORDED 09/20/19 13 8:51AM BY OLIMPIA GARCIA MA, ANNOTATI ON/ADDEN DUM Not Available [facility] 4 06:00:51 Coag./bl eeding tests abnormal 787997031 Completed 201310/23/2024 next blod work check for clood agglutin in and hemolysi s, folate, vitamin b12 KEITH GRANADO MD [address], [place], [address] , [facility] 5 13:36:39 Prostate specific antigen above referenc e range 959151576 Completed 201303/04/2014 IMPRESSI ON: PT TO SET UP APPT WITH DR KEYES FOR ANNUAL EVAL, NL EXAM HERE TODAY WILL LET HIM GET PSA; RECORDED 01/10/20 14 8:38AM BY EDNA COX I, JOHNATI ON/ADDEN DUM Odalis hawkins, [facility] 8 08:33:53 Influenz a vaccine needed 33755693845 06 Completed 201203/04/2014 RECORDED 04/23/20 13 2:46PM BY LEATHA BUENO, OFFICE VISIT Not Available [facility] 4 06:00:51 Pure hypercho lesterol emia 372605436 Completed 201103/04/2014 IMPRESSI ON: CHECK TODAY; RECORDED 02/29/20 12 8:00AM BY NAZ PAZ MA, ANNOTATI ON/ADDEN DUM Not Available [facility] 4 06:00:51 History of pulmonar y embolus 237072916 Active 2013 JULIANNE Ordonez, [facility] 3 13:57:16 Follow-u p encounte r Completed 201203/04/2014 RECORDED 10/12/19 13 9:07AM BY OLIMPIA GARCIA MA, ANNOTATI ON/ADDEN DUM Not Available [facility] 4 06:00:51 Knee pain Completed 201103/04/2014 IMPRESSI ON: CARTILAG E ISSUE, PT TO SET UP APPT WITH [facility]; RECORDED 02/29/20 12 8:00AM BY NAZ PAZ MA, JOHNATI ON/ADDEN DUM Not Available [facility] 4 06:00:51 Cramp in limb 923022915 Completed 201203/04/2014 IMPRESSI ON: HYDRATE STRETCHA DN CHECK LYTES; RECORDED 09/26/19 13 2:17PM BY SONAL MUELLER MA, JOHNATI ON/ADDEN DUM Not Available [facility] 4 06:00:51 Nonvenom ous insect bite of multiple sites 868367075 Completed 200703/04/2014 IMPRESSI ON: EDEMA, MILD PAIN, NO INFECTIO N, ICE, ELEVATE AND MOTRIN; RECORDED 07/09/20 08 9:37AM BY SONAL MUELLER MA, JOHNATI ON/ADDEN DUM Not Available [facility] 4 06:00:51 Administ ration of viral vaccine Completed 201103/04/2014 DATE: 08/11/19 12; RECORDED 02/29/20 12 8:00AM BY NAZ PAZ MA, JOHNATI ON/ADDEN DUM Not Available [facility] 4 06:00:51 Administ ration of bacteria l and viral vaccine Completed 201103/04/2014 RECORDED 07/29/19 12 10:31AM BY TERI Delgado MD, OFFICE VISIT Not Available [facility] 4 06:00:51 Abnormal findings on diagnost ic imaging of lung 502043217 Completed 201103/04/2014 IMPRESSI ON: CT OF CHEST [...] PAZ MA, MEG ON/ADDEN DUM Not Available [facility] 4 06:00:51 Disorder of oral soft tissues 11127450 Completed 201303/04/2014 IMPRESSI ON: SLIGHTLY RED AREA ON HARD PALATE ON THE LEFT. NO CLEAR ULCERATI ON OR MASS.; RECORDED 01/10/20 14 8:38AM BY EDNA COX I ANNOTATI ON/ADDEN DUM Teri LincolnJazmín augusteenzmatt hawkins, [facility] 7 15:01:57 Overweig ht 512032496 Completed 201303/04/2014 RECORDED 01/10/20 14 8:38AM BY EDNA COX I ANNOTATI ON/ADDEN DUM Rosa Rivas shruthi, [facility] 1 14:26:43 Acute prostati tis 94138952 Completed 201203/04/2014 IMPRESSI ON: PROSTATI TIS WITH FEVER. WILL TREAT AN OUTPT BUT DISCUSSE D WITH PT THAT HE MAY NEED TO GO TO ER FOR IV ABX FOR THIS. HE UNDERSTA NDS. IF ANY WORSENIN G SXS, NOT IMPROVIN G WITH ABX, ETC. F/U WITH UROLOGY IN 1 WEEK.; RECORDED 09/20/19 13 8:52AM BY OLIMPIA GARCIA MA, ANNOTATI ON/ADDEN DUM Not Available [facility] 4 06:00:51 Screenin g for malignan t neoplasm of colon Completed 200703/04/2014 RECORDED 07/09/20 08 9:37AM BY SONAL MUELLER MA, ANNOTATI ON/ADDEN DUM Not Available [facility] 4 06:00:51 Tobacco dependen ce syndrome 86466535 Completed 201203/04/2014 IMPRESSI ON: PT TO START WELLBUTR IN AGAIN, QUIT LAST ITME FOR 3 YEARS; RECORDED 09/26/19 13 2:19PM BY SONAL MUELLER MA, ANNOTATI ON/ADDEN DUM Not Available [facility] 4 06:00:51 Umbilica l hernia 387465424 Completed 201303/04/2014 IMPRESSI ON: NEW PROBLEM TO EXAMINER , PT TO SEE DR ALEXANDE R, HE WAS WARND TO GO TO THE ER IF ANY COLOR CAHNGE, INCREASE IN PAIN OF THE HERNIA.; RECORDED 01/10/20 14 8:38AM BY MEG FELDER ON/CHIP hawkins [facility] 8 08:33:56 Acute otitis externa 47375859 Completed 08/20/2016 JULIANNE Ordonez [facility] 7 14:40:41 Conjunct ivitis 7177177 Completed 08/20/2016 JULIANNE Ordonez [facility] 7 14:41:08 Fatigue 52018891 Completed 08/20/2016 JULIANNE Ordonez [facility] 7 14:41:10 Cellulit is 966509701 Completed 08/20/2016 Teri Glacinthya-Nisha hawkins [facility] 7 15:01:31 Increase d frequenc y of urinatio n 208956114 Completed 08/20/2016 JULIANNE Ordonez [facility] 7 14:40:29 Disorder of urinary system 229856479 Completed 08/20/2016 Teri Glading-Nisha hawkins [facility] 7 15:01:28 Sleep apnea 75761540 Active JULIANNE Ordonez [facility] 3 13:57:16 Otalgia 98820607 Completed 08/20/2016 Teri Glading-Nisha augusteneal shruthi [facility] 7 15:01:36 Multiple skin tags 333158667 Completed 08/20/2016 Teri Glading-Nisha hawkins [facility] 7 15:01:54 Advance directiv e discusse d with patient 688506971 Completed 201608/22/2017 Odalis hawkins [facility] 8 08:34:14 Parkinso n's disease 30749970 Completed 201805/04/2019 Teri Jose augusteenzo null, [facility] 9 11:10:37 History of right total knee replacem ent 30950702944 20812 Completed 201804/06/2023 KEITH GRANADO MD [address], [place], [address] , [facility] 3 13:13:11 Parkinso nism 54678991 Completed 201910/01/2020 KEITH GRANADO MD [address], [place], [address] , [facility] 3 13:15:27 Advance care planning Active 2020 JULIANNE Ordonez, [facility] 3 13:57:16 Steatoti c liver disease 221977507 Active 2020 Leatha Bueno [place] null, [facility] 3 13:57:16 Vertigo 444859317 Active 2020 JULAINNE Ordonez, [facility] 3 13:57:16 Serum creatini ne outside referenc e range 849571206 Completed 202003/26/2021 KEITH GRANADO MD [address], [place], [address] , [facility] 3 13:13:17 Type 2 diabetes mellitus without complica tion 997497097 Completed 202005/12/2021 JULIANNE Ordonez, [facility] 3 13:57:16 Serum creatini ne outside referenc e range 156605881 Completed 202004/06/2023 KEITH GRANADO MD [address], [place], [address] , [facility] 3 13:13:17 Tobacco user 745023149 Completed 201310/23/2024 KEITH GRANADO MD [address] [facility] [address], [place], [address] , [facility] 5 13:36:19 Parkinso nism 59955500 Active 2019 KEITH GRANADO MD [address] [facility] [address], [place], [address] , [facility] 3 13:15:27 Chronic kidney disease stage 3A 209258606 [facility] 2022 [facility] 3 12:48:08 Prediabe jody 064096986 Active 2022 KEITH GRANADO MD [address] [facility] [address], [place], [address] , [facility] 3 21:01:56 Urethral strictur e 86430880 Active 2024 self-cat hs KEITH GRANADO MD [address] [facility] [address], [place], [address] , [facility] 5 13:09:25 Benign prostati c hyperpla rafael 329597490 Active 2024 KEITH GRANADO MD [address] [facility] [address], [place], [address] , [facility] 5 13:09:33 Ex-smoke r 2700920 Active 2024 KEITH GRANADO MD [address] [facility] [address], [place], [address] , [facility] 5 13:36:32 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 Procedures Surgical History Date Name Laterality Status Provider Name and Address Organization Details Recorded Time 10/24/19 Advanced Care Planning completed KEITH GRANADO MD [address] [facility] [address], [place], [address], [facility] 10/22/2024 07:09:31 10/06/19 23 Colonoscopy completed Jessica Montiel [facility] 10/05/2022 10:02:30 10/03/19 22 Diabetic Foot Exam (Monofilament) completed Olimpia Garcia MA [facility] 10/02/2021 09:20:16 10/02/19 21 Six-Item Cognitive Test completed Leatha Bueno MA [facility] 10/01/2020 10:25:57 09/13/19 20 Mini-Cog Test completed Sonal riley MA [facility] 09/13/2019 13:18:51 12/13/19 19 total knee replacement completed Chelle Yu [facility] 01/02/2019 16:23:22 09/08/19 19 Mini-Cog Test completed Leatha Bueno MA [facility] 09/08/2018 08:56:18 08/22/19 18 Fall Risk Assessment completed Leatha Bueno MA [facility] 08/22/2017 10:02:46 08/22/19 18 Mini-Cog Test completed Leatha Bueno MA [facility] 08/22/2017 10:02:23 08/20/19 17 Fall Risk Assessment completed Leatha Bueno MA [facility] 08/20/2016 14:45:19 08/20/19 17 Mini-Cog Test completed Leatha Bueno MA [facility] 08/20/2016 14:44:17 08/20/19 17 Advanced Care Planning completed Teri guevara [facility] 08/20/2016 15:00:56 10/01/19 15 Fall Risk Assessment completed Leatha Bueno MA [facility] 09/30/2014 10:08:54 10/01/19 15 Mini-Cog Test completed Leatha Bueno MA [facility] 09/30/2014 09:58:57 Imaging Results Imaging Date Name Status LastModified by Organiz ation Details LastModified Time 05/09/2024 XR, chest, 2 view completed [facility] (Outpt Imaging) [address] [place], [address], 05/14/2024 15:06:42 05/28/[address] [facility] ( [facility] Central Scheduling) [facility] [place], [place], [address], 05/28/2024 10:11:14 07/16/2024 CT chest ldct lung program completed [facility] (Outpt Imaging) [address] [place], [address], 07/31/2024 13:58:27 07/16/2024 CT chest ldct lung program completed [email or web address] (Outpt Imaging) [address] [place], [address], 07/17/2024 14:02:34 07/16/2024 LDCT, chest, for lung cancer screening completed [facility] - Health Information Management [address], [place], [address], 08/07/2024 10:43:35 Procedure Notes None recorded. 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 05/04/2024 08:24:38 Allergies Allergen ID Allergen Name Allergen Category Reaction Reaction Severity Criticality Documentation Date Start Date Code Code System Note Provider Name and Address Organization Details Recorded Time 39869 Iodinated contrast media (substanc e) medicatio n Not available Not available Not available 02/05/20142013 85646 2003 SNOMED cause d redne ss Not Available [facility] 16:57:12 80936 iodine medicatio n Not available Not available Not available 12/25/20202020 5933 RxNorm KEITH GRANADO MD [address], [facility] [place], [address], [facility] 5 13:07:49 Medications Name Sig Start Date Stop [...] completed Not Available Not Available Not Available [place] 3 DAILY 01/17 completed Not Available Not Available Not Available vitamin F27-gpuer acid 1 po qd 10/07 completed Not [...] Available Not Available No t Available Fluvirin 9121-4296 (PF) 45 mcg (15 mcg x 3)/0.5 [...] Updated DateTime 4 176.53 cm 32.2 kg/m2 785326. 91 g 90 /min 95 % 95 % 100 [degF] 142 mm[Hg] 79 mm[Hg] Arin Tiwari MA [facility] 4 13:31:42 Date Recorded Systolic blood pressure Diastolic blood pressure Provider Name and Address Organization Details Last Updated DateTime 10/14/2023 140 mm[Hg] 80 mm[Hg] KEITH GRANADO MD [address] [address], [place], [address] 10/14/2023 13:59:35 Date Recorded Body height Body mass index (BMI) Body weight Heart rate Oxygen saturation Oxygen saturation in Arterial blood by Pulse oximetry Body temperature Systolic blood pressure Diastolic blood pressure Provider Name and Address Organization Details Last Updated DateTime 4 176.53 cm 32.2 kg/m2 555004. 91 g 100 /min 95 % 95 % 98.7 [degF] 105 mm[Hg] 66 mm[Hg] [facility] 4 09:16:44 Date Recorded Body height Body mass index (BMI) Body weight Heart rate Oxygen saturation Oxygen saturation in Arterial blood by Pulse oximetry Body temperature Systolic blood pressure Diastolic blood pressure Provider Name and Address Organization Details Last Updated DateTime 4 176.53 cm 32 kg/m2 04922.3 2 g 79 /min 96 % 96 % 98.4 [degF] 126 mm[Hg] 72 mm[Hg] Tabatha Robert [facility] 4 11:07:14 Date Recorded Body height Body mass index (BMI) Body weight Oxygen saturation Oxygen saturation in Arterial blood by Pulse oximetry Heart rate Body temperature Systolic blood pressure Diastolic blood pressure Provider Name and Address Organization Details Last Updated DateTime 5 176.53 cm 33.5 kg/m2 795530. 65 g 97 % 97 % 87 /min 98.4 [degF] 128 mm[Hg] 71 mm[Hg] Leatha Bueno MA [facility] 5 12:57:35 Social History Question Answer Notes LastModified by Organizat ion Details LastModified Time Tobacco Smoking Status Former Smoker Naz hawkins [facility] 04/22/2014 11:01:44 Do You Have An Advance Directive? No Information not available 09/28/2021 What Is Your Level Of Alcohol Consumption? Moderate [email or web address] Information not available 10/01/2020 Is Blood Transfusion Acceptable In An Emergency? Yes [email or web address] Information not available 10/01/2020 What Is Your Level Of Caffeine Consumption? Moderate 1 Cup Of Coffee Daily Information not available 09/13/2019 How Much Tobacco Do You Chew? None Information not available 09/13/2019 Are You Currently Employed? No Retired Information not available 09/13/2019 What Type Of Diet Are You Following? REGULAR [email or web address] Information not available 09/30/2014 Which Illicit Or Recreational Drugs Have You Used? Cannabis Information not available 09/13/2019 Do You Or Have You Ever Used E-cigarettes Or Vape? 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 6-10yearssinc elastcigarett e [email or web address] Information not available 10/01/2020 Live Alone Or With Others? With Others (Olga) Information not available 09/28/2021 Do You Take Precautions To Prevent Distracted Driving? Yes [email or web address] Information not available 10/01/2020 How Often Do You Need To Have Someone Help You When You Read Instructions, Pamphlets, Or Other Written Material From Your Doctor Or Pharmacy? Sometimes [email or web address] Information not available 10/01/2020 Have You Served In The ? Yes [employer] [email or web address] Information not available 10/01/2020 Have You Or [...] OUD But Is Possibly At Risk. No [email or web address] Information not available 10/01/2020 Have You Recently Traveled To A COVID-19 High Risk Area Or Gathering In The Last 10 Days? No [email or web address] Information not available 10/01/2020 What Was The Date Of Your Most Recent Tobacco Screening? 10/23/2024 [email or web address] Information not available 10/23/2024 How Many Children Do You Have? 3 Information not available 09/13/2019 What Is Your Current Pack Years? 30ormorepacky ears [email or web address] Information not available 10/23/2024 Do You Use Protection During Sex? Always [email or web address] Information not available 10/01/2020 Seat Belts Used Routinely Yes Information not available 09/28/2021 Are You Sexually Active? Yes [email or web address] Information not available 10/01/2020 Smoke Alarm In Home Yes Information not available 09/28/2021 At What Age Did You Start Smoking Tobacco? 32 Information not available 10/01/2020 Are You Passively Exposed To Smoke? No Information not available 10/01/2020 Do You Or Have You Ever Used Smokeless Tobacco? Never Used Smokeless Tobacco [email or web address] Information not available 05/21/2020 How Much Tobacco Do You Smoke? 1.5 PPD Information not available 09/28/2021 General Stress Level Medium Information not available 09/28/2021 Do You Use Any Illicit Or Recreational Drugs? No Information not available 10/02/2021 Do You Use Sunscreen Routinely? Yes [email or web address] Information not available 09/30/2014 How Many Years Have You Smoked Tobacco? 30 [email or web address] Information not available 10/01/2020 Do You Or Have You Ever Used Any Other Forms Of Tobacco Or Nicotine? No Information not available 10/02/2021 Sex: Unknown Functional Status Question Answer Note LastModified by Organizat ion Details LastModified Time Are you able to walk? YESASSIST cane 90 percent of the time [email or web address] Information not available 10/07/2022 Are you able to care for yourself? Yes [email or web address] Information not available 09/30/2014 What is your exercise level? Occasional [email or web address] Information not available 10/01/2020 Mental Status None recorded. Family History Relationship Description Onset Age of this Age Resolved Age Notes LastModified by Organization Details LastModified Time Mother Cerebrovascu lar accident Not available 09:55:39 Mother Dementia 97 [email or web address] Not available 09/13/2019 13:10:22 Father Heart disease [email or web address] Not available 09/30 09:55:39 Notes:No FH of colon or wilfrido st Medical History Condition Response Other N Gout N Kidney Stones N Blood Diseases N Hyperthyroidism N Breast Cancer N Hypothyroidism N Lung Disease N COPD Y Depression N Defects or Inherited Disease N Anesthesia [...] virus, quadrivalent, preservative 6 completed JULIANNE Lovett [facility] 05/24/2016 13:17:04 COVID-19, mRNA, LNP-S, PF, 30 mcg/0.3 mL dose 1 completed JULIANNE Ordonez [facility] 10/07/2022 14:03:59 COVID-19, mRNA, LNP-S, PF, 30 mcg/0.3 mL dose 1 completed JULIANNE Ordonez [facility] 10/07/2022 14:03:59 Influenza, high-dose, trivalent, PF 9 completed JULIANNE Ordonez [facility] 10/07/2022 14:04:00 Influenza, high-dose, trivalent, PF 7 completed Leatha Diaz JULIANNE null, [facility] 10/07/2022 14:04:00 Pneumococcal conjugate PCV 13 5 completed Leathaezekiel Bueno JULIANNE null, [facility] 10/07/2022 14:04:00 Influenza, split virus, trivalent, PF 4 completed Leatha Diaz JULIANNE null, [facility] 10/07/2022 14:04:00 Pneumococcal conjugate PCV 13 0 completed Leatha Diaz, JULIANNE null, [facility] 10/07/2022 14:04:00 Influenza, high-dose, trivalent, PF 8 completed Leathaezekiel Bueno JULIANNE null, [facility] 10/07/2022 14:04:00 Influenza, high-dose, quadrivalent, PF 1 completed Leatha Bueno JULIANNE shruthi, [facility] 10/07/2022 13:57:41 COVID-19, mRNA, LNP-S, PF, 30 mcg/0.3 mL dose 1 completed Leathaezekiel Bueno JULIANNE null, [facility] 10/07/2022 13:57:41 Tdap 1 completed Leathaezekiel Bueno JULIANNE null, [facility] 10/07/2022 13:57:41 zoster recombinant 2 completed Leatha Diaz JULIANNE null, [facility] 10/07/2022 13:57:41 zoster recombinant 2 completed Leatha Diaz JULIANNE null, [facility] 10/07/2022 13:57:41 Influenza, high-dose, quadrivalent, PF 0 completed Leathaezekiel Bueno JULIANNE null, [facility] 10/07/2022 14:03:59 COVID-19, mRNA, LNP-S, bivalent, PF, 30 mcg/0.3 mL dose 2 completed Leathaezekiel Bueno JULIANNE null, [facility] 10/07/2022 14:04:00 RSV, recombinant, protein subunit RSVpreF, adjuvant reconstituted, 0.5 mL, PF 3 completed JULIANNE Gallo [facility] 01/19/2024 09:05:29 COVID-19, mRNA, LNP-S, PF, 50 mcg/0.5 mL 3 completed JULIANNE Gallo [facility] 01/19/2024 09:05:29 COVID-19, mRNA, LNP-S, PF, hai-sucrose, 30 mcg/0.3 mL 4 completed JULIANNE Ordonez [facility] 10/23/2024 12:51:26 Influenza, high-dose, trivalent, PF 4 completed JULIANNE Ordonez [facility] 10/23/2024 12:51:26 Influenza, high-dose, quadrivalent, PF 2 completed Marisa hawkins [facility] 04/21/2022 00:41:42 Td (adult), 2 Lf tetanus toxoid,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 Benign pro static hyperplasia 950781942 N40.1 - pt mentions his urinary stream is reduced and he does wake up at night to urinate- pt would to follow-up with Dr. eKyes for this new problem [id number] KEITH GRANADO MD Main Office [address] [place] [address] 09/23/2023 08:37:49 09/23/2023 17:16:23 [id number] KEITH GRANADO MD Main Office [address] [place] [address] 10/14/2023 13:23:04 10/14/2023 14:04:38 Adult health examination 509095544 Z00.00 Health Maintenanc e Lulú) Patient was [...] acute complaints Chronic ob structive pulmonary disease 72375191 J44.9 - under good control- pt has stopped smoking about 10 years ago- c/w respirmat 2puff QD- started on daliresp -> pt is not tolerating well, having a lot diarrhea- follows with pulm, last seen on 04/19/23 -> no change in regimen Steatotic liver disease 042883580 K76.0 - resolved- ALT-28// T- checked 04/16 Parkinsonism 13574765 G2 0.A1 - pt follows with neurology, last seen on 05/12/23 -> no change in regimen- c/w carbidopa 25mg-levod opa 100mg TID Hyperlipidemia 93916498 E78.5 Z00.00 - at goal- lipid panel [...] fruits and veggies. History of pulmonary embolus 496371988 Z86.711 - and DVT (2X)- CHADVASC2 score: 4= 4.8% stroke risk per year- HASBLEED score: 1= low risk of major bleeding- risk of being off anticoagul ation does not out-weight benefit will continue- counselled on bleeding risks- c/w Eliquis 5mg BID Hypertensi ve renal disease 60818456 I12.9 - elevated today- BP today 142/79 [...] with your vision. Cramp in lower limb 1253 23327 R25.2 - will use tizanidine 4mg as needed Benign pro static hyperplasia 108292601 N40.1 - pt mentions his urinary stream is reduced and he does wake up at night to urinate- pt would to follow-up with Dr. Keyes for this new problem Administra tion of pneumococcal vaccine 72399530 Z23 - pt will like to have it done in 6 months Chronic ki dney disease stage 2 174198446 N18.2 - creatine 1.3, GFR 60, stable- counselled on staying hydrated and avoiding NSAIDS- follows with nephrology , last seen on 05/11/2022 Prediabetes 437336115 R7 3.03 - HbA1c is 6.1 done on 04/16 (worse form last year, 5.9) Ex-smoker 9422208 Z87.89 1 - pack years: 53- quit smokin Dysfunctio n of eustachian tube 23744457 H69.93 Headache 26428659 R51.9 Cardiac pa cemaker in situ 268815303 Z95.0 - [employer] Transition from acute care to self-care 8470131246 55651 Z76.89 - reviewed hospital stay Dizziness 422838854 R42 - improved after placing pace maker [id number] KEITH GRANADO MD Main Office [address] [place] [address] 10/12/2023 08:36:02 10/12/2023 14:05:34 [id number] KEITH GRANADO MD Main Office [address] [place] [address] 01/19/2024 08:56:32 01/19/2024 09:29:20 Chronic kidney disease stage 2 528894872 N18.2 - creatine 1.3, GFR 60, stable- counselled on staying hydrated and avoiding NSAIDS- follows with nephrology , last seen on 05/11/2022 Hypertensi ve renal disease 58624205 I12.9 - at goal- BP today 105/66- [...] with your vision. Cramp in lower limb 0889 49169 R25.2 - will use tizanidine 4mg as needed Itching of ear 411216002 L29.8 - pt wanted to switch from dermotic to another solution [id number] KEITH GRANADO MD Main Office [address] [facility] [address] [place] [address] 04/17/2024 10:36:19 04/17/2024 11:31:05 Chronic kidney disease stage 3A 213421920 N18.31 - creatine 1.3 with FGR of 60- pt does follow with a nephrologi st- pt advised to stay hydrated and avoid NSAIDs Chronic ob structive pulmonary disease 98794520 J44.9 - under good control- pt has stopped smoking about 10 years ago- c/w respirmat 2puff QD- c/w roflumilas t 250mg QD- follows with pulm, last seen on 02/21/2024 -> no change in regimen Parkinsonism 95694384 G2 0.A1 - pt follows with neurology, last seen on 05/12/23 -> no change in regimen- c/w carbidopa 25mg-levod opa 100mg TID Prediabetes 660694031 R7 3.03 - HbA1c is 6.1 done on 04/16 (worse form last year, 5.9)- ordered repeat levels Influenza vaccine needed 1738808026 106 Z23 Will is scheduled flu shot on 04/18/24 at pharmacy Lumbar radiculopathy 128 157806 M54.16 - has been on-going for several years, pt is following with pain management getting infections - pt would like to consider surgery- pt would like to stop tizanidine as it is not providing too much relief- as patient would like surgery would updated MRI lumbar spine and will refer to neurosurge ry Fatigue 44564265 R53.83 Z00.00 Hyperlipidemia 92065758 E78.5 Z00.00 FASTING [id number] KEITH GRANADO MD Main Office [address] [facility] [place] [address] 10/23/2024 12:45:00 10/23/2024 13:31:24 Advance directive discussed with patient 339861695 Z71.89 - discussed POLTS and HCP Chronic ki dney disease stage 3A 983658488 N18.31 - creatine 1.38 with GFR of 53- pt does follow with a nephrologi st- pt advised to stay hydrated and avoid NSAIDs Chronic ob structive pulmonary disease 84158842 J44.9 - under good control- pt has stopped smoking about 10 years ago- c/w respirmat 2puff QD- c/w roflumilas t 250mg QD- follows with pulm, last seen on 08/17/2024 -> no change in regimen Hearing loss 67848407 H9 0.3 - wears hearing aids intermitte ntly Parkinsonism 87562759 G2 0.A1 - pt follows with neurology, last seen on 05/14/2024 -> no change in regimen- c/w carbidopa 25mg-levod opa 100mg TID History of pulmonary embolus 748854559 Z86.711 - and DVT (2X)- CHADVASC2 score: 4= 4.8% stroke risk per year- HASBLEED score: 1= low risk of major bleeding- risk of being off anticoagul ation does not out-weight benefit will continue- counselled on bleeding risks- c/w Eliquis 5mg BID Prediabetes 809787335 R7 3.03 - HbA1c is 6.1 done on 04/16 (worse form last year, 5.9)- ordered repeat levels Sleep apnea 67473614 G47 .30 - using cpap Steatotic liver disease 293360527 K76.0 - resolved- ALT-28// T-26 checked 04/16 Adult heal th examination 723295274 Z00.00 Health Maintenanc e Lulú) Patient was [...] if any acute complaints Lumbar radiculopathy 128 222535 M54.16 - has been on-going for several years, pt is following with pain management getting infections - pt would like to consider surgery- pt would like to stop tizanidine as it is not providing too much relief- as patient would like surgery would updated MRI lumbar spine and will refer to neurosurge ry Fatigue 07651705 R53.83 Z00.00 Hyperlipidemia 96017791 E78.5 Z00.00 Ex-smoker 6851711 Z87.89 1 - pack years: 53- quit smokin Hypertensi ve renal disease 72891933 I12.9 - at goal- BP today 128/71- [...] with your vision. Cramp in lower limb 7159 05637 R25.2 - will use tizanidine 4mg as needed Benign pro static hyperplasia 541238855 N40.1 - pt mentions his urinary stream is reduced and he does wake up at night to urinate- pt would to follow-up with Dr. Keyes for this new problem Dysfunctio n of eustachian tube 91542942 H69.93 Headache 21993322 R51.9 Cardiac pa cemaker in situ 472242649 Z95.0 - [employer] Vitamin D deficiency 347 44236 E55.9 - vitamin D 19 Body mass index 30+ - obesity 428992233 E66.9 Z68.33 - BMI of 33.5- Cut [...] - FOR LIFE (MEDICARE SUPPLEMENT) Seamus Castaneda [id number] Seamus Castaneda 10/12/2023 1 MEDICARE B-[place]: [employer] Seamus Castaneda [id number] Seamus Castaneda 10/14/2023 2 WPS - FOR LIFE (MEDICARE SUPPLEMENT) Seamus Castaneda [id number] Seamus Castaneda 10/14/2023 1 MEDICARE B-[place]: [employer] Seamus Castaneda [id number] Seamus Castaneda 01/19/2024 2 WPS - FOR LIFE (MEDICARE SUPPLEMENT) Seamus Castaneda [id number] Seamus Castaneda 01/19/2024 1 MEDICARE B-[place]: [facility] Seamus Castaneda [id number] Seamus Castaneda 04/17/2024 2 WPS - FOR LIFE (MEDICARE SUPPLEMENT) Seamus Castaneda [id number] Seamus Castaneda 04/17/2024 1 MEDICARE B-[place]: [facility] Seamus Castaneda [id number] Seamus Castaneda 10/23/2024 2 WPS - FOR LIFE (MEDICARE SUPPLEMENT) Seamus Castaneda [id number] Seamus Castaneda 10/23/2024 1 MEDICARE B-[place]: [facility] Seamus Castaneda [id number] Seamus Castaneda Notes Date Note Type Note Provider Name and Address Organization Details Recorded Time 10/12/2023 text/html Hospitalization Contact RecordReported bypatient.Follow UpHospital: [facility]; admit date: (Please enter in format 'MM/DD/YYYY') [...] weeks. MEDS RECONCILED KEITH GRANADO MD [address] [facility] [address], [place], [address], [facility] 10/12/2023 14:05:31 10/14/2023 text/html Hospitalization Contact RecordReported bypatient.Follow UpHospital: [facility]; admit date: (Please enter in format 'MM/DD/YYYY') (09/20/2023); date of discharge: (Please enter in format 'MM/DD/YYYY') (09/22/2023); date of contact: (Please enter in format 'MM/DD/YYYY') (09/23/2023)Notes:Medic are covered inpatient stay? yesMedicare DELLA with in 48 working hours? yesHigh Complexity code valid on or before:SeptemberModerate Complexity code valid on or before:SeptemberHCP on file? noMOLST on file? noDischarge Summary available? yesPt presented to [facility] after experiencing a near syncopal episode [...] RBBB with LBBB.Pt was therefore transferred to [facility] for transvenous pacing which was successfully placed sewing machine attachment tester on 09/21/23, however pt was having intermittent [...] RESTART Tuesday09/25/2023FOLLOW UP IN EP CLINIC AT [facility] ON 10/06/2023 AT 10:30 AM MEDS [...] the home Medicare jordynSeamus Castaneda is a 77 year old F [...] none on file KEITH GRANADO MD [address], [address], [facility] 10/14/2023 16:18:29 01/19/2024 text/html Hypertension F/UReported bypatient.Associated [...] at this time. KEITH GRANADO MD [address], [address], [facility] 01/19/2024 09:30:29 04/17/2024 text/html Back PainReporte d [...] at this time. KEITH GRANADO MD [address], [address], [facility] 04/17/2024 11:49:27 10/23/2024 text/html Medicare Annual Wellness [...] the home Medicare Pricila Castaneda is a 78 year old F [...] Directive: none on file KEITH GRANADO MD [address], [address], [facility] 10/23/2024 13:37:43
--- OUTSIDE RECORDS SUMMARY | 2024-11-29 12:04 | XMS_ITS ---
Author Organization [facility] Address [address] [place] [address] Care Team Providers Care Solar Hot Water Installer Name Role Phone Deana Corrales Primary Care Provider Unavail Blayne Arriaza Unavailable [phone] REASON FOR VISIT r/s for sooner apt Encounters Encounter Location Date Provider Diagnosis [address] [address] 10/09/2024 Blayne Pena Plan Of Treatment Next Appt Details Provider Name:Blayne Pena , 01/03/2025 09:30:00 AM, [address] [facility], [address], [address], Progress Notes * Seamus FRAGA DDOB:1945 (79 yo M)Acc No.[id number]:10/09/2024 Progress Note Patient:?Seamus FRAGA Provider:?Blayne Pena DPM :1945???Age:78 Y???Sex:Male Rustam e:10/09/2024 Address:[address] [place] [address] [place], [place] Pcp:Deana Corrales Subjective: * Chief Complaints: * [...] DPM Date:?2024 Generated for Natalie edmonds/Shana/Jaspal on:?11/29/2024 12:04 PM EDT
--- OUTSIDE RECORDS SUMMARY | 2024-11-29 12:04 | XMS_ITS ---
Author Organization [facility] Address [address] [place] [address] Care Team Providers Care Medical Stenographer Name Role Phone Deana Corrales Primary Care Provider Unavail able Blayne Pena Unavailable [phone] Allergies Allergen (clinical drug ingredient) Drug/Non Drug [...] Ordered Date Performed Result Body Sit e 99554-SUNVSVN NAIL, 6 OR MORE 10/05/2024 N/A 24650-LIXK SKIN LESIONS, 2 TO 4 10/05/2024 N/A Encounters Encounter Location Date Provider Diagnosis [facility] [place] [address] [place] [address] 10/05/2024 Blayne Jean Atherosclerosis of squaxin artery of both lower extremities, with unspecified presence of clinical manifestation I70.203 ; Tinea unguium B35.1 ; Pain in right toe(s) M79.674 and Pain in left toe(s) M79.675 Assessments Encounter Date Diagnosis (ICD Code) Assessment Notes Treatment Notes Treatment Clinical Notes Section Notes 10/05/2024 Atherosclerosis of squaxin artery of both lower extremities, with unspecified presence of clinical manifestation (ICD-10 - I70.203) Q7(A), Q8(2B), Q9(1B,2C) 10/05/2024 Tinea unguium (ICD-10 - B35.1) 10/05/2024 Pain in right toe(s) (ICD-10 - M79.674) 10/05/2024 Pain in left toe(s) (ICD-10 - M79.675) Plan Of Treatment Pending Test Test Name Order Date 92869-XPHOZOI NAIL, 6 OR MORE 10/05/2024 52135-OFFF SKIN LESIONS, 2 TO 4 10/06/19 25 Next Appt Details Follow Up: prn, Reason: Provider Name:Blayne Pena , 01/03/2025 09:30:00 AM, [address] [facility], [address], [place], [address], Procedure Notes * Category Sub-Category Detail Notes [...] use of a nail nipper and/or dremel-type paint grinder, to a more viable healthy nail [...] to maintain effectiveness in symptomatic relief - 64678 Keratoma Treatment Parring or Cutting o f [...] instrumentation by the physician of record - 41664, Q8 Progress Notes * Seamus FRAGA DDOB:1945 (78 yo M)Acc No.[id number]:10/05/2024 Progress Note Patient:?Seamus FRAGA Staci Provider:?Blayne Pena DPM :1945???Age:78 Y???Sex:Male Rustam e:10/05/2024 Address:[address] [place] [address] [facility], [id number] Pcp:Deana Corrales Subjective: * Chief Complaints: * [...] Assessment: 1.?Tinea unguium - B35.1???2 .?Atherosclerosis of squaxin artery of both lower extremities, with unspecified presence of clinical manifestation - I70.203 (Primary)???Specify :Q8???Notes :Q7(A), Q8(2B), Q9(1B,2C)???3.?Pain in right toe(s) - M79.674???4.?Pain in left toe(s) - M79.675??? Plan: * Treatment: 2.?Tinea unguium?Procedure: 05697-JQSJWLK NAIL, 6 OR MORE * Procedures:?Debride Nail [...] use of a nail nipper and/or dremel-type paint grinder, to a more viable healthy nail [...] to maintain effectiveness in symptomatic relief - 79134.?Keratoma Treatment:?Parring or Cutting of Benign Hyperkeratotic Lesion(s)?(-56) [...] instrumentation by the physician of record - 93986, Q8.? * Procedure Codes:?70372 DEBRI DE NAIL, 6 OR MORE, Modifiers: XS 52913 TRIM SKIN LESIONS, 2 TO 4, Modifiers: XS , Q8 * Follow Up:?prn * Images: * Sign off status: Completed true * Provider:?Blayne Pena DPM Date:?2024 Generated for Natalie edmonds/Shana/Gianniitting on:?11/29/2024 12:04 PM EDT History and Physical Notes * HPI [...]
--- OUTSIDE RECORDS SUMMARY | 2024-11-29 12:04 | XMS_ITS | Patient Health Record ---
Author Organization [facility] Address [address] [place] [address] Care Team Providers Care Etcher [employer] Name Role Phone Deana Corrales Primary Care Provider Unavail able Blayne Pena Unavailable [phone] Allergies Allergen (clinical drug ingredient) Drug/Non Drug [...] W/U Status Risk Notes Problem Atherosclerosis of [place] arteries of the extremities ([id number]) Atherosclerosis of [place] artery of both lower extremities, with unspecified presence of clinical manifestation (I70.203) Active confirmed Q7(A), Q8(2B), Q9(1B,2 C) Vital Signs Height 5ft 11 in in 04/19/2024 Weight 211 lbs 04/19/2024 BMI 29.43 kg/m2 04/19/2024 Procedures Procedure Date Ordered Date Performed Result Body Sit e 35786-PEVUEQE NAIL, 6 OR MORE 01/30/2024 N/A 65748-XVPG SKIN LESIONS, 2 TO 4 01/30/2024 N/A 39692-XGBGKQY NAIL, 6 OR MORE 04/19/2024 N/A 58687-Hwadfunb Plate 04/19/2024 N/A 23271-VGSA SKIN LESIONS, 2 TO 4 04/19/2024 N/A 91921-SZMYWBY NAIL, 6 OR MORE 10/05/2024 N/A 42379-BMHA SKIN LESIONS, 2 TO 4 10/05/2024 N/A Encounters Encounter Location Date Provider Diagnosis [address] [address] 01/30/2024 Blayne Pena Atherosclerosis of [place] artery of both lower extremities, with unspecified presence of clinical manifestation I70.203 ; Tinea unguium B35.1 ; Pain in right toe(s) M79.674 and Pain in left toe(s) M79.[address] [address] 04/19/2024 Blaynebandar Pena Atherosclerosis of [place] artery of both lower extremities, with unspecified presence of clinical manifestation I70.203 ; Tinea unguium B35.1 ; Pain in right toe(s) M79.674 ; Pain in left toe(s) M79.675 and Ingrown nail L60.0 [facility] [address] [place] [address] 10/05/2024 Blayne Pena Atherosclerosis of [place] artery of both lower extremities, with unspecified presence of clinical manifestation I70.203 ; Tinea unguium B35.1 ; Pain in right toe(s) M79.674 and Pain in left toe(s) M79.675 [facility] [place] [address] [facility] [address] [place] [address] 01/12/2024 Blayne Pena [facility] [address] [place] [address] 07/31/2024 Blayne Pena Assessments Encounter Date Diagnosis (ICD Code) Assessment Notes Treatment Notes Treatment Clinical Notes Section Notes 01/30/2024 Tinea unguium (ICD-10 - B35.1) 01/30/2024 Atherosclerosis of [place] artery of both lower extremities, with unspecified presence of clinical manifestation (ICD-10 - I70.203) 04/19/2024 Tinea unguium (ICD-10 - B35.1) 04/19/2024 Atherosclerosis of [place] artery of both lower extremities, with unspecified presence of clinical manifestation (ICD-10 - I70.203) 10/05/2024 Tinea unguium (ICD-10 - B35.1) 10/05/2024 Atherosclerosis of [place] artery of both lower extremities, with unspecified [...] X ray : Foot, right 3V 04/21/2022 74255-SMRKKCU NAIL, 6 OR MORE 07/07/2023 81192-KNVIGZL NAIL, 6 OR MORE 10/13/2023 93835-SEVOIJX NAIL, 6 OR MORE 01/30/2024 26029-ZBPPPVC NAIL, 6 OR MORE 04/19/2024 17810-YZWSCOM NAIL, 6 OR MORE 10/05/2024 99896-KOGEHSO NAIL, 6 OR MORE 07/01/2022 00456-NALAKUS NAIL, 6 OR MORE 10/14/2021 45467-ALINIUS NAIL, 6 OR MORE 01/06/2022 42940-QVJVNSH NAIL, 6 OR MORE 03/30/2022 71315-VTOGLGZ NAIL, 6 OR MORE 10/07/2022 87743-SDQVCWH NAIL, 6 OR MORE 12/30/2022 35016-BAJVVTH NAIL, 6 OR MORE 03/31/2023 84224-Vwzpwsui Plate 04/19/2024 83941-Ghcmjsmf Plate 07/07/2023 83824-QXGW SKIN LESIONS, 2 TO 4 07/07/20 23 55077-BXSX SKIN LESIONS, 2 TO 4 01/30/20 24 82416-UVDK SKIN LESIONS, 2 TO 4 10/13/19 24 83448-UUFS SKIN LESIONS, 2 TO 4 10/06/19 25 68255-VPPL SKIN LESIONS, 2 TO 4 04/19/20 24 43072-JVRA SKIN LESIONS, 2 TO 4 03/31/20 23 63007-DFNI SKIN LESIONS, 2 TO 4 12/31/19 23 55733-DOQD SKIN LESIONS, 2 TO 4 10/08/19 23 32418-UXLC SKIN LESIONS, 2 TO 4 03/30/20 22 17030-TQAH SKIN LESIONS, 2 TO 4 01/07/20 22 34733-UAKU SKIN LESIONS, 2 TO 4 10/15/19 22 71848-TPLC SKIN LESIONS, 2 TO 4 07/01/20 22 Next Appt Details Provider Name:Blayne Naren Pena , 01/03/2025 09:30:00 AM, [address] [facility], [address], [place], [address], Insurance Providers Payer Name Payer Address Payer Phone Subscriber Number Group Number Insured Name Patient Relationship to Insured Coverage Start Date Coverage End Date Medicare National [facility] [employer] [address] [place] [address] [id number] LeonelSemaus Self - patient is the insured for Life [address] [place] [address] [id number] Leonel Seamus Self - patient is the insured Medical (General) History Medical History History ICD Code Back,Hip,and Knee pain Broken bones Parkinsons disease Tuberculosis Chicken pox Joint implants/screws CAD DVTs and PEs Pacemaker Surgical History Surgery Date(Month/Year) knee surgery, right back injections 2021 colonoscopy 10/05/22 Pacemaker 10/10/23 Hospitalization History Reason Date(Month/Year) [facility] Pacemaker w/new leads 09/2023
== END 2024-11-29 11:59 | disposition home or self-care (01) ==
LOC: HO.HSMS 10:40
PROVIDERS: PCP Student in an Organized Health Care Education/Training Program; Visit Provider Nurse Practitioner Family
DX: G25.9 Extrapyramidal and movement disorder, unspecified (principal); R42 Dizziness and giddiness
CPT/HCPCS: 99214

== ENCOUNTER → 2024-11-29 10:40 | Outpatient (BNVA) | payer MEDICARE, OTHER, SELFPAY | PROVIDERS: PCP Student in an Organized Health Care Education/Training Program; Visit Provider Nurse Practitioner Family | DX: G25.9 Extrapyramidal and movement disorder, unspecified (principal); R42 Dizziness and giddiness | CPT/HCPCS: 99212 ==

== ENCOUNTER 2025-01-17 06:09 | Outpatient (REF) | payer MEDICARE, OTHER, SELFPAY ==
--- NOTE | ~2025-01-17 | FL_ITS ---
EXAMINATION: FL GUIDANCE ONLY HISTORY: M16.0 - Bilateral primary osteoarthritis of hip COMPARISON: Comparison is made with the prior examination dated 10/04/2024. TECHNIQUE: Fluoroscopy time: Less than 1 minute. Cumulative Dose: 0.870 mGy. DAP: 0.39716 mGym2 Images: 1. FINDINGS: A fluoroscopic spot film of the left hip demonstrates contrast. Within the joint space. FL/FL guidance in treatment room IMPRESSION: Fluoroscopy during procedure. Please see procedure report for additional information. Electronically signed by: Casper Cosme MD 01/17/2025 11:49 AM EDT
--- OUTSIDE RECORDS SUMMARY | 2025-01-17 06:12 | XMS_ITS | Clinical Summary ---
Author Organization [facility], Address [address] [place] [address] [place] [address] Phone Care Team Providers Care Ingot Header Name Role Phone Unavailable Primary Care Provider [...] time each day Active Cobalamin Combinations (VITAMIN W31-XYIZG ACID PO)Indications:S tage 3a chronic kidney disease (HCC) vitamin O97-xnqny acid 1 po qd Active amLODIPine (NORVASC) [...] Visit [facility], [address] [place] [address] Juan F Hutton MD [address] [place] [address] Health Maintenance Due Date Last Done Comments Pneumococcal Vaccine: 50+ Years (3 of 3 - PCV20 or PCV21) 11/08/2019 09/13/2019, 09/13/2019, 10/02/2014, [...] AM EDT) Hemoglobin A1C 6.1(H) (4.0-5.6) % [facility] Comment: MONITORING: In known diabetic patients, hemoglobin A1c targets should be discussed with health care provider. DIAGNOSTIC USE: The [place] [employer] (ADA) and the World Health [...] Supplement 1 Testing performed or reported by [facility], a Service of [facility], [address] [place] [id number] Juan Antonio Pérez MD, Recruiting Coordinator Blood specimen (specimen) Venous blood / Unknown 12/26/2020 8:04 AM EDT 12/26/2020 8:07 AM EDT us Juan F Hutton MD LAB BLOOD ORDERABLES Final Resul t [facility] from Last 3 Months or Most Recently Relevant to Health Maintenance Insurance Medicare [facility]
== END 2025-01-17 06:10 | disposition home or self-care (01) ==
LOC: CF 06:09
PROVIDERS: Visit Provider Internal Medicine
DX: M16.0 Bilateral primary osteoarthritis of hip (principal)
CPT/HCPCS: 20610; J2003; J2795; J3301; Q9967

== ENCOUNTER 2025-01-17 10:23 | Outpatient (AMB) | payer MEDICARE, OTHER, SELFPAY ==
--- NOTE | 2025-01-17 10:30 | A.OFFVIS_ITS ---
Vital Signs 01/17/25 10:31 01/17/25 10:34 Height 5 ft 11 in 5 ft 11 in Weight 234 lb 234 lb BMI 32.6 32.6 BP 138/60 132/84 Blood Pressure Location Lt brachial Lt brachial Position Sitting Sitting Respiration 16 16 Pulse 76 72 Pulse Source Pulse Oximeter Pulse Oximeter Pulse Oximetry (%) 95 95 Oxygen Delivery Method Room Air Room Air Intake Visit Reasons: Left hip inj w/ fluoro Allergies fluticasone furoate (Trelegy Ellipta) Allergy (Severe, Verified 11/29/24 10:53) Thrush umeclidinium (Trelegy Ellipta) Allergy (Severe, Verified 11/29/24 10:53) Thrush vilanterol (Trelegy Ellipta) Allergy (Severe, Verified 11/29/24 10:53) Thrush HPI HPI Left hip inj w/ fluoro: Details: Patient presents for scheduled procedure. Denies any recent cough, cold, infection, fever or other significant changes in medical history since last office visit. [facility] Medical History Has daytime drowsiness Dyspnea Dyspnea Personal history of nicotine dependence Obesity [place] on CPAP Pulmonary emboli Pulmonary nodules COPD (chronic obstructive pulmonary disease) Surgical History S/P placement of cardiac pacemaker (~08/2023) History of total right knee replacement (TKR) (~2018) History of appendectomy Family History Father Heart disease Mother Heart disease Social History Alcohol intake: current Alcohol intake frequency: a few times a week Patient Tobacco Use Status: Former Tobacco user Physical Exam Vital Signs: Last Vital Signs Pulse 72 01/17/25 10:34 Resp 16 01/17/25 10:34 BP 132/84 01/17/25 10:34 Pulse Ox 95 01/17/25 10:34 Oxygen Delivery Method Room Air 01/17/25 10:34 BMI result Body Mass Index 32.6 Office Procedures AMB Joint Injection/Aspiration Joint Injection/Aspiration Primary Site: other (Left hip) Prep: site was prepped using sterile technique Injected: 40 mg of, Kenalog, with 4 mL of (Ropivacaine 0.25%) and in the joint Approach Used: other (Lateral approach, fluoroscopy guided with arthrogram) Procedure: The patient tolerated the procedure well Coding 14724 - Large joint Procedure code (CPT) selection complete Assessment & Plan Assessment & Plan (1) Bilateral hip joint arthritis: Code(s): M16.0 - Bilateral primary osteoarthritis of hip Category: Medical Plan Patient is status post left hip steroid injection with arthrogram. Patient tolerated procedure well and was discharged home in stable condition with discharge instructions. All questions were answered. We will follow-up via telephone or in clinic to assess response to therapy. A follow-up appointment was made during today's visit. Orders: Orders FL guidance in treatment room 01/17/25 M16.0 - Bilateral primary osteoarthritis of hip Coding Level of Care Code Procedure Only Diagnoses Bilateral hip joint arthritis M16.0 CPT Codes Coding - 76107 Large joint: 11204 - Large joint ([id number])
[2025-01-17 10:31] VITALS: BP 138/60; PULSE 76; RESP 16; O2SAT 95; BMI 32.6
[2025-01-17 10:34] VITALS: BP 132/84; PULSE 72; RESP 16; O2SAT 95; BMI 32.6
== END 2025-01-17 11:29 | disposition home or self-care (01) ==
LOC: HO.PMCPRC 10:23
PROVIDERS: PCP Student in an Organized Health Care Education/Training Program; Visit Provider Internal Medicine
DX: M16.0 Bilateral primary osteoarthritis of hip (principal)
CPT/HCPCS: 20610; 77002

== ENCOUNTER 2025-02-11 09:46 | Outpatient (AMB) | payer MEDICARE, OTHER, SELFPAY ==
[2025-02-11 09:50] VITALS: BP 130/74; PULSE 76; O2SAT 96; BMI 33.1
--- NOTE | 2025-02-11 09:50 | MHC.OFFVIS ---
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 Patient currently takes Eliquis 5 mg twice a day with good results. He also had a recent CT scan of the chest per the lung cancer screening of [facility] give him a RADS 2 and otherwise will have a follow-up CT scan in a year's time. In the meantime he has been complaining of worsening cough shortness of breath. His cough usually is with thick clear mucus. It does bother him. He does not feel this the Stiolto has been very effective for him. He did better with the Anoro. At this point the patient probably benefit from inhaled corticosteroid. Sitter for trilogy will be a better inhaler for him. He continues uses CPAP. The CPAP therapy continues to be affecting beneficial. He is it every night more than 4 hours a night. Developed LLE swelling and had a neg LE doppler. He went to urgent care and was diagnosed with cellulitis. Completed 2 courses of antibiotics and is overall better. His breathing is stable. Continues on the Eliquis without any adverse effects. The CPAP therapy is effective and beneficial, using in more than 4 hours at night. Respiratory meds are working and without any new issues. 05/01/2021 the patient is here for a pulmonary follow-up visit. Overall he is doing well from a respiratory status. He stop the QVAR and did not notice any worsening symptoms. He is wondering if he can stop the Stiolto. In the meantime the patient denies any wheezing or chest tightness. He has been having some weight gain issues however. She did hurt his ankle and has been able to exercise regularly. He is using the CPAP. The CPAP therapy continues to be affecting beneficial to he does use it for more than 4 hours a night. He has a fullface mask. He went to his eye doctor in [place] his eyes were dry. Therefore will try to switch him over to a nasal cradle type mask. He also has facial hair. Will try a [employer] cradle nasal mask. However, I have he needs a fullface mask will request a an F 30. He continues to tolerate the anticoagulation. He is taking it twice a day. No evidence of any major minor bleeding. 10/19/22 the patient is here for a pulmonary follow-up visit. The patient complains of worsening cough productive in nature. Moderate severity. Typically worse in the morning. He has also been having significant back pain and is working with pain management at this time. He has been getting injections to the back in ultimately may need other interventions. He does take Eliquis for history of recurrent pulmonary emboli. He will stop the Eliquis about 3 days prior to those procedures as per the protocol. The patient has continued to use the Stiolto. He had been on QVAR without any significant improvement. In view of his musculoskeletal issues with to avoid prednisone. He will be a great candidate for Daliresp at this time. Will start him on low-dose workup to the goal of the 500 mcg does significant tolerated to treat his chronic bronchitis. Patient also continues uses CPAP. CPAP therapy continues to be affecting beneficial. Continues using more than 4 hours a night. 01/03/2023 the patient is here for pulmonary follow-up visit. The patient overall is doing well. He continues have significant back pain. He will be getting therapeutic injections. For this he will have to stop the Eliquis for least 3 days and then restart after a couple days. He also has skin cancer and will be going skin cancer resection also in the few days after his injection in January. The patient will have to be off the anticoagulation for some time. However, the patient stands that he should use the anticoagulation in between because of his recurrent blood clots. From a respiratory status the patient is responding well to the current respiratory regimen. From a sleep point of view the patient is using CPAP every night more than 4 hours a night. He has not had any issues with supplies or with the actual machine. He does use [facility]. 04/19/2023 the patient is here for a pulmonary follow-up visit. He still struggling with back and hip issues. He is working closely with pain management. He did get the back injections and tolerating them well without any evidence of any active bleeding. Now the looking to do another intervention for the hip. Again, he is doing very well from a respiratory status and only has to hold the Eliquis 3 days prior to any intervention at this time. He continues uses respiratory therapy. He does not have any worsening respiratory symptoms. Although, he continues to express that he is having dyspnea on exertion. Fpab-cs-iqjbsnaw severity. In part has to do with his weight and his back issues and deconditioning.. He also is using the CPAP at nighttime. CPAP therapy continues to be affecting beneficial at night in the does use it for more than 4 hours a night. Therefore will follow-up next year with a PFT. Hopefully that we can get him involved in pulmonary rehabilitation as long as his hip and back issues are better. 10/17/2023 the patient is here for a pulmonary follow-up visit. He had a very eventful few months. He had an issue with his pacemaker way was not registering. Therefore he develops a high degree heart block and also significant cardiovascular compromise. He was taken to [facility]. One of his leads was dislodged. Therefore, he had his leads replaced. He was the hospital for few days. He had been on the Eliquis that they have to wait. He did have a chest x-ray which I personally reviewed without any acute disease in the new pacemaker leads were present. The patient now is home. He did have some neck pain after his lead placement because they irritated an area in his neck. Ultimately he is having hard time sleeping because of it. He has been using the CPAP though. The CPAP therapy continues to be affecting beneficial. He does use it for more than 4 hours a night. He is also back on the Eliquis and he seems to be tolerating that well without any evidence of any active bleeding. his major complaint is the fact that even after using the CPAP he still waking up very drowsy. Have not changed any of his settings which appeared to have been working the past. Does have significant daytime drowsiness even after sleeping about 10-12 hours a night. Does get his supplies from [facility]. I did request a download. They will try to get me 1. In the meantime will go ahead and start him on a small dose of Provigil to see if we can help his sleep-wake cycle , treating him for persistent drowsiness even after effective CPAP therapy. 02/21/2024 the patient is here for a pulmonary follow-up visit. Overall he is doing well. The patient has been using his respiratory therapy as prescribed. He also been working on weight loss which is great. He is already been feeling better from that standpoint. The patient has been using the modafinil. Seems to be effective. We did talk about considering decreasing the dose to 50 mg tablets which be half a tablet. He is going to start considering that in the fall. In the meantime the CPAP therapy has been affecting beneficial he does use it for more than 4 hours a night. He continues on the Eliquis without any difficulties. Pacemaker seems to be working well. No recent imaging studies at this time to review. 08/17/2024 the patient is here for a pulmonary follow-up visit. Overall he is doing well. He continues on the Stiolto. Was just using it 1 puff but then recently he started using it 2 puffs. Likely secondary to the cold air in the winter months the cause increased chest tightness and wheezing. His last PFTs were reassuring back in 2020 at some point we should repeat does again to address his ongoing respiratory complaints. We did talk about other potential medications to add but he has already had bad reactions to the inhaled steroid so like to minimize that. He also was concerned because the contrast dyes in his allergies. He is adamant that he does not have an allergy that he just had flushing so therefore will remove it as an allergy but he should still monitor for any symptoms. The patient also continues uses CPAP in the CPAP therapy has been affecting beneficial. Does use it for more than 4 hours a night. He also continues with the Eliquis without any issues. He is also [facility] I did request he give me a copy of the next CT scan. Will plan to follow-up in 6-8 months. If he has any issues prior to that he will call for an earlier assessment. 02/11/2025 the patient is here for a pulmonary follow-up visit. Overall he is doing okay from respiratory status. Still struggling with his weight. He has been [facility] which is [facility]. He continues getting the Stiolto from the local pharmacy. Although he is going to ask the [facility] to see if this is something that he can get through them. He has not had to use his rescue inhaler often. He overall the patient is doing okay. He is participating in the lung cancer screening program currently with yearly CAT scans. A probably graduate the program next year when he turns 80 years old. Otherwise patient is without any other complaints. Will follow-up in 6-8 months. If he has any issues prior to this he will call for an earlier assessment. [facility] Medical History Has daytime drowsiness Dyspnea Dyspnea Personal history of nicotine dependence Obesity BROOKLYN on CPAP Pulmonary emboli Pulmonary nodules COPD (chronic obstructive pulmonary disease) Surgical History S/P placement of cardiac pacemaker (~08/2023) History of total right knee replacement (TKR) (~2018) History of appendectomy Family History Father Heart disease Mother Heart disease Social History Alcohol intake: current Alcohol intake frequency: a few times a week Patient Tobacco Use Status: Former Tobacco user Review of Systems Const Reports daytime sleepiness, Denies night sweats, Denies snoring and Denies weight loss ENT Denies change in voice, Denies lip swelling, Denies mouth pain, Reports nasal congestion, Reports nasal discharge and Denies tongue swelling Card Reports as per HPI, Denies chest pain and Reports dyspnea on exertion Resp Reports cough, Reports dyspnea on exertion and Denies snoring GI Denies abdominal pain Musc Denies no additional complaints Neuro Reports Sensory deficit (Neuro) (visual spacial abnormalities) Psych Denies no additional complaints Miguel/Lymph Denies easy bleeding and Denies lymphadenopathy Aller/Immun Denies lip swelling and Denies tongue swelling Physical Exam Vital Signs: Last Vital Signs Pulse 76 02/11/25 09:50 BP 130/74 02/11/25 09:50 Pulse Ox 96 02/11/25 09:50 Oxygen Delivery Method Room Air 02/11/25 09:50 BMI result Body Mass Index 33.1 Const General: alert Neck Neck: Yes normal visual inspection, Yes full ROM and Yes no lymphadenopathy Chest Chest palpation & inspection: normal inspection of the chest Resp Effort & Inspection: normal respiratory effort Auscultation: no wheezes and diminished lung sounds Cardio Rate: regular rate Rhythm: regular rhythm Heart sounds: S1 normal heart sound present and S2 normal heart sound present GI Palpation (GI): Soft to palpation and nontender Auscultation: normal bowel sounds Skin General skin exam: rashes and/or lesions noted Neuro Sensory Exam: Sensory deficit (Neuro) (visual spacial abnormalities) Extrem General: Yes edema Assessment & Plan Assessment & Plan (1) COPD (chronic obstructive pulmonary disease): Code(s): J44.9 - Chronic obstructive pulmonary disease, unspecified Category: Medical Qualifiers: COPD type: emphysema Emphysema type: centrilobular Qualified Code(s): J43.2 - Centrilobular emphysema (2) BROOKLYN on CPAP: Code(s): G47.33 - Obstructive sleep apnea (adult) (pediatric); Z99.89 - Dependence on other enabling machines and devices Category: Medical (3) Pulmonary emboli: Comment: (on anticoag with Eliquis) Code(s): I26.99 - Other pulmonary embolism without acute cor pulmonale Category: Medical Qualifiers: Pulmonary embolism type: single subsegmental (without acute cor pulmonale) Qualified Code(s): I26.93 - Single subsegmental pulmonary embolism without acute cor pulmonale (4) Pulmonary nodules: Code(s): R91.8 - Other nonspecific abnormal finding of lung field Category: Medical (5) Dyspnea: Comment: multifactorial Code(s): R06.00 - Dyspnea, unspecified Category: Medical Qualifiers: Dyspnea type: dyspnea on exertion Qualified Code(s): R06.00 - Dyspnea, unspecified (6) Has daytime drowsiness: Code(s): R40.0 - Somnolence Category: Social Hx Plan Continue Stiolto stopped Daliresp 250 continue CPAP LDCT short-acting beta agonist as needed continue anticoagulation (Eliquis) follow-up in 6-8 months Medications: Refilled tiotropium-olodaterol 2.5-2.5 mcg/actuation (Stiolto Respimat) 2 inhalations inhalation DAILY 12 grams 3RF J43.2 - Centrilobular emphysema Coding Level of Care Code Est Pt Level 4 (59363) Complex EM visit Add On G2211 Diagnoses Centrilobular emphysema J43.2 COPD type: emphysema Emphysema type: centrilobular BROOK[place]N on CPAP G47.33; Z99.89 Single subsegmental pulmonary embolism without acute cor pulmonale I26.93 Pulmonary embolism type: single subsegmental (without acute cor pulmonale) Pulmonary nodules R91.8 Dyspnea on exertion R06.00 Dyspnea type: dyspnea on exertion Has daytime drowsiness R40.0 Time Spent (min) 16
--- OUTSIDE RECORDS SUMMARY | 2025-02-11 10:23 | XMS_ITS | Clinical Summary ---
Author Organization [facility], Address [address] [place] [address] [place] [address] Phone Care Team Providers Care Franchise Broker Name Role Phone Unavailable Primary Care [...] time each day Active Cobalamin Combinations (VITAMIN G91-NDBJC ACID PO)Indications:S tage 3a chronic kidney disease (HCC) vitamin R63-etbuw acid 1 po qd Active amLODIPine (NORVASC) [...] Visit [facility], [address] [place] [address] Juan F Hutton MD [address] [place] [address] Health Maintenance Due Date Last Done Comments Pneumococcal Vaccine: 50+ Years (3 of 3 - PCV20 or PCV21) 11/08/2019 09/13/2019, 09/13/2019, 10/02/2014, Additional history exists Diabetes: Hemoglobin A1C 05/12/2021 12/26/2020 Diabetes: Pedal Pulse Checked 05/12/2021 Diabetes: Sensory Foot Exam 05/12/2021 Diabetes: Visual Foot Exam 05/12/2021 Influenza Vaccine (#1) 2025 3, 05/11/2022, 04/24/2021, Additional history exists Diabetes: [...] AM EDT) Hemoglobin A1C 6.1(H) (4.0-5.6) % [facility] Comment: MONITORING: In known diabetic patients, hemoglobin A1c targets should be discussed with health care provider. DIAGNOSTIC USE: The [place] Diabetes Association (ADA) and the World Health [...] Supplement 1 Testing performed or reported by [facility], a Service of [facility], [address] [place] [id number] Juan Antonio Pérez MD, Vehicle Painter Blood specimen (specimen) Venous blood / Unknown 12/26/2020 8:04 AM EDT 12/26/2020 8:07 AM EDT us Juan F Hutton MD LAB BLOOD ORDERABLES Final Resul t [facility] from Last 3 Months or Most Recently Relevant to Health Maintenance Insurance Medicare [facility] [place]
--- OUTSIDE RECORDS SUMMARY | 2025-02-11 10:23 | XMS_ITS | Clinical Summary ---
Author Organization [facility] Address [address] [place] [address] Phone Care Team Providers Care Mounter Hand Name Role Phone Margie Hinojosa MD Primary Care Prov ider Social History Tobacco Use Types Packs/Day Years Used Date Smoking Tobacco: Never Assessed Education Answer Date Recorded Are you interested in more education? Not on doris e 11/19/2022 Are you concerned about learning? Not on file 11/19/2022 No 11/19/2022 No 11/19/2022 Digital Access Answer Date Recorded No 12/21/2022 No 12/21/2022 Reliable internet access at home? Not on file 12/21/2022 Device with a working camera? Not on file Sex and Gender Information Value Date Recorded Sex Assigned at Not on file Legal Sex Male 11:57 AM EDT Gender Identity Not on file Sexual Orientation Not on file Plan of Treatment Not on file Medical Devices Not on file Insurance [place] & [place] [id number] [facility] MEDICARE SUPPLEMENT MEDICARE PART A & [place] [address] [place] [address] MEDICARE SUPPLEMENT MEDICARE PART A & B FOR LIFE MEDICARE SUPPLEMENT MEDICARE PART A & B [employer] MEDICARE SUPPLEMENT MEDICARE PART A & B FOR [employer] MEDICARE SUPPLEMENT MEDICARE PART A & B FOR LIFE MEDICARE SUPPLEMENT MEDICARE PART A & B [facility] FOR LIFE MEDICARE SUPPLEMENT MEDICARE PART A & B [facility] FOR [employer] MEDICARE SUPPLEMENT MEDICARE PART A & B [facility] FOR [employer] MEDICARE SUPPLEMENT Care Teams Mounter Hand Relationship Specialty Start Date End Date Margie Hinojosa MD [address] [place] [id number] PCP - General Internal Medicine 02/11/20 Additional Source Comments The information contained in this document represents components of the legal health record. It is not the complete legal health record.[facility]
--- OUTSIDE RECORDS SUMMARY | 2025-02-11 10:23 | XMS_ITS | Patient Health Record ---
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 Phone Deana Corrales Primary Care Provider Unavail able Blayne Pena Unavailable [phone] Allergies Allergen (clinical drug ingredient) Drug/Non Drug Allergy documented on EMR Reaction Allergy Type Onset Date Status Povidone-Iodine IVP dye Drug Allergy A ctive Reason For Referral No Information Medications Medication SIG (Take, Route, Frequency, Duration) Notes Start Date End Date Status Atorvastatin Calcium Active Eliquis 2.5 MG as directed Orally Active Carbidopa-Levodopa 25-100 MG 1 tablet as needed Orally Two times a Week; Duration: 30 day(s) Active Tylenol Active Modafinil 100 MG 1 tablet in the morning Orally Once a day Active Roflumilast 250 MCG 2 tablets Orally Onc e a day Not-Taking zzzCompression Stockings 20-30mm Hg . . .; Duration: . Active tiZANidine HCl 4 MG 1 tablet as needed Orally Three times a day Not-Taking Escitalopram Oxalate 5 MG 1 tablet Orall y Once a day Not-Taking amLODIPine Besylate Active Immunizations Vaccine Route Administration Date Status Comme nts Influenza Unknown 04/08/2024 Administered Pneumococcal Unknown 04/08/2024 Administered COVID-19 Pfizer BioNTech Vaccine Unknown 05/07/2021 Administered 1st 09/27/20 2nd 10/18/20 COVID-19 Pfizer BioNTech Vaccine Unknown 04/08/2024 Administered Social History Tobacco Use: Social History Observation Description Date Details (start date - stop date) Never Smoker NA - NA Tobacco use other than smoking: Question Answer Notes Are you an other tobacco user? No Tobacco Control (Standard) Question Answer Notes Tobacco use: Nonsmoker Additional Findings: Tobacco non-user Current no nsmoker AUDIT-C (Standard) Question Answer Notes Did you have a drink contain ing alcohol in the past year? Yes How often did you have a dri nk containing alcohol in the past year? Monthly or less (1 point) How many drinks did you have on a typical day when you were drinking in the past year? Declined to specify (0 point) How often did you have six o r more drinks on one occasion in the past year? Declined to specify (0 point) Points 1 Interpretation Negative Problems Problem Type SNOMED Code ICD Code Onset Dates Problem Status W/U Status Risk Notes Problem Bilateral atherosclerosis of arteries of lower limbs (disorder) ([id number] ) Atherosclerosis of [place] artery of both lower extremities, with unspecified presence of clinical manifestation (I70.203) Active confirmed Q7(A), Q8(2B), Q9(1B,2 C) Vital Signs Heart Rate 72 /min 01/03/2025 Blood pressure diastolic 73 mm Hg 01/03/2025 Height 5ft 11 in in 01/03/2025 Blood pressure systolic 125 mm Hg 01/03/2025 Weight 235 lbs 01/03/2025 BMI 32.77 kg/m2 01/03/2025 Procedures Procedure Date Ordered Date Performed Result Body Sit e 00753-YJTFRZB NAIL, 6 OR MORE 04/19/2024 N/A 56902-Hmaunkaf Plate 04/19/2024 N/A 85566-ZZXJ SKIN LESIONS, 2 TO 4 04/19/2024 N/A 47181-NYIKEGQ NAIL, 6 OR MORE 10/05/2024 N/A 61081-DNBH SKIN LESIONS, 2 TO 4 10/05/2024 N/A 43370-HQWTRVX NAIL, 6 OR MORE 01/03/2025 N/A 42837-TMYB SKIN LESIONS, 2 TO 4 01/03/2025 N/A Encounters Encounter Location Date Provider Diagnosis [facility] [address] [place] [id number] 04/19/2024 Blayne Pena Atherosclerosis of [place] artery of both lower extremities, with unspecified presence of clinical manifestation I70.203 ; Tinea unguium B35.1 ; Pain in right toe(s) M79.674 ; Pain in left toe(s) M79.675 and Ingrown nail L60.[address] [address] 10/05/2024 Blayne Pena Atherosclerosis of [place] artery of both lower extremities, with unspecified presence of clinical manifestation I70.203 ; Tinea unguium B35.1 ; Pain in right toe(s) M79.674 and Pain in left toe(s) M79.675 [facility] [address] [facility] [address] [place] [address] 01/03/2025 Blaynebandar Pena Atherosclerosis of [place] artery of both lower extremities, with unspecified presence of clinical manifestation I70.203 ; Tinea unguium B35.1 ; Pain in right toe(s) M79.674 and Pain in left toe(s) M79.[address] [address] 07/31/2024 Blayne Pena Assessments Encounter Date Diagnosis (ICD Code) Assessment Notes Treatment Notes Treatment Clinical Notes Section Notes 04/19/2024 Tinea unguium (ICD-10 - B35.1) 04/19/2024 Atherosclerosis of [place] artery of both lower extremities, with unspecified presence of clinical manifestation (ICD-10 - I70.203) 10/05/2024 Tinea unguium (ICD-10 - B35.1) 10/05/2024 Atherosclerosis of [place] artery of both lower extremities, with unspecified presence of clinical manifestation (ICD-10 - I70.203) Q7(A), Q8(2B), Q9(1B,2C) 01/03/2025 Tinea unguium (ICD-10 - B35.1) 01/03/2025 Atherosclerosis of [place] artery of both lower extremities, with unspecified presence of clinical manifestation (ICD-10 - I70.203) Q7(A), Q8(2B), Q9(1B,2C) 01/03/2025 Pain in right toe(s) (ICD-10 - M79.674) 10/05/2024 Pain in right toe(s) (ICD-10 - M79.674) 04/19/2024 Pain in right toe(s) (ICD-10 - M79.674) 04/19/2024 Pain in left toe(s) (ICD-10 - M79.675) 10/05/2024 Pain in left toe(s) (ICD-10 - M79.675) 01/03/2025 Pain in left toe(s) (ICD-10 - M79.675) 04/19/2024 Ingrown nail (ICD-10 - L60.0) Plan Of Treatment Pending Test Test Name Order Date X ray : Foot, left 3V 04/21/2022 X ray : Foot, right 3V 06/07/2022 X ray : Foot, right 3V 04/21/2022 50205-KFRJPAT NAIL, 6 OR MORE 07/07/2023 65339-CNODTDY NAIL, 6 OR MORE 10/13/2023 01653-UVYVNAT NAIL, 6 OR MORE 01/30/2024 19387-NKAQGUH NAIL, 6 OR MORE 04/19/2024 14898-DJWZMWI NAIL, 6 OR MORE 10/05/2024 31260-AZJIPTX NAIL, 6 OR MORE 01/03/2025 80965-KEWTGLJ NAIL, 6 OR MORE 07/01/2022 07153-CBRRINH NAIL, 6 OR MORE 10/14/2021 09430-YLSHUXT NAIL, 6 OR MORE 01/06/2022 83296-JKKLELV NAIL, 6 OR MORE 03/30/2022 52811-JYDBOVV NAIL, 6 OR MORE 10/07/2022 97937-GAOQXHJ NAIL, 6 OR MORE 12/30/2022 73670-GACFULO NAIL, 6 OR MORE 03/31/2023 75057-Jokefqyn Plate 04/19/2024 20446-Mzlblweq Plate 07/07/2023 44847-VMWX SKIN LESIONS, 2 TO 4 07/07/20 23 26938-TJFB SKIN LESIONS, 2 TO 4 01/30/20 24 03983-PXKG SKIN LESIONS, 2 TO 4 10/13/19 24 67988-DKTG SKIN LESIONS, 2 TO 4 01/04/20 25 03626-XOUH SKIN LESIONS, 2 TO 4 10/06/19 25 90344-EVVA SKIN LESIONS, 2 TO 4 04/19/20 24 04020-LDSQ SKIN LESIONS, 2 TO 4 03/31/20 23 13108-POWD SKIN LESIONS, 2 TO 4 12/31/19 65377-UWCU SKIN LESIONS, 2 TO 4 10/08/19 23 26550-VXQM SKIN LESIONS, 2 TO 4 03/30/20 37596-FUWK SKIN LESIONS, 2 TO 4 01/07/20 91747-GWER SKIN LESIONS, 2 TO 4 10/15/19 65736-FDDE SKIN LESIONS, 2 TO 4 07/01/20 Next Appt Details Provider Name:Blayne Pena , 04/10/2025 08:45:00 AM, [address] [facility], [address], [place], [address], Insurance Providers Payer Name Payer Address Payer Phone Subscriber Number Group Number Insured Name Patient Relationship to Insured Coverage Start Date Coverage End Date Medicare National [employer] [address] [place] [address] [id number] Seamus Castaneda Self - patient is the insured [employer] [address] [place] [address] [id number] Seamus Castaneda Self - patient is the insured Medical (General) History Medical History History ICD Code Back,Hip,and Knee pain Broken bones Parkinsons disease Tuberculosis Chicken pox Joint implants/screws CAD DVTs and PEs Pacemaker Surgical History Surgery Date(Month/Year) knee surgery, right back injections 2021 colonoscopy 10/05/22 Pacemaker 10/10/23 Hospitalization History Reason Date(Month/Year) [facility] Pacemaker w/new leads 09/2023 [facility] 2024
--- OUTSIDE RECORDS SUMMARY | 2025-02-11 10:23 | XMS_ITS | Data Portability ---
Author Organization [facility], Main Office Address [address] [place] [address] Care Team Providers Care Probate Lawyer Name Role Phone SUSANNE HUERTA Store Lead NADIA STEEL Orthopedic Surgeon JASMYN RAMOS Neurologist ROJAS KEYES Urologist KRISTEN TODD Dye Range Feeder VERO DASILVA Harness Puller BANDAR FERRARO Store Lead [phone] DEANA CORRALES Primary Care Provider Assessment Encounter Date Assessment Date Assessment LastModified by Organization Details LastModified Time 01/21/2025 01/21/2025 Discussed with patient the signs/symptom s warranted for a return to office visit and/or an ER visit. Patient understood and agreed with the plan. [email or web address] Not available 01/21/2025 13:35:55 Plan of Treatment Reminders Order Date Submit Date Provider Last Modified By Organization Details Last Modified Time Details Appointments FOLLOW UP 2024 11:30A Melissa CORRALES MD Not available Not available Not available Lab HbA1c (hemoglob in A1c), blood 2024 025 [facility] (Centralized Electronic Ordering - All Locations), Patient Can Go To The Location Of Their Choice, [id number] 10/24/2024 10:06:18 TSH, ultra-sen sitive, serum 2024 025 [facility], [address], [place], [address], 10/24/2024 10:06:19 hepatic function panel, serum 2024 025 [facility] (Centralized Electronic Ordering - All Locations), Patient Can Go To The Location Of Their Choice, [facility] 10/24/2024 10:06:17 lipid panel, serum 2024 025 [facility], [address], [place], [address], 10/24/2024 10:06:18 vitamin D, 25-hydrox y, total, serum 2024 025 [facility] (Centralized Electronic Ordering - All Locations), Patient Can Go To The Location Of Their Choice, [facility] 10/24/2024 10:06:19 HbA1c (hemoglob in A1c), blood 2023 024 [facility] (Centralized Electronic Ordering - All Locations), Patient Can Go To The Location Of Their Choice, [facility] 04/19/2024 06:08:51 BMP, serum or plasma 2023 024 [facility], [address], [place], [address], 04/19/2024 06:08:49 lipid panel, serum 2023 024 [facility], [address], [place], [address], 04/19/2024 06:08:50 CBC w/ auto diff 2023 024 [facility], [address], [place], [address], 04/19/2024 06:08:49 TSH, ultra-sen sitive, serum 2023 024 [facility], [address], [place], [address], 04/19/2024 06:08:51 Referral None recorded. Procedures None recorded. Surgeries None recorded. Imaging MRI, lumbar spine, w/o contrast - on-going back pain for several years, undergoes steroid infection s with mild relief. ordered repeat MRI to check for worsening and will be referred to neurosurg wei gamble 2023 024 oli [facility], [address], [place], [address], 05/14/2024 12:01:33 Medication Orders Ciprodex 0.3 %-0.1 % ear drops,ariadne pension 2024 025 [facility], [address] [place], [address], 01/21/2025 13:24:49 hydrocort isone-deborah tic acid 1 %-2 % ear drops 2024 025 [facility], [address] [place], [address], 10/23/2024 13:33:52 Fioricet 50 mg-300 mg-40 mg capsule 2024 025 [facility], [address] [place], [address], 10/23/2024 13:33:59 tizanidin e 4 mg tablet 2023 024 [facility], [address] [place], [address], 04/17/2024 11:24:50 DermOtic Oil 0.01 % ear drops 2023 024 [facility], [address] [facility], [place], [address], 01/19/2024 09:27:31 Fioricet 50 mg-300 mg-40 mg capsule 2023 024 [email or web address] [facility], [address] [place], [address], 10/23/2024 12:58:22 hydrocort isone-deborah tic acid 1 %-2 % ear drops 2023 024 [facility], [address], [place], [address], 01/19/2024 09:15:13 Patient TargetsNo targets recorded. Patient Instructions Encounter Date Encounter Id Patient Instructions Last Modified By Organization Details Last Modified Time 10/14/2023 [id number] headache: care instructions Not available 10/14/2023 14:20:25 eustachian tube problems: care instructions Not available 10/14/2023 13:53:25 medicines to avoid with kidney disease: care instructions Not available 10/14/2023 13:53:25 dizziness: care instructions Not available 10/14/2023 16:17:45 01/19/2024 [id number] medicines to avoid with kidney disease: care instructions Not available 01/19/2024 09:27:29 04/17/2024 [id number] chronic obstructive pulmonary disease (COPD): care instructions Not available 04/17/2024 11:25:02 learning about copd and how to prevent lung infections Not available 04/17/2024 11:25:02 10/23/2024 [id number] advance care planning: care instructions Not available [...] /uL 3.4-10 .8 normal Not Available [facility] ([facility]) [address] [place] [facility], [place], [address], 04/19/2024 06:08:49 04/18/20 24 04/19/2024 CBC WITH DIFFE RENTI AL/PL ATELE T RBC 4.62 x10e6 /uL 4.14-5 .80 normal CBC resul ts repor everton were obtai omayra after the speci men had been warme d to 37 degre es C. This may indic ate the prese nce of Cold Agglu tinin s. Not Available [facility] ([facility]) [address] [place], [address], 04/19/2024 06:08:49 04/18/2004/19/2024 CBC WITH DIFFE RENTI AL/PL ATELE T hemoglobin 14.9 g/dL 13.0-1 7.7 normal Not Available [facility] ([facility]) [address] [place], [address], 04/19/2024 06:08:49 04/18/2004/19/2024 CBC WITH DIFFE RENTI AL/PL ATELE T hematocrit 44.6 % 37.5-5 1.0 normal Not Available [facility] ([facility]) [address] [place], [address], 04/19/2024 06:08:49 04/18/2004/19/2024 CBC WITH DIFFE RENTI AL/PL ATELE T MCV 97 fL 79-97 normal Not Available [facility] ([facility]) [address] [place], [address], 04/19/2024 06:08:49 04/18/20 24 04/19/2024 CBC WITH DIFFE RENTI AL/PL ATELE T MCH 32.3 pg 26.6-3 3.0 normal Not Available [facility] ([facility]) [address] [place] [facility], [place], [address], 04/19/2024 06:08:49 04/18/20 24 04/19/2024 CBC WITH DIFFE RENTI AL/PL ATELE T MCHC 33.4 g/dL 31.5-3 5.7 normal Not Available [facility] ([facility]) [address] [place] [facility], [place], [address], 04/19/2024 06:08:49 04/18/2004/19/2024 CBC WITH DIFFE RENTI AL/PL ATELE T RDW 13.0 % 11.6-1 5.4 Not Available [facility] ([facility]) [address] [place] [facility], [place], [address], 04/19/2024 06:08:49 04/18/20 24 04/19/2024 CBC WITH DIFFE RENTI AL/PL ATELE T platelets 198 x10e3 /uL 150-45 0 normal Not Available [facility] ([facility]) [address] [place] [facility], [place], [address], 04/19/2024 06:08:49 04/18/20 24 04/19/2024 CBC WITH DIFFE RENTI AL/PL ATELE T neutrophils 54 % not estab. normal Not Available [facility] ([facility]) [address] [place] [facility], [place], [address], 04/19/2024 06:08:49 04/18/20 24 04/19/2024 CBC WITH DIFFE RENTI AL/PL ATELE T lymphs 32 % not estab. normal Not Available [facility] ([facility]) [address] [place] [facility], [place], [address], 04/19/2024 06:08:49 04/18/20 24 04/19/2024 CBC WITH DIFFE RENTI AL/PL ATELE T monocytes 9 % not estab. normal Not Available [facility] ([facility]) [address] [place], [address], 04/19/2024 06:08:49 04/18/20 24 04/19/2024 CBC WITH DIFFE RENTI AL/PL ATELE T eos 4 % not estab. normal Not Available [facility] ([facility]) [address] [place] [facility], [place], [address], 04/19/2024 06:08:49 04/18/20 24 04/19/2024 CBC WITH DIFFE RENTI AL/PL ATELE T basos 1 % not estab. normal Not Available [facility] ([facility]) [address] [place] [facility], [place], [address], 04/19/2024 06:08:49 04/18/20 24 04/19/2024 CBC WITH DIFFE RENTI AL/PL ATELE T immature cells CAR CLEANING SUPERVISOR Not Available [facility] ([facility]) [address] [place], [address], 04/19/2024 06:08:49 04/18/20 24 04/19/2024 CBC WITH DIFFE RENTI AL/PL ATELE T neutrophils (absolute) 3.3 x10e3 /uL 1.4-7. 0 normal Not Available [facility] ([facility]) [address] [place], [address], 04/19/2024 06:08:49 04/18/20 24 04/19/2024 CBC WITH DIFFE RENTI AL/PL ATELE T lymphs (absolute) 1.9 x10e3 /uL 0.7-3. 1 normal Not Available [facility] ([facility]) [address] [place], [address], 04/19/2024 06:08:49 04/18/20 24 04/19/2024 CBC WITH DIFFE RENTI AL/PL ATELE T monocytes(ab solute) 0.6 x10e3 /uL 0.1-0. 9 normal Not Available [facility] ([facility]) [address] [place] [facility], [place], [address], 04/19/2024 06:08:49 04/18/20 24 04/19/2024 CBC WITH DIFFE RENTI AL/PL ATELE T eos (absolute) 0.2 x10e3 /uL 0.0-0. 4 normal Not Available [facility] ([facility]) [address] [place] [facility], [place], [address], 04/19/2024 06:08:49 04/18/20 24 04/19/2024 CBC WITH DIFFE RENTI AL/PL ATELE T baso (absolute) 0.1 x10e3 /uL 0.0-0. 2 normal Not Available [facility] ([facility]) [address] [place], [address], 04/19/2024 06:08:49 04/18/20 24 04/19/2024 CBC WITH DIFFE RENTI AL/PL ATELE T immature granulocytes 0 % not estab. Not Available [facility] ([facility]) [address] [place], [address], 04/19/2024 06:08:49 04/18/20 24 04/19/2024 CBC WITH DIFFE RENTI AL/PL ATELE T immature grans (abs) 0.0 x10e3 /uL 0.0-0. 1 Not Available [facility] ([facility]) [address] [place], [address], 04/19/2024 06:08:49 04/18/20 24 04/19/2024 CBC WITH DIFFE RENTI AL/PL ATELE T NRBC CAR CLEANING SUPERVISOR Not Available [facility] ([facility]) [address] [place], [address], 04/19/2024 06:08:49 04/18/20 24 04/19/2024 CBC WITH DIFFE RENTI AL/PL NAHOMY T hematology comments: CAR CLEANING SUPERVISOR Not Available [facility] ([facility]) [address] [place], [address], 04/19/2024 06:08:49 04/18/20 24 04/19/2024 BASIC METAB OLIC PANEL (8) glucose 122 mg/dL 70-99 above high normal Not Available [facility] ([facility]) [address] [place], [address], 04/19/2024 06:08:49 04/18/20 24 04/19/2024 BASIC METAB OLIC PANEL (8) BUN 13 mg/dL 8-27 normal Not Available [facility] ([facility]) [address] [place], [address], 04/19/2024 06:08:49 04/18/20 24 04/19/2024 BASIC METAB OLIC PANEL (8) creatinine 1.39 mg/dL 0.76-1 .27 above high normal Not Available [facility] ([facility]) [address] [place], [address], 04/19/2024 06:08:49 04/18/20 24 04/19/2024 BASIC METAB OLIC PANEL (8) eGFR 53 mL/mi n/1.7 3 >59 below low normal Not Available [facility] ([facility]) [address] [place], [address], 04/19/2024 06:08:49 04/18/20 24 04/19/2024 BASIC METAB OLIC PANEL (8) BUN/creatini ne ratio 9 10-24 below low normal Not Available [facility] ([facility]) [address] [place], [address], 04/19/2024 06:08:49 04/18/20 24 04/19/2024 BASIC METAB OLIC PANEL (8) sodium 141 mmol/ L 134-14 4 normal Not Available [facility] ([facility]) [address] [place], [address], 04/19/2024 06:08:49 04/18/20 24 04/19/2024 BASIC METAB OLIC PANEL (8) potassium 4.4 mmol/ L 3.5-5. 2 normal Not Available [facility] ([facility]) [address] [place], [address], 04/19/2024 06:08:49 04/18/20 24 04/19/2024 BASIC METAB OLIC PANEL (8) chloride 106 mmol/ L 96-106 normal Not Available [facility] ([facility]) [address] [place], [address], 04/19/2024 06:08:49 04/18/20 24 04/19/2024 BASIC METAB OLIC PANEL (8) carbon dioxide, total 21 mmol/ L 20-29 normal Not Available [facility] ([facility]) [address] [place], [address], 04/19/2024 06:08:49 04/18/20 24 04/19/2024 BASIC METAB OLIC PANEL (8) calcium 9.4 mg/dL 8.6-10 .2 normal Not Available [facility] ([facility]) [address] [place], [address], 04/19/2024 06:08:49 04/18/20 24 04/19/2024 LIPID PANEL cholesterol, total 129 mg/dL 100-19 9 normal Not Available [facility] ([facility]) [address] [place], [address], 04/19/2024 06:08:50 04/18/20 24 04/19/2024 LIPID PANEL triglyceride s 93 mg/dL 0-149 normal Not Available [facility] ([facility]) [address] [place], [address], 04/19/2024 06:08:50 04/18/20 24 04/19/2024 LIPID PANEL HDL cholesterol 47 mg/dL >39 normal Not Available [facility] ([facility]) [address] [place], [address], 04/19/2024 06:08:50 04/18/20 24 04/19/2024 LIPID PANEL VLDL cholesterol doc 18 mg/dL 5-40 Not Available [facility] ([facility]) [address] [place], [address], 04/19/2024 06:08:50 04/18/20 24 04/19/2024 LIPID PANEL LDL chol calc ([facility]) 64 mg/dL 0-99 Not Available [facility] ([facility]) [address] [place], [address], 04/19/2024 06:08:50 04/18/20 24 04/19/2024 LIPID PANEL LDL calc comment: CAR CLEANING SUPERVISOR Not Available [facility] ([facility]) [address] [place], [address], 04/19/2024 06:08:50 04/18/20 24 04/19/2024 HEMOG LOBIN A1C hemoglobin A1C 6.3 % 4.8-5. 6 above high normal Predi abete s: 5.7 - 6.4 Diabe jody: >6.4 Glyce ari contr ol for adult s with diabe jody: <7.0 Not Available [facility] ([facility]) [address] [place], [address], 04/19/2024 06:08:51 04/18/20 24 04/19/2024 TSH RFX ON ABNOR MAL TO FREE T4 TSH 2.940 uIU/m L 0.450- 4.500 normal Not Available [facility] ([facility]) [address] [place], [address], 04/19/2024 06:08:51 04/18/20 24 04/21/2024 COOMB S', DIREC T jack', direct Negati ve negati ve Not Available [facility] ([facility]) [address] [place] [facility], [place], [address], 04/21/2024 12:06:09 04/18/2004/20/2024 WRITT EN AUTHO RODNEYT LEWIS written authorizatio n Commen t Finesse en Autho ribekat ion Recei franchesca. Autho rizat ion recei franchesca from BRITTANY Riley for Link Reque st on 04-20 Logge d by Emeli Winston Not Available [facility] ([facility]) [address] [place] [facility], [place], [address], 04/21/2024 12:06:10 05/28/2005/28/2024 COMPL ETE BLOOD COUNT WBC 6.7 K/mcL 4.8-10 .8 Not Available [facility] (Direct Fax All) [address] [facility], [place], [address], 05/28/2024 07:53:31 05/28/20 24 05/28/2024 COMPL ETE BLOOD COUNT RBC 4.00 M/mcL 4.50-5 .50 low Not Available [facility] (Direct Fax All) [address] [facility], [place], [address], 05/28/2024 07:53:31 05/28/20 24 05/28/2024 COMPL ETE BLOOD COUNT hemoglobin 13.7 g/dL 13.5-1 7.5 Not Available [facility] (Direct Fax All) [address] [facility], [place], [address], 05/28/2024 07:53:31 05/28/20 24 05/28/2024 COMPL ETE BLOOD COUNT hematocrit 40.0 % 42.0-5 4.0 low Not Available [facility] (Direct Fax All) [address] [facility], [place], [address], 05/28/2024 07:53:31 05/28/20 24 05/28/2024 COMPL ETE BLOOD COUNT MCV 100.5 fL 79.0-9 8.0 high Not Available [facility] (Direct Fax All) [address] [facility], [place], [address], 05/28/2024 07:53:31 05/28/20 24 05/28/2024 COMPL ETE BLOOD COUNT MCH 34.4 pcg 27.0-3 2.0 high Not Available [facility] (Direct Fax All) [address] [facility], [place], [address], 05/28/2024 07:53:31 05/28/20 24 05/28/2024 COMPL ETE BLOOD COUNT MCHC 34.3 g/dL 32.0-3 7.0 Not Available [facility] (Direct Fax All) [address] [facility], [place], [address], 05/28/2024 07:53:31 05/28/20 24 05/28/2024 COMPL ETE BLOOD COUNT RDW 13.7 % 11.0-1 5.0 Not Available [facility] (Direct Fax All) [address] [facility], [place], [address], 05/28/2024 07:53:31 05/28/20 24 05/28/2024 COMPL ETE BLOOD COUNT platelets 216 K/mcL 130-40 0 Not Available [facility] (Direct Fax All) [address] [facility], [place], [address], 05/28/2024 07:53:31 05/28/20 24 05/28/2024 COMPL ETE BLOOD COUNT MPV 9.3 fL 7.0-11 .0 Not Available [facility] (Direct Fax All) [address] [facility], [place], [address], 05/28/2024 07:53:31 05/28/20 24 05/28/2024 COMPL ETE BLOOD COUNT NRBC 0.0 % <1.0 Not Available [facility] (Direct Fax All) Any [place], [place], [address], 05/28/2024 07:53:31 05/28/20 24 05/28/2024 COMPL ETE BLOOD COUNT NRBC absolute 0.00 K/mcL <0.10 Not Available [facility] (Direct Fax All) Any [facility], [place], [address], 05/28/2024 07:53:31 05/28/20 24 05/28/2024 COMPL ETE BLOOD COUNT note See Report [facility], [address], [place] [place] [place] [id number] Not Available [facility] (Direct Fax All) Any [facility], [place], [address], 05/28/2024 07:53:31 05/28/20 24 05/28/2024 BUN BUN 13 mg/dL 5-25 Not Available [facility] (Direct Fax All) [address] [facility], [place], [address], 05/28/2024 08:15:07 05/28/20 24 05/28/2024 BUN note See Report [facility], [address], [place], [place] [employer] [id number] Not Available [facility] (Direct Fax All) Any [facility], [place], [address], 05/28/2024 08:15:07 05/28/20 24 05/28/2024 ELECT ROLYT E PANEL sodium 142 mmol/ L 133-14 5 Not Available [facility] (Direct Fax All) Any [place], [place], [address], 05/28/2024 08:15:08 05/28/20 24 05/28/2024 ELECT ROLYT E PANEL potassium 4.4 mmol/ L 3.5-5. 5 Not Available [facility] (Direct Fax All) Any [place], [place], [address], 05/28/2024 08:15:08 05/28/20 24 05/28/2024 ELECT ROLYT E PANEL chloride 111 mmol/ L 96-110 high Not Available [facility] (Direct Fax All) Any [place], [place], [address], 05/28/2024 08:15:08 05/28/20 24 05/28/2024 ELECT ROLYT E PANEL CO2 26 mmol/ L 21-32 Not Available [facility] (Direct Fax All) Any [place], [place], [address], 05/28/2024 08:15:08 05/28/20 24 05/28/2024 ELECT ROLYT E PANEL anion gap 5 3-11 Not Available [facility] (Direct Fax All) Any [place], [place], [address], 05/28/2024 08:15:08 05/28/20 24 05/28/2024 ELECT ROLYT E PANEL note See Report [facility], [address], [place], [place] [id number] Not Available [facility] (Direct Fax All) Any [place], [place], [address], 05/28/2024 08:15:08 05/28/20 24 05/28/2024 CREAT ININE creatinine 1.38 mg/dL 0.70-1 .30 high Not Available [facility] (Direct Fax All) Any [facility], [place], [address], 05/28/2024 08:15:10 05/28/20 24 05/28/2024 CREAT ININE eGFR 53 mL/mi n/1.7 3m2 >=60 low Calcu latio n based on the Chron ic Kidne y Disea se Epide miolo gy Colla borat ion (CKD- EPI) equat ion refit witho ut adjus tment for race. Not Available [facility] (Direct Fax All) [facility], [place], [address], 05/28/2024 08:15:10 05/28/2005/28/2024 CREAT ININE note See Report [facility], [address], [place], [place] [facility] [place] [id number] Not Available [facility] (Direct Fax All) [facility], [place], [address], 05/28/2024 08:15:10 10/24/1910/24/2024 HEPAT IC FUNCT ION PANEL (7) protein, total 6.6 g/dL 6.0-8. 5 normal Not Available [facility] ([facility]) [address] [facility], [place], [address], 10/24/2024 10:06:17 10/24/19 25 10/24/2024 HEPAT IC FUNCT ION PANEL (7) albumin 4.4 g/dL 3.8-4. 8 normal Not Available [facility] ([facility]) [address] [facility], [place], [address], 10/24/2024 10:06:17 10/24/19 25 10/24/2024 HEPAT IC FUNCT ION PANEL (7) bilirubin, total 0.6 mg/dL 0.0-1. 2 normal Not Available [facility] ([facility]) [address] [facility], [place], [address], 10/24/2024 10:06:17 10/24/19 25 10/24/2024 HEPAT IC FUNCT ION PANEL (7) bilirubin, direct 0.24 mg/dL 0.00-0 .40 normal Not Available [facility] ([facility]) [address] [facility] [place], [address], 10/24/2024 10:06:17 10/24/19 25 10/24/2024 HEPAT IC FUNCT ION PANEL (7) alkaline phosphatase 79 IU/L 44-121 normal Not Available [facility] ([facility]) [address] [facility] [place], [address], 10/24/2024 10:06:17 10/24/19 25 10/24/2024 HEPAT IC FUNCT ION PANEL (7) AST (SGOT) 18 IU/L 0-40 normal Not Available [facility] ([facility]) [address] [facility], [place], [address], 10/24/2024 10:06:17 10/24/19 25 10/24/2024 HEPAT IC FUNCT ION PANEL (7) ALT (SGPT) 25 IU/L 0-44 normal Not Available [facility] ([facility]) [address] [facility] [place], [address], 10/24/2024 10:06:17 10/24/19 25 10/24/2024 LIPID PANEL cholesterol, total 141 mg/dL 100-19 9 normal Not Available [facility] ([facility]) [address] [facility] [place], [address], 10/24/2024 10:06:18 10/24/19 25 10/24/2024 LIPID PANEL triglyceride s 88 mg/dL 0-149 normal Not Available [facility] ([facility]) [address] [facility] [place], [address], 10/24/2024 10:06:18 04/01/20 25 10/24/2024 LIPID PANEL HDL cholesterol 56 mg/dL >39 normal Not Available [facility] ([facility]) [address] [place], [address], 10/24/2024 10:06:18 10/24/19 25 10/24/2024 LIPID PANEL VLDL cholesterol doc 17 mg/dL 5-40 Not Available [facility] ([facility]) [address] [place], [address], 10/24/2024 10:06:18 10/24/19 25 10/24/2024 LIPID PANEL LDL chol calc ([facility]) 68 mg/dL 0-99 Not Available [facility] ([facility]) [address] [place], [address], 10/24/2024 10:06:18 10/24/19 25 10/24/2024 LIPID PANEL LDL calc comment: CAR CLEANING SUPERVISOR Not Available [facility] ([facility]) [address] [place], [address], 10/24/2024 10:06:18 10/24/19 25 10/24/2024 HEMOG LOBIN A1C hemoglobin A1C 6.4 % 4.8-5. 6 above high normal Predi abete s: 5.7 - 6.4 Diabe jody: >6.4 Glyce ari contr ol for adult s with diabe jody: <7.0 Not Available [facility] ([facility]) [address] [place], [address], 10/24/2024 10:06:18 10/24/19 25 10/24/2024 VITAM IN [...] Endoc rine Socie ty went on to furth er defin e vitam in D insuf ficie ncy as a level betwe en 21 and 29 ng/mL (2). 1. IOM (Inst itute of Medic ine). 2010. Dieta ry refer ence intak es for calci um and D. Aubrie cardona [place]: The [facility] Press . 2. Aureliano k MF, Bintrace ey [place], Bisch off-F errar i YO, et al. Evalu ation , treat ment, and preve ntion of vitam in D defic iency : an Endoc rine Socie ty clini doc pract ice guide line. JCEM. 2010; 96(7) :1911 -30. Not Available [facility] ([facility]) [address] [facility], [place], [address], 10/24/2024 10:06:19 10/24/19 25 10/24/2024 TSH RFX ON ABNOR MAL TO FREE T4 TSH 2.710 uIU/m L 0.450- 4.500 normal Not Available [facility] ([facility]) [address] [facility], [place], [address], 10/24/2024 10:06:19 05/09/20 24 05/09/2024 XR, chest [...] acute cardio pulmon ailin diseas e. WSN: [id number] Orderi ng Physic ernesto: Jason Solis Dictat ed By: Zee Bradford MD Dictat ed Date/T simon: 11:06 a Review ed By: Zee Bradford MD Signed By: Zee Bradford MD Signed Date/T simon: 11:06 am Transc ribed By: MAGY Transc ribed Date/T siomn: 11:06 am Patibasia t Class: Outpat ient FELECIA [facility] (Outpt Imaging) [address], [place], [address], 05/14/2024 15:06:42 05/28/20 24 05/28/2024 op note No observ ation record ed. [facility] ([facility] Scheduling) [place], [place], [address], 05/28/2024 10:11:14 07/16/20 24 07/16/2024 CT chest ldct lung progr am CT Chest LDCT Lung Progra m INDICA TION: Reason : Other: ; LDCT LUNG CANCER SCREEN ING HUNTER M, ENRICO T SMOKER , 42 PACK YEAR HX; Clinic al Questi on(s): Other: ; Specia l Instru [place]ions : [place] [address] [place] [address] BOOK AFTER 07 14 2024 NO CHEST [...] signif icant incide ntal findin gs. WSN: [id number] Orderezekiel Physic ernesto: Jason Solis Dictat ed By: Diann Stafford MD Dictat ed Date/T simon: 4:27 pm Review ed By: Diann Stafford MD Signed By: Diann Stafford MD Signed Date/T simon: 4:27 pm Transc ribed By: CSB Transc ribed Date/T simon: 4:17 pm Patien t Class: Outpat ient [email or web address] [facility] (Outpt Imaging) [address] [place], [address], 07/31/2024 13:58:27 07/16/20 24 07/16/2024 CT chest ldct lung progr am A D D E N D U M as of: [id number] CTDIvo l Body 2.6 mGy DLP Body: 101.1m Gy*cm WSN: [id number] Orderi ng Physic ernesto: Jason Solis Dictat ed By: Diann Stafford MD Dictat ed Date/T simon: 4:36 pm Review ed By: Diann Stafford MD Signed By: Diann Stafford MD Signed Date/T simon: 4:36 pm Transc ribed By: CSB Transc ribed Date/T simon: 4:[address] Chest LDCT Lung Hunter parry INDICA TION: Reason : Other: ; LDCT 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 WSN: [id number] Orderi ng Physic ernesto: Jason Solis ie Dictat ed By: Diann Stafford MD Dictat ed Date/T simon: 4:27 pm Review ed By: Diann Stafford MD Signed By: Diann Stafford MD Signed Date/T simon: 4:27 pm Transc ribed By: MAGY Transc ribed Date/T simon: 4:17 pm Patien t Class: Outpat ient [facility] (Outpt Imaging) [address] [place], [address], 07/17/2024 14:02:34 07/23/20 24 07/16/2024 LDCT, chest , for lung cance r aurelio augustine No observ ation record ed. [facility] [address] [place] [address], [address], 08/07/2024 10:43:35 Result Notes Documentation Provider Name and Address Organization Details Recorded Time Xr, Chest, 2 View : Examination: Chest performed on 05/09/2024. History: Pacemaker. Findings: Frontal and lateral views of the chest are compared to a prior study dated 10/11/23. The cardiac and mediastinal silhouettes are within normal limits. The lungs are clear. The osseous and soft tissue structures are unremarkable. Impression: There is no acute cardiopulmonary disease. WSN: [id number] Ordering Physician: Deana Corrales Dictated By: Zee Mosquera MD Dictated Date/Time: 05/09/24 11:06 a Reviewed By: Zee Mosquera MD Signed By: Zee Mosquera MD Signed Date/Time: 05/09/24 11:06 am Transcribed By: MAGY Transcribed Date/Time: 05/09/24 11:06 am Patient Class: Outpatient DEANA CORRALES MD [address] [address], [place], [address], [facility] 05/10/2024 19:54:19 Problems Name Problem SNOMED Code Status Onset Date Resolution Date Notes Provider Name and Address Organization Details Recorded Time Acute otitis externa 89609833 Completed 08/20/2016 JULIANNE Ordonez [facility] 7 14:40:41 Conjunct ivitis 7257954 Completed 08/20/2016 JULIANNE Ordonez [facility] 7 14:41:08 Fatigue 54208842 Completed 08/20/2016 JULIANNE Ordonez [facility] 7 14:41:10 Cellulit is 549020296 Completed 08/20/2016 TeriJaime hawkins [facility] 7 15:01:31 Increase d frequenc y of urinatio n 897864433 Completed 08/20/2016 JULIANNE Ordonez [facility] 7 14:40:29 Disorder of urinary system 428614341 Completed 08/20/2016 Teri NikkieFede hawkins [facility] 7 15:01:28 Sleep apnea 35185563 Active JULIANNE Ordonez [facility] 3 13:57:16 Otalgia 20429143 Completed 08/20/2016 Teri NikkiecinthyaNisha hawkins [facility] 7 15:01:36 Multiple skin tags 172434412 Completed 08/20/2016 Teri NikkieFede augusteenzmatt hawkins [facility] 7 15:01:54 Diarrhea 79860508 Completed 200702/12/2014 IMPRESSI ON: FULL WORKUP WITH EGD, COLONOSC OPY, SMALL BOWEL LOOK, NO PATHOLOG Y, ON HIGH FIBERM POSSIBLE IRRITABL E BOWEL; RECORDED 07/09/20 08 9:37AM BY SONAL MUELLER MA, ANNOTATI ON/ADDEN DUM Not Available [facility] 4 15:15:18 Nonvenom ous insect bite of multiple sites 119008809 Completed 200702/12/2014 IMPRESSI ON: EDEMA, MILD PAIN, NO INFECTIO N, ICE, ELEVATE AND MOTRIN; RECORDED 07/09/20 08 9:37AM BY SONAL MUELLER MA, ANNOTATI ON/ADDEN DUM Not Available [facility] 4 15:15:19 Screenin g for malignan t neoplasm of colon Completed 200702/12/2014 RECORDED 07/09/20 08 9:37AM BY SONAL MUELLER MA, ANNOTATI ON/ADDEN DUM Not Available [facility] 4 15:15:19 Diarrhea 88049131 Completed 200703/04/2014 IMPRESSI ON: FULL WORKUP WITH EGD, COLONOSC OPY, SMALL BOWEL LOOK, NO PATHOLOG Y, ON HIGH FIBERM POSSIBLE IRRITABL E BOWEL; RECORDED 07/09/20 08 9:37AM BY SONAL MUELLER MA, ANNOTATI ON/ADDEN DUM Not Available [facility] 4 06:00:51 Nonvenom ous insect bite of multiple sites 372203042 Completed 200703/04/2014 IMPRESSI ON: EDEMA, MILD PAIN, NO INFECTIO N, ICE, ELEVATE AND MOTRIN; RECORDED 07/09/20 08 9:37AM BY SONAL MUELLER MA, ANNOTATI ON/ADDEN DUM Not Available [facility] 4 06:00:51 Screenin g for malignan t neoplasm of colon Completed 200703/04/2014 RECORDED 07/09/20 08 9:37AM BY SONAL MUELLER MA, ANNOTATI ON/ADDEN DUM Not Available [facility] 4 06:00:51 Administ ration of bacteria l and viral vaccine Completed 201102/12/2014 RECORDED 07/29/19 12 10:31AM BY TERI Delgado MD, OFFICE VISIT Not Available [facility] 4 15:15:19 Administ ration of bacteria l and viral vaccine Completed 201103/04/2014 RECORDED 07/29/19 12 10:31AM BY TERI Delgado MD, OFFICE VISIT Not Available [facility] 4 06:00:51 Administ ration of viral vaccine Completed 201102/12/2014 DATE: 08/11/19 12; RECORDED 02/29/20 12 8:00AM BY NAZ CORREA MA, ANNOTATI ON/ADDEN DUM Not Available [facility] 4 15:15:19 Administ ration of viral vaccine Completed 201103/04/2014 DATE: 08/11/19 12; RECORDED 02/29/20 12 8:00AM BY NAZ CORREA MA, ANNOTATI ON/ADDEN DUM Not Available [facility] 4 06:00:51 Pure hypercho lesterol emia 661364433 Completed 201102/12/2014 IMPRESSI ON: CHECK TODAY; RECORDED 02/29/20 12 8:00AM BY NAZ CORREA MA, ANNOTATI ON/ADDEN DUM Not Available [facility] 4 15:15:19 Knee pain Completed 201102/12/2014 IMPRESSI ON: CARTILAG E ISSUE, PT TO SET UP APPT WITH [facility]; RECORDED 02/29/20 12 8:00AM BY NAZ CORREA MA, ANNOTATI ON/ADDEN DUM Not Available [facility] 4 15:15:19 Abnormal findings on diagnost ic imaging of lung 546007245 Completed 201102/12/2014 IMPRESSI ON: CT OF CHEST WITH 4MM NODULE AT RIGHT LUNG BASE. NO HX OF PRIOR CT OF CHEST, PAST CXR DID NOT SHOW. HX OF TB IN PAST, SEE HPI. SINCE PT IS LONGTIME SMOKER (QUIT 12/28) WILL REFER TO THORACIC SURGEON TO REVIEW CT OF CHEST AND SEE IF ANYOTHER WORKUP NEEDED.; RECORDED 02/29/20 12 8:00AM BY NAZ CORREA MA, ANNOTATI ON/ADDEN DUM Not Available [facility] 4 15:15:19 Pure hypercho lesterol emia 522529881 Completed 201103/04/2014 IMPRESSI ON: CHECK TODAY; RECORDED 02/29/20 12 8:00AM BY NAZ CORREA MA, MEG ON/ADDEN DUM Not Available [facility] 4 06:00:51 Knee pain Completed 201103/04/2014 IMPRESSI ON: CARTILAG E ISSUE, PT TO SET UP APPT WITH [facility]; RECORDED 02/29/20 12 8:00AM BY NAZ CORREA MA, JOHNATI ON/ADDEN DUM Not Available [facility] 4 06:00:51 Abnormal findings on diagnost ic imaging of lung 543634540 Completed 201103/04/2014 IMPRESSI ON: CT OF CHEST WITH 4MM NODULE AT RIGHT LUNG BASE. NO HX OF PRIOR CT OF CHEST, PAST CXR DID NOT SHOW. HX OF TB IN PAST, SEE HPI. SINCE PT IS LONGTIME SMOKER (QUIT 12/28) WILL REFER TO THORACIC SURGEON TO REVIEW CT OF CHEST AND SEE IF ANYOTHER WORKUP NEEDED.; RECORDED 02/29/20 12 8:00AM BY NAZ CORREA MA, JOHNATI ON/ADDEN DUM Not Available [facility] 4 06:00:51 Dysuria 29020852 Completed 201202/12/2014 RECORDED 09/20/19 13 8:51AM BY OLIMPIA GARCIA MA, JOHNATI ON/ADDEN DUM Not Available [facility] 4 15:15:18 Acute prostati tis 29250717 Completed 201202/12/2014 IMPRESSI ON: PROSTATI TIS WITH FEVER. WILL TREAT AN OUTPT BUT DISCUSSE D WITH PT THAT HE MAY NEED TO GO TO ER FOR IV ABX FOR THIS. HE UNDERSTA NDS. IF ANY WORSENIN G SXS, NOT IMPROVIN G WITH ABX, ETC. F/U WITH UROLOGY IN 1 WEEK.; RECORDED 09/20/19 13 8:52AM BY OLIMPIA GARCIA MA, MEG ON/ADDEN DUM Not Available [facility] 4 15:15:19 Dysuria 46234814 Completed 201203/04/2014 RECORDED 09/20/19 13 8:51AM BY OLIMPIA GARCIA MA, JOHNATI ON/ADDEN DUM Not Available [facility] 4 06:00:51 Acute prostati tis 03558649 Completed 201203/04/2014 IMPRESSI ON: PROSTATI TIS WITH FEVER. WILL TREAT AN OUTPT BUT DISCUSSE D WITH PT THAT HE MAY NEED TO GO TO ER FOR IV ABX FOR THIS. HE UNDERSTA NDS. IF ANY WORSENIN G SXS, NOT IMPROVIN G WITH ABX, ETC. F/U WITH UROLOGY IN 1 WEEK.; RECORDED 09/20/19 13 8:52AM BY OLIMPIA GARCIA MA, JOHNATI ON/ADDEN DUM Not Available [facility] 4 06:00:51 Adult health examinat ion Completed 201202/12/2014 IMPRESSI ON: PT WANTS TO START EXERCISI USHA WOMACK ED HIM TO, NEEDS TO EAT HEALTHY, IN PAST HAD ONEELEVT E DPSA THEN RETURNED TO NL, THOUGHT DUE TO INFLAMMA TION RECHECK TODAY; RECORDED 09/26/19 13 2:16PM BY SONAL MUELLER MA, ANNOTATI ON/ADDEN DUM JULIANNE Ordonez [facility] [facility] 7 14:40:36 Cramp in limb 825492003 Completed 201202/12/2014 IMPRESSI ON: HYDRATE STRETCHA DN CHECK LYTES; RECORDED 09/26/19 13 2:17PM BY SONAL MUELLER MA, ANNOTATI ON/ADDEN DUM Not Available [facility] 4 15:15:19 Tobacco dependen ce syndrome 09190657 Completed 201202/12/2014 IMPRESSI ON: PT TO START WELLBUTR IN AGAIN, QUIT LAST ITME FOR 3 YEARS; RECORDED 09/26/19 13 2:19PM BY SONAL MUELLER MA, ANNOTATI ON/ADDEN DUM Not Available [facility] 4 15:15:20 Adult health examinat ion Completed 201203/04/2014 IMPRESSI ON: PT WANTS TO START EXERCISI USHA WOMACK ED HIM TO, NEEDS TO EAT HEALTHY, IN PAST HAD ONEELEVT E DPSA THEN RETURNED TO NL, THOUGHT DUE TO INFLAMMA TION RECHECK TODAY; RECORDED 09/26/19 13 2:16PM BY SONAL MUELLER MA, JOHNATI ON/ADDEN DUM JULIANNE Ordonez [facility] 7 14:40:36 Cramp in limb 740772013 Completed 201203/04/2014 IMPRESSI ON: HYDRATE STRETCHA DN CHECK LYTES; RECORDED 09/26/19 13 2:17PM BY SONAL MUELLER MA, MEG ON/ADDEN DUM Not Available [facility] 4 06:00:51 Tobacco dependen ce syndrome 82713920 Completed 201203/04/2014 IMPRESSI ON: PT TO START WELLBUTR IN AGAIN, QUIT LAST ITME FOR 3 YEARS; RECORDED 09/26/19 13 2:19PM BY SONAL MUELLER MA, ANNOTATI ON/ADDEN DUM Not Available [facility] 4 06:00:51 Follow-u p encounte r Completed 201202/12/2014 RECORDED 10/12/19 13 9:07AM BY OLIMPIA GARCIA MA, JOHNATI ON/ADDEN DUM Not Available [facility] 4 15:15:19 Follow-u p encounte r Completed 201203/04/2014 RECORDED 10/12/19 13 9:07AM BY OLIMPIA GARCIA MA, JOHNATI ON/ADDEN DUM Not Available [facility] 4 06:00:51 Influenz a vaccine needed 88545866146 06 Completed 201202/12/2014 RECORDED 04/23/20 13 2:46PM BY LEATHA BUENO, OFFICE VISIT Not Available [facility] 4 15:15:18 Influenz a vaccine needed 44533118791 06 Completed 201203/04/2014 RECORDED 04/23/20 13 2:46PM BY LEATHA BUENO, OFFICE VISIT Not Available [facility] 4 06:00:51 History of clinical finding in subject 453400897 Completed 201308/20/2016 RECORDED 09/29/19 14 9:22AM BY MEG ORDONEZ ON/ADDEN DUM JULIANNE Ordonez, [facility] 7 14:40:52 Prostate specific antigen above referenc e range 616372598 Active 2013 JULIANNE Ordonez, [facility] 3 13:57:16 Tobacco user 237259291 Completed 201302/12/2014 RECORDED 09/29/19 14 9:22AM BY MEG ORDONEZ ON/ADDEN DUM DEANA CORRALES MD [address] [facility] [address], [place], [address] , [facility] 5 13:36:19 Adult health examinat ion Completed 201308/20/2016 IMPRESSI ON: PT IS DOING WELL, HE WILL INCREASE EXERCISE , HAS STAYED AWAY FROM SMOKING; RECORDED 09/29/19 14 1:30PM BY TERI Delgado MD, OFFICE VISIT JULIANNE Ordonez, [facility] 7 14:40:36 Disorder of oral soft tissues 44119669 Completed 201308/20/2016 IMPRESSI ON: SLIGHTLY RED AREA ON HARD PALATE ON THE LEFT. NO CLEAR ULCERATI ON OR MASS.; RECORDED 09/29/19 14 9:25AM BY LEATHA BUENO, OFFICE VISIT Teri hawkins [facility] 7 15:01:57 Paronych ia of finger 119962185 Completed 201308/20/2016 RECORDED 09/29/19 14 9:25AM BY LEATHA BUENO, OFFICE VISIT Teri hawkins [facility] 7 15:02:02 Umbilica l hernia 810556673 Active 2013 JULIANNE Ordonez, [facility] 3 13:57:16 Arthropa thy of knee joint 965938158 Completed 201308/20/2016 IMPRESSI ON: INJECTIO NS FROM ORHTO IN THE PAST; RECORDED 01/10/20 14 8:38AM BY EDNA COX I, OFFICE VISIT Teri hawkins [facility] 7 15:01:59 Tobacco user 596274903 Completed 201308/20/2016 RECORDED 01/10/20 14 8:38AM BY EDNA COX I, OFFICE VISIT DEANA CORRALES MD [address] [facility] [address], [facility] [place], [address] , [facility] 5 13:36:19 Elevated blood-pr essure reading without diagnosi s of hyperten saray 916183273 Completed 201308/20/2016 IMPRESSI ON: STRESSED , RECHECK IN ONE MONTH; RECORDED 01/10/20 14 8:38AM BY EDNA COX I, OFFICE VISIT Teri hawkins [facility] 7 15:01:50 Chronic obstruct yazmin pulmonar y disease 31110866 Active 2013 Odalis hawkins, [facility] 8 08:33:43 Disorder of vein 74138916 Completed 201308/20/2016 IMPRESSI ON: OFF COUMADIN AND ON BABY ASA AND DOING WELL, KNOWS TO AVOID PRLONGED PERIOD SOF SITTING. ..; RECORDED 01/10/20 14 8:38AM BY EDNA COX I, OFFICE VISIT JULIANNE Ordonez, [facility] 7 14:41:01 Respirat ory finding 489425291 Completed 201308/20/2016 IMPRESSI ON: CONCERN FOR DVT RIGHT LEG WITH PE GIVEN HE IS TACHYCAR DIC, TACHYPNE IC. AMBULANC E CALLED. NEEDS EITHER DOPPLER LEG OR CT. HIGH RISK CONDITIO N WITH THREAT TO LIFE; RECORDED 01/10/20 14 8:38AM BY EDNA COX I, OFFICE VISIT JULIANNE rOdonez, [facility] 7 14:40:57 Hearing loss 61349577 Active 2013 JULIANNE Ordonez, [facility] 3 13:57:16 Onychia of finger 18028166 Completed 201308/20/2016 RECORDED 01/10/20 14 8:38AM BY EDNA COX I, OFFICE VISIT Teri hawkins [facility] 7 15:01:47 Disorder of prostate 28237436 Completed 201301/17/2017 IMPRESSI ON: PSA WAS CHECKED [...] EDNA COX I, OFFICE VISIT Teri hawkins [facility] 7 10:05:28 Pulmonar y embolism 49738623 Completed 201308/22/2017 Teri hawkins [facility] 8 10:32:12 Coag./bl eeding tests abnormal 972642037 Completed 201310/23/2024 next blod work check for clood agglutin in and hemolysi s, folate, vitamin b12 DEANA CORRALES MD [address] [facility] [address], [place], [address] , [facility] 5 13:36:39 Prostate specific antigen above referenc e range 712612662 Completed 201303/04/2014 IMPRESSI ON: PT TO SET UP APPT WITH DR KEYES FOR ANNUAL EDSON, GERARD EXAM HERE TODAY WILL LET HIM GET PSA; RECORDED 01/10/20 14 8:38AM BY EDNA COX I, ANNOTATI ON/CHIP hawkins [facility] 8 08:33:53 History of pulmonar y embolus 090411034 Active 2013 JULIANNE Ordonez, [facility] 3 13:57:16 Disorder of oral soft tissues 53508147 Completed 201303/04/2014 IMPRESSI ON: SLIGHTLY RED AREA ON HARD PALATE ON THE LEFT. NO CLEAR ULCERATI ON OR MASS.; RECORDED 01/10/20 14 8:38AM BY MEG FELDER ON/ADDEN DUM Teri hawkins [facility] 7 15:01:57 Overweig ht 983266899 Completed 201303/04/2014 RECORDED 01/10/20 14 8:38AM BY MEG FELDER ON/ADDEN DUM Rosa Trinhmatt hawkins [facility] 1 14:26:43 Umbilica l hernia 656039375 Completed 201303/04/2014 IMPRESSI ON: NEW PROBLEM TO EXAMINER , PT TO SEE DR AMY Leo, HE WAS WARND TO GO TO THE ER IF ANY COLOR CAHNGE, INCREASE IN PAIN OF THE HERNIA.; RECORDED 01/10/20 14 8:38AM BY MEG FELDER ON/ADDEN DUM Odalis hawkins, [facility] 8 08:33:56 Tobacco user 644295860 Completed 201310/23/2024 DEANA CORRALES MD [address] [address], [place], [address] , [facility] 5 13:36:19 Advance directiv e discusse d with patient 007807828 Completed 201608/22/2017 Odalis hawkins, [facility] 8 08:34:14 Parkinso n's disease 03752751 Completed 201805/04/2019 Teri hawkins [facility] 9 11:10:37 History of right total knee replacem ent 08774476712 37711 Completed 201804/06/2023 DEANA CORRALES MD [address], [place], [address] , [facility] 3 13:13:11 Parkinso nism 79166283 Completed 201910/01/2020 DEANA CORRALES MD [address], [place], [address] , [facility] 3 13:15:27 Parkinso nism 12846751 Active 2019 DEANA CORRALES MD [address], [place], [address] , [facility] 3 13:15:27 Advance care planning Active 2020 JULIANNE Ordonez, [facility] 3 13:57:16 Steatoti c liver disease 206083448 Active 2020 Leatha Bueno MA null, [facility] 3 13:57:16 Vertigo 525741483 Active 2020 JULIANNE Ordonez, [facility] 3 13:57:16 Serum creatini ne outside referenc e range 850664600 Completed 202003/26/2021 DEANA CORRALES MD [address], [place], [address] , [facility] 3 13:13:17 Serum creatini ne outside referenc e range 511678797 Completed 202004/06/2023 DEANA CORRALES MD [address], [place], [address] , [facility] 3 13:13:17 Type 2 diabetes mellitus without complica tion 757307952 Completed 202005/12/2021 JULIANNE Ordonez, [facility] 3 13:57:16 Chronic kidney disease stage 3A 532225778 [facility] 2022 [facility] 3 12:48:08 Prediabe jody 314562720 Active 2022 DEANA CORRALES MD [address] [facility] [address], [place], [address] , [facility] 3 21:01:56 Urethral strictur e 74890246 Active 2024 self-cat hs DEANA CORRALES MD [address] [facility] [address], [place], [address] , [facility] 5 13:09:25 Benign prostati c hyperpla rafael 543775776 Active 2024 DEANA CORRALES MD [address] [facility] [address], [place], [address] , [facility] 5 13:09:33 Ex-smoke r 4183264 Active 2024 DEANA CORRALES MD [address] [facility] [address], [place], [address] , [facility] 5 13:36:32 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 Procedures Surgical History Date Name Laterality Status Provider Name and Address Organization Details Recorded Time 10/24/19 25 Advanced Care Planning completed DEANA CORRALES MD [address] [facility] [address], [place], [address], [facility] 10/22/2024 07:09:31 10/06/19 23 Colonoscopy completed Jessica Montiel [facility] 10/05/2022 10:02:30 10/03/19 22 Diabetic Foot Exam (Monofilament) completed Olimpia Garcia MA [facility] 10/02/2021 09:20:16 10/02/19 21 Six-Item Cognitive Test completed Leatha Bueno MA [facility] 10/01/2020 10:25:57 09/13/19 20 Mini-Cog Test completed Sonal riley MA [facility] 09/13/2019 13:18:51 12/13/19 19 total knee replacement completed Chelle Yu [facility] 01/02/2019 16:23:22 09/08/19 19 Mini-Cog Test completed Leatha Bueno MA [facility] 09/08/2018 08:56:18 08/22/19 18 Fall Risk Assessment completed Leatha Bueno MA [facility] 08/22/2017 10:02:46 08/22/19 18 Mini-Cog Test completed Leatha Bueno MA [facility] 08/22/2017 10:02:23 08/20/19 17 Fall Risk Assessment completed Leatha Bueno MA [facility] 08/20/2016 14:45:19 08/20/19 17 Mini-Cog Test completed Leatha Bueno MA [facility] 08/20/2016 14:44:17 08/20/19 17 Advanced Care Planning completed Teri guevara [facility] 08/20/2016 15:00:56 10/01/19 15 Fall Risk Assessment completed Leatha Bueno MA [facility] 09/30/2014 10:08:54 10/01/19 15 Mini-Cog Test completed Leatha Bueno MA [facility] 09/30/2014 09:58:57 Imaging Results None recorded. Procedure Notes None recorded. 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 Agency Serial Number Lot Number Status Provider Name and Address Organization Details Recorded Time Cardiac pacemaker FDA Y WESLEY Hutchinson [facility] 05/04/2024 08:24:38 Allergies Allergen ID Allergen Name Allergen Category Reaction Reaction Severity Criticality Documentation Date Start Date Code Code System Note Provider Name and Address Organization Details Recorded Time 69109 Iodinated contrast media (substanc e) medicatio n Not available Not available Not available 02/05/20142013 94098 2003 SNOMED cause d redne ss Not Available [employer] 2 16:57:12 04288 iodine medicatio n Not available Not available Not available 12/25/20202020 5933 RxNorm DEANA CORRALES MD [address] [facility] [address], [place], [address], [facility] 5 13:07:49 Medications Name Sig Start Date [...] completed Not Available Not Available Not Available Ciprodex 0.3 %-0.1 % ear drops,ariadne pension INSTILL 4 DROPS INTO AFFECTED EAR(S) BY OTIC ROUTE 2 TIMES PER DAY FOR 7 DAYS 2024 active Not Available Not Available Not Avai lable bupropion HCl XL 300 mg 24 hr [...] completed Not Available Not Available Not Available [place] 3 DAILY 01/17 completed Not Available Not Available Not Available vitamin I43-tsquc acid 1 po qd 10/07 completed Not [...] Available Not Available No t Available Fluvirin 4819-1704 (PF) 45 mcg (15 mcg x 3)/0.5 [...] Not Available Not Available Vitals Date Recorded Systolic And Diastolic Provider Name and Address Organization Details Last Updated DateTime 10/14/2023 140/80 mm[Hg] DEANA CORRALES MD [address] [address], [place], [address] 10/14/2023 13:59:35 Date Recorded Body height Body mass index (BMI) Body weight Heart rate Oxygen saturation Oxygen saturation in Arterial blood by Pulse oximetry Body temperature Systolic And Diastolic Provider Name and Address Organization Details Last Updated DateTime 4 176.53 cm 32.2 kg/m2 060981. 91 g 90 /min 95 % 95 % 100 [degF] 142/79 mm[Hg] Arin Tiwari MA [facility] 4 13:31:42 Date Recorded Body height Body mass index (BMI) Body weight Oxygen saturation Oxygen saturation in Arterial blood by Pulse oximetry Heart rate Body temperature Systolic And Diastolic Provider Name and Address Organization Details Last Updated DateTime 5 176.53 cm 33.5 kg/m2 702888. 65 g 97 % 97 % 87 /min 98.4 [degF] 128/71 mm[Hg] Leatha Bueno [facility] 5 12:57:35 Date Recorded Body height Body mass index (BMI) Body weight Heart rate Oxygen saturation Oxygen saturation in Arterial blood by Pulse oximetry Body temperature Systolic And Diastolic Provider Name and Address Organization Details Last Updated DateTime 4 176.53 cm 32.2 kg/m2 971587. 91 g 100 /min 95 % 95 % 98.7 [degF] 105/66 mm[Hg] Tabatha Munson [facility] 4 09:16:44 Date Recorded Body height Body mass index (BMI) Body weight Heart rate Oxygen saturation Oxygen saturation in Arterial blood by Pulse oximetry Body temperature Systolic And Diastolic Provider Name and Address Organization Details Last Updated DateTime 5 176.53 cm 34.4 kg/m2 586776. 8 g 82 /min 95 % 95 % 100 [degF] 127/75 mm[Hg] Arin Tiwari MA [facility] 5 13:15:58 Date Recorded Body height Body mass index (BMI) Body weight Heart rate Oxygen saturation Oxygen saturation in Arterial blood by Pulse oximetry Body temperature Systolic And Diastolic Provider Name and Address Organization Details Last Updated DateTime 4 176.53 cm 32 kg/m2 41396.3 2 g 79 /min 96 % 96 % 98.4 [degF] 126/72 mm[Hg] Tabatha Robert Munson MA [facility] 4 11:07:14 Social History Question Answer Notes LastModified by Organizat ion Details LastModified Time Tobacco Smoking Status Former Smoker Naz Correa shruthi [facility] 04/22/2014 11:01:44 Do You Have An Advance Directive? No Information not available 09/28/2021 Is Blood Transfusion Acceptable In An Emergency? Yes [email or web address] Information not available 10/01/2020 What Is Your Level Of Caffeine Consumption? Moderate 1 Cup Of Coffee Daily Information not available 09/13/2019 How Much Tobacco Do You Chew? None Information not available 09/13/2019 What Type Of Diet Are You Following? REGULAR Information not available 09/30/2014 Which Illicit Or Recreational Drugs Have You Used? Cannabis Information not available 09/13/2019 When Did You Quit Smoking? 6-10yearssinc elastcigarett e [email or web address] Information not available 10/01/2020 Live Alone Or With Others? With Others (Olga) Information not available 09/28/2021 Do You Take Precautions To Prevent Distracted Driving? Yes Information not available 10/01/2020 How Often Do You Need To Have Someone Help You When You Read Instructions, Pamphlets, Or Other Written Material From Your Doctor Or Pharmacy? Sometimes [email or web address] Information not available 10/01/2020 Have You Served In The ? Yes [employer] [email or web address] Information not available 10/01/2020 Have You Or [...] OUD But Is Possibly At Risk. No Information not available 10/01/2020 Have You Recently Traveled To A COVID-19 High Risk Area Or Gathering In The Last 10 Days? No [email or web address] Information not available 10/01/2020 What Was The Date Of Your Most Recent Tobacco Screening? 10/23/2024 [email or web address] Information not available 10/23/2024 How Many Children Do You Have? 3 Information not available 09/13/2019 What Is Your Current Pack Years? 30ormorepacky ears [email or web address] Information not available 10/23/2024 Do You Use Protection During Sex? Always [email or web address] Information not available 10/01/2020 Seat Belts Used Routinely Yes Information not available 09/28/2021 Are You Sexually Active? Yes [email or web address] Information not available 10/01/2020 Smoke Alarm In Home Yes Information not available 09/28/2021 At What Age Did You Start Smoking Tobacco? 32 [email or web address] Information not available 10/01/2020 Are You Passively Exposed To Smoke? No [email or web address] Information not available 10/01/2020 How Much Tobacco Do You Smoke? 1.5 PPD Information not available 09/28/2021 General Stress Level Medium Information not available 09/28/2021 Do You Use Sunscreen Routinely? Yes [email or web address] Information not available 09/30/2014 How Many Years Have You Smoked Tobacco? 30 [email or web address] Information not available 10/01/2020 Sex: Unknown Functional Status Question Answer Note LastModified by Organizat ion Details LastModified Time Do you use any illicit or recreational drugs? No Information not available 10/02/2021 Do you or have you ever used any other forms of tobacco or nicotine? No Information not available 10/02/2021 What is your level of alcohol consumption? Moderate [email or web address] Information not available 10/01/2020 Do you or have you ever used smokeless tobacco? Never used smokeless tobacco [email or web address] Information not available 05/21/2020 Are you currently employed? No retired [email or web address] Information not available 09/13/2019 Are you able to walk? YESASSIST cane 90 percent of the time [email or web address] Information not available 10/07/2022 Are you able to care for yourself? 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 Never used electronic cigarettes Information not available 09/28/2021 What is your exercise level? Occasional [email or web address] Information not available 10/01/2020 Mental Status None recorded. Family History Relationship Description Onset Age of this Age Resolved Age Notes LastModified by Organization Details LastModified Time Mother Cerebrovascu lar accident [email or web address] Not available 09:55:39 Mother Dementia 97 [email or web address] Not available 09/13/2019 13:10:22 Father Heart disease [email or web address] Not available 09/30 09:55:39 Notes:No FH of colon or wilfr[address] st Medical History Condition Response Gout N Other N Kidney Stones N Blood Diseases N Hyperthyroidism N Breast Cancer N COPD Y Depression N Lung Disease N Hypothyroidism N Defects or [...] split virus, quadrivalent, preservative 6 completed JULIANNE Lovett, [facility] 05/24/2016 13:17:04 COVID-19, mRNA, LNP-S, PF, 30 mcg/0.3 mL dose 1 completed JULIANNE Ordonez, [facility] 10/07/2022 14:03:59 COVID-19, mRNA, LNP-S, PF, 30 mcg/0.3 mL dose 1 completed JULIANNE Ordonez, [facility] 10/07/2022 14:03:59 Influenza, high-dose, trivalent, PF 9 completed JULIANNE Ordonez [facility] 10/07/2022 14:04:00 Influenza, high-dose,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 15163 E78.00 check fasting Posttrauma tic stress disorder 04020515 F43.10 in therapy and seeing psychiatry at [facility], gets triggered [id number] DEANA CORRALES MD Main Office [address] [facility], [place] [address] 04/07/2023 10:40:42 04/07/2023 11:21:20 Chronic kidney disease stage 3 427532504 N18.31 - creatine 1.4, GFR 52, stable- counselled on staying hydrated and avoiding NSAIDS- follows with nephrology , last seen on 05/11/2022 Chronic ob structive pulmonary disease 98439851 J44.9 - under good control- pt has stopped smoking about 10 years ago- c/w respirmat 2puff QD- started on daliresp -> pt is not tolerating well, having a lot diarrhea- follows with pulm, last seen on 01/03/23 Steatotic liver disease 442417899 K76.0 - will check liver enzymes Prostate s pecific antigen above reference range 687583575 R97.20 - pt was following with urology, last seen on 05/23/19- will check levels as pt no longer following as he was discharged from the practice Parkinsonism 67541186 G2 0 - pt follows with neurology, last seen on 01/06/23- carbidopa 25mg-levod opa 100mg increased from BID to TID History of pulmonary embolus 878141064 Z86.711 - and DVT (2X)- counselled on bleeding risks- c/w Eliquis 5mg BID Fatigue 01190191 R53.83 Z00.00 Hyperlipidemia 96829864 E78.5 Z00.00 - ordered repeat levels- c/w [...] fruits and veggies. Impaired f asting glycemia 323843156 R73.01 - HbA1c is 5.9 done on 04/15- ordered repeat Tobacco user 247810716 Z 72.0 - pack years: 53- previous smoker Hypertensi ve renal disease 77871804 I12.9 - at goal- BP today 119/69- c/w amlodipine 2.5mg QD Pt counselled on:-Dietar y Approaches to Stop Hypertensi on (DASH) is an eating plan rich in fruits, vegetables , whole grains, fish, poultry, nuts, legumes, and low-fat dairy. These foods are high in herny nutrients such as potassium, magnesium, calcium, fiber, [...] trouble with your vision. Itching of ear 965428174 L29.8 - pt wanted to switch from dermotic to another solution- will try steroid ear drops Cramp in lower limb 9146 89042 R25.2 - will use tizanidine 4mg as needed Benign pro static hyperplasia 966786943 N40.1 - pt mentions his urinary stream is reduced and he does wake up at night to urinate- pt would to follow-up with Dr. Keyes for this new problem [id number] DEANA CORRALES MD Main Office [address] [facility] [address] [place], [place] [address] 09/23/2023 08:37:49 09/23/2023 17:16:23 [id number] DEANA CORRALES MD Main Office [address] [address] [place], [place] [address] 10/14/2023 13:23:04 10/14/2023 14:04:38 Adult health examination 709368247 Z00.00 Health Maintenanc e [place]) Patient was [...] acute complaints Chronic ob structive pulmonary disease 05705724 J44.9 - under good control- pt has stopped smoking about 10 years ago- c/w respirmat 2puff QD- started on daliresp -> pt is not tolerating well, having a lot diarrhea- follows with pulm, last seen on 04/19/23 -> no change in regimen Steatotic liver disease 765996302 K76.0 - resolved- ALT-28// T-26 checked 04/16 Parkinsonism 24608761 G2 0.A1 - pt follows with neurology, last seen on 05/12/23 -> no change in regimen- c/w carbidopa 25mg-levod opa 100mg TID Hyperlipidemia 39975523 E78.5 Z00.00 - at goal- lipid panel [...] fruits and veggies. History of pulmonary embolus 053071049 Z86.711 - and DVT (2X)- CHADVASC2 score: 4= 4.8% stroke risk per year- HASBLEED score: 1= low risk of major bleeding- risk of being off anticoagul ation does not out-weight benefit will continue- counselled on bleeding risks- c/w Eliquis 5mg BID Hypertensi ve renal disease 48251905 I12.9 - elevated today- BP today 142/79 [...] with your vision. Cramp in lower limb 7709 78495 R25.2 - will use tizanidine 4mg as needed Benign pro static hyperplasia 039442027 N40.1 - pt mentions his urinary stream is reduced and he does wake up at night to urinate- pt would to follow-up with Dr. Keyes for this new problem Administra tion of pneumococcal vaccine 57567409 Z23 - pt will like to have it done in 6 months Chronic ki dney disease stage 2 514865324 N18.2 - creatine 1.3, GFR 60, stable- counselled on staying hydrated and avoiding NSAIDS- follows with nephrology , last seen on 05/11/2022 Prediabetes 973693741 R7 3.03 - HbA1c is 6.1 done on 04/16 (worse form last year, 5.9) Ex-smoker 7591206 Z87.89 1 - pack years: 53- quit smokin Dysfunctio n of eustachian tube 08599936 H69.93 Headache 05904722 R51.9 Cardiac pa cemaker in situ 965640823 Z95.0 - [employer] Transition from acute care to self-care 0454165332 12398 Z76.89 - reviewed hospital stay Dizziness 810938808 R42 - improved after placing pace maker [id number] DEANA CORRALES MD Main Office [address] [facility] [address] [place] [address] 10/12/2023 08:36:02 10/12/2023 14:05:34 [id number] DEANA CORRALES MD Main Office [address] [facility] [address] [place] [address] 01/19/2024 08:56:32 01/19/2024 09:29:20 Chronic kidney disease stage 2 612926391 N18.2 - creatine 1.3, GFR 60, stable- counselled on staying hydrated and avoiding NSAIDS- follows with nephrology , last seen on 05/11/2022 Hypertensi ve renal disease 69181820 I12.9 - at goal- BP today 105/66- [...] with your vision. Cramp in lower limb 6429 02502 R25.2 - will use tizanidine 4mg as needed Itching of ear 086420136 L29.8 - pt wanted to switch from dermotic to another solution [id number] DEANA CORRALES MD Main Office [address] [facility] [place] [address] 04/17/2024 10:36:19 04/17/2024 11:31:05 Chronic kidney disease stage 3A 768784622 N18.31 - creatine 1.3 with FGR of 60- pt does follow with a nephrologi st- pt advised to stay hydrated and avoid NSAIDs Chronic ob structive pulmonary disease 90284411 J44.9 - under good control- pt has stopped smoking about 10 years ago- c/w respirmat 2puff QD- c/w roflumilas t 250mg QD- follows with pulm, last seen on 02/21/2024 -> no change in regimen Parkinsonism 59869957 G2 0.A1 - pt follows with neurology, last seen on 05/12/23 -> no change in regimen- c/w carbidopa 25mg-levod opa 100mg TID Prediabetes 701953719 R7 3.03 - HbA1c is 6.1 done on 04/16 (worse form last year, 5.9)- ordered repeat levels Influenza vaccine needed 4200928169 106 Z23 Will is scheduled flu shot on 04/18/24 at pharmacy Lumbar radiculopathy 128 407173 M54.16 - has been on-going for several years, pt is following with pain management getting infections - pt would like to consider surgery- pt would like to stop tizanidine as it is not providing too much relief- as patient would like surgery would updated MRI lumbar spine and will refer to neurosurge ry Fatigue 38987944 R53.83 Z00.00 Hyperlipidemia 28360989 E78.5 Z00.00 FASTING [id number] DEANA CORRALES MD Main Office [address] [place] [address] 10/23/2024 12:45:00 10/23/2024 13:31:24 Advance directive discussed with patient 225473030 Z71.89 - discussed POLTS and HCP Chronic ki dney disease stage 3A 417458366 N18.31 - creatine 1.38 with GFR of 53- pt does follow with a nephrologi st- pt advised to stay hydrated and avoid NSAIDs Chronic ob structive pulmonary disease 35789191 J44.9 - under good control- pt has stopped smoking about 10 years ago- c/w respirmat 2puff QD- c/w roflumilas t 250mg QD- follows with pulm, last seen on 08/17/2024 -> no change in regimen Hearing loss 33415813 H9 0.3 - wears hearing aids intermitte ntly Parkinsonism 76641454 G2 0.A1 - pt follows with neurology, last seen on 05/14/2024 -> no change in regimen- c/w carbidopa 25mg-levod opa 100mg TID History of pulmonary embolus 846248721 Z86.711 - and DVT (2X)- CHADVASC2 score: 4= 4.8% stroke risk per year- HASBLEED score: 1= low risk of major bleeding- risk of being off anticoagul ation does not out-weight benefit will continue- counselled on bleeding risks- c/w Eliquis 5mg BID Prediabetes 713905185 R7 3.03 - HbA1c is 6.1 done on 04/16 (worse form last year, 5.9)- ordered repeat levels Sleep apnea 47762436 G47 .30 - using cpap Steatotic liver disease 663095657 K76.0 - resolved- ALT-28// T-26 checked 04/16 Adult [facility] th examination 011043834 Z00.00 Health [facility] e [place]) Patient was counseled on healthy [...] if any acute complaints Lumbar radiculopathy 128 207322 M54.16 - has been on-going for several years, pt is following with pain management getting infections - pt would like to consider surgery- pt would like to stop tizanidine as it is not providing too much relief- as patient would like surgery would updated MRI lumbar spine and will refer to neurosurge ry Fatigue 94847027 R53.83 Z00.00 Hyperlipidemia 05260394 E78.5 Z00.00 Ex-smoker 0523255 Z87.89 1 - pack years: 55- quit smokin Hypertensi ve renal disease 51330998 I12.9 - at goal- BP today 128/71- [...] with your vision. Cramp in lower limb 3319 17135 R25.2 - will use tizanidine 4mg as needed Benign pro static hyperplasia 781213853 N40.1 - pt mentions his urinary stream is reduced and he does wake up at night to urinate- pt would to follow-up with Dr. Keyes for this new problem Dysfunctio n of eustachian tube 92061734 H69.93 Headache 34266474 R51.9 Cardiac pa cemaker in situ 050752874 Z95.0 - [employer] Vitamin D deficiency 347 21823 E55.9 - vitamin D 19 Body mass index 30+ - obesity 947086866 E66.9 Z68.33 - BMI of 33.5- Cut [...] or 150 minutes cumulative of moderate exercise ca webb [id number] Ever Stone MD Main Office [address] [place] [address] 01/21/2025 13:08:44 01/21/2025 13:26:55 Otitis externa 2181161 H60.8X2 x1 day of left ear discharge/ drainage>c lear/cloud y fluid-pt has been inserting a cotton ball to his left ear-will provide ciprodex and discussed conservati ve measuremen ts Health Concerns Section Related Observation LastModified by Organization Detai ls LastModified Time None Recorded Concern Status LastModified by Organization Details LastModified Time None Recorded Advance Directives Directive N: Payers Insurance Date Sequence Insurance Name Policy Number Policy Sidhu Covered Member ID Sidhu Member ID Guarantor Name 01/28/2025 2 FOR LIFE ( - MEDICARE SUPPLEMENT) Seamus Castaneda [id number] Seamus Castaneda 01/21/2025 1 MEDICARE B-[place]: [employer] Seamus Castaneda [id number] Seamus Castaneda 09/21/2021 1 [place] [employer] Seamus Castaneda [id number] Seamus Castaneda Notes Date Note Type Note Provider Name and Address Organization Details Recorded Time 10/14/2023 text/html Hospitalization Contact RecordReported bypatient.Follow UpHospital: [facility]; admit date: (Please enter in format 'MM/DD/YYYY') (09/20/2023); date of discharge: (Please enter in format 'MM/DD/YYYY') (09/22/2023); date of contact: (Please enter in format 'MM/DD/YYYY') (09/23/2023)Notes:Medic are covered inpatient stay? yesMedicare DELLA with in 48 working hours? yesHigh Complexity code valid on or before:SeptemberModerate Complexity code valid on or before:SeptemberHCP on file? noMOLST on file? noDischarge Summary available? yesPt presented to [facility] after experiencing a near syncopal episode [...] RBBB with LBBB.Pt was therefore transferred to [facility] for transvenous pacing which was successfully placed asset recovery specialist on 09/21/23, however pt was having intermittent [...] RESTART Tuesday09/25/2023FOLLOW UP IN EP CLINIC AT [facility] ON 10/06/2023 AT 10:30 AM MEDS RECONCILEDMedicare [...] worse? No Advance Directive: none on file DEANA CORRALES MD [address], [address], [facility] 10/14/2023 16:18:29 01/19/2024 text/html Hypertension F/UReported bypatient.Associated [...] Pt has no complaints at this time. DEANA CORRALES MD [address], [address], [facility] 01/19/2024 09:30:29 04/17/2024 text/html Back PainReporte d bypatient.Quality:achin g Severity:same Duration:chronic Context:prior back problems; used [...] Pt has no complaints at this time. DEANA CORRALES MD [address], [address], [facility] 04/17/2024 11:49:27 10/23/2024 text/html Medicare Annual Wellness [...] worse? No Advance Directive: none on file DEANA CORRALES MD [address], [address], [facility] 10/23/2024 13:37:43 01/21/2025 text/html Seamus is a 79yr o ld M who presents for left ear drainage x1 day. Reports she was experiencing itching to his left ear and instilled debrox drops and inserting a cotton ball. Since yesterday, has been having discharge/drainage from the left ear. Denies of any pain. DUGLAS MCLEOD [address] [address], [place], [address], [facility] 01/21/2025 13:36:58
--- OUTSIDE RECORDS SUMMARY | 2025-02-11 10:23 | XMS_ITS | Clinical Summary ---
Author Organization [facility] Address [address] [place] [address] Phone Care Team Providers Care Ethernet Network Architect Name Role Phone Deana Corrales MD Primary [...] Hypertension COPD (chronic obstructive pulmonary disease) ( [facility] V24, [facility] V28) Irregular heart beat Sleep apnea Pulmonary embolism ([facility] V24, [facility] V28) Hyperlipidemia DVT (deep venous thrombosis) ([facility] V24, [facility]/ [facility] V28) PTSD (post-traumatic stress disorder) Agent orange exposure Right bundle branch block (RBBB) Rheumatic fever Parkinson's disease ([facility] V24, [facility] V28) CHB (complete heart block) ([facility] V24, [facility] V28) Social History Tobacco Use Types Packs/Day [...] 67 05/28/2024 9:23 AM EST Temperature 36.5 C (97.7 F) 05/28/2024 9:23 AM EST Respiratory Rate 18 05/28/2024 9:10 AM EST [...] series) 2007 Cholesterol Screening (Lipid Panel) 06/27/2022 Hepatitis C Screening 06/27/2022 Medicare Annual Wellness Visit 06/27/2022 Social Influencers of Health Screening 06/27/2022 COVID-19 Vaccine ( season) 2024 04/29/2023, 04/14/2022, 05/07/2021, Additional history exists Diabetes: Annual Urine Albumin-Creatinine Ratio (uACR) 05/16/2024 Diabetes: Blood Sugar Control Test (HGBA1C) 05/16/2024 12/26/2020 Depression Screening 07/25/2024 Influenza Vaccine (#1) 2025 , 05/11/2022, 04/07/2022, Additional history exists Diabetes: [...] this topic Medical Devices Implanted Type Area Brewing Director Device Identifier Shelf Expiration Date Model / [...] LAB CHEMISTRY METHOD 05/28/2024 8:12 AM EST [facility] eGFR 53(L) >=60 mL/min/1. 73m2 LAB CHEMISTRY METHOD 05/28/2024 8:12 AM EST [facility] Comment:Calculation based on the Chronic Kidney Disease Epidemiology Collaboration (CKD-EPI) equation refit without adjustment for race. Blood Venous blood specimen / Unknown Venipuncture / Unknown 05/28/2024 7:18 AM EST 05/28/2024 7:25 AM EST us Delmar Butler MD LAB BLOOD ORDERABLES Final Resul t [facility] [address] [place] [address], from Last 3 Months or Most Recently Relevant to Health Maintenance Insurance MEDICARE [facility] Care Teams Ethernet Network Architect Relationship Specialty Start Date End Date Deana Corrales MD [address] [phone] PCP - General Internal Medicine 05/15/24
== END 2025-02-11 10:22 | disposition home or self-care (01) ==
PROVIDERS: PCP Internal Medicine; Visit Provider Hospitalist
DX: J43.2 Centrilobular emphysema (principal); G47.33 Obstructive sleep apnea (adult) (pediatric); Z99.89 Dependence on other enabling machines and devices; I26.93 Single subsegmental thrombotic pulmonary embolism without acute cor pulmonale; R91.8 Other nonspecific abnormal finding of lung field; R06.00 Dyspnea, unspecified; R40.0 Somnolence
CPT/HCPCS: 99214; G2211

== ENCOUNTER → 2025-02-11 09:46 | Outpatient (BNVA) | payer MEDICARE, OTHER, SELFPAY | PROVIDERS: PCP Internal Medicine; Visit Provider Hospitalist | DX: J44.9 Chronic obstructive pulmonary disease, unspecified (principal); J43.2 Centrilobular emphysema; G47.33 Obstructive sleep apnea (adult) (pediatric); Z99.89 Dependence on other enabling machines and devices; I26.93 Single subsegmental thrombotic pulmonary embolism without acute cor pulmonale; R91.8 Other nonspecific abnormal finding of lung field; R06.00 Dyspnea, unspecified; R40.0 Somnolence | CPT/HCPCS: 99212 ==

== ENCOUNTER 2025-02-13 09:57 | Outpatient (AMB) | payer MEDICARE, OTHER, SELFPAY ==
--- NOTE | 2025-02-13 10:28 | MHC.OFFVIS ---
Vital Signs 02/13/25 10:29 Height 5 ft 11 in Weight 231 lb 8 oz BMI 32.3 BP 136/73 Blood Pressure Location Rt brachial Position Sitting Pulse 77 Pulse Source Pulse Oximeter Pulse Oximetry (%) 94 Oxygen Delivery Method Room Air Intake Visit Reasons: s/p left hip inj Allergies fluticasone furoate (Trelegy Ellipta) Allergy (Severe, Verified 02/11/25 09:54) Thrush umeclidinium (Trelegy Ellipta) Allergy (Severe, Verified 02/11/25 09:54) Thrush vilanterol (Trelegy Ellipta) Allergy (Severe, Verified 02/11/25 09:54) Thrush HPI HPI s/p left hip inj: Details: History of Present Illness The patient is a 79-year-old male presenting with left hip pain and back pressure. He reports significant relief from a recent left hip injection administered approximately three to four months ago, describing it as more effective than previous treatments. The patient experiences pressure in his back but currently reports no pain and is able to walk without discomfort. He is advised to monitor for any changes in his back condition. The patient has a history of parkinsonism, participates in an exercise class for Parkinson's disease, and is on Carbidopa, reporting minimal tremor in his fingers. Pain Description - Location: Left hip - Relief: Significant relief from hip injection - Back pressure: Present but not currently painful Physical Exam - Neurological: Minimal tremor observed in fingers Results Pain Management - Analgesia: Significant relief from left hip injection - Activities of Daily Living: Able to walk without discomfort PFSH Medical History Has daytime drowsiness Dyspnea Dyspnea Personal history of nicotine dependence Obesity [place] on CPAP Pulmonary emboli Pulmonary nodules COPD (chronic obstructive pulmonary disease) Surgical History S/P placement of cardiac pacemaker (~08/2023) History of total right knee replacement (TKR) (~2018) History of appendectomy Family History Father Heart disease Mother Heart disease Social History Alcohol intake: current Alcohol intake frequency: a few times a week Patient Tobacco Use Status: Former Tobacco user Physical Exam Vital Signs: Last Vital Signs Pulse 77 02/13/25 10:29 BP 136/73 02/13/25 10:29 Pulse Ox 94 02/13/25 10:29 Oxygen Delivery Method Room Air 02/13/25 10:29 BMI result Body Mass Index 32.3 Assessment & Plan Assessment & Plan (1) Bilateral hip joint arthritis: Code(s): M16.0 - Bilateral primary osteoarthritis of hip Category: Medical Plan Plan - Continue current management for left hip pain with injections as needed. - Monitor back condition and report any changes. - Continue participation in exercise class for Parkinson's disease management. Patient was informed and verbally consented to the use of an ambient scribe for clinic note documentation during this visit. Discussion Notes I discussed with the patient the effectiveness of the recent hip injection and advised him to continue with his current management plan. We talked about monitoring his back condition and reporting any changes. I also encouraged him to continue his exercise class for Parkinson's management. Patient Instructions - Continue with current hip pain management plan. - Monitor back condition and report any changes. - Keep attending exercise classes for Parkinson's management. Coding Level of Care Code Est Pt Level 3 (26726) Diagnoses Bilateral hip joint arthritis M16.0
[2025-02-13 10:29] VITALS: BP 136/73; PULSE 77; O2SAT 94; BMI 32.3
--- OUTSIDE RECORDS SUMMARY | 2025-02-13 10:47 | XMS_ITS | Clinical Summary ---
Author Organization [facility] Address [address] [place] [address] Phone Care Team Providers Care Rrts Name Role Phone Margie Hinojosa MD Primary [...] [place] [id number] [facility] MEDICARE SUPPLEMENT MEDICARE PART A & [place] [address] [place] [address] MEDICARE SUPPLEMENT MEDICARE PART A & B [...] I[employer] MEDICARE SUPPLEMENT Care Teams Rrts Relationship Specialty Start Date End Date Margie Hinojosa MD [address] [place] [phone] PCP - General Internal Medicine 02/11/20 Additional Source Comments The information contained in this document represents components of the legal health record. It is not the complete legal health record.[facility]
--- OUTSIDE RECORDS SUMMARY | 2025-02-13 10:47 | XMS_ITS | Clinical Summary ---
Author Organization [facility], Address [address] [place] [address] [place] [address] Phone Care Team Providers Care Pulp Operator Name Role Phone Unavailable Primary Care [...] time each day Active Cobalamin Combinations (VITAMIN V10-OEOWJ ACID PO)Indications:S tage 3a chronic kidney disease (HCC) vitamin P26-dubup acid 1 po qd Active amLODIPine (NORVASC) [...] Visit [facility], [address] [place] [address] Juan F Hutton MD [address] [place] [address] Health Maintenance Due Date Last [...] AM EDT) Hemoglobin A1C 6.1(H) (4.0-5.6) % [facility] Comment: MONITORING: In known diabetic patients, hemoglobin A1c targets should be discussed with health care provider. DIAGNOSTIC USE: The [place] [employer] (ADA) and the World Health [...] Supplement 1 Testing performed or reported by [facility], a Service of [facility], [address] [place] [id number] Juan Antonio Pérez MD, [employer]iconductor Wafers Tester Blood specimen (specimen) Venous blood / Unknown 12/26/2020 8:04 AM EDT 12/26/2020 8:07 AM EDT us Juan F Hutton MD LAB BLOOD ORDERABLES Final Resul t [facility] from Last 3 Months or Most Recently Relevant to Health Maintenance Insurance Medicare [facility]
--- OUTSIDE RECORDS SUMMARY | 2025-02-13 10:47 | XMS_ITS | Data Portability ---
Author Organization [facility], Main Office Address [address] [place] [address] Care Team Providers Care Training Assistant Name Role Phone SUSANNE HUERTA Senior Software Development Manager NADIA STEEL Orthopedic Surgeon JASMYN RAMOS Neurologist ROJAS KEYES Urologist KRISTEN TODD Oracle Database Manager [phone] VERO DASILVA Cage Manager BANDAR FERRARO Senior Software Development Manager DEANA CORRALES Primary Care Provider Assessment Encounter [...] Go To The Location Of Their Choice, [id number] 10/24/2024 10:06:18 TSH, ultra-sen sitive, serum 2024 025 [facility], [address], [place], [address], 10/24/2024 10:06:19 hepatic function panel, serum 2024 025 [facility]IA [facility] (Centralized Electronic Ordering - All Locations), Patient Can Go To The Location Of Their Choice, [facility] 10/24/2024 10:06:17 lipid panel, serum 2024 025 [facility], [address], [place], [address], 10/24/2024 10:06:18 vitamin D, 25-hydrox y, total, serum 2024 025 [facility] (Centralized Electronic Ordering - All Locations), Patient Can Go To The Location Of Their Choice, [facility] 10/24/2024 10:06:19 HbA1c (hemoglob in A1c), blood 2023 024 [facility] (Centralized Electronic Ordering - All Locations), Patient Can Go To The Location Of Their Choice, [facility] 04/19/2024 06:08:51 BMP, serum or plasma 2023 024 [facility], [address], [place], [address], 04/19/2024 06:08:49 lipid panel, serum 2023 024 [facility], [address], [place], [address], 04/19/2024 06:08:50 CBC w/ auto diff 2023 024 [facility], [address], [place], [address], 04/19/2024 06:08:49 TSH, ultra-sen sitive, serum 2023 024 [facility], [address], [place], [address], 04/19/2024 06:08:51 Referral None recorded. Procedures None recorded. Surgeries None recorded. Imaging MRI, lumbar spine, w/o contrast - on-going back pain for several years, undergoes steroid infection s with mild relief. ordered repeat MRI to check for worsening and will be referred to neurosurg wei gamble 2023 024 oli [facility], [address], [place], [address], 05/14/2024 12:01:33 Medication Orders Ciprodex 0.3 %-0.1 % ear drops,ariadne pension 2024 025 [facility], [address] [place], [address], 01/21/2025 13:24:49 hydrocort isone-deborah tic acid 1 %-2 % ear drops 2024 025 [facility] [address], [address] [place], [address], 10/23/2024 13:33:52 Fioricet 50 mg-300 mg-40 mg capsule 2024 025 [facility] [address], [address] [place], [address], 10/23/2024 13:33:59 tizanidin e 4 mg tablet 2023 024 [facility] [address], [address] [place], [address], 04/17/2024 11:24:50 DermOtic Oil 0.01 % ear drops 2023 024 [facility], [address], [place], [address], 01/19/2024 09:27:31 Fioricet 50 mg-300 mg-40 mg capsule 2023 024 [email or web address] [facility], [address] [place], [address], 10/23/2024 12:58:22 hydrocort isone-deborah tic acid 1 %-2 % ear drops 2023 024 [facility], [address], [place], [address], 01/19/2024 09:15:13 Patient TargetsNo targets recorded. Patient Instructions Encounter Date Encounter Id Patient Instructions Last Modified By Organization Details Last Modified Time 10/14/2023 [id number] headache: care instructions Not available 10/14/2023 14:20:25 eustachian tube problems: care instructions Not available 10/14/2023 13:53:25 medicines to avoid with kidney disease: care instructions Not available 10/14/2023 13:53:25 dizziness: care instructions Not available 10/14/2023 16:17:45 01/19/2024 [id number] medicines to avoid with kidney disease: care instructions Not available 01/19/2024 09:27:29 04/17/2024 [id number] chronic obstructive pulmonary disease (COPD): care instructions Not available 04/17/2024 11:25:02 learning about copd and how to prevent lung infections Not available 04/17/2024 11:25:02 10/23/2024 [id number] advance care planning: care instructions Not available [...] /uL 3.4-10 .8 normal Not Available [facility] ([facility]) [address], [place], [address], 04/19/2024 06:08:49 04/18/20 24 04/19/2024 CBC WITH DIFFE RENTI AL/PL ATELE T RBC 4.62 x10e6 /uL 4.14-5 .80 normal CBC resul ts repor everton were obtai omayra after the speci men had been warme d to 37 degre es C. This may indic ate the prese nce of Cold Agglu tinin s. Not Available [facility] ([facility]) [address] [place], [address], 04/19/2024 06:08:49 04/18/2004/19/2024 CBC WITH DIFFE RENTI AL/PL ATELE T hemoglobin 14.9 g/dL 13.0-1 7.7 normal Not Available [facility] ([facility]) [address] [place], [address], 04/19/2024 06:08:49 04/18/2004/19/2024 CBC WITH DIFFE RENTI AL/PL ATELE T hematocrit 44.6 % 37.5-5 1.0 normal Not Available [facility] ([facility]) [address] [place], [address], 04/19/2024 06:08:49 04/18/2004/19/2024 CBC WITH DIFFE RENTI AL/PL ATELE T MCV 97 fL 79-97 normal Not Available [facility] ([facility]) [address] [place], [address], 04/19/2024 06:08:49 04/18/20 24 04/19/2024 CBC WITH DIFFE RENTI AL/PL ATELE T MCH 32.3 pg 26.6-3 3.0 normal Not Available [facility] ([facility]) [address], [place], [address], 04/19/2024 06:08:49 04/18/20 24 04/19/2024 CBC WITH DIFFE RENTI AL/PL ATELE T MCHC 33.4 g/dL 31.5-3 5.7 normal Not Available [facility] ([facility]) [address], [place], [address], 04/19/2024 06:08:49 04/18/2004/19/2024 CBC WITH DIFFE RENTI AL/PL ATELE T RDW 13.0 % 11.6-1 5.4 Not Available [facility] ([facility]) [address], [place], [address], 04/19/2024 06:08:49 04/18/20 24 04/19/2024 CBC WITH DIFFE RENTI AL/PL ATELE T platelets 198 x10e3 /uL 150-45 0 normal Not Available [facility] ([facility]) [address], [place], [address], 04/19/2024 06:08:49 04/18/20 24 04/19/2024 CBC WITH DIFFE RENTI AL/PL ATELE T neutrophils 54 % not estab. normal Not Available [facility] ([facility]) [address], [place], [address], 04/19/2024 06:08:49 04/18/20 24 04/19/2024 CBC WITH DIFFE RENTI AL/PL ATELE T lymphs 32 % not estab. normal Not Available [facility] ([facility]) [address], [place], [address], 04/19/2024 06:08:49 04/18/20 24 04/19/2024 CBC WITH DIFFE RENTI AL/PL ATELE T monocytes 9 % not estab. normal Not Available [facility] ([facility]) [address] [place], [address], 04/19/2024 06:08:49 04/18/20 24 04/19/2024 CBC WITH DIFFE RENTI AL/PL ATELE T eos 4 % not estab. normal Not Available [facility] ([facility]) [address], [place], [address], 04/19/2024 06:08:49 04/18/20 24 04/19/2024 CBC WITH DIFFE RENTI AL/PL ATELE T basos 1 % not estab. normal Not Available [facility] ([facility]) [address], [place], [address], 04/19/2024 06:08:49 04/18/20 24 04/19/2024 CBC WITH DIFFE RENTI AL/PL ATELE T immature cells MOTOR EQUIPMENT SERGEANT Not Available [facility] ([facility]) [address] [place], [address], 04/19/2024 06:08:49 04/18/20 24 04/19/2024 CBC WITH DIFFE RENTI AL/PL ATELE T neutrophils (absolute) 3.3 x10e3 /uL 1.4-7. 0 normal Not Available [facility] ([facility]) [address] [place], [address], 04/19/2024 06:08:49 04/18/20 24 04/19/2024 CBC WITH DIFFE RENTI AL/PL ATELE T lymphs (absolute) 1.9 x10e3 /uL 0.7-3. 1 normal Not Available [facility] ([facility]) [address] [place], [address], 04/19/2024 06:08:49 04/18/20 24 04/19/2024 CBC WITH DIFFE RENTI AL/PL ATELE T monocytes(ab solute) 0.6 x10e3 /uL 0.1-0. 9 normal Not Available [facility] ([facility]) [address], [place], [address], 04/19/2024 06:08:49 04/18/20 24 04/19/2024 CBC WITH DIFFE RENTI AL/PL ATELE T eos (absolute) 0.2 x10e3 /uL 0.0-0. 4 normal Not Available [facility] ([facility]) [address], [place], [address], 04/19/2024 06:08:49 04/18/20 24 04/19/2024 CBC WITH DIFFE RENTI AL/PL ATELE T baso (absolute) 0.1 x10e3 /uL 0.0-0. 2 normal Not Available [facility] ([facility]) [address] [place], [address], 04/19/2024 06:08:49 04/18/20 24 04/19/2024 CBC WITH DIFFE RENTI AL/PL ATELE T immature granulocytes 0 % not estab. Not Available [facility] ([facility]) [address] [place], [address], 04/19/2024 06:08:49 04/18/20 24 04/19/2024 CBC WITH DIFFE RENTI AL/PL ATELE T immature grans (abs) 0.0 x10e3 /uL 0.0-0. 1 Not Available [facility] ([facility]) [address] [place], [address], 04/19/2024 06:08:49 04/18/20 24 04/19/2024 CBC WITH DIFFE RENTI AL/PL ATELE T NRBC MOTOR EQUIPMENT SERGEANT Not Available [facility] ([facility]) [address] [place], [address], 04/19/2024 06:08:49 04/18/20 24 04/19/2024 CBC WITH DIFFE RENTI AL/PL NAHOMY T hematology comments: MOTOR EQUIPMENT SERGEANT Not Available [facility] ([facility]) [address] [place], [address], 04/19/2024 06:08:49 04/18/20 24 04/19/2024 BASIC METAB OLIC PANEL (8) glucose 122 mg/dL 70-99 above high normal Not Available [facility] ([facility]) [address] [place], [address], 04/19/2024 06:08:49 04/18/20 24 04/19/2024 BASIC METAB OLIC PANEL (8) BUN 13 mg/dL 8-27 normal Not Available [facility] ([facility]) [address] [place], [address], 04/19/2024 06:08:49 04/18/20 24 04/19/2024 BASIC METAB OLIC PANEL (8) creatinine 1.39 mg/dL 0.76-1 .27 above high normal Not Available [facility] ([facility]) [address] [place], [address], 04/19/2024 06:08:49 04/18/20 24 04/19/2024 BASIC METAB OLIC PANEL (8) eGFR 53 mL/mi n/1.7 3 >59 below low normal Not Available [facility] ([facility]) [address] [place], [address], 04/19/2024 06:08:49 04/18/20 24 04/19/2024 BASIC METAB OLIC PANEL (8) BUN/creatini ne ratio 9 10-24 below low normal Not Available [facility] ([facility]) [address] [place], [address], 04/19/2024 06:08:49 04/18/20 24 04/19/2024 BASIC METAB OLIC PANEL (8) sodium 141 mmol/ L 134-14 4 normal Not Available [facility] ([facility]) [address] [place], [address], 04/19/2024 06:08:49 04/18/20 24 04/19/2024 BASIC METAB OLIC PANEL (8) potassium 4.4 mmol/ L 3.5-5. 2 normal Not Available [facility] ([facility]) [address] [place], [address], 04/19/2024 06:08:49 04/18/20 24 04/19/2024 BASIC METAB OLIC PANEL (8) chloride 106 mmol/ L 96-106 normal Not Available [facility] ([facility]) [address] [place], [address], 04/19/2024 06:08:49 04/18/20 24 04/19/2024 BASIC METAB OLIC PANEL (8) carbon dioxide, total 21 mmol/ L 20-29 normal Not Available [facility] ([facility]) [address] [place], [address], 04/19/2024 06:08:49 04/18/20 24 04/19/2024 BASIC METAB OLIC PANEL (8) calcium 9.4 mg/dL 8.6-10 .2 normal Not Available [facility] ([facility]) [address] [place], [address], 04/19/2024 06:08:49 04/18/20 24 04/19/2024 LIPID PANEL cholesterol, total 129 mg/dL 100-19 9 normal Not Available [facility] ([facility]) [address] [place], [address], 04/19/2024 06:08:50 04/18/20 24 04/19/2024 LIPID PANEL triglyceride s 93 mg/dL 0-149 normal Not Available [facility] ([facility]) [address] [place], [address], 04/19/2024 06:08:50 04/18/20 24 04/19/2024 LIPID PANEL HDL cholesterol 47 mg/dL >39 normal Not Available [facility] ([facility]) [address] [place], [address], 04/19/2024 06:08:50 04/18/20 24 04/19/2024 LIPID PANEL VLDL cholesterol doc 18 mg/dL 5-40 Not Available [facility] ([facility]) [address] [place], [address], 04/19/2024 06:08:50 04/18/20 24 04/19/2024 LIPID PANEL LDL chol calc ([facility]) 64 mg/dL 0-99 Not Available [facility] ([facility]) [address] [place], [address], 04/19/2024 06:08:50 04/18/20 24 04/19/2024 LIPID PANEL LDL calc comment: MOTOR EQUIPMENT SERGEANT Not Available [facility] ([facility]) [address] [place], [address], 04/19/2024 06:08:50 04/18/20 24 04/19/2024 HEMOG LOBIN A1C hemoglobin A1C 6.3 % 4.8-5. 6 above high normal Predi abete s: 5.7 - 6.4 Diabe jody: >6.4 Glyce ari contr ol for adult s with diabe jody: <7.0 Not Available [facility] ([facility]) [address] [place], [address], 04/19/2024 06:08:51 04/18/20 24 04/19/2024 TSH RFX ON ABNOR MAL TO FREE T4 TSH 2.940 uIU/m L 0.450- 4.500 normal Not Available [facility] ([facility]) [address] [place], [address], 04/19/2024 06:08:51 04/18/20 24 04/21/2024 COOMB S', DIREC T jack', direct Negati ve negati ve Not Available [facility] ([facility]) [address], [place], [address], 04/21/2024 12:06:09 04/18/2004/20/2024 WRITT EN AUTHO RODNEYT LEWIS written authorizatio n Commen t Finesse en Autho ribekat ion Recei franchesca. Autho rizat ion recei franchesca from BRITTANY Riley for Link Reque st on 04-20 Logge d by Emeli Winston Not Available [facility] ([facility]) [address], [place], [address], 04/21/2024 12:06:10 05/28/2005/28/2024 COMPL ETE BLOOD COUNT WBC 6.7 K/mcL 4.8-10 .8 Not Available [facility] (Direct Fax All) [address] [facility], [place], [address], 05/28/2024 07:53:31 05/28/20 24 05/28/2024 COMPL ETE BLOOD COUNT RBC 4.00 M/mcL 4.50-5 .50 low Not Available [facility] (Direct Fax All) Any [facility], [place], [address], 05/28/2024 07:53:31 05/28/20 24 05/28/2024 COMPL ETE BLOOD COUNT hemoglobin 13.7 g/dL 13.5-1 7.5 Not Available [facility] (Direct Fax All) Any [facility], [place], [address], 05/28/2024 07:53:31 05/28/20 24 05/28/2024 COMPL ETE BLOOD COUNT hematocrit 40.0 % 42.0-5 4.0 low Not Available [facility] (Direct Fax All) Any [facility], [place], [address], 05/28/2024 07:53:31 05/28/20 24 05/28/2024 COMPL ETE BLOOD COUNT MCV 100.5 fL 79.0-9 8.0 high Not Available [facility] (Direct Fax All) Any [facility], [place], [address], 05/28/2024 07:53:31 05/28/20 24 05/28/2024 COMPL ETE BLOOD COUNT MCH 34.4 pcg 27.0-3 2.0 high Not Available [facility] (Direct Fax All) Any [facility], [place], [address], 05/28/2024 07:53:31 05/28/20 24 05/28/2024 COMPL ETE BLOOD COUNT MCHC 34.3 g/dL 32.0-3 7.0 Not Available [facility] (Direct Fax All) Any [facility], [place], [address], 05/28/2024 07:53:31 05/28/20 24 05/28/2024 COMPL ETE BLOOD COUNT RDW 13.7 % 11.0-1 5.0 Not Available [facility] (Direct Fax All) Any [facility], [place], [address], 05/28/2024 07:53:31 05/28/20 24 05/28/2024 COMPL ETE BLOOD COUNT platelets 216 K/mcL 130-40 0 Not Available [facility] (Direct Fax All) Any [facility], [place], [address], 05/28/2024 07:53:31 05/28/20 24 05/28/2024 COMPL ETE BLOOD COUNT MPV 9.3 fL 7.0-11 .0 Not Available [facility] (Direct Fax All) Any [facility], [place], [address], 05/28/2024 07:53:31 05/28/20 24 05/28/2024 COMPL ETE BLOOD COUNT NRBC 0.0 % <1.0 Not Available [facility] (Direct Fax All) Any [place], [place], [address], 05/28/2024 07:53:31 05/28/20 24 05/28/2024 COMPL ETE BLOOD COUNT NRBC absolute 0.00 K/mcL <0.10 Not Available [facility] (Direct Fax All) Any [facility], [place], [address], 05/28/2024 07:53:31 05/28/20 24 05/28/2024 COMPL ETE BLOOD COUNT note See Report [facility], [address], [place] [id number] Not Available [facility] (Direct Fax All) Any [facility], [place], [address], 05/28/2024 07:53:31 05/28/20 24 05/28/2024 BUN BUN 13 mg/dL 5-25 Not Available [facility] (Direct Fax All) Any [facility], [place], [address], 05/28/2024 08:15:07 05/28/20 24 05/28/2024 BUN note See Report [facility], [address], [place], [place] [id number] Not Available [facility] (Direct Fax All) Any [facility], [place], [address], 05/28/2024 08:15:07 05/28/20 24 05/28/2024 ELECT ROLYT E PANEL sodium 142 mmol/ L 133-14 5 Not Available [facility] (Direct Fax All) Any [place], [place], [address], 05/28/2024 08:15:08 05/28/20 24 05/28/2024 ELECT ROLYT E PANEL potassium 4.4 mmol/ L 3.5-5. 5 Not Available [facility] (Direct Fax All) Any [place], [place], [address], 05/28/2024 08:15:08 05/28/20 24 05/28/2024 ELECT ROLYT E PANEL chloride 111 mmol/ L 96-110 high Not Available [facility] (Direct Fax All) Any [place], [place], [address], 05/28/2024 08:15:08 05/28/20 24 05/28/2024 ELECT ROLYT E PANEL CO2 26 mmol/ L 21-32 Not Available [facility] (Direct Fax All) Any [place], [place], [address], 05/28/2024 08:15:08 05/28/20 24 05/28/2024 ELECT ROLYT E PANEL anion gap 5 3-11 Not Available [facility] (Direct Fax All) Any [place], [place], [address], 05/28/2024 08:15:08 05/28/20 24 05/28/2024 ELECT ROLYT E PANEL note See Report [facility], [address], [place], [place] [id number] Not Available [facility] (Direct Fax All) Any [place], [place], [address], 05/28/2024 08:15:08 05/28/20 24 05/28/2024 CREAT ININE creatinine 1.38 mg/dL 0.70-1 .30 high Not Available [facility] (Direct Fax All) Any [facility], [place], [address], 05/28/2024 08:15:10 05/28/20 24 05/28/2024 CREAT ININE eGFR 53 mL/mi n/1.7 3m2 >=60 low Calcu latio n based on the Chron ic Kidne y Disea se Epide miolo gy Colla borat ion (CKD- EPI) equat ion refit witho ut adjus tment for race. Not Available [facility] (Direct Fax All) Any [facility], [place], [address], 05/28/2024 08:15:10 05/28/2005/28/2024 CREAT ININE note See Report [facility], [address], [place], [place] [facility] [place] [place] [id number] Not Available [facility] (Direct Fax All) Any [facility], [place], [address], 05/28/2024 08:15:10 10/24/1910/24/2024 HEPAT IC FUNCT ION PANEL (7) protein, total 6.6 g/dL 6.0-8. 5 normal Not Available [facility] ([facility]) [address] [facility] [address], [place], [address], 10/24/2024 10:06:17 10/24/19 25 10/24/2024 HEPAT IC FUNCT ION PANEL (7) albumin 4.4 g/dL 3.8-4. 8 normal Not Available [facility] ([facility]) [address] [facility] [address], [place], [address], 10/24/2024 10:06:17 10/24/19 25 10/24/2024 HEPAT IC FUNCT ION PANEL (7) bilirubin, total 0.6 mg/dL 0.0-1. 2 normal Not Available [facility] ([facility]) [address] [facility] [address], [place], [address], 10/24/2024 10:06:17 10/24/19 25 10/24/2024 HEPAT IC FUNCT ION PANEL (7) bilirubin, direct 0.24 mg/dL 0.00-0 .40 normal Not Available [facility] ([facility]) [address] [facility] [place], [address], 10/24/2024 10:06:17 10/24/19 25 10/24/2024 HEPAT IC FUNCT ION PANEL (7) alkaline phosphatase 79 IU/L 44-121 normal Not Available [facility] ([facility]) [address] [facility] [place], [address], 10/24/2024 10:06:17 10/24/19 25 10/24/2024 HEPAT IC FUNCT ION PANEL (7) AST (SGOT) 18 IU/L 0-40 normal Not Available [facility] ([facility]) [address] [facility] [address], [place], [address], 10/24/2024 10:06:17 10/24/19 25 10/24/2024 HEPAT IC FUNCT ION PANEL (7) ALT (SGPT) 25 IU/L 0-44 normal Not Available [facility] ([facility]) [address] [facility] [place], [address], 10/24/2024 10:06:17 10/24/19 25 10/24/2024 LIPID PANEL cholesterol, total 141 mg/dL 100-19 9 normal Not Available [facility] ([facility]) [address] [facility] [place], [address], 10/24/2024 10:06:18 10/24/19 25 10/24/2024 LIPID PANEL triglyceride s 88 mg/dL 0-149 normal Not Available [facility] ([facility]) [address] [facility] [place], [address], 10/24/2024 10:06:18 04/01/20 25 10/24/2024 LIPID PANEL HDL cholesterol 56 mg/dL >39 normal Not Available [facility] ([facility]) [address] [place], [address], 10/24/2024 10:06:18 10/24/19 25 10/24/2024 LIPID PANEL VLDL cholesterol doc 17 mg/dL 5-40 Not Available [facility] ([facility]) [address] [place], [address], 10/24/2024 10:06:18 10/24/19 25 10/24/2024 LIPID PANEL LDL chol calc ([facility]) 68 mg/dL 0-99 Not Available [facility]) [address] [place], [address], 10/24/2024 10:06:18 10/24/19 25 10/24/2024 LIPID PANEL LDL calc comment: MOTOR EQUIPMENT SERGEANT Not Available [facility] ([facility]) [address] [place], [address], 10/24/2024 10:06:18 10/24/19 25 10/24/2024 HEMOG LOBIN A1C hemoglobin A1C 6.4 % 4.8-5. 6 above high normal Predi abete s: 5.7 - 6.4 Diabe jody: >6.4 Glyce ari contr ol for adult s with diabe jody: <7.0 Not Available [facility] ([facility]) [address] [place], [address], 10/24/2024 10:06:18 10/24/19 25 10/24/2024 VITAM IN [...] um and D. Aubrie cardona [place]: [facility] . 2. Aureliano k MF, Bintrace ey [place], Bisch off-F errar i YO, et al. Evalu ation , treat ment, and preve ntion of vitam in D defic iency : an Endoc rine Socie ty clini doc pract ice guide line. JCEM. 2010; 96(7) :1911 -30. Not Available [facility] ([facility]) [address] [facility] [address], [place], [address], 10/24/2024 10:06:19 10/24/19 25 10/24/2024 TSH RFX ON ABNOR MAL TO FREE T4 TSH 2.710 uIU/m L 0.450- 4.500 normal Not Available [facility] ([facility]) [address] [facility], [place], [address], 10/24/2024 10:06:19 05/09/20 24 05/09/2024 XR, chest [...] acute cardio pulmon ailin diseas e. WSN: [id number] Orderi ng Physic ernesto: Jason Solis Dictat ed By: Zee Bradford MD Dictat ed Date/T simon: 11:06 a Review ed By: Zee Bradford MD Signed By: Zee Bradford MD Signed Date/T simon: 11:06 am Transc ribed By: MAGY Transc ribed Date/T simon: 11:06 am Patibasia t Class: Outpat ient FELECIA [facility] (Outpt Imaging) [address], [place], [address], 05/14/2024 15:06:42 05/28/20 24 05/28/2024 op note No observ ation record ed. [facility] ([facility] Central Scheduling) Any [place], [place], [address], 05/28/2024 10:11:14 07/16/20 24 07/16/2024 CT chest ldct lung progr am CT Chest LDCT Lung Progra m INDICA TION: Reason : Other: ; LDCT LUNG CANCER SCREEN ING HUNTER M, ENRICO T SMOKER , 44 PACK YEAR HX; Clinic al Questi on(s): Other: ; Specia l Instru ctions : [place] [address] [place] [address] BOOK AFTER 07 14 2024 NO CHEST [...] signif icant incide ntal findin gs. WSN: [id number] [facility] Physic ernesto: Jason Solis Dictat ed By: Diann Stafford MD Dictat ed Date/T simon: 4:27 pm Review ed By: Diann Stafford MD Signed By: Diann Stafford MD Signed Date/T simon: 4:27 pm Transc ribed By: CSB Transc ribed Date/T simon: 4:17 pm Patien t Class: Outpat ient lmulerovalle [facility] (Outpt Imaging) [address] [place], [address], 07/31/2024 13:58:27 07/16/20 24 07/16/2024 CT chest ldct lung progr am A D D E N D U M as of: [id number] CTDIvo l Body 2.6 mGy DLP Body: 101.1m Gy*cm WSN: [id number] Orderi ng Physic ernesto: Jason Solis [...] Instru ctions : BOOK AT [address] [facility] [place] BOOK AFTER 07 14 2024 NO CHEST [...] signif icant incide ntal findin gs. WSN: [id number] Orderi ng Physic ernesto: Jason Solis ie Dictat ed By: Diann Stafford MD Dictat ed Date/T simon: 4:27 pm Review ed By: Diann Stafford MD Signed By: Diann Stafford MD Signed Date/T simon: 4:27 pm Transc ribed By: MAGY Transc ribed Date/T simon: 4:17 pm Patien t Class: Outpat ient [facility] (Outpt Imaging) [address] [place], [address], 07/17/2024 14:02:34 07/23/20 24 07/16/2024 LDCT, chest , for lung cance r aurelio augustine No observ ation record ed. [facility] [address] [place] [address], [address], 08/07/2024 10:43:35 Result Notes Documentation Provider Name [...] There is no acute cardiopulmonary disease. WSN: [id number] Ordering Physician: Deana Corrales Dictated By: eZe Mosquera MD Dictated Date/Time: 05/09/24 11:06 a Reviewed By: Zee Mosquera MD Signed By: Zee Mosquera MD Signed Date/Time: 05/09/24 11:06 am Transcribed By: MAGY Transcribed Date/Time: 05/09/24 11:06 am Patient Class: Outpatient DEANA CORRALES MD [address] [address], [place], [address], [facility] 05/10/2024 19:54:19 Problems Name Problem SNOMED Code Status Onset Date Resolution Date Notes Provider Name and Address Organization Details Recorded Time Acute otitis externa 69178248 Completed 08/20/2016 JULIANNE Ordonez [facility] 7 14:40:41 Conjunct ivitis 3427263 Completed 08/20/2016 JULIANNE Ordonez [facility] 7 14:41:08 Fatigue 88329738 Completed 08/20/2016 JULIANNE Ordonez [facility] 7 14:41:10 Cellulit is 037311742 Completed 08/20/2016 TeriJaime hawkins [facility] 7 15:01:31 Increase d frequenc y of urinatio n 944792712 Completed 08/20/2016 JULIANNE Ordonez [facility] 7 14:40:29 Disorder of urinary system 389104896 Completed 08/20/2016 Teri NikkieFede hawkins [facility] 7 15:01:28 Sleep apnea 73534869 Active JULIANNE Ordonez [facility] 3 13:57:16 Otalgia 22254553 Completed 08/20/2016 Teri NikkiecinthyaNisha hawkins [facility] 7 15:01:36 Multiple skin tags 833933884 Completed 08/20/2016 Teri NikkieFede augusteenzmatt hawkins [facility] 7 15:01:54 Diarrhea 11919360 Completed 200702/12/2014 IMPRESSI ON: FULL WORKUP WITH EGD, COLONOSC OPY, SMALL BOWEL LOOK, NO PATHOLOG Y, ON HIGH FIBERM POSSIBLE IRRITABL E BOWEL; RECORDED 07/09/20 08 9:37AM BY SONAL MUELLER MA, ANNOTATI ON/ADDEN DUM Not Available [facility] 4 15:15:18 Nonvenom ous insect bite of multiple sites 929416462 Completed 200702/12/2014 IMPRESSI ON: EDEMA, MILD PAIN, NO INFECTIO N, ICE, ELEVATE AND MOTRIN; RECORDED 07/09/20 08 9:37AM BY SONAL MUELLER MA, ANNOTATI ON/ADDEN DUM Not Available [facility] 4 15:15:19 Screenin g for malignan t neoplasm of colon Completed 200702/12/2014 RECORDED 07/09/20 08 9:37AM BY SONAL MUELLER MA, ANNOTATI ON/ADDEN DUM Not Available [facility] 4 15:15:19 Diarrhea 02616381 Completed 200703/04/2014 IMPRESSI ON: FULL WORKUP WITH EGD, COLONOSC OPY, SMALL BOWEL LOOK, NO PATHOLOG Y, ON HIGH FIBERM POSSIBLE IRRITABL E BOWEL; RECORDED 07/09/20 08 9:37AM BY SONAL MUELLER MA, ANNOTATI ON/ADDEN DUM Not Available [facility] 4 06:00:51 Nonvenom ous insect bite of multiple sites 762481904 Completed 200703/04/2014 IMPRESSI ON: EDEMA, MILD PAIN, NO INFECTIO N, ICE, ELEVATE AND MOTRIN; RECORDED 07/09/20 08 9:37AM BY SONAL MUELLER MA, ANNOTATI ON/ADDEN DUM Not Available [facility] 4 06:00:51 Screenin g for malignan t neoplasm of colon Completed 200703/04/2014 RECORDED 07/09/20 08 9:37AM BY SONAL MUELLER MA, ANNOTATI ON/ADDEN DUM Not Available [facility] 4 06:00:51 Administ ration of bacteria l and viral vaccine Completed 201102/12/2014 RECORDED 07/29/19 12 10:31AM BY TERI Delgado MD, OFFICE VISIT Not Available [facility] 4 15:15:19 Administ ration of bacteria l and viral vaccine Completed 201103/04/2014 RECORDED 07/29/19 12 10:31AM BY TERI Delgado MD, OFFICE VISIT Not Available [facility] 4 06:00:51 Administ ration of viral vaccine Completed 201102/12/2014 DATE: 08/11/19 12; RECORDED 02/29/20 12 8:00AM BY NAZ CORREA MA, ANNOTATI ON/ADDEN DUM Not Available [facility] 4 15:15:19 Administ ration of viral vaccine Completed 201103/04/2014 DATE: 08/11/19 12; RECORDED 02/29/20 12 8:00AM BY NAZ CORREA MA, ANNOTATI ON/ADDEN DUM Not Available [facility] 4 06:00:51 Pure hypercho lesterol emia 338560806 Completed 201102/12/2014 IMPRESSI ON: CHECK TODAY; RECORDED 02/29/20 12 8:00AM BY NAZ CORREA MA, ANNOTATI ON/ADDEN DUM Not Available [facility] 4 15:15:19 Knee pain Completed 201102/12/2014 IMPRESSI ON: CARTILAG E ISSUE, PT TO SET UP APPT WITH [facility]; RECORDED 02/29/20 12 8:00AM BY NAZ CORREA MA, ANNOTATI ON/ADDEN DUM Not Available [facility] 4 15:15:19 Abnormal findings on diagnost ic imaging of lung 902173602 Completed 201102/12/2014 IMPRESSI ON: CT OF CHEST [...] CORREA MA, ANNOTATI ON/ADDEN DUM Not Available [facility] 4 15:15:19 Pure hypercho lesterol emia 765213798 Completed 201103/04/2014 IMPRESSI ON: CHECK TODAY; RECORDED 02/29/20 12 8:00AM BY NAZ CORREA MA, MEG ON/ADDEN DUM Not Available [facility] 4 06:00:51 Knee pain Completed 201103/04/2014 IMPRESSI ON: CARTILAG E ISSUE, PT TO SET UP APPT WITH [facility]; RECORDED 02/29/20 12 8:00AM BY NAZ CORREA MA, JOHNATI ON/ADDEN DUM Not Available [facility] 4 06:00:51 Abnormal findings on diagnost ic imaging of lung 071751111 Completed 201103/04/2014 IMPRESSI ON: CT OF CHEST [...] CORREA MA, JOHNATI ON/ADDEN DUM Not Available [facility] 4 06:00:51 Dysuria 98065331 Completed 201202/12/2014 RECORDED 09/20/19 13 8:51AM BY OLIMPIA GARCIA MA, JOHNATI ON/ADDEN DUM Not Available [facility] 4 15:15:18 Acute prostati tis 02057016 Completed 201202/12/2014 IMPRESSI ON: PROSTATI TIS WITH FEVER. WILL TREAT AN OUTPT BUT DISCUSSE D WITH PT THAT HE MAY NEED TO GO TO ER FOR IV ABX FOR THIS. HE UNDERSTA NDS. IF ANY WORSENIN G SXS, NOT IMPROVIN G WITH ABX, ETC. F/U WITH UROLOGY IN 1 WEEK.; RECORDED 09/20/19 13 8:52AM BY OLIMPIA GARCIA MA, MEG ON/ADDEN DUM Not Available [facility] 4 15:15:19 Dysuria 95580443 Completed 201203/04/2014 RECORDED 09/20/19 13 8:51AM BY OLIMPIA GARCIA MA, JOHNATI ON/ADDEN DUM Not Available [facility] 4 06:00:51 Acute prostati tis 10106677 Completed 201203/04/2014 IMPRESSI ON: PROSTATI TIS WITH FEVER. WILL TREAT AN OUTPT BUT DISCUSSE D WITH PT THAT HE MAY NEED TO GO TO ER FOR IV ABX FOR THIS. HE UNDERSTA NDS. IF ANY WORSENIN G SXS, NOT IMPROVIN G WITH ABX, ETC. F/U WITH UROLOGY IN 1 WEEK.; RECORDED 09/20/19 13 8:52AM BY OLIMPIA GARCIA MA, JOHNATI ON/ADDEN DUM Not Available [facility] 4 06:00:51 Adult health examinat ion Completed 201202/12/2014 IMPRESSI ON: PT WANTS TO START EXERCISI USHA WOMACK ED HIM TO, NEEDS TO EAT HEALTHY, IN PAST HAD ONEELEVT E DPSA THEN RETURNED TO [place], THOUGHT DUE TO INFLAMMA TION RECHECK TODAY; RECORDED 09/26/19 13 2:16PM BY SONAL MUELLER MA, ANNOTATI ON/ADDEN DUM [facility]ULIANNE Ordonez [place] [facility] 7 14:40:36 Cramp in limb 845711760 Completed 201202/12/2014 IMPRESSI ON: HYDRATE STRETCHA DN CHECK LYTES; RECORDED 09/26/19 13 2:17PM BY SONAL MUELLER MA, ANNOTATI ON/ADDEN DUM Not Available [facility] 4 15:15:19 Tobacco dependen ce syndrome 50112883 Completed 201202/12/2014 IMPRESSI ON: PT TO START WELLBUTR IN AGAIN, QUIT LAST ITME FOR 3 YEARS; RECORDED 09/26/19 13 2:19PM BY SONAL MUELLER MA, ANNOTATI ON/ADDEN DUM Not Available [facility] 4 15:15:20 Adult health examinat ion Completed 201203/04/2014 IMPRESSI ON: PT WANTS TO START EXERCISI USHA WOMACK ED HIM TO, NEEDS TO EAT HEALTHY, IN PAST HAD ONEELEVT E DPSA THEN RETURNED TO [place], THOUGHT DUE TO INFLAMMA TION RECHECK TODAY; RECORDED 09/26/19 13 2:16PM BY SONAL MUELLER MA, JOHNATI ON/ADDEN DUM JULIANNE Ordonez [facility] 7 14:40:36 Cramp in limb 695156574 Completed 201203/04/2014 IMPRESSI ON: HYDRATE STRETCHA DN CHECK LYTES; RECORDED 09/26/19 13 2:17PM BY SONAL MUELLER MA, MEG ON/ADDEN DUM Not Available [facility] 4 06:00:51 Tobacco dependen ce syndrome 74095369 Completed 201203/04/2014 IMPRESSI ON: PT TO START WELLBUTR IN AGAIN, QUIT LAST ITME FOR 3 YEARS; RECORDED 09/26/19 13 2:19PM BY SONAL MUELLER MA, ANNOTATI ON/ADDEN DUM Not Available [facility] 4 06:00:51 Follow-u p encounte r Completed 201202/12/2014 RECORDED 10/12/19 13 9:07AM BY OLIMPIA GARCIA MA, JOHNATI ON/ADDEN DUM Not Available [facility] 4 15:15:19 Follow-u p encounte r Completed 201203/04/2014 RECORDED 10/12/19 13 9:07AM BY OLIMPIA GARCIA MA, JOHNATI ON/ADDEN DUM Not Available [facility] 4 06:00:51 Influenz a vaccine needed 61864385640 06 Completed 201202/12/2014 RECORDED 04/23/20 13 2:46PM BY LEATHA BUENO, OFFICE VISIT Not Available [facility] 4 15:15:18 Influenz a vaccine needed 11333018475 06 Completed 201203/04/2014 RECORDED 04/23/20 13 2:46PM BY LEATHA BUENO, OFFICE VISIT Not Available [facility] 4 06:00:51 History of clinical finding in subject 437473026 Completed 201308/20/2016 RECORDED 09/29/19 14 9:22AM BY MEG ORDONEZ ON/ADDEN DUM JULIANNE Ordonez, [facility] 7 14:40:52 Prostate specific antigen above referenc e range 486637275 Active 2013 JULIANNE Ordonez, [facility] 3 13:57:16 Tobacco user 703513162 Completed 201302/12/2014 RECORDED 09/29/19 14 9:22AM BY MEG ORDONEZ ON/ADDEN DUM DEANA CORRALES MD [address] [facility] [address], [place], [address] , [facility] 5 13:36:19 Adult health examinat ion Completed 201308/20/2016 IMPRESSI ON: PT IS DOING WELL, HE WILL INCREASE EXERCISE , HAS STAYED AWAY FROM SMOKING; RECORDED 09/29/19 14 1:30PM BY TERI Delgado MD, OFFICE VISIT JULIANNE Ordonez, [facility] 7 14:40:36 Disorder of oral soft tissues 21966806 Completed 201308/20/2016 IMPRESSI ON: SLIGHTLY RED AREA ON HARD PALATE ON THE LEFT. NO CLEAR ULCERATI ON OR MASS.; RECORDED 09/29/19 14 9:25AM BY LEATHA BUENO, OFFICE VISIT Teri hawkins [facility] 7 15:01:57 Paronych ia of finger 558447307 Completed 201308/20/2016 RECORDED 09/29/19 14 9:25AM BY LEATHA BUENO, OFFICE VISIT Teri hawkins [facility] 7 15:02:02 Umbilica l hernia 952477759 Active 2013 JULIANNE Ordonez, [facility] 3 13:57:16 Arthropa thy of knee joint 382642941 Completed 201308/20/2016 IMPRESSI ON: INJECTIO NS FROM ORHTO IN THE PAST; RECORDED 01/10/20 14 8:38AM BY EDNA COX I, OFFICE VISIT Teri hawkins [facility] 7 15:01:59 Tobacco user 544021562 Completed 201308/20/2016 RECORDED 01/10/20 14 8:38AM BY EDNA COX I, OFFICE VISIT DEANA CORRALES MD [address] [facility] [address], [facility] [place], [address] , [facility] 5 13:36:19 Elevated blood-pr essure reading without diagnosi s of hyperten saray 462753022 Completed 201308/20/2016 IMPRESSI ON: STRESSED , RECHECK IN ONE MONTH; RECORDED 01/10/20 14 8:38AM BY EDNA COX I, OFFICE VISIT Teri hawkins [facility] 7 15:01:50 Chronic obstruct yazmin pulmonar y disease 70309824 Active 2013 Odalis hawkins, [facility] 8 08:33:43 Disorder of vein 03259515 Completed 201308/20/2016 IMPRESSI ON: OFF COUMADIN AND ON BABY ASA AND DOING WELL, KNOWS TO AVOID PRLONGED PERIOD SOF SITTING. ..; RECORDED 01/10/20 14 8:38AM BY EDNA COX I, OFFICE VISIT JULIANNE Ordonez, [facility] 7 14:41:01 Respirat ory finding 875409151 Completed 201308/20/2016 IMPRESSI ON: CONCERN FOR DVT RIGHT LEG WITH PE GIVEN HE IS TACHYCAR DIC, TACHYPNE IC. AMBULANC E CALLED. NEEDS EITHER DOPPLER LEG OR CT. HIGH RISK CONDITIO N WITH THREAT TO LIFE; RECORDED 01/10/20 14 8:38AM BY EDNA COX I, OFFICE VISIT JULIANNE Ordonez, [facility] 7 14:40:57 Hearing loss 20703506 Active 2013 JULIANNE Ordonez, [facility] 3 13:57:16 Onychia of finger 66858423 Completed 201308/20/2016 RECORDED 01/10/20 14 8:38AM BY EDNA COX I, OFFICE VISIT Teri hawkins [facility] 7 15:01:47 Disorder of prostate 49825681 Completed 201301/17/2017 IMPRESSI ON: PSA WAS CHECKED [...] EDNA COX I, OFFICE VISIT Teri hawkins [facility] 7 10:05:28 Pulmonar y embolism 37331779 Completed 201308/22/2017 Teri hawkins [facility] 8 10:32:12 Coag./bl eeding tests abnormal 774229306 Completed 201310/23/2024 next blod work check for clood agglutin in and hemolysi s, folate, vitamin b12 DEANA CORRALES MD [address] [facility] [address], [place], [address] , [facility] 5 13:36:39 Prostate specific antigen above referenc e range 604136360 Completed 201303/04/2014 IMPRESSI ON: PT TO SET UP APPT WITH DR KEYES FOR ANNUAL EDSON, GERARD EXAM HERE TODAY WILL LET HIM GET PSA; RECORDED 01/10/20 14 8:38AM BY EDNA COX I, ANNOTATI ON/CHIP hawkins [facility] 8 08:33:53 History of pulmonar y embolus 575349569 Active 2013 JULIANNE Ordonez, [facility] 3 13:57:16 Disorder of oral soft tissues 46362928 Completed 201303/04/2014 IMPRESSI ON: SLIGHTLY RED AREA ON HARD PALATE ON THE LEFT. NO CLEAR ULCERATI ON OR MASS.; RECORDED 01/10/20 14 8:38AM BY MEG FELDER ON/ADDEN DUM Teri hawkins [facility] 7 15:01:57 Overweig ht 398762891 Completed 201303/04/2014 RECORDED 01/10/20 14 8:38AM BY MEG FELDER ON/ADDEN DUM Rosa Trinhmatt hawkins [facility] 1 14:26:43 Umbilica l hernia 178803147 Completed 201303/04/2014 IMPRESSI ON: NEW PROBLEM TO EXAMINER , PT TO SEE DR AMY Leo, HE WAS WARND TO GO TO THE ER IF ANY COLOR CAHNGE, INCREASE IN PAIN OF THE HERNIA.; RECORDED 01/10/20 14 8:38AM BY MEG FELDER ON/ADDEN DUM Odalis hawkins, [facility] 8 08:33:56 Tobacco user 744479000 Completed 201310/23/2024 DEANA CORRALES MD [address] [address], [place], [address] , [facility] 5 13:36:19 Advance directiv e discusse d with patient 738404927 Completed 201608/22/2017 Odalis hawkins, [facility] 8 08:34:14 Parkinso n's disease 96144687 Completed 201805/04/2019 Teri hawkins [facility] 9 11:10:37 History of right total knee replacem ent 07884825330 07857 Completed 201804/06/2023 DEANA CORRALES MD [address], [place], [address] , [facility] 3 13:13:11 Parkinso nism 53733149 Completed 201910/01/2020 DEANA CORRALES MD [address], [place], [address] , [facility] 3 13:15:27 Parkinso nism 33055419 Active 2019 DEANA CORRALES MD [address], [place], [address] , [facility] 3 13:15:27 Advance care planning Active 2020 JULIANNE Ordonez, [facility] 3 13:57:16 Steatoti c liver disease 828760424 Active 2020 Leatha Bueno [place] null, [facility] 3 13:57:16 Vertigo 840005389 Active 2020 JULIANNE Ordonez, [facility] 3 13:57:16 Serum creatini ne outside referenc e range 529803170 Completed 202003/26/2021 DEANA CORRALES MD [address], [place], [address] , [facility] 3 13:13:17 Serum creatini ne outside referenc e range 330101678 Completed 202004/06/2023 DEANA CORRALES MD [address], [place], [address] , [facility] 3 13:13:17 Type 2 diabetes mellitus without complica tion 662267906 Completed 202005/12/2021 JULIANNE Ordonez, [facility] 3 13:57:16 Chronic kidney disease stage 3A 983214994 [facility] 12:48:08 Prediabe jody 785968506 Active 2022 DEANA CORRALES MD [address] [facility] [address], [place], [address] , [facility] 3 21:01:56 Urethral strictur e 78483083 Active 2024 self-cat hs DEANA CORRALES MD [address] [facility] [address], [place], [address] , [facility] 5 13:09:25 Benign prostati c hyperpla rafael 685553227 Active 2024 DEANA CORRALES MD [address] [facility] [address], [place], [address] , [facility] 5 13:09:33 Ex-smoke r 1853771 Active 2024 DEANA CORRALES MD [address] [facility] [address], [place], [address] , [facility] 5 13:36:32 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 Procedures Surgical History Date Name Laterality Status Provider Name and Address Organization Details Recorded Time 10/24/19 25 Advanced Care Planning completed DEANA CORRALES MD [address] [facility] [address], [place], [address], [facility] 10/22/2024 07:09:31 10/06/19 23 Colonoscopy completed Jessica Montiel [facility] 10/05/2022 10:02:30 10/03/19 22 Diabetic Foot Exam (Monofilament) completed Olimpia Garcia MA [facility] 10/02/2021 09:20:16 10/02/19 21 Six-Item Cognitive Test completed Leatha Bueno [place] [facility] 10/01/2020 10:25:57 09/13/19 20 Mini-Cog Test completed Sonal riley MA [facility] 09/13/2019 13:18:51 12/13/19 19 total knee replacement completed Chelle Yu [facility] 01/02/2019 16:23:22 09/08/19 19 Mini-Cog Test completed Leatha Bueno MA [facility] 09/08/2018 08:56:18 08/22/19 18 Fall Risk Assessment completed Leatha Bueno MA [facility] 08/22/2017 10:02:46 08/22/19 18 Mini-Cog Test completed Leatha Bueno MA [facility] 08/22/2017 10:02:23 08/20/19 17 Fall Risk Assessment completed Leatha Bueno MA [facility] 08/20/2016 14:45:19 08/20/19 17 Mini-Cog Test completed Leatha Bueno MA [facility] 08/20/2016 14:44:17 08/20/19 17 Advanced Care Planning completed Teri guevara [facility] 08/20/2016 15:00:56 10/01/19 15 Fall Risk Assessment completed Leatha Bueno MA [facility] 09/30/2014 10:08:54 10/01/19 15 Mini-Cog Test completed Leatha Bueno MA [facility] 09/30/2014 09:58:57 Imaging Results None recorded. Procedure Notes None recorded. 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 Agency Serial Number Lot Number Status Provider Name and Address Organization Details Recorded Time Cardiac pacemaker FDA Y WESLEY Hutchinson [facility] 05/04/2024 08:24:38 Allergies Allergen ID Allergen Name Allergen Category Reaction Reaction Severity Criticality Documentation Date Start Date Code Code System Note Provider Name and Address Organization Details Recorded Time 57997 Iodinated contrast media (substanc e) medicatio n Not available Not available Not available 02/05/20142013 34931 2003 SNOMED cause d redne ss Not Available [facility] 2 16:57:12 25667 iodine medicatio n Not available Not available Not available 12/25/20202020 5933 RxNorm DEANA CORRALES MD [address] [facility] [address], [place], [address], [facility] 5 13:07:49 Medications Name Sig Start Date [...] completed Not Available Not Available Not Available [place] 3 DAILY 01/17 completed Not Available Not Available Not Available vitamin Z91-shskb acid 1 po qd 10/07 completed Not [...] Available Not Available No t Available Fluvirin 4860-6721 (PF) 45 mcg (15 mcg x 3)/0.5 [...] DateTime 10/14/2023 140/80 mm[Hg] DEANA CORRALES MD [address] [address], [place], [address] 10/14/2023 13:59:35 Date Recorded Body height Body mass index (BMI) Body weight Heart rate Oxygen saturation Oxygen saturation in Arterial blood by Pulse oximetry Body temperature Systolic And Diastolic Provider Name and Address Organization Details Last Updated DateTime 4 176.53 cm 32.2 kg/m2 431852. 91 g 90 /min 95 % 95 % 100 [degF] 142/79 mm[Hg] Arin Tiwari MA [facility] 4 13:31:42 Date Recorded Body height Body mass index (BMI) Body weight Oxygen saturation Oxygen saturation in Arterial blood by Pulse oximetry Heart rate Body temperature Systolic And Diastolic Provider Name and Address Organization Details Last Updated DateTime 5 176.53 cm 33.5 kg/m2 282971. 65 g 97 % 97 % 87 /min 98.4 [degF] 128/71 mm[Hg] Leatha Bueno [facility] 5 12:57:35 Date Recorded Body height Body mass index (BMI) Body weight Heart rate Oxygen saturation Oxygen saturation in Arterial blood by Pulse oximetry Body temperature Systolic And Diastolic Provider Name and Address Organization Details Last Updated DateTime 4 176.53 cm 32.2 kg/m2 086362. 91 g 100 /min 95 % 95 % 98.7 [degF] 105/66 mm[Hg] Tabatha Munson [facility] 4 09:16:44 Date Recorded Body height Body mass index (BMI) Body weight Heart rate Oxygen saturation Oxygen saturation in Arterial blood by Pulse oximetry Body temperature Systolic And Diastolic Provider Name and Address Organization Details Last Updated DateTime 5 176.53 cm 34.4 kg/m2 454143. 8 g 82 /min 95 % 95 % 100 [degF] 127/75 mm[Hg] Arin Tiwari MA [facility] 5 13:15:58 Date Recorded Body height Body mass index (BMI) Body weight Heart rate Oxygen saturation Oxygen saturation in Arterial blood by Pulse oximetry Body temperature Systolic And Diastolic Provider Name and Address Organization Details Last Updated DateTime 4 176.53 cm 32 kg/m2 46164.3 2 g 79 /min 96 % 96 % 98.4 [degF] 126/72 mm[Hg] Tabatha Robert Munson MA [facility] 4 11:07:14 Social History Question Answer Notes LastModified by Organizat ion Details LastModified Time Tobacco Smoking Status Former Smoker Naz Correa shruthi [facility] 04/22/2014 11:01:44 Do You Have An Advance Directive? No Information not available 09/28/2021 Is Blood Transfusion Acceptable In An Emergency? Yes [email or web address] Information not available 10/01/2020 What Is Your Level Of Caffeine Consumption? Moderate 1 Cup Of Coffee Daily Information not available 09/13/2019 How Much Tobacco Do You Chew? None Information not available 09/13/2019 What Type Of Diet Are You Following? REGULAR [email or web address] Information not available 09/30/2014 Which Illicit Or Recreational Drugs Have You Used? Cannabis Information not available 09/13/2019 When Did You Quit Smoking? 6-10yearssinc elastcigarett e [email or web address] Information not available 10/01/2020 Live Alone Or With Others? With Others (Olga) Information not available 09/28/2021 Do You Take Precautions To Prevent Distracted Driving? Yes [email or web address] Information not available 10/01/2020 How Often Do You Need To Have Someone Help You When You Read Instructions, Pamphlets, Or Other Written Material From Your Doctor Or Pharmacy? Sometimes [email or web address] Information not available 10/01/2020 Have You Served In The ? Yes [employer] [email or web address] Information not available 10/01/2020 Have You Or [...] Gathering In The Last 10 Days? No [email or web address] Information not available 10/01/2020 What Was The Date Of Your Most Recent Tobacco Screening? 10/23/2024 [email or web address] Information not available 10/23/2024 How Many Children Do You Have? 3 Information not available 09/13/2019 What Is Your Current Pack Years? 30ormorepacky ears [email or web address] Information not available 10/23/2024 Do You Use Protection During Sex? Always [email or web address] Information not available 10/01/2020 Seat Belts Used Routinely Yes Information not available 09/28/2021 Are You Sexually Active? Yes [email or web address] Information not available 10/01/2020 Smoke Alarm In Home Yes Information not available 09/28/2021 At What Age Did You Start Smoking Tobacco? 32 [email or web address] Information not available 10/01/2020 Are You Passively Exposed To Smoke? No [email or web address] Information not available 10/01/2020 How Much Tobacco Do You Smoke? 1.5 PPD Information not available 09/28/2021 General Stress Level Medium Information not available 09/28/2021 Do You Use Sunscreen Routinely? Yes [email or web address] Information not available 09/30/2014 How Many Years Have You Smoked Tobacco? 30 Information not available 10/01/2020 Sex: Unknown Functional Status Question Answer Note LastModified by Organizat ion Details LastModified Time Do you use any illicit or recreational drugs? No Information not available 10/02/2021 Do you or have you ever used any other forms of tobacco or nicotine? No Information not available 10/02/2021 What is your level of alcohol consumption? Moderate [email or web address] Information not available 10/01/2020 Do you or have you ever used smokeless tobacco? Never used smokeless tobacco Information not available 09/13/2019 Are you currently employed? No retired Information not available 09/13/2019 Are you able to walk? YESASSIST cane 90 percent of the time [email or web address] Information not available 10/07/2022 Are you able to care for yourself? 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 Never used electronic cigarettes Information not available 09/28/2021 What is your exercise level? Occasional [email or web address] Information not available 10/01/2020 Mental Status None recorded. Family History Relationship Description Onset Age of this Age Resolved Age Notes LastModified by Organization Details LastModified Time Mother Cerebrovascu lar accident [email or web address] Not available 09:55:39 Mother Dementia 97 [email or web address] Not available 09/13/2019 13:10:22 Father Heart disease Not available 09/30 09:55:39 Notes:No FH of [...] virus, quadrivalent, preservative 6 completed JULIANNE Lovett, [facility] 05/24/2016 13:17:04 COVID-19, mRNA, LNP-S, PF, 30 mcg/0.3 mL dose 1 completed JULIANNE Ordonez, [facility] 10/07/2022 14:03:59 COVID-19, mRNA, LNP-S, PF, 30 mcg/0.3 mL dose 1 completed JULIANNE Ordonez, [facility] 10/07/2022 14:03:59 Influenza, high-dose, trivalent, PF 9 completed JULIANNE Ordonez [facility] 10/07/2022 14:04:00 Influenza, high-dose, trivalent, PF 7 completed JULIANNE Ordonez [facility] 10/07/2022 14:04:00 Pneumococcal conjugate PCV 13 5 completed JULIANNE Ordonez, [facility] 10/07/2022 14:04:00 Influenza, split virus, trivalent, PF 4 completed JULIANNE Ordonez, [facility] 10/07/2022 14:04:00 Pneumococcal conjugate PCV 13 0 completed JULIANNE Ordonez, [facility] 10/07/2022 14:04:00 Influenza, high-dose, trivalent, PF 8 completed JULIANNE Ordonez, [facility] 10/07/2022 14:04:00 Influenza, high-dose, quadrivalent, PF 1 completed JULIANNE Ordonez, [facility] 10/07/2022 13:57:41 COVID-19, mRNA, LNP-S, PF, 30 mcg/0.3 mL dose 1 completed JULIANNE Ordonez [facility] 10/07/2022 13:57:41 Tdap 1 completed JULIANNE Ordonez, [facility] 10/07/2022 13:57:41 zoster recombinant 2 completed JULIANNE Ordonez, [facility] 10/07/2022 13:57:41 zoster recombinant 2 completed JULIANNE Ordonez, [facility] 10/07/2022 13:57:41 Influenza, high-dose, quadrivalent, PF 0 completed JULIANNE Ordonez, [facility] 10/07/2022 14:03:59 COVID-19, mRNA, LNP-S, bivalent, PF, 30 mcg/0.3 mL dose 2 completed JULIANNE Ordonez, [facility] 10/07/2022 14:04:00 RSV, recombinant, protein subunit RSVpreF, adjuvant reconstituted, 0.5 mL, PF 3 completed JULIANNE Gallo [facility] 01/19/2024 09:05:29 COVID-19, mRNA, LNP-S, PF, 50 mcg/0.5 mL 3 completed JULIANNE Gallo [facility] 01/19/2024 09:05:29 COVID-19, mRNA, LNP-S, PF, hai-sucrose, 30 mcg/0.3 mL 4 completed JULIANNE Ordonez [facility] 10/23/2024 12:51:26 Influenza, high-dose, trivalent, PF 4 completed JULIANNE Ordonez, [facility] 10/23/2024 12:51:26 Influenza, high-dose, quadrivalent, PF 2 [facility] 00:41:42 Td (adult), 2 Lf tetanus toxoid, preservative free, adsorbed 4 completed JULIANNE Ordonez [facility] 10/07/2022 14:04:00 Influenza, split virus, trivalent, preservative 2 completed Not Available [facility] 02/05/2014 13:23:48 Tdap 2 completed Not Available [facility] 02/05/2014 13:23:48 zoster live 2 completed Not Available [facility] 02/05/2014 13:23:48 pneumococcal polysaccharide PPV23 3 completed JULIANNE Ordonez, [facility] 10/07/2022 14:04:00 Influenza, split virus, trivalent, preservative 3 completed Not Available [facility] 02/05/2014 13:23:48 Past Encounters Encounter ID Performer Location Encounter Start Date Encounter Closed Date Diagnosis/Indication Diagnosis SNOMED-CT Code Diagnosis ICD10 Code Diagnosis Note [id number] auto[facility]Comm erce [address] [facility] [place] [address] 08/10/2006 00:00:00 [id number] autoEComm erce [address] [facility] [place] [address] 07/15/2005 00:00:00 [id number] autoEComm erce [address] [facility],[address] [place] [address] 01/20/2005 00:00:00 [id number] autoEComm erce [address] [facility],[address] [place] [address] 10/28/2006 00:00:00 [id number] autoEComm erce [address] [facility],[address] [place] [address] 02/12/2008 00:00:00 [id number] autoEComm erce [address] [facility],[address] [place] [address] 07/09/2008 00:00:00 [id number] autoEComm erce [address] [facility],[address] [place] [address] 01/15/2011 00:00:00 [id number] autoEComm erce [address] [facility],[address] [place] [address] 07/29/2011 00:00:00 [id number] [place] [address] 02/29/2012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 risks- c/w Eliquis 5mg BID Hypertensi ve renal disease 93641812 I12.9 - elevated today- BP today 142/79 [...] with your vision. Cramp in lower limb 2619 00919 R25.2 - will use tizanidine 4mg as needed Benign pro static hyperplasia 234927938 N40.1 - pt mentions his urinary stream is reduced and he does wake up at night to urinate- pt would to follow-up with Dr. Keyes for this new problem Administra tion of pneumococcal vaccine 00693531 Z23 - pt will like to have it done in 6 months Chronic ki dney disease stage 2 331220881 N18.2 - creatine 1.3, GFR 60, stable- counselled on staying hydrated and avoiding NSAIDS- follows with nephrology , last seen on 05/11/2022 Prediabetes 443368327 R7 3.03 - HbA1c is 6.1 done on 04/16 (worse form last year, 5.9) Ex-smoker 7738715 Z87.89 1 - pack years: 53- quit smokin Dysfunctio n of eustachian tube 15805467 H69.93 Headache 96134061 R51.9 Cardiac pa cemaker in situ 991507190 Z95.0 - [employer] Transition from acute care to self-care 4566314405 43849 Z76.89 - reviewed hospital stay Dizziness 911996507 R42 - improved after placing pace maker [id number] DEANA CORRALES MD Main Office [address] [facility] [address] [place] [address] 10/12/2023 08:36:02 10/12/2023 14:05:34 [id number] DEANA CORRALES MD Main Office [address] [facility] [address] [place] [address] 01/19/2024 08:56:32 01/19/2024 09:29:20 Chronic kidney disease stage 2 393850103 N18.2 - creatine 1.3, GFR 60, stable- counselled on staying hydrated and avoiding NSAIDS- follows with nephrology , last seen on 05/11/2022 Hypertensi ve renal disease 24894661 I12.9 - at goal- BP today 105/66- [...] with your vision. Cramp in lower limb 0049 93122 R25.2 - will use tizanidine 4mg as needed Itching of ear 560937645 L29.8 - pt wanted to switch from dermotic to another solution [id number] DEANA CORRALES MD Main Office [address] [facility] [address] [facility] [place] [address] 04/17/2024 10:36:19 04/17/2024 11:31:05 Chronic kidney disease stage 3A 806347876 N18.31 - creatine 1.3 with FGR of 60- pt does follow with a nephrologi st- pt advised to stay hydrated and avoid NSAIDs Chronic ob structive pulmonary disease 11323970 J44.9 - under good control- pt has stopped smoking about 10 years ago- c/w respirmat 2puff QD- c/w roflumilas t 250mg QD- follows with pulm, last seen on 02/21/2024 -> no change in regimen Parkinsonism 13743573 G2 0.A1 - pt follows with neurology, last seen on 05/12/23 -> no change in regimen- c/w carbidopa 25mg-levod opa 100mg TID Prediabetes 823590294 R7 3.03 - HbA1c is 6.1 done on 04/16 (worse form last year, 5.9)- ordered repeat levels Influenza vaccine needed 1897736980 106 Z23 Will is scheduled flu shot on 04/18/24 at pharmacy Lumbar radiculopathy 128 223411 M54.16 - has been on-going for several years, pt is following with pain management getting infections - pt would like to consider surgery- pt would like to stop tizanidine as it is not providing too much relief- as patient would like surgery would updated MRI lumbar spine and will refer to neurosurge ry Fatigue 40835953 R53.83 Z00.00 Hyperlipidemia 82944198 E78.5 Z00.00 FASTING [id number] DEANA CORRALES MD Main Office [address] [place] [address] 10/23/2024 12:45:00 10/23/2024 13:31:24 Advance directive discussed with patient 546078610 Z71.89 - discussed POLTS and HCP Chronic ki dney disease stage 3A 586898377 N18.31 - creatine 1.38 with GFR of 53- pt does follow with a nephrologi st- pt advised to stay hydrated and avoid NSAIDs Chronic ob structive pulmonary disease 34384062 J44.9 - under good control- pt has stopped smoking about 10 years ago- c/w respirmat 2puff QD- c/w roflumilas t 250mg QD- follows with pulm, last seen on 08/17/2024 -> no change in regimen Hearing loss 31256290 H9 0.3 - wears hearing aids intermitte ntly Parkinsonism 85049061 G2 0.A1 - pt follows with neurology, last seen on 05/14/2024 -> no change in regimen- c/w carbidopa 25mg-levod opa 100mg TID History of pulmonary embolus 517161216 Z86.711 - and DVT (2X)- CHADVASC2 score: 4= 4.8% stroke risk per year- HASBLEED score: 1= low risk of major bleeding- risk of being off anticoagul ation does not out-weight benefit will continue- counselled on bleeding risks- c/w Eliquis 5mg BID Prediabetes 752887188 R7 3.03 - HbA1c is 6.1 done on 04/16 (worse form last year, 5.9)- ordered repeat levels Sleep apnea 02437444 G47 .30 - using cpap Steatotic liver disease 299009521 K76.0 - resolved- ALT-28// T-26 checked 04/16 Adult [facility] th examination 479511614 Z00.00 Health Maintenanc e Lulú) Patient was [...] if any acute complaints Lumbar radiculopathy 128 290512 M54.16 - has been on-going for several years, pt is following with pain management getting infections - pt would like to consider surgery- pt would like to stop tizanidine as it is not providing too much relief- as patient would like surgery would updated MRI lumbar spine and will refer to neurosurge ry Fatigue 03345006 R53.83 Z00.00 Hyperlipidemia 81475004 E78.5 Z00.00 Ex-smoker 8691176 Z87.89 1 - pack years: 55- quit smokin Hypertensi ve renal disease 36577712 I12.9 - at goal- BP today 128/71- [...] with your vision. Cramp in lower limb 8409 92685 R25.2 - will use tizanidine 4mg as needed Benign pro static hyperplasia 860781405 N40.1 - pt mentions his urinary stream is reduced and he does wake up at night to urinate- pt would to follow-up with Dr. Keyes for this new problem Dysfunctio n of eustachian tube 69187671 H69.93 Headache 50145505 R51.9 Cardiac pa cemaker in situ 966575316 Z95.0 - [employer] Vitamin D deficiency 347 01646 E55.9 - vitamin D 19 Body mass index 30+ - obesity 194990253 E66.9 Z68.33 - BMI of 33.5- Cut [...] minutes cumulative of moderate exercise ca webb 280228 Ever Stone MD Main Office [address] [facility] [address] [facility] [place] [address] 01/21/2025 13:08:44 01/21/2025 13:26:55 Otitis externa 4794362 H60.8X2 x1 day of left ear discharge/ [...] LIFE ( - MEDICARE SUPPLEMENT) Seamus Castaneda [id number] Seamus Castaneda 01/21/2025 1 MEDICARE B-[place]: [employer] Seamus Castaneda [id number] Seamus Castaneda 09/21/2021 1 [place]IC[place]: [employer] Seamus Castaneda [id number] Seamus Castaneda Notes Date Note Type Note Provider Name and Address Organization Details Recorded Time 10/14/2023 text/html Hospitalization Contact RecordReported bypatient.Follow UpHospital: [facility]; admit date: (Please enter in format 'MM/DD/YYYY') (09/20/2023); date of discharge: (Please enter in format 'MM/DD/YYYY') (09/22/2023); date of contact: (Please enter in format 'MM/DD/YYYY') (09/23/2023)Notes:Medic are covered inpatient stay? yesMedicare DELLA with in 48 working hours? yesHigh Complexity code valid on or before:SeptemberModerate Complexity code valid on or before:SeptemberHCP on file? noMOLST on file? noDischarge Summary available? 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 DEANA CORRALES MD [address], [address], [facility] 01/19/2024 09:30:29 04/17/2024 text/html Back PainReporte d [...] at this time. DEANA CORRALES MD [address], [address], [facility] 04/17/2024 11:49:27 10/23/2024 text/html Medicare Annual Wellness [...] Directive: none on file DEANA CORRALES MD [address], [address], [facility] [place] 10/23/2024 13:37:43 01/21/2025 text/html Seamus is a 79yr o ld M who presents for left ear drainage x1 day. Reports she was experiencing itching to his left ear and instilled debrox drops and inserting a cotton ball. Since yesterday, has been having discharge/drainage from the left ear. Denies of any pain. DUGLAS MCLEOD [address] [address], [place], [address], [facility] [place] 01/21/2025 13:36:58
--- OUTSIDE RECORDS SUMMARY | 2025-02-13 10:47 | XMS_ITS | Clinical Summary ---
Author Organization [facility] Address [address] [place] [address] Phone Care Team Providers Care Esthetician Facialist Name Role Phone Deana Corrales MD Primary [...] (chronic obstructive pulmonary disease) ( [facility] V24, [facility] V28) Irregular heart beat Sleep apnea Pulmonary embolism ([facility] V24, [facility] V28) Hyperlipidemia DVT (deep venous thrombosis) ([facility] V24, [facility]/ [facility] V28) PTSD (post-traumatic stress disorder) Agent orange exposure Right bundle branch block (RBBB) Rheumatic fever Parkinson's disease ([facility] V24, [facility] V28) CHB (complete heart block) ([facility] V24, [facility] V28) Social History Tobacco Use Types Packs/Day [...] this topic Medical Devices Implanted Type Area Flying Shear Operator Device Identifier Shelf Expiration Date Model / [...] LAB CHEMISTRY METHOD 05/28/2024 8:12 AM EST [facility] eGFR 53(L) >=60 mL/min/1. 73m2 LAB CHEMISTRY METHOD 05/28/2024 8:12 AM EST [facility] Comment:Calculation based on the Chronic Kidney Disease Epidemiology Collaboration (CKD-EPI) equation refit without adjustment for race. Blood Venous blood specimen / Unknown Venipuncture / Unknown 05/28/2024 7:18 AM EST 05/28/2024 7:25 AM EST us Delmar Butler MD LAB BLOOD ORDERABLES Final Resul t [facility] [address] [place] [address], from Last 3 Months or Most Recently Relevant to Health Maintenance Insurance MEDICARE [facility] Care Teams Esthetician Facialist Relationship Specialty Start Date End Date Deana Corrales MD [address] [address] PCP - General Internal Medicine 05/15/24
--- OUTSIDE RECORDS SUMMARY | 2025-02-13 10:47 | XMS_ITS | Patient Health Record ---
[facility] Address [address] [place] [address] Care Team Providers Care Process Stripper Name Role Phone Deana Corrales Primary Care Provider Unavail able Blayne Pena Unavailable [phone] Allergies Allergen (clinical drug ingredient) Drug/Non Drug [...] atherosclerosis of arteries of lower limbs (disorder) (54009305721030983 ) Atherosclerosis of [place] artery of both lower extremities, with unspecified presence of clinical manifestation (I70.203) Active confirmed Q7(A), Q8(2B), Q9(1B,2 C) Vital Signs Heart Rate 72 /min 01/03/2025 Blood pressure diastolic 73 mm Hg 01/03/2025 Height 5ft 11 in in 01/03/2025 Blood pressure systolic 125 mm Hg 01/03/2025 Weight 235 lbs 01/03/2025 BMI 32.77 kg/m2 01/03/2025 Procedures Procedure Date Ordered Date Performed Result Body Sit e 48317-UVAOXSR NAIL, 6 OR MORE 04/19/2024 N/A 50650-Nkritgiu Plate 04/19/2024 N/A 00988-QPTZ SKIN LESIONS, 2 TO 4 04/19/2024 N/A 34678-OCORJBV NAIL, 6 OR MORE 10/05/2024 N/A 85927-WABF SKIN LESIONS, 2 TO 4 10/05/2024 N/A 51301-NTGXZLX NAIL, 6 OR MORE 01/03/2025 N/A 57936-UJGE SKIN LESIONS, 2 TO 4 01/03/2025 N/A Encounters Encounter Location Date Provider Diagnosis [facility] [address] [place] [address] 04/19/2024 Blayne Pena Atherosclerosis of [place] artery of both lower extremities, with unspecified presence of clinical manifestation I70.203 ; Tinea unguium B35.1 ; Pain in right toe(s) M79.674 ; Pain in left toe(s) M79.675 and Ingrown nail L60.[address] [address] 10/05/2024 Blayne Pena Atherosclerosis of [place] artery of both lower extremities, with unspecified presence of clinical manifestation I70.203 ; Tinea unguium B35.1 ; Pain in right toe(s) M79.674 and Pain in left toe(s) M79.675 [facility] [address] [facility] [address] [place] [address] 01/03/2025 Blaynebandar Pena Atherosclerosis of [place] artery of both lower extremities, with unspecified presence of clinical manifestation I70.203 ; Tinea unguium B35.1 ; Pain in right toe(s) M79.674 and Pain in left toe(s) M79.[address] [address] 07/31/2024 Blayne Pena Assessments Encounter Date Diagnosis (ICD Code) Assessment Notes Treatment Notes Treatment Clinical Notes Section Notes 04/19/2024 Tinea unguium (ICD-10 - B35.1) 04/19/2024 Atherosclerosis of [place] artery of both lower extremities, with unspecified presence of clinical manifestation (ICD-10 - I70.203) 10/05/2024 Tinea unguium (ICD-10 - B35.1) 10/05/2024 Atherosclerosis of [place] artery of both lower extremities, with unspecified presence of clinical manifestation (ICD-10 - I70.203) Q7(A), Q8(2B), Q9(1B,2C) 01/03/2025 Tinea unguium (ICD-10 - B35.1) 01/03/2025 Atherosclerosis of [place] artery of both lower extremities, with unspecified [...] X ray : Foot, right 3V 04/21/2022 71415-HFMMLHU NAIL, 6 OR MORE 07/07/2023 58411-SDKHAQN NAIL, 6 OR MORE 10/13/2023 43991-XATLFUT NAIL, 6 OR MORE 01/30/2024 11499-MLAZEOG NAIL, 6 OR MORE 04/19/2024 45636-FGACVTU NAIL, 6 OR MORE 10/05/2024 64249-VNNXJXX NAIL, 6 OR MORE 01/03/2025 16313-ZEAZDZM NAIL, 6 OR MORE 07/01/2022 54022-AAYELAA NAIL, 6 OR MORE 10/14/2021 26220-JGBWWSZ NAIL, 6 OR MORE 01/06/2022 61736-SBXQMXR NAIL, 6 OR MORE 03/30/2022 95926-ATWOGOB NAIL, 6 OR MORE 10/07/2022 02176-HOYRVPO NAIL, 6 OR MORE 12/30/2022 57307-LVOPZNM NAIL, 6 OR MORE 03/31/2023 58703-Omardmej Plate 04/19/2024 67973-Rqnssjsz Plate 07/07/2023 44743-IQYB SKIN LESIONS, 2 TO 4 07/07/20 23 43118-VYZO SKIN LESIONS, 2 TO 4 01/30/20 24 35437-AECI SKIN LESIONS, 2 TO 4 10/13/19 24 13814-SJPU SKIN LESIONS, 2 TO 4 01/04/20 25 68649-TBFX SKIN LESIONS, 2 TO 4 10/06/19 25 88555-EFXI SKIN LESIONS, 2 TO 4 04/19/20 24 30748-DTVP SKIN LESIONS, 2 TO 4 03/31/20 23 57084-MFBB SKIN LESIONS, 2 TO 4 12/31/19 16382-OYMA SKIN LESIONS, 2 TO 4 10/08/19 23 58385-CIVX SKIN LESIONS, 2 TO 4 03/30/20 00602-ZILT SKIN LESIONS, 2 TO 4 01/07/20 01866-TBCB SKIN LESIONS, 2 TO 4 10/15/19 31085-GQKM SKIN LESIONS, 2 TO 4 07/01/20 Next Appt Details Provider Name:Blayne Pena , 04/10/2025 08:45:00 AM, [address] [facility], [address], [place], [address], Insurance Providers Payer Name Payer Address Payer Phone Subscriber Number Group Number Insured Name Patient Relationship to Insured Coverage Start Date Coverage End Date Medicare National [employer] [address] [place] [address] [id number] Seamus Castaneda Self - patient is the insured [employer] [address] [place] [address] [id number] Seamus Castaneda Self - patient is the insured Medical (General) History Medical History History ICD Code Back,Hip,and Knee pain Broken bones Parkinsons disease Tuberculosis Chicken pox Joint implants/screws CAD DVTs and PEs Pacemaker Surgical History Surgery Date(Month/Year) knee surgery, right back injections 2021 colonoscopy 10/05/22 Pacemaker 10/10/23 Hospitalization History Reason Date(Month/Year) [facility] Pacemaker w/new leads 09/2023 [facility] 2024
== END 2025-02-13 10:59 | disposition home or self-care (01) ==
LOC: HO.PMC 09:58
PROVIDERS: PCP Student in an Organized Health Care Education/Training Program; Visit Provider Internal Medicine
DX: M16.0 Bilateral primary osteoarthritis of hip (principal)
CPT/HCPCS: 99213

== ENCOUNTER → 2025-02-13 09:57 | Outpatient (BNVA) | payer MEDICARE, OTHER, SELFPAY | PROVIDERS: PCP Student in an Organized Health Care Education/Training Program; Visit Provider Internal Medicine | DX: M16.0 Bilateral primary osteoarthritis of hip (principal) | CPT/HCPCS: 99212 ==

== ENCOUNTER 2025-03-15 11:14 | Outpatient (AMB) | payer MEDICARE, OTHER, SELFPAY ==
--- NOTE | 2025-03-15 11:16 | MHC.OFFVIS ---
Vital Signs 03/15/25 11:17 Height 5 ft 11 in Weight 234 lb BMI 32.6 BP 143/86 H Blood Pressure Location Lt brachial Position Sitting Respiration 16 Pulse 81 Pulse Source Pulse Oximeter Pulse Oximetry (%) 96 Oxygen Delivery Method Room Air Intake Visit Reasons: Left hip pain Field Education Coordinator Required: No Allergies fluticasone furoate (Trelegy Ellipta) Allergy (Severe, Verified 03/15/25 11:18) Thrush umeclidinium (Trelegy Ellipta) Allergy (Severe, Verified 03/15/25 11:18) Thrush vilanterol (Trelegy Ellipta) Allergy (Severe, Verified 03/15/25 11:18) Thrush Medication List - Last Reconciled 03/15/25 by Beatrice Rader LPN amlodipine 2.5 mg PO DAILY atorvastatin 20 mg PO DAILY ekkliroglp-kvqtflmtrwxmd-rphy 50-300-40 mg 1 cap PO Q8H PRN carbidopa-levodopa 25-100 mg 1 tab PO QID 90 days cholecalciferol (vitamin D3) 25 mcg PO DAILY 90 days clotrimazole 1% appl topical PRN Eliquis (apixaban) 5 mg PO BID NS ketoconazole 2% 1 appl topical 2XW sertraline 25 mg PO DAILY tiotropium-olodaterol 2.5-2.5 mcg/actuation (Stiolto Respimat) 2 inhalations inhalation DAILY tizanidine 4 mg PO BEDTIME PRN HPI HPI Left hip pain: Details: History of Present Illness The patient is a 79-year-old male presenting with left hip pain. The pain originates in the core lumbar left flank and extends towards the left greater trochanteric bursa and the lateral aspect of the thigh. The patient reports that the pain is sometimes severe enough to require the application of Biofreeze, which provides relief for three to four hours. On days when the pain is less severe, the patient can walk without initial discomfort, but prolonged walking exacerbates the pain. The pain does not radiate towards the back and is localized to the side. The patient has not experienced this pain prior to the current episode. A previous hip injection was administered on January 17, but it was not a bursa injection. The last bursa injection was given in September. That injection did provide relief for current symptoms for >3 months. Pain Description - Onset: Recent episode, no prior history of similar pain - Quality: Severe at times, requiring topical analgesic application - Location: Core lumbar left flank to left greater trochanteric bursa and lateral thigh - Radiation: No radiation to the back, localized to the side - Exacerbating factors: Prolonged walking - Relieving factors: Biofreeze application providing temporary relief Physical Exam - Appears afebrile. - Alert and oriented. - Mood and affect appropriate. - Follows and participates in conversation appropriately. - Respiratory effort is unlabored. - Able to transition from sit to stand unassisted. - Ambulates with bilaterally normal heel strike and toe off. - Able to stand and walk on toes and heels. [facility] Medical History Has daytime drowsiness Dyspnea Dyspnea Personal history of nicotine dependence Obesity [place] on CPAP Pulmonary emboli Pulmonary nodules COPD (chronic obstructive pulmonary disease) Surgical History S/P placement of cardiac pacemaker (~08/2023) History of total right knee replacement (TKR) (~2018) History of appendectomy Family History Father Heart disease Mother Heart disease Social History Alcohol intake: current Alcohol intake frequency: a few times a week Patient Tobacco Use Status: Former Tobacco user Physical Exam Vital Signs: Last Vital Signs Pulse 81 03/15/25 11:17 Resp 16 03/15/25 11:17 BP 143/86 H 03/15/25 11:17 Pulse Ox 96 03/15/25 11:17 Oxygen Delivery Method Room Air 03/15/25 11:17 BMI result Body Mass Index 32.6 Assessment & Plan Assessment & Plan (1) Trochanteric bursitis of left hip: Code(s): M70.62 - Trochanteric bursitis, left hip Category: Medical Plan Plan - Plan to repeat a left greater trochanteric bursa injection. Patient was informed and verbally consented to the use of an ambient scribe for clinic note documentation during this visit. Discussion Notes I discussed with the patient the option of repeating the bursa injection to alleviate the left hip pain. We agreed to schedule the procedure for the of the month, prior to his travel plans. Patient Instructions - Apply Biofreeze as needed for temporary pain relief. - Attend the scheduled appointment for the bursa injection on the . - Monitor pain levels and avoid prolonged walking if it exacerbates the pain. Coding Level of Care Code Est Pt Level 3 (76628) Diagnoses Trochanteric bursitis of left hip M70.62
[2025-03-15 11:17] VITALS: BP 143/86; PULSE 81; RESP 16; O2SAT 96; BMI 32.6
--- OUTSIDE RECORDS SUMMARY | 2025-03-15 11:21 | XMS_ITS | Clinical Summary ---
Author Organization [facility] Address [address] [place] [address] Phone Care Team Providers Care Paste Up Worker Name Role Phone Deana Corrales MD Primary [...] Hypertension COPD (chronic obstructive pulmonary disease) ( [facility] V24, [facility] V28) Irregular heart beat Sleep apnea Pulmonary embolism ([facility] V24, [facility] V28) Hyperlipidemia DVT (deep venous thrombosis) ([facility] V24, [facility] V28) PTSD (post-traumatic stress disorder) Agent orange exposure Right bundle branch block (RBBB) Rheumatic fever Parkinson's disease ([facility] V24, [facility] V28) CHB (complete heart block) ([facility] V24, [facility] V28) Social History Tobacco Use Types [...] this topic Medical Devices Implanted Type Area Technology Education Instructor Device Identifier Shelf Expiration Date Model / [...] LAB CHEMISTRY METHOD 05/28/2024 8:12 AM EST [facility] eGFR 53(L) >=60 mL/min/1. 73m2 LAB CHEMISTRY METHOD 05/28/2024 8:12 AM EST [facility] Comment:Calculation based on the Chronic Kidney Disease Epidemiology Collaboration (CKD-EPI) equation refit without adjustment for race. Blood Venous blood specimen / Unknown Venipuncture / Unknown 05/28/2024 7:18 AM EST 05/28/2024 7:25 AM EST us Delmar Butler MD LAB BLOOD ORDERABLES Final Resul t [facility] ([facility] [address] [place] [address], from Last 3 Months or Most Recently Relevant to Health Maintenance Insurance MEDICARE [facility] Care Teams Paste Up Worker Relationship Specialty Start Date End Date Deana Corrales MD [address] [phone] PCP - General Internal Medicine 05/15/24
--- OUTSIDE RECORDS SUMMARY | 2025-03-15 11:21 | XMS_ITS | Clinical Summary ---
Author Organization [facility], Address [address] [place] [address] [place] [address] Phone Care Team Providers Care Books Salesperson Name Role Phone Unavailable Primary Care Provider [...] time each day Active Cobalamin Combinations (VITAMIN E18-QUSIX ACID PO)Indications:S tage 3a chronic kidney disease (HCC) vitamin D74-excml acid 1 po qd Active amLODIPine (NORVASC) [...] Visit [facility], [address] [place] [address] Juan F Hutton MD [address] [place] [address] Health Maintenance Due Date Last [...] AM EDT) Hemoglobin A1C 6.1(H) (4.0-5.6) % [facility] Comment: MONITORING: In known diabetic patients, hemoglobin A1c targets should be discussed with health care provider. DIAGNOSTIC USE: The [place] Diabetes Association (ADA) and the World Health [...] Supplement 1 Testing performed or reported by [facility], a Service of [facility], [address] [place] [id number] Juan Antonio Pérez MD, General Labor Blood specimen (specimen) Venous blood / Unknown 12/26/2020 8:04 AM EDT 12/26/2020 8:07 AM EDT us Juan F Hutton MD LAB BLOOD ORDERABLES Final Resul t [facility] from Last 3 Months or Most Recently Relevant to Health Maintenance Insurance Medicare [facility]
--- OUTSIDE RECORDS SUMMARY | 2025-03-15 11:21 | XMS_ITS | Clinical Summary ---
Author Organization [facility] Address [address] [place] [address] Phone Care Team Providers Care Train Examiner Name Role Phone Margie Hinojosa MD Primary [...] Insurance [place] [id number] [facility] MEDICARE SUPPLEMENT MEDICARE PART A & [place] [address] [address] MEDICARE SUPPLEMENT MEDICARE PART A & B FOR LIFE MEDICARE SUPPLEMENT MEDICARE PART A & B [employer] MEDICARE SUPPLEMENT MEDICARE PART A & B [employer] MEDICARE SUPPLEMENT MEDICARE PART A & B FOR LIFE MEDICARE SUPPLEMENT MEDICARE PART A & B [facility] MEDICARE SUPPLEMENT MEDICARE PART A & B [facility] MEDICARE SUPPLEMENT MEDICARE PART A & B [facility] MEDICARE SUPPLEMENT Care Teams Train Examiner Relationship Specialty Start Date End Date Margie Hinojosa MD [address] [place] [phone] PCP - General Internal Medicine 02/11/20 Additional Source Comments The information contained in this document represents components of the legal health record. It is not the complete legal health record.[facility]
--- OUTSIDE RECORDS SUMMARY | 2025-03-15 11:21 | XMS_ITS | Patient Health Record ---
Author Organization [facility] Address [address] [facility] [place] [address] Care Team Providers Care Button Maker And Installer Name Role Phone Deana Corrales Primary Care Provider Unavail able Blayne Pena Unavailable [phone] Allergies Allergen (clinical drug ingredient) Drug/Non Drug [...] COVID-19 Pfizer BioNTech Vaccine Unknown 04/08/2024 Administered Influenza Unknown 04/08/2024 Administered Pneumococcal Unknown 04/08/2024 Administered Social History Tobacco Use: [...] atherosclerosis of arteries of lower limbs (disorder) ([id number] ) Atherosclerosis of chitimacha artery of both lower extremities, with unspecified presence of clinical manifestation (I70.203) Active confirmed Q7(A), Q8(2B), Q9(1B,2 C) Vital Signs Heart Rate 72 /min 01/03/2025 Blood pressure diastolic 73 mm Hg 01/03/2025 Height 5ft 11 in in 01/03/2025 Blood pressure systolic 125 mm Hg 01/03/2025 Weight 235 lbs 01/03/2025 BMI 32.77 kg/m2 01/03/2025 Procedures Procedure Date Ordered Date Performed Result Body Sit e 17598-WSSRGRU NAIL, 6 OR MORE 04/19/2024 N/A 66222-Ttjdsirr Plate 04/19/2024 N/A 75705-HLYC SKIN LESIONS, 2 TO 4 04/19/2024 N/A 05093-NYKSMBA NAIL, 6 OR MORE 10/05/2024 N/A 61780-VDSM SKIN LESIONS, 2 TO 4 10/05/2024 N/A 73931-NEZUBHG NAIL, 6 OR MORE 01/03/2025 N/A 96712-CTJF SKIN LESIONS, 2 TO 4 01/03/2025 N/A Encounters Encounter Location Date Provider Diagnosis [facility] [place] [address] [place] [phone] 04/19/2024 Blayne Pena Atherosclerosis of chitimacha artery of both lower extremities, with unspecified presence of clinical manifestation I70.203 ; Tinea unguium B35.1 ; Pain in right toe(s) M79.674 ; Pain in left toe(s) M79.675 and Ingrown nail L60.[address] [address] 10/05/2024 Blayne Pena Atherosclerosis of chitimacha artery of both lower extremities, with unspecified presence of clinical manifestation I70.203 ; Tinea unguium B35.1 ; Pain in right toe(s) M79.674 and Pain in left toe(s) M79.675 [facility] [address] [facility] [address] [place] [address] 01/03/2025 Blaynebandar Pena Atherosclerosis of chitimacha artery of both lower extremities, with unspecified presence of clinical manifestation I70.203 ; Tinea unguium B35.1 ; Pain in right toe(s) M79.674 and Pain in left toe(s) M79.[address] [address] 07/31/2024 Blayne Pena Assessments Encounter Date Diagnosis (ICD Code) Assessment Notes Treatment Notes Treatment Clinical Notes Section Notes 04/19/2024 Tinea unguium (ICD-10 - B35.1) 04/19/2024 Atherosclerosis of chitimacha artery of both lower extremities, with unspecified presence of clinical manifestation (ICD-10 - I70.203) 10/05/2024 Tinea unguium (ICD-10 - B35.1) 10/05/2024 Atherosclerosis of chitimacha artery of both lower extremities, with unspecified presence of clinical manifestation (ICD-10 - I70.203) Q7(A), Q8(2B), Q9(1B,2C) 01/03/2025 Tinea unguium (ICD-10 - B35.1) 01/03/2025 Atherosclerosis of chitimacha artery of both lower extremities, with unspecified [...] X ray : Foot, right 3V 04/21/2022 14338-XWCIWMS NAIL, 6 OR MORE 07/07/2023 36759-VHTJRZS NAIL, 6 OR MORE 10/13/2023 14935-ONQNBHU NAIL, 6 OR MORE 01/30/2024 09361-TVUSVQU NAIL, 6 OR MORE 04/19/2024 84408-CKHCTEX NAIL, 6 OR MORE 10/05/2024 10623-IHLUPJS NAIL, 6 OR MORE 01/03/2025 68489-JYVUOLH NAIL, 6 OR MORE 07/01/2022 14161-YLMPJFY NAIL, 6 OR MORE 10/14/2021 43090-NZQGYGW NAIL, 6 OR MORE 01/06/2022 98478-FRZTYGX NAIL, 6 OR MORE 03/30/2022 65242-EGPQLMV NAIL, 6 OR MORE 10/07/2022 01556-XDLSOLO NAIL, 6 OR MORE 12/30/2022 20403-ILIZAMR NAIL, 6 OR MORE 03/31/2023 60308-Bsgdcjxi Plate 04/19/2024 30161-Mlfpsnwv Plate 07/07/2023 81735-CPED SKIN LESIONS, 2 TO 4 07/07/20 23 37004-VGZW SKIN LESIONS, 2 TO 4 01/30/20 24 97372-NXCC SKIN LESIONS, 2 TO 4 10/13/19 24 58262-DRKF SKIN LESIONS, 2 TO 4 01/04/20 25 71364-CVLL SKIN LESIONS, 2 TO 4 10/06/19 25 74237-QRFB SKIN LESIONS, 2 TO 4 04/19/20 24 13586-FPDO SKIN LESIONS, 2 TO 4 03/31/20 23 49186-AQYN SKIN LESIONS, 2 TO 4 12/31/19 60074-UHGP SKIN LESIONS, 2 TO 4 10/08/19 23 03643-QGTH SKIN LESIONS, 2 TO 4 03/30/20 36334-RAMX SKIN LESIONS, 2 TO 4 01/07/20 08783-WTGD SKIN LESIONS, 2 TO 4 10/15/19 51023-PQSR SKIN LESIONS, 2 TO 4 07/01/20 Next Appt Details Provider Name:Blayne Pena , 04/10/2025 08:45:00 AM, [address] [facility], [address], [place], [address], Insurance Providers Payer Name Payer Address Payer Phone Subscriber Number Group Number Insured Name Patient Relationship to Insured Coverage Start Date Coverage End Date Medicare National [employer]t [employer] [address] [facility] [address] [id number] Seamus Castaneda Self - patient is the insured [employer] [address] [place] [address] [id number] Seamus Castaneda Self - patient is the insured Medical (General) History Medical History History ICD Code Back,Hip,and Knee pain Broken bones Parkinsons disease Tuberculosis Chicken pox Joint implants/screws CAD DVTs and PEs Pacemaker Surgical History Surgery Date(Month/Year) knee surgery, right back injections 2021 colonoscopy 10/05/22 Pacemaker 10/10/23 Hospitalization History Reason Date(Month/Year) [facility] Pacemaker w/new leads 09/2023 [facility] 2024
== END 2025-03-15 12:12 | disposition home or self-care (01) ==
LOC: HO.PMC 11:15
PROVIDERS: PCP Student in an Organized Health Care Education/Training Program; Visit Provider Internal Medicine
DX: M70.62 Trochanteric bursitis, left hip (principal)
CPT/HCPCS: 99213

== ENCOUNTER → 2025-03-15 11:14 | Outpatient (BNVA) | payer MEDICARE, OTHER, SELFPAY | PROVIDERS: PCP Student in an Organized Health Care Education/Training Program; Visit Provider Internal Medicine | DX: M70.62 Trochanteric bursitis, left hip (principal) | CPT/HCPCS: 99212 ==

== ENCOUNTER 2025-03-20 09:57 | Outpatient (AMB) | payer MEDICARE, OTHER, SELFPAY ==
--- OUTSIDE RECORDS SUMMARY | 2024-10-09 12:00 | XMS_ITS ---
Author Organization [facility] Address [address] [place] [address] Care Team Providers Care Color Buffer Name Role Phone Deana Corrales Primary Care Provider Unavail Blayne Arriaza Unavailable [phone] REASON FOR VISIT r/s for sooner apt Encounters Encounter Location Date Provider Diagnosis [address] [address] 10/09/2024 Blayne Pena Plan Of Treatment Next Appt Details Provider Name:Blayne Pena , 04/10/2025 08:45:00 AM, [address], [phone], Progress Notes * Seamus FRAGA DDOB:1945 (79 yo M)Acc No.[id number]:10/09/2024 Progress Note Patient: Ekaterina MULLIGAN Seamus Small Provider: Karl Pena DPM :1945 A ge:78 Y S ex:Male Date:10/09/2024 Address:[address] [place] [address] Pcp:Deana Corrales Subjective: * Chief Complaints: * 1 . R/s for sooner apt. * Medical History: Objective: * Vitals: Assessment: Plan: * Treatment: * Images: * The named appointment provid er may or may not be the originator of this progress note, and it is not deemed complete until electronically signed by the appointment provider. Sign off status: Pending * Provider: Karl Pena DPM Date: 0 10/09/2024 Generated for Natalie Alcazar/Jaspal on: 0 03/20/2025 10:41 AM EDT
[2025-03-20 10:26] VITALS: BP 143/69; PULSE 77; RESP 16; O2SAT 92; BMI 32.6
--- NOTE | 2025-03-20 10:26 | MHC.OFFVIS ---
Vital Signs 03/20/25 10:26 Height 5 ft 11 in Weight 234 lb BMI 32.6 BP 143/69 H Blood Pressure Location Lt brachial Position Sitting Respiration 16 Pulse 77 Pulse Source Pulse Oximeter Pulse Oximetry (%) 92 Oxygen Delivery Method Room Air Intake Visit Reasons: Left GTB Hot Mill Operator Required: No Aviation Engineer: Aviation Engineer Present Accompanied by: Omkar Cleaning Allergies fluticasone furoate (Trelegy Ellipta) Allergy (Severe, Verified 03/20/25 10:27) Thrush umeclidinium (Trelegy Ellipta) Allergy (Severe, Verified 03/20/25 10:27) Thrush vilanterol (Trelegy Ellipta) Allergy (Severe, Verified 03/20/25 10:27) Thrush Medication List - Last Reconciled 03/20/25 by Beatrice Radre LPN amlodipine 2.5 mg PO DAILY atorvastatin 20 mg PO DAILY sjzhnecskg-fxxokcvqbhxmb-ptni 50-300-40 mg 1 cap PO Q8H PRN carbidopa-levodopa 25-100 mg 1 tab PO QID 90 days cholecalciferol (vitamin D3) 25 mcg PO DAILY 90 days clotrimazole 1% appl topical PRN Eliquis (apixaban) 5 mg PO BID NS ketoconazole 2% 1 appl topical 2XW sertraline 25 mg PO DAILY tiotropium-olodaterol 2.5-2.5 mcg/actuation (Stiolto Respimat) 2 inhalations inhalation DAILY tizanidine 4 mg PO BEDTIME PRN HPI HPI Left GTB: Details: Procedure - Procedure: Ultrasound-guided injection to the left greater trochanteric bursa. - Consent: Informed consent was obtained from the patient. - Details: A 21-gauge needle was advanced under ultrasound guidance to the left greater trochanteric bursa, and 20 mg of Kenalog mixed with 0.25% ropivacaine 2 mL was injected. - Additional Injection: The needle was slightly withdrawn and placed over the left gluteus medius tendon, and an additional 2 mL of 0.25% ropivacaine mixed with 20 mg of Kenalog was injected. - Outcome: No pain during the procedure, negative aspiration for heme and synovial fluid, and no blood loss. The patient tolerated the procedure well. - Follow-up: Ultrasound images of the injection were saved to the patient's record, and follow-up as needed for repeat injection. PFSH Medical History Has daytime drowsiness Dyspnea Dyspnea Personal history of nicotine dependence Obesity [place] on CPAP Pulmonary emboli Pulmonary nodules COPD (chronic obstructive pulmonary disease) Surgical History S/P placement of cardiac pacemaker (~08/2023) History of total right knee replacement (TKR) (~2018) History of appendectomy Family History Father Heart disease Mother Heart disease Social History Alcohol intake: current Alcohol intake frequency: a few times a week Patient Tobacco Use Status: Former Tobacco user Physical Exam Vital Signs: Last Vital Signs Pulse 77 03/20/25 10:26 Resp 16 03/20/25 10:26 BP 143/69 H 03/20/25 10:26 Pulse Ox 92 03/20/25 10:26 Oxygen Delivery Method Room Air 03/20/25 10:26 BMI result Body Mass Index 32.6 Assessment & Plan Assessment & Plan (1) Trochanteric bursitis of left hip: Code(s): M70.62 - Trochanteric bursitis, left hip Category: Medical Plan Plan Patient was informed and verbally consented to the use of an ambient scribe for clinic note documentation during this visit. Patient is status post left ultrasound-guided greater trochanteric bursa injection. Patient tolerated procedure well and was discharged home in stable condition with discharge instructions. All questions were answered. We will follow-up via telephone or in clinic to assess response to therapy. A follow-up appointment was made during today's visit. Coding Level of Care Code Procedure Only Diagnoses Trochanteric bursitis of left hip M70.62
--- OUTSIDE RECORDS SUMMARY | 2025-03-20 10:42 | XMS_ITS | Clinical Summary ---
Author Organization [facility] Address [address] [place] [address] Phone Care Team Providers Care Community Health Consultant Name Role Phone Margie Hinojosa MD Primary [...] Insurance MEDICARE PART A & [place] [id number] [facility] MEDICARE SUPPLEMENT MEDICARE PART A & [place] [address] MEDICARE SUPPLEMENT MEDICARE PART A & B FOR LIFE MEDICARE SUPPLEMENT MEDICARE PART A & B [employer] MEDICARE SUPPLEMENT MEDICARE PART A & B [employer] MEDICARE SUPPLEMENT MEDICARE PART A & B [employer] MEDICARE SUPPLEMENT MEDICARE PART A & B [facility] MEDICARE SUPPLEMENT MEDICARE PART A & B [facility] MEDICARE SUPPLEMENT MEDICARE PART A & B [facility] MEDICARE SUPPLEMENT Care Teams Community Health Consultant Relationship Specialty Start Date End Date Margie Hinojosa MD [address] [place] [phone] PCP - General Internal Medicine 02/11/20 Additional Source Comments The information contained in this document represents components of the legal health record. It is not the complete legal health record.[facility]
--- OUTSIDE RECORDS SUMMARY | 2025-03-20 10:42 | XMS_ITS | Patient Health Record ---
[facility] Address [address] [place] [address] Care Team Providers Care Telecommunications Sales Representative Name Role Phone Deana Corrales Primary Care Provider Unavail able Blayne Pena Unavailable [phone] Allergies Allergen (clinical drug ingredient) Drug/Non Drug [...] atherosclerosis of arteries of lower limbs (disorder) ([id number] ) Atherosclerosis of [place] artery of both lower extremities, with unspecified presence of clinical manifestation (I70.203) Active confirmed Q7(A), Q8(2B), Q9(1B,2 C) Vital Signs Heart Rate 72 /min 01/03/2025 Blood pressure diastolic 73 mm Hg 01/03/2025 Height 5ft 11 in in 01/03/2025 Blood pressure systolic 125 mm Hg 01/03/2025 Weight 235 lbs 01/03/2025 BMI 32.77 kg/m2 01/03/2025 Procedures Procedure Date Ordered Date Performed Result Body Sit e 68106-HYQKKMR NAIL, 6 OR MORE 04/19/2024 N/A 08607-Rmyyzgmv Plate 04/19/2024 N/A 25842-RUFH SKIN LESIONS, 2 TO 4 04/19/2024 N/A 61956-SMAPSHI NAIL, 6 OR MORE 10/05/2024 N/A 28793-HQKS SKIN LESIONS, 2 TO 4 10/05/2024 N/A 15030-QSRSFST NAIL, 6 OR MORE 01/03/2025 N/A 67252-RQBQ SKIN LESIONS, 2 TO 4 01/03/2025 N/A Encounters Encounter Location Date Provider Diagnosis [facility] [address] [place] [phone] 04/19/2024 Blayne Pena Atherosclerosis of [place] artery of both lower extremities, with unspecified presence of clinical manifestation I70.203 ; Tinea unguium B35.1 ; Pain in right toe(s) M79.674 ; Pain in left toe(s) M79.675 and Ingrown nail L60.[address] [address] 10/05/2024 Blayne Pena Atherosclerosis of [place] artery of both lower extremities, with unspecified presence of clinical manifestation I70.203 ; Tinea unguium B35.1 ; Pain in right toe(s) M79.674 and Pain in left toe(s) M79.675 [facility] [address] [facility] [address] [place] [address] 01/03/2025 Blayneabndar Pena Atherosclerosis of [place] artery of both lower extremities, with unspecified presence of clinical manifestation I70.203 ; Tinea unguium B35.1 ; Pain in right toe(s) M79.674 and Pain in left toe(s) M79.[address] [address] 07/31/2024 Blayne Pena Assessments Encounter Date Diagnosis (ICD Code) Assessment Notes Treatment Notes Treatment Clinical Notes Section Notes 04/19/2024 Tinea unguium (ICD-10 - B35.1) 04/19/2024 Atherosclerosis of [place] artery of both lower extremities, with unspecified presence of clinical manifestation (ICD-10 - I70.203) 10/05/2024 Tinea unguium (ICD-10 - B35.1) 10/05/2024 Atherosclerosis of [place] artery of both lower extremities, with unspecified presence of clinical manifestation (ICD-10 - I70.203) Q7(A), Q8(2B), Q9(1B,2C) 01/03/2025 Tinea unguium (ICD-10 - B35.1) 01/03/2025 Atherosclerosis of [place] artery of both lower extremities, with unspecified [...] X ray : Foot, right 3V 04/21/2022 00785-NTSFEMQ NAIL, 6 OR MORE 07/07/2023 85070-BQEBFXZ NAIL, 6 OR MORE 10/13/2023 19850-ONFICMN NAIL, 6 OR MORE 01/30/2024 18519-RCKOCBK NAIL, 6 OR MORE 04/19/2024 56472-GUKRLCX NAIL, 6 OR MORE 10/05/2024 22461-HPQQYHP NAIL, 6 OR MORE 01/03/2025 51247-EXBESNI NAIL, 6 OR MORE 07/01/2022 13072-OHCJLGG NAIL, 6 OR MORE 10/14/2021 16251-SLAGWKM NAIL, 6 OR MORE 01/06/2022 03562-FDKTAQM NAIL, 6 OR MORE 03/30/2022 97528-EECRKEG NAIL, 6 OR MORE 10/07/2022 10410-PKVRLTC NAIL, 6 OR MORE 12/30/2022 71702-YDXRFDC NAIL, 6 OR MORE 03/31/2023 89851-Xobtwkca Plate 04/19/2024 49345-Gcsjbrkl Plate 07/07/2023 18942-DMEG SKIN LESIONS, 2 TO 4 07/07/20 23 22079-KZKB SKIN LESIONS, 2 TO 4 01/30/20 24 54772-ZNSO SKIN LESIONS, 2 TO 4 10/13/19 24 42196-JENJ SKIN LESIONS, 2 TO 4 01/04/20 25 39511-SCSP SKIN LESIONS, 2 TO 4 10/06/19 25 40841-NOLT SKIN LESIONS, 2 TO 4 04/19/20 24 26299-JOWD SKIN LESIONS, 2 TO 4 03/31/20 23 10730-KPHB SKIN LESIONS, 2 TO 4 12/31/19 09426-NIPR SKIN LESIONS, 2 TO 4 10/08/19 23 96433-EALF SKIN LESIONS, 2 TO 4 03/30/20 13101-NMTN SKIN LESIONS, 2 TO 4 01/07/20 37151-HJDH SKIN LESIONS, 2 TO 4 10/15/19 46061-KRUB SKIN LESIONS, 2 TO 4 07/01/20 Next Appt Details Provider Name:Blayne Pena , 04/10/2025 08:45:00 AM, [address] [facility], [address], [place], [address], Insurance Providers Payer Name Payer Address Payer Phone Subscriber Number Group Number Insured Name Patient Relationship to Insured Coverage Start Date Coverage End Date Medicare National [employer]t [employer] [address] [facility] [place] [address] [id number] Seamus Castaneda Self - patient is the insured [employer] [address] [place] [address] [id number] Seamus Castaneda Self - patient is the insured Medical (General) History Medical History History ICD Code Back,Hip,and Knee pain Broken bones Parkinsons disease Tuberculosis Chicken pox Joint implants/screws CAD DVTs and PEs Pacemaker Surgical History Surgery Date(Month/Year) knee surgery, right back injections 2021 colonoscopy 10/05/22 Pacemaker 10/10/23 Hospitalization History Reason Date(Month/Year) [facility] Pacemaker w/new leads 09/2023 [facility] 2024
--- OUTSIDE RECORDS SUMMARY | 2025-03-20 10:42 | XMS_ITS | Encounter Summary ---
Author Organization [facility], Address [address] [place] [address] Phone Care Team Providers Care Pole Classifier Name Role Phone Unavailable Primary Care Provider Unavailabl e Encounter Details Date Type Department Care Team (Late st Contact Info) Description 05/05/2022 Documentation Only [facility] [address] [place] [address] Zhen Renee PA [address] [place] [address] Social History Tobacco Use Types Packs/Day Years [...] Visit [facility] [address] [place] [phone] Juan F Hutton MD [address] [place] [address] documented as of this encounter Visit Diagnoses Not on filedocumented in this encounter
--- OUTSIDE RECORDS SUMMARY | 2025-03-20 10:42 | XMS_ITS | Encounter Summary ---
Author Organization [facility] Address [address] [place] [address] Phone Care Team Providers Care Manager Diesel Name Role Phone Unavailable Primary Care Provider Unavailabl e Encounter Details Date Type Department Care Team (Late st Contact Info) Description 07/09/2024 Documentation Only [facility] [address] [place] [address] Annita Landeros [address] [place] [phone] Social History Tobacco Use Types Packs/Day Years [...] Visit [facility] [address] [place] [phone] Juan F Hutton MD [address] [place] [phone] documented as of this encounter Visit Diagnoses Not on filedocumented in this encounter
--- OUTSIDE RECORDS SUMMARY | 2025-03-20 10:42 | XMS_ITS | Clinical Summary ---
Author Organization [facility], Address [address] [place] [address] [place] [address] Phone Care Team Providers Care Dependency Program Director Name Role Phone Unavailable Primary Care Provider [...] time each day Active Cobalamin Combinations (VITAMIN Q06-UZAFN ACID PO)Indications:S tage 3a chronic kidney disease (HCC) vitamin E57-mdquo acid 1 po qd Active amLODIPine (NORVASC) [...] Visit [facility] [place], [address] [place] [address] Juan F Hutton MD [address] [place] [address] Health Maintenance Due Date Last [...] AM EDT) Hemoglobin A1C 6.1(H) (4.0-5.6) % [facility] Comment: MONITORING: In known diabetic patients, hemoglobin A1c targets should be discussed with health care provider. DIAGNOSTIC USE: The [place] Diabetes Association (ADA) and the World Health [...] Supplement 1 Testing performed or reported by [facility], a Service of [facility], [address] [place] [id number] Juan Antonio Pérez MD, Naturalization Examiner Blood specimen (specimen) Venous blood / Unknown 12/26/2020 8:04 AM EDT 12/26/2020 8:07 AM EDT us Juan F Hutton MD LAB BLOOD ORDERABLES Final Resul t [facility] from Last 3 Months or Most Recently Relevant to Health Maintenance Insurance Medicare [facility]
--- OUTSIDE RECORDS SUMMARY | 2025-03-20 10:42 | XMS_ITS | Clinical Summary ---
Author Organization [facility] Address [address] [place] [address] Phone Care Team Providers Care Customer Solutions Representative Name Role Phone Deana Corrales MD Primary [...] Hypertension COPD (chronic obstructive pulmonary disease) ( [facility] V24, [facility] V28) Irregular heart beat Sleep apnea Pulmonary embolism ([facility] V24, [facility] V28) Hyperlipidemia DVT (deep venous thrombosis) ([facility] V24, [facility]/ [facility] V28) PTSD (post-traumatic stress disorder) Agent orange exposure Right bundle branch block (RBBB) Rheumatic fever Parkinson's disease ([facility] V24, [facility] V28) CHB (complete heart block) ([facility] V24, [facility] V28) Social History Tobacco Use Types [...] this topic Medical Devices Implanted Type Area Vending Manager Device Identifier Shelf Expiration Date Model [...] LAB CHEMISTRY METHOD 05/28/2024 8:12 AM EST [facility] eGFR 53(L) >=60 mL/min/1. 73m2 LAB CHEMISTRY METHOD 05/28/2024 8:12 AM EST [facility] Comment:Calculation based on the Chronic Kidney Disease Epidemiology Collaboration (CKD-EPI) equation refit without adjustment for race. Blood Venous blood specimen / Unknown Venipuncture / Unknown 05/28/2024 7:18 AM EST 05/28/2024 7:25 AM EST us Delmar Butler MD LAB BLOOD ORDERABLES Final Resul t [facility] [address] [place] [address], from Last 3 Months or Most Recently Relevant to Health Maintenance Insurance MEDICARE [facility] Care Teams Customer Solutions Representative Relationship Specialty Start Date End Date Deana Corrales MD [address] [phone] PCP - General Internal Medicine 05/15/24
== END 2025-03-20 11:58 | disposition home or self-care (01) ==
LOC: HO.PMC 09:58
PROVIDERS: PCP Student in an Organized Health Care Education/Training Program; Visit Provider Internal Medicine
DX: M70.62 Trochanteric bursitis, left hip (principal)
CPT/HCPCS: 20611

== ENCOUNTER → 2025-03-20 09:57 | Outpatient (BNVA) | payer MEDICARE, OTHER, SELFPAY | PROVIDERS: PCP Student in an Organized Health Care Education/Training Program; Visit Provider Internal Medicine | DX: M70.62 Trochanteric bursitis, left hip (principal) | CPT/HCPCS: 20611; J2795; J3301 ==